=== PATIENT | female | born 1940 | race Caucasian/White ===

== ENCOUNTER 2016-12-03 00:35 | Inpatient (IN) | payer MEDICARE, OTHER ==
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
[2016-12-03 01:17] LABS: % BASOPHILS 0.9 % (0.0-2.0); % EOSINOPHILS 3.8 % (0.0-5.0); % LYMPHOCYTES 31.2 % (20.0-50.0); % MONOCYTES 7.4 % (2.0-10.0); % NEUTROPHILS 56.7 % (40.0-80.0); HEMATOCRIT 36.4 % (35.0-45.0); HEMOGLOBIN 12.4 gm/dL (11.7-16.1); MEAN CELL VOLUME 85.7 fl (81-100); MEAN CORPUSCULAR HEMOGLOBIN 29.2 pg (27.0-31.0); MEAN PLATELET VOLUME 8.6 fl; NEUTROPHILE ABSOLUTE 4.6 Th/cmm (1.8-8.0); PLATELET COUNT 183 Th/cmm (150-400); RED BLOOD COUNT 4.25 Mil/cmm (3.80-5.20); RED CELL DISTRIBUTION WIDTH 12.1 % (11.5-20.0); WHITE BLOOD COUNT 8.2 Th/cmm (4.8-10.8)
[2016-12-03 01:25] LABS: ALB/GLOB RATIO 1.4 (1.0-1.8); ALKALINE PHOSPHATASE 62 U/L (34-104); ANION GAP 9.2 (7.0-16.0); BILIRUBIN,TOTAL 0.3 mg/dL (0.3-1.0); BUN - UREA NITROGEN 30 mg/dL (7-25); CALCIUM SERUM 9.6 mg/dL (8.6-10.3); CARBON DIOXIDE 26.4 mEq/L (21.0-31.0); CHLORIDE 106 mEq/L (98-107); CHOLESTEROL 171 mg/dL (<200); GLUCOSE 106 mg/dL (70-105); POTASSIUM SERUM 3.6 mEq/L (3.5-5.1); SGOT 13 U/L (13-39); SGPT/ALT 9 U/L (7-52); SODIUM SERUM 138 mEq/L (136-145); TRIGLYCERIDES 122 mg/dL (<150)
[2016-12-03] MEDS ORDERED: Fleet Enema 135 mL RC PRN (02:33)
[2016-12-03] MEDS ORDERED: Magnesium Hydroxide (MOM) 30 mL UDC PO PRN (02:33)
[2016-12-03 02:37] VITALS: BP 134/78
--- NOTE | 2016-12-03 08:43 | History and Physical ---
History of Present Illness - HPI Chief Complaint: Aggressive behavior HPI: Patient is a permanent resident of a assisted and was send to ER for evaluation of aggressive behavior. Vital Signs: Last Vital Signs Temp 97.3 F 12/03/16 02:30 Pulse 63 12/03/16 08:28 Resp 18 12/03/16 02:30 BP 142/73 12/03/16 08:28 Pulse Ox 97 12/03/16 02:30 Past Medical History Cardiovascular: Report: HTN Pulmonary: Report: No Pertinent Hx CERTIFIED PEER SPECIALIST: Report: CVA, Dementia GI: Report: No Pertinent Hx Psych: Report: Depression, Psychosis Musculoskeletal: Report: No Pertinent Hx Rheumatologic: Report: No pertinent Hx Renal/: Report: Chronic Renal Insuff Endocrine: Report: No Pertinent Hx Dermatology: Report: No Pertinent Hx - Past Surgical History Past Surgical History: No pertinent Hx Family Medical History - Family Member Mother Name:: unknown Ethnicity: Unknown Living Status: Unknown Hx Family Cancer: No Hx Family Coronary Artery Disease: No Hx Family Congestive Heart Failure: No Hx Family Hypertension: No Hx Family Stroke: No Hx Family Diabetes: No Hx Family Seizures: No Hx Family Dementia: No Hx Family AIDS: No Hx Family HIV: No Hx Family COPD: No Hx Family Hepatitis: No Hx Family Psychiatric Problems: No Hx Family Tuberculosis: No Social History Smoke: No Alcohol: None Drugs: None Lives: Alone Domestic Violence: Negative Health Maintenance Health Maintenance: Cholesterol - Medications Home Medications: Home Medication Medication Instructions Recorded Type Acetaminophen [Tylenol] 650 mg PO Q4HR PRN 12/03/16 History Amlodipine Besylate 5 mg PO DAILY 12/03/16 History Aspirin [Ecotrin] 81 mg PO DAILY 12/03/16 History Bisacodyl [Dulcolax 10 Mg Supp] 10 mg RC DAILY PRN 12/03/16 History Cranberry Fruit Concentrate 450 mg PO DAILY 12/03/16 History [Cranberry] Docusate Sodium [Colace] 100 mg PO DAILY 12/03/16 History Fleet Enema [Fleet Enema] 1 dose RC Q48HR PRN 12/03/16 History Magnesium Hydroxide [Milk of 30 ml PO HS PRN 12/03/16 History Magnesia] QUEtiapine Fumarate [SEROquel] 75 mg PO BID 12/03/16 History Sertraline [Zoloft] 25 mg PO DAILY 12/03/16 History Simvastatin [Zocor*] 20 mg PO QPM 12/03/16 History Temazepam [Restoril*] 15 mg PO HS PRN 12/03/16 History - Allergies Allergies/Adverse Reactions: Allergies Allergy/AdvReac Type Severity Reaction Status Date / Time pollen extracts Allergy Verified 12/03/16 01:16 Review of Systems - Review of Systems Constitutional: Report: No Significant Eyes: Report: No Significant ENT: Report: No Significant Respiratory: Report: No Significant Cardiovascular: Report: No Significant Gastrointestinal: Report: No Significant Genitourinary: Report: No Significant Musculoskeletal: Report: No Significant Skin: Report: No Significant Neurological: Report: Confusion Physical Exam - Physical Exam HEENT: Report: Ears Nose Throat within normal limits Neck: Report: Within normal limits Cardiovascular Systems: Report: Regular, Rate and Rhythm Respiratory: Report: Breath Sounds are within normal limits Abdomen: Report: Non-tender to palpation Back: Report: Inspection of back is within normal limits. Extremities: Report: Non-tender to palpation. Skin: Report: Color of skin is within normal limits Neuro/Psych: Report: Disoriented to name time or place - Lab Results All Lab Results last 24 hours: Laboratory Last Values WBC 8.2 Th/cmm (4.8-10.8) 12/03/16 00:58 RBC 4.25 Mil/cmm (3.80-5.20) 12/03/16 00:58 Hgb 12.4 gm/dL (11.7-16.1) 12/03/16 00:58 Hct 36.4 % (35.0-45.0) 12/03/16 00:58 MCV 85.7 fl (81-100) 12/03/16 00:58 MCH 29.2 pg (27.0-31.0) 12/03/16 00:58 MCHC Differential 34.0 pg (28.0-36.0) 12/03/16 00:58 RDW 12.1 % (11.5-20.0) 12/03/16 00:58 Plt Count 183 Th/cmm (150-400) 12/03/16 00:58 MPV 8.6 fl 12/03/16 00:58 Neutrophils % 56.7 % (40.0-80.0) 12/03/16 00:58 Lymphocytes % 31.2 % (20.0-50.0) 12/03/16 00:58 Monocytes % 7.4 % (2.0-10.0) 12/03/16 00:58 Eosinophils % 3.8 % (0.0-5.0) 12/03/16 00:58 Basophils % 0.9 % (0.0-2.0) 12/03/16 00:58 Sodium 138 mEq/L (136-145) 12/03/16 00:58 Potassium 3.6 mEq/L (3.5-5.1) 12/03/16 00:58 Chloride 106 mEq/L (98-107) 12/03/16 00:58 Carbon Dioxide 26.4 mEq/L (21.0-31.0) 12/03/16 00:58 Anion Gap 9.2 (7.0-16.0) 12/03/16 00:58 BUN 30 mg/dL (7-25) H 12/03/16 00:58 Creatinine 1.0 mg/dL (0.6-1.2) 12/03/16 00:58 Est GFR ( Amer) TNP 12/03/16 00:58 Est GFR (Non-Af Amer) TNP 12/03/16 00:58 BUN/Creatinine Ratio 30.0 12/03/16 00:58 Glucose 106 mg/dL (70-105) H 12/03/16 00:58 Calcium 9.6 mg/dL (8.6-10.3) 12/03/16 00:58 Total Bilirubin 0.3 mg/dL (0.3-1.0) 12/03/16 00:58 AST 13 U/L (13-39) 12/03/16 00:58 ALT 9 U/L (7-52) 12/03/16 00:58 Alkaline Phosphatase 62 U/L (34-104) 12/03/16 00:58 Total Protein 6.5 gm/dL (6.0-8.3) 12/03/16 00:58 Albumin 3.8 gm/dL (3.7-5.3) 12/03/16 00:58 Globulin 2.7 gm/dL 12/03/16 00:58 Albumin/Globulin Ratio 1.4 (1.0-1.8) 12/03/16 00:58 Triglycerides 122 mg/dL (<150) 12/03/16 00:58 Cholesterol 171 mg/dL (<200) 12/03/16 00:58 LDL Cholesterol Direct 110 mg/dL (75-193) 12/03/16 00:58 HDL Cholesterol 48 mg/dL (23-92) 12/03/16 00:58 TSH 0.94 uIU/ml (0.34-5.60) 12/03/16 00:58 - Assessment Assessment: Patient is a permanent resident of a assisted. She is awake, calm. DX: Increased in agitation, HTN, Dementia, Hx of CVA, Dyslipemia. - Plan Plan: Patient under psychiatric care. Will continue with SNF meds. Will continue to monitor.
[2016-12-03] MEDS ORDERED: Haloperidol Lactate 5 mg/mL 1mL Vial ONE (08:54)
[2016-12-03] MEDS ORDERED: Haloperidol Lactate 5 mg/mL 1mL Vial IM ONE (08:55)
[2016-12-03] MEDS ORDERED: Non-Formulary Item 1 EA (Cranberry Fruit Concentrate [Cranberry] 450 MG) PO SCH (09:00)
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
[2016-12-04] MEDS ORDERED: Haloperidol Lactate 5 mg/mL 1mL Vial ONE (13:59)
[2016-12-04] MEDS ORDERED: Haloperidol Lactate 5 mg/mL 1mL Vial IM ONE ×2 (13:59→14:09)
--- NOTE | 2016-12-04 16:19 | Progress Notes ---
DATE: 12/04/2016 PSYCHIATRIC PROGRESS NOTE SUBJECTIVE: Staff was spoken to. The patient is interviewed. The patient's mood is noted to be irritable. Affect is constricted. Insight and judgment are very much impaired. Impulse control seems to be poor. Coping skills are also noted to be poor. The patient has been constantly banging on the doors to get out of here. The patient has been having difficult time to cope with the stress. The patient is stating that she needs to get into the college. The patient is currently not able to contact for safety at home. The patient has no insight into her illness. ASSESSMENT: The patient is still grossly psychotic and impulsive. PLAN: To continue the patient with supportive therapy. I encouraged the patient to verbalize the concerns rather than to act out. The patient is not ready to be discharged to a lower level of care. The patient is going to be placed on ____ the Seroquel and the Zoloft is going to be discontinued. The patient is going to be closely monitored with supportive therapy. JOB# [id number]
--- NOTE | 2016-12-04 23:22 | Admit Criteria Form ---
Admit Criteria Forms - Admit Criteria Diagnosis: PSYCHIATRIC DISORDERS (Place 'X' for any and all applicable criteria): Ongoing inpatient care may be needed for 1 or more of the following(1)(2)(3)(4)( 6)(7)(8): [ ]I. Danger to self or others not manageable at lower level of care. [ ]II. Grave disability (eg, inability to perform self care necessary at lower level of care) [X ]III. Agitation or inappropriate behavior interfering with care for primary condition (eg, attempting to discontinue lines or drains prematurely, unable to cooperate with respiratory care) [ ]IV. Severe disability or disorder indicated by ALL of the following: [ ]a) Severe behavioral health disorder-related symptoms or condition indicated by 1 or more of the following: [ ]i) Severe problem with cognition, memory, judgment, or impulse control [ ]ii) Severe clinical manifestations (eg, hallucinations, delusions, other acute psychotic symptoms, cyndie, extreme agitation or anxiety) [ ]b) Patient management at lower level of care is not feasible until acute intervention or modification is initiated. Extended stay beyond goal length of stay for the primary condition may be needed until ALLof the following are present(1)(2)(3)(4)(722)(23): [ ]a) Danger to self or others is absent or manageable at lower level of care [ ]b) Behavior crisis management, including physical or chemical restraints, is required and is not available at a lower level of care. [ ]c) Behavioral symptoms (e.g., agitation, somnolence, inappropriate behavior) are present, and are not manageable at a lower level of care. [ ]d) Patient cannot understand follow-up treatment and crisis plan. [ ]e) Provider and supports are sufficiently available at lower level of care. [ ]f) Patient can participate (e.g., verify absence of plan for harm) and is in needed of monitoring. The original [facility] content created by [facility] has been revised. The portions of the content which have been revised are identified through the use of italic text or in bold, and [facility] has neither reviewed nor approved the modified material. All other unmodified content is copyright [facility]. Please see references footnoted in the original [facility] edition 2017 Admit Criteria Met?: Yes
[2016-12-05 19:20] LABS: URINE BILIRUBIN NEGATIVE (NEGATIVE); URINE BLOOD LARGE (NEGATIVE); URINE GLUCOSE (UA) NEGATIVE (NEGATIVE); URINE KETONE NEGATIVE (NEGATIVE); URINE PROTEIN NEGATIVE (NEGATIVE); URINE UROBILINOGEN 0.2 E.U./dL (0.2 - 1.0)
[2016-12-05 19:23] LABS: URINE COLOR YELLOW
[2016-12-05 19:38] LABS: URINE BACTERIA FEW /hpf (NONE SEEN); URINE EPITHELIAL CELLS NONE SEEN /lpf (FEW)
--- NOTE | 2016-12-05 21:17 | Progress Notes ---
DATE: 12/05/2016 SUBJECTIVE: Staff was spoken to. The patient is interviewed. Mood is noted to be irritable. Affect is constricted. Insight and judgment are noted to be still impaired. Impulse control seems to be poor. Coping skills are also noted to be poor. The patient is irritable and angry and has been testing the limits. The patient has no insight into her illness. The patient has been given couple of dose of the Haldol. The patient has been constantly testing the limits and then trying to look at the dose, to leave the facility. The patient has no insight. The patient is encouraged to verbalize her concerns rather than to act out. In view of her impulsivity, it is decided to put the patient on Depakote, which is going to be given at 250 mg twice a day in regards to her irritability and mood swings and the patient is going to be closely monitored and encouraged to verbalize the concerns. ASSESSMENT: The patient is still psychotic and impulsive. PLAN: To continue with the supportive therapy. I encouraged the patient to verbalize the concerns rather than to act out. The patient is not ready to be discharged to a lower level of care yet. JOB# [id number]
--- NOTE | 2016-12-06 08:48 | General Progress Note ---
Subjective - Review of Systems Service Date: 12/06/16 Subjective: I am OK Objective - Results Result Diagrams: 12/03/16 00:58 12/03/16 00:58 Recent Labs: Laboratory Last Values WBC 8.2 Th/cmm (4.8-10.8) 12/03/16 00:58 RBC 4.25 Mil/cmm (3.80-5.20) 12/03/16 00:58 Hgb 12.4 gm/dL (11.7-16.1) 12/03/16 00:58 Hct 36.4 % (35.0-45.0) 12/03/16 00:58 MCV 85.7 fl (81-100) 12/03/16 00:58 MCH 29.2 pg (27.0-31.0) 12/03/16 00:58 MCHC Differential 34.0 pg (28.0-36.0) 12/03/16 00:58 RDW 12.1 % (11.5-20.0) 12/03/16 00:58 Plt Count 183 Th/cmm (150-400) 12/03/16 00:58 MPV 8.6 fl 12/03/16 00:58 Neutrophils % 56.7 % (40.0-80.0) 12/03/16 00:58 Lymphocytes % 31.2 % (20.0-50.0) 12/03/16 00:58 Monocytes % 7.4 % (2.0-10.0) 12/03/16 00:58 Eosinophils % 3.8 % (0.0-5.0) 12/03/16 00:58 Basophils % 0.9 % (0.0-2.0) 12/03/16 00:58 Sodium 138 mEq/L (136-145) 12/03/16 00:58 Potassium 3.6 mEq/L (3.5-5.1) 12/03/16 00:58 Chloride 106 mEq/L (98-107) 12/03/16 00:58 Carbon Dioxide 26.4 mEq/L (21.0-31.0) 12/03/16 00:58 Anion Gap 9.2 (7.0-16.0) 12/03/16 00:58 BUN 30 mg/dL (7-25) H 12/03/16 00:58 Creatinine 1.0 mg/dL (0.6-1.2) 12/03/16 00:58 Est GFR ( Amer) TNP 12/03/16 00:58 Est GFR (Non-Af Amer) TNP 12/03/16 00:58 BUN/Creatinine Ratio 30.0 12/03/16 00:58 Glucose 106 mg/dL (70-105) H 12/03/16 00:58 Calcium 9.6 mg/dL (8.6-10.3) 12/03/16 00:58 Total Bilirubin 0.3 mg/dL (0.3-1.0) 12/03/16 00:58 AST 13 U/L (13-39) 12/03/16 00:58 ALT 9 U/L (7-52) 12/03/16 00:58 Alkaline Phosphatase 62 U/L (34-104) 12/03/16 00:58 Total Protein 6.5 gm/dL (6.0-8.3) 12/03/16 00:58 Albumin 3.8 gm/dL (3.7-5.3) 12/03/16 00:58 Globulin 2.7 gm/dL 12/03/16 00:58 Albumin/Globulin Ratio 1.4 (1.0-1.8) 12/03/16 00:58 Triglycerides 122 mg/dL (<150) 12/03/16 00:58 Cholesterol 171 mg/dL (<200) 12/03/16 00:58 LDL Cholesterol Direct 110 mg/dL (75-193) 12/03/16 00:58 HDL Cholesterol 48 mg/dL (23-92) 12/03/16 00:58 TSH 0.94 uIU/ml (0.34-5.60) 12/03/16 00:58 Urine Source CLEAN C 12/05/16 18:20 Urine Color YELLOW 12/05/16 18:20 Urine Clarity SLIGHT CLOUDY (CLEAR) 12/05/16 18:20 Urine pH 6.0 (4.6 - 8.0) 12/05/16 18:20 Ur Specific [place] 1.015 (1.005-1.030) 12/05/16 18:20 Urine Protein NEGATIVE mg/dL (NEGATIVE) 12/05/16 18:20 Urine Glucose (UA) NEGATIVE mg/dL (NEGATIVE) 12/05/16 18:20 Urine Ketones NEGATIVE mg/dL (NEGATIVE) 12/05/16 18:20 Urine Blood LARGE (NEGATIVE) H 12/05/16 18:20 Urine Nitrate NEGATIVE (NEGATIVE) 12/05/16 18:20 Urine Bilirubin NEGATIVE (NEGATIVE) 12/05/16 18:20 Urine Urobilinogen 0.2 E.U./dL (0.2 - 1.0) 12/05/16 18:20 Ur Leukocyte Esterase MODERATE (NEGATIVE) H 12/05/16 18:20 Urine RBC 10-25 /hpf (0-5) H 12/05/16 18:20 Urine WBC 10-25 /hpf (0-5) H 12/05/16 18:20 Ur Epithelial Cells NONE SEEN /lpf (FEW) 12/05/16 18:20 Urine Bacteria FEW /hpf (NONE SEEN) 12/05/16 18:20 RPR NONREACTIVE (NONREACTIVE) 12/03/16 00:58 - Physical Exam Vitals and I&O: Vital Signs Temp 97.2 F 12/06/16 06:56 Pulse 59 12/06/16 06:56 Resp 19 12/06/16 06:56 BP 129/58 12/06/16 06:56 Pulse Ox 98 12/06/16 06:56 Intake & Output 12/05/16 12/06/16 12/06/16 18:59 06:59 18:59 Intake Total 900 240 Balance 900 240 Intake: Oral 900 240 Other: # Voids 4 1 # Bowel Movements 1 Active Medications: Current Medications Acetaminophen (Tylenol) 650 mg PO Q4HR PRN PRN Reason: Pain or Fever >101 Stop: 02/01/17 02:32 Amlodipine Besylate (Norvasc) 5 mg PO DAILY COUNT INCLUDES THE [facility] Stop: 02/01/17 08:59 Last Admin: 12/05/16 09:06 Dose: 5 mg Aspirin (Ecotrin) 81 mg PO DAILY COUNT INCLUDES THE [facility] Stop: 02/01/17 08:59 Last Admin: 12/05/16 09:05 Dose: 81 mg Bisacodyl (Dulcolax 10 Mg Supp) 10 mg RC DAILY PRN PRN Reason: Constipation Stop: 02/01/17 02:32 Ciprofloxacin (Cipro) 250 mg PO BID COUNT INCLUDES THE [facility] Stop: 12/12/16 17:01 Divalproex Sodium (Depakote Dr) 250 mg PO BID RHIANNA PRN Reason: Protocol Stop: 02/03/17 16:59 Last Admin: 12/05/16 16:54 Dose: 250 mg Docusate Sodium (Colace) 100 mg PO DAILY RHIANNA Stop: 02/01/17 08:59 Last Admin: 12/05/16 09:05 Dose: 100 mg Lorazepam (Ativan) 1 mg PO Q6HR PRN; Protocol PRN Reason: Agitation Stop: 02/03/17 09:14 Magnesium Hydroxide (Milk Of Magnesia) 30 ml PO HS PRN PRN Reason: Constipation Stop: 02/01/17 02:32 Quetiapine Fumarate (Seroquel) 100 mg PO BID RHIANNA PRN Reason: Protocol Stop: 02/02/17 12:20 Last Admin: 12/05/16 16:53 Dose: 100 mg Simvastatin (Zocor) 20 mg PO QPM RHIANNA PRN Reason: Protocol Stop: 02/01/17 16:59 Last Admin: 12/05/16 16:54 Dose: 20 mg Sodium Phosphate (Fleet Enema) 135 ml RC Q48H PRN PRN Reason: Constipation Stop: 02/01/17 02:32 Temazepam (Restoril) 15 mg PO HS PRN; Protocol PRN Reason: Insomnia Stop: 02/01/17 02:32 General: Alert, No acute distress, Other (Confused) HEENT: Atraumatic Neck: Supple Cardiovascular: Regular rate Lungs: Clear to auscultation Abdomen: Bowel sounds, Soft Extremities: Other (No edema) Neurological: Normal gait Skin: Other (Warm and dry) Psych/Mental Status: Other (Confused, not oriented) Assessment/Plan - Assessment Assessment: Patient is awake, calm, confused. DX: Increased in agitation, HTN, Dementia, Hx of CVA, Dyslipemia. - Plan Plan: Patient under psychiatric care. Will continue with SNF meds. Will continue to monitor.
--- NOTE | 2016-12-07 00:22 | Progress Notes ---
DATE: 12/06/2016 PSYCHIATRIC PROGRESS NOTE TIME PATIENT SEEN: 6:00 p.m. Staff was spoken to. The patient is interviewed. Mood is noted to be irritable. Affect is constricted. Insight and judgment at this time are noted to be very much impaired. Impulse control seems to be poor. Coping skills are also noted to be poor. The patient is constantly argumentative. The patient has no insight into her illness. The patient still has been argumentative and has been becoming a major problem with the behavior. Coping skills are noted to be very poor. In view of her acute mood swings, it is decided to increase the dose on the Depakote to 500 mg twice a day. I encouraged the patient to verbalize her concerns rather than to act out. The patient is going to be continued on the Seroquel as ordered. JOB# [id number]
--- NOTE | 2016-12-07 08:37 | General Progress Note ---
Subjective - Review of Systems Service Date: 12/07/16 Subjective: I am OK Objective - Results Result Diagrams: 12/03/16 00:58 12/03/16 00:58 Recent Labs: Laboratory Last Values WBC 8.2 Th/cmm (4.8-10.8) 12/03/16 00:58 RBC 4.25 Mil/cmm (3.80-5.20) 12/03/16 00:58 Hgb 12.4 gm/dL (11.7-16.1) 12/03/16 00:58 Hct 36.4 % (35.0-45.0) 12/03/16 00:58 MCV 85.7 fl (81-100) 12/03/16 00:58 MCH 29.2 pg (27.0-31.0) 12/03/16 00:58 MCHC Differential 34.0 pg (28.0-36.0) 12/03/16 00:58 RDW 12.1 % (11.5-20.0) 12/03/16 00:58 Plt Count 183 Th/cmm (150-400) 12/03/16 00:58 MPV 8.6 fl 12/03/16 00:58 Neutrophils % 56.7 % (40.0-80.0) 12/03/16 00:58 Lymphocytes % 31.2 % (20.0-50.0) 12/03/16 00:58 Monocytes % 7.4 % (2.0-10.0) 12/03/16 00:58 Eosinophils % 3.8 % (0.0-5.0) 12/03/16 00:58 Basophils % 0.9 % (0.0-2.0) 12/03/16 00:58 Sodium 138 mEq/L (136-145) 12/03/16 00:58 Potassium 3.6 mEq/L (3.5-5.1) 12/03/16 00:58 Chloride 106 mEq/L (98-107) 12/03/16 00:58 Carbon Dioxide 26.4 mEq/L (21.0-31.0) 12/03/16 00:58 Anion Gap 9.2 (7.0-16.0) 12/03/16 00:58 BUN 30 mg/dL (7-25) H 12/03/16 00:58 Creatinine 1.0 mg/dL (0.6-1.2) 12/03/16 00:58 Est GFR ( Amer) TNP 12/03/16 00:58 Est GFR (Non-Af Amer) TNP 12/03/16 00:58 BUN/Creatinine Ratio 30.0 12/03/16 00:58 Glucose 106 mg/dL (70-105) H 12/03/16 00:58 Calcium 9.6 mg/dL (8.6-10.3) 12/03/16 00:58 Total Bilirubin 0.3 mg/dL (0.3-1.0) 12/03/16 00:58 AST 13 U/L (13-39) 12/03/16 00:58 ALT 9 U/L (7-52) 12/03/16 00:58 Alkaline Phosphatase 62 U/L (34-104) 12/03/16 00:58 Total Protein 6.5 gm/dL (6.0-8.3) 12/03/16 00:58 Albumin 3.8 gm/dL (3.7-5.3) 12/03/16 00:58 Globulin 2.7 gm/dL 12/03/16 00:58 Albumin/Globulin Ratio 1.4 (1.0-1.8) 12/03/16 00:58 Triglycerides 122 mg/dL (<150) 12/03/16 00:58 Cholesterol 171 mg/dL (<200) 12/03/16 00:58 LDL Cholesterol Direct 110 mg/dL (75-193) 12/03/16 00:58 HDL Cholesterol 48 mg/dL (23-92) 12/03/16 00:58 TSH 0.94 uIU/ml (0.34-5.60) 12/03/16 00:58 Urine Source CLEAN C 12/05/16 18:20 Urine Color YELLOW 12/05/16 18:20 Urine Clarity SLIGHT CLOUDY (CLEAR) 12/05/16 18:20 Urine pH 6.0 (4.6 - 8.0) 12/05/16 18:20 Ur Specific [place] 1.015 (1.005-1.030) 12/05/16 18:20 Urine Protein NEGATIVE mg/dL (NEGATIVE) 12/05/16 18:20 Urine Glucose (UA) NEGATIVE mg/dL (NEGATIVE) 12/05/16 18:20 Urine Ketones NEGATIVE mg/dL (NEGATIVE) 12/05/16 18:20 Urine Blood LARGE (NEGATIVE) H 12/05/16 18:20 Urine Nitrate NEGATIVE (NEGATIVE) 12/05/16 18:20 Urine Bilirubin NEGATIVE (NEGATIVE) 12/05/16 18:20 Urine Urobilinogen 0.2 E.U./dL (0.2 - 1.0) 12/05/16 18:20 Ur Leukocyte Esterase MODERATE (NEGATIVE) H 12/05/16 18:20 Urine RBC 10-25 /hpf (0-5) H 12/05/16 18:20 Urine WBC 10-25 /hpf (0-5) H 12/05/16 18:20 Ur Epithelial Cells NONE SEEN /lpf (FEW) 12/05/16 18:20 Urine Bacteria FEW /hpf (NONE SEEN) 12/05/16 18:20 RPR NONREACTIVE (NONREACTIVE) 12/03/16 00:58 - Physical Exam Vitals and I&O: Vital Signs Temp 98 F 12/07/16 07:06 Pulse 96 12/07/16 07:06 Resp 19 12/07/16 07:06 BP 158/72 12/07/16 07:06 Pulse Ox 99 12/07/16 07:06 Intake & Output 12/06/16 12/07/16 12/07/16 18:59 06:59 18:59 Intake Total 200 240 0 Balance 200 240 0 Intake: Oral 200 240 0 Other: # Voids 1 3 # Bowel Movements 0 Active Medications: Current Medications Acetaminophen (Tylenol) 650 mg PO Q4HR PRN PRN Reason: Pain or Fever >101 Stop: 02/01/17 02:32 Amlodipine Besylate (Norvasc) 5 mg PO DAILY [facility] Stop: 02/01/17 08:59 Last Admin: 12/06/16 09:42 Dose: 5 mg Aspirin (Ecotrin) 81 mg PO DAILY [facility] Stop: 02/01/17 08:59 Last Admin: 12/06/16 09:41 Dose: 81 mg Bisacodyl (Dulcolax 10 Mg Supp) 10 mg RC DAILY PRN PRN Reason: Constipation Stop: 02/01/17 02:32 Ciprofloxacin (Cipro) 250 mg PO BID [facility] Stop: 12/12/16 17:01 Last Admin: 12/06/16 18:41 Dose: Not Given Divalproex Sodium (Depakote Dr) 500 mg PO BID [facility] PRN Reason: Protocol Stop: 02/03/17 16:59 Docusate Sodium (Colace) 100 mg PO DAILY [facility] Stop: 02/01/17 08:59 Last Admin: 12/06/16 09:41 Dose: 100 mg Lorazepam (Ativan) 1 mg PO Q6HR PRN; Protocol PRN Reason: Agitation Stop: 02/03/17 09:14 Magnesium Hydroxide (Milk Of Magnesia) 30 ml PO HS PRN PRN Reason: Constipation Stop: 02/01/17 02:32 Quetiapine Fumarate (Seroquel) 100 mg PO BID [facility] PRN Reason: Protocol Stop: 02/02/17 12:20 Last Admin: 12/06/16 18:42 Dose: Not Given Simvastatin (Zocor) 20 mg PO QPM [facility] PRN Reason: Protocol Stop: 02/01/17 16:59 Last Admin: 12/06/16 18:43 Dose: Not Given Sodium Phosphate (Fleet Enema) 135 ml RC Q48H PRN PRN Reason: Constipation Stop: 02/01/17 02:32 Temazepam (Restoril) 15 mg PO HS PRN; Protocol PRN Reason: Insomnia Stop: 02/01/17 02:32 General: Alert, No acute distress, Other (Confused) HEENT: Atraumatic Neck: Supple Cardiovascular: Regular rate Lungs: Clear to auscultation Abdomen: Bowel sounds, Soft Extremities: Other (No edema) Neurological: Normal gait Skin: Other (Warm and dry) Psych/Mental Status: Other (Confused, not oriented) Assessment/Plan - Assessment Assessment: Patient is awake, calm, confused. DX: Increased in agitation, HTN, Dementia, Hx of CVA, Dyslipemia. - Plan Plan: Patient under psychiatric care. Will continue with SNF meds. Will continue to monitor.
--- NOTE | 2016-12-07 15:21 | Progress Notes ---
DATE: 12/07/2016 SUBJECTIVE: Staff was spoken to. The patient is interviewed. Mood is noted to be irritable. Affect is constricted. The patient's insight and judgment are noted to be still impaired. Impulse control is limited. The patient has been placed on 500 mg of Depakote yesterday, but the patient is still trying to hit the staff members and could not be contained and hence it is decided to change the Seroquel to 150 mg twice a day and the patient is going to be followed up. The patient continues to be paranoid and is not making much sense. The patient has been having difficult time to follow the directions. ASSESSMENT: The patient is still impulsive. PLAN: To continue the patient with the supportive therapy. I encouraged the patient to verbalize the concerns rather than to act out. JOB# [id number]
--- NOTE | 2016-12-08 08:35 | General Progress Note ---
Subjective - Review of Systems Service Date: 12/08/16 Subjective: I am OK . Objective - Results Result Diagrams: 12/03/16 00:58 12/03/16 00:58 Recent Labs: Laboratory Last Values WBC 8.2 Th/cmm (4.8-10.8) 12/03/16 00:58 RBC 4.25 Mil/cmm (3.80-5.20) 12/03/16 00:58 Hgb 12.4 gm/dL (11.7-16.1) 12/03/16 00:58 Hct 36.4 % (35.0-45.0) 12/03/16 00:58 MCV 85.7 fl (81-100) 12/03/16 00:58 MCH 29.2 pg (27.0-31.0) 12/03/16 00:58 MCHC Differential 34.0 pg (28.0-36.0) 12/03/16 00:58 RDW 12.1 % (11.5-20.0) 12/03/16 00:58 Plt Count 183 Th/cmm (150-400) 12/03/16 00:58 MPV 8.6 fl 12/03/16 00:58 Neutrophils % 56.7 % (40.0-80.0) 12/03/16 00:58 Lymphocytes % 31.2 % (20.0-50.0) 12/03/16 00:58 Monocytes % 7.4 % (2.0-10.0) 12/03/16 00:58 Eosinophils % 3.8 % (0.0-5.0) 12/03/16 00:58 Basophils % 0.9 % (0.0-2.0) 12/03/16 00:58 Sodium 138 mEq/L (136-145) 12/03/16 00:58 Potassium 3.6 mEq/L (3.5-5.1) 12/03/16 00:58 Chloride 106 mEq/L (98-107) 12/03/16 00:58 Carbon Dioxide 26.4 mEq/L (21.0-31.0) 12/03/16 00:58 Anion Gap 9.2 (7.0-16.0) 12/03/16 00:58 BUN 30 mg/dL (7-25) H 12/03/16 00:58 Creatinine 1.0 mg/dL (0.6-1.2) 12/03/16 00:58 Est GFR ( Amer) TNP 12/03/16 00:58 Est GFR (Non-Af Amer) TNP 12/03/16 00:58 BUN/Creatinine Ratio 30.0 12/03/16 00:58 Glucose 106 mg/dL (70-105) H 12/03/16 00:58 Calcium 9.6 mg/dL (8.6-10.3) 12/03/16 00:58 Total Bilirubin 0.3 mg/dL (0.3-1.0) 12/03/16 00:58 AST 13 U/L (13-39) 12/03/16 00:58 ALT 9 U/L (7-52) 12/03/16 00:58 Alkaline Phosphatase 62 U/L (34-104) 12/03/16 00:58 Total Protein 6.5 gm/dL (6.0-8.3) 12/03/16 00:58 Albumin 3.8 gm/dL (3.7-5.3) 12/03/16 00:58 Globulin 2.7 gm/dL 12/03/16 00:58 Albumin/Globulin Ratio 1.4 (1.0-1.8) 12/03/16 00:58 Triglycerides 122 mg/dL (<150) 12/03/16 00:58 Cholesterol 171 mg/dL (<200) 12/03/16 00:58 LDL Cholesterol Direct 110 mg/dL (75-193) 12/03/16 00:58 HDL Cholesterol 48 mg/dL (23-92) 12/03/16 00:58 TSH 0.94 uIU/ml (0.34-5.60) 12/03/16 00:58 Urine Source CLEAN C 12/05/16 18:20 Urine Color YELLOW 12/05/16 18:20 Urine Clarity SLIGHT CLOUDY (CLEAR) 12/05/16 18:20 Urine pH 6.0 (4.6 - 8.0) 12/05/16 18:20 Ur Specific [place] 1.015 (1.005-1.030) 12/05/16 18:20 Urine Protein NEGATIVE mg/dL (NEGATIVE) 12/05/16 18:20 Urine Glucose (UA) NEGATIVE mg/dL (NEGATIVE) 12/05/16 18:20 Urine Ketones NEGATIVE mg/dL (NEGATIVE) 12/05/16 18:20 Urine Blood LARGE (NEGATIVE) H 12/05/16 18:20 Urine Nitrate NEGATIVE (NEGATIVE) 12/05/16 18:20 Urine Bilirubin NEGATIVE (NEGATIVE) 12/05/16 18:20 Urine Urobilinogen 0.2 E.U./dL (0.2 - 1.0) 12/05/16 18:20 Ur Leukocyte Esterase MODERATE (NEGATIVE) H 12/05/16 18:20 Urine RBC 10-25 /hpf (0-5) H 12/05/16 18:20 Urine WBC 10-25 /hpf (0-5) H 12/05/16 18:20 Ur Epithelial Cells NONE SEEN /lpf (FEW) 12/05/16 18:20 Urine Bacteria FEW /hpf (NONE SEEN) 12/05/16 18:20 RPR NONREACTIVE (NONREACTIVE) 12/03/16 00:58 - Physical Exam Vitals and I&O: Vital Signs Temp 97.2 F 12/08/16 05:14 Pulse 61 12/08/16 08:02 Resp 20 12/08/16 05:14 BP 127/73 12/08/16 08:02 Pulse Ox 98 12/08/16 05:14 Intake & Output 12/07/16 12/08/16 12/08/16 18:59 06:59 18:59 Intake Total 1600 120 Balance 1600 120 Intake: Oral 1600 120 Other: # Voids 4 1 # Bowel Movements 0 0 Active Medications: Current Medications Acetaminophen (Tylenol) 650 mg PO Q4HR PRN PRN Reason: Pain or Fever >101 Stop: 02/01/17 02:32 Amlodipine Besylate (Norvasc) 5 mg PO DAILY [facility] Stop: 02/01/17 08:59 Last Admin: 12/08/16 08:02 Dose: 5 mg Aspirin (Ecotrin) 81 mg PO DAILY [facility] Stop: 02/01/17 08:59 Last Admin: 12/08/16 08:03 Dose: 81 mg Bisacodyl (Dulcolax 10 Mg Supp) 10 mg RC DAILY PRN PRN Reason: Constipation Stop: 02/01/17 02:32 Ciprofloxacin (Cipro) 250 mg PO BID [facility] Stop: 12/12/16 17:01 Last Admin: 12/08/16 08:00 Dose: 250 mg Divalproex Sodium (Depakote Dr) 500 mg PO BID [facility] PRN Reason: Protocol Stop: 02/03/17 16:59 Last Admin: 12/08/16 08:01 Dose: 500 mg Docusate Sodium (Colace) 100 mg PO DAILY [facility] Stop: 02/01/17 08:59 Last Admin: 12/08/16 08:02 Dose: 100 mg Lorazepam (Ativan) 1 mg PO Q6HR PRN; Protocol PRN Reason: Agitation Stop: 02/03/17 09:14 Last Admin: 12/07/16 13:35 Dose: 1 mg Magnesium Hydroxide (Milk Of Magnesia) 30 ml PO HS PRN PRN Reason: Constipation Stop: 02/01/17 02:32 Quetiapine Fumarate (Seroquel) 150 mg PO BID [facility] PRN Reason: Protocol Stop: 02/02/17 11:29 Last Admin: 12/08/16 08:02 Dose: 150 mg Simvastatin (Zocor) 20 mg PO QPM [facility] PRN Reason: Protocol Stop: 02/01/17 16:59 Last Admin: 12/06/16 18:43 Dose: Not Given Sodium Phosphate (Fleet Enema) 135 ml RC Q48H PRN PRN Reason: Constipation Stop: 02/01/17 02:32 Temazepam (Restoril) 15 mg PO HS PRN; Protocol PRN Reason: Insomnia Stop: 02/01/17 02:32 General: Alert, No acute distress, Other (Confused) HEENT: Atraumatic Neck: Supple Cardiovascular: Regular rate Lungs: Clear to auscultation Abdomen: Bowel sounds, Soft Extremities: Other (No edema) Neurological: Normal gait Skin: Other (Warm and dry) Psych/Mental Status: Other (Confused, not oriented) Assessment/Plan - Assessment Assessment: Patient is awake, calm, confused. DX: Increased in agitation, HTN, Dementia, Hx of CVA, Dyslipemia. - Plan Plan: Patient under psychiatric care. Will continue with SNF meds. Will continue to monitor.
--- NOTE | 2016-12-09 09:16 | General Progress Note ---
Subjective - Review of Systems Service Date: 12/09/16 Subjective: I am OK Objective - Results Result Diagrams: 12/03/16 00:58 12/03/16 00:58 Recent Labs: Laboratory Last Values WBC 8.2 Th/cmm (4.8-10.8) 12/03/16 00:58 RBC 4.25 Mil/cmm (3.80-5.20) 12/03/16 00:58 Hgb 12.4 gm/dL (11.7-16.1) 12/03/16 00:58 Hct 36.4 % (35.0-45.0) 12/03/16 00:58 MCV 85.7 fl (81-100) 12/03/16 00:58 MCH 29.2 pg (27.0-31.0) 12/03/16 00:58 MCHC Differential 34.0 pg (28.0-36.0) 12/03/16 00:58 RDW 12.1 % (11.5-20.0) 12/03/16 00:58 Plt Count 183 Th/cmm (150-400) 12/03/16 00:58 MPV 8.6 fl 12/03/16 00:58 Neutrophils % 56.7 % (40.0-80.0) 12/03/16 00:58 Lymphocytes % 31.2 % (20.0-50.0) 12/03/16 00:58 Monocytes % 7.4 % (2.0-10.0) 12/03/16 00:58 Eosinophils % 3.8 % (0.0-5.0) 12/03/16 00:58 Basophils % 0.9 % (0.0-2.0) 12/03/16 00:58 Sodium 138 mEq/L (136-145) 12/03/16 00:58 Potassium 3.6 mEq/L (3.5-5.1) 12/03/16 00:58 Chloride 106 mEq/L (98-107) 12/03/16 00:58 Carbon Dioxide 26.4 mEq/L (21.0-31.0) 12/03/16 00:58 Anion Gap 9.2 (7.0-16.0) 12/03/16 00:58 BUN 30 mg/dL (7-25) H 12/03/16 00:58 Creatinine 1.0 mg/dL (0.6-1.2) 12/03/16 00:58 Est GFR ( Amer) TNP 12/03/16 00:58 Est GFR (Non-Af Amer) TNP 12/03/16 00:58 BUN/Creatinine Ratio 30.0 12/03/16 00:58 Glucose 106 mg/dL (70-105) H 12/03/16 00:58 Calcium 9.6 mg/dL (8.6-10.3) 12/03/16 00:58 Total Bilirubin 0.3 mg/dL (0.3-1.0) 12/03/16 00:58 AST 13 U/L (13-39) 12/03/16 00:58 ALT 9 U/L (7-52) 12/03/16 00:58 Alkaline Phosphatase 62 U/L (34-104) 12/03/16 00:58 Total Protein 6.5 gm/dL (6.0-8.3) 12/03/16 00:58 Albumin 3.8 gm/dL (3.7-5.3) 12/03/16 00:58 Globulin 2.7 gm/dL 12/03/16 00:58 Albumin/Globulin Ratio 1.4 (1.0-1.8) 12/03/16 00:58 Triglycerides 122 mg/dL (<150) 12/03/16 00:58 Cholesterol 171 mg/dL (<200) 12/03/16 00:58 LDL Cholesterol Direct 110 mg/dL (75-193) 12/03/16 00:58 HDL Cholesterol 48 mg/dL (23-92) 12/03/16 00:58 TSH 0.94 uIU/ml (0.34-5.60) 12/03/16 00:58 Urine Source CLEAN C 12/05/16 18:20 Urine Color YELLOW 12/05/16 18:20 Urine Clarity SLIGHT CLOUDY (CLEAR) 12/05/16 18:20 Urine pH 6.0 (4.6 - 8.0) 12/05/16 18:20 Ur Specific [place] 1.015 (1.005-1.030) 12/05/16 18:20 Urine Protein NEGATIVE mg/dL (NEGATIVE) 12/05/16 18:20 Urine Glucose (UA) NEGATIVE mg/dL (NEGATIVE) 12/05/16 18:20 Urine Ketones NEGATIVE mg/dL (NEGATIVE) 12/05/16 18:20 Urine Blood LARGE (NEGATIVE) H 12/05/16 18:20 Urine Nitrate NEGATIVE (NEGATIVE) 12/05/16 18:20 Urine Bilirubin NEGATIVE (NEGATIVE) 12/05/16 18:20 Urine Urobilinogen 0.2 E.U./dL (0.2 - 1.0) 12/05/16 18:20 Ur Leukocyte Esterase MODERATE (NEGATIVE) H 12/05/16 18:20 Urine RBC 10-25 /hpf (0-5) H 12/05/16 18:20 Urine WBC 10-25 /hpf (0-5) H 12/05/16 18:20 Ur Epithelial Cells NONE SEEN /lpf (FEW) 12/05/16 18:20 Urine Bacteria FEW /hpf (NONE SEEN) 12/05/16 18:20 RPR NONREACTIVE (NONREACTIVE) 12/03/16 00:58 - Physical Exam Vitals and I&O: Vital Signs Temp 98.2 F 12/09/16 06:58 Pulse 80 12/09/16 08:51 Resp 20 12/09/16 06:58 BP 140/82 12/09/16 08:51 Pulse Ox 96 12/09/16 06:58 Intake & Output 12/08/16 12/09/16 12/09/16 18:59 06:59 18:59 Intake Total 700 120 Balance 700 120 Intake: Oral 700 120 Other: # Voids 3 3 # Bowel Movements 1 Active Medications: Current Medications Acetaminophen (Tylenol) 650 mg PO Q4HR PRN PRN Reason: Pain or Fever >101 Stop: 02/01/17 02:32 Amlodipine Besylate (Norvasc) 5 mg PO DAILY [facility] Stop: 02/01/17 08:59 Last Admin: 12/09/16 08:51 Dose: 5 mg Aspirin (Ecotrin) 81 mg PO DAILY [facility] Stop: 02/01/17 08:59 Last Admin: 12/09/16 08:51 Dose: 81 mg Bisacodyl (Dulcolax 10 Mg Supp) 10 mg RC DAILY PRN PRN Reason: Constipation Stop: 02/01/17 02:32 Ciprofloxacin (Cipro) 250 mg PO BID [facility] Stop: 12/12/16 17:01 Last Admin: 12/09/16 08:51 Dose: 250 mg Divalproex Sodium (Depakote Dr) 500 mg PO BID [facility] PRN Reason: Protocol Stop: 02/03/17 16:59 Last Admin: 12/09/16 08:50 Dose: 500 mg Docusate Sodium (Colace) 100 mg PO DAILY [facility] Stop: 02/01/17 08:59 Last Admin: 12/09/16 08:51 Dose: 100 mg Lorazepam (Ativan) 1 mg PO Q6HR PRN; Protocol PRN Reason: Agitation Stop: 02/03/17 09:14 Last Admin: 12/07/16 13:35 Dose: 1 mg Magnesium Hydroxide (Milk Of Magnesia) 30 ml PO HS PRN PRN Reason: Constipation Stop: 02/01/17 02:32 Quetiapine Fumarate (Seroquel) 150 mg PO BID [facility] PRN Reason: Protocol Stop: 02/02/17 11:29 Last Admin: 12/09/16 08:49 Dose: 150 mg Simvastatin (Zocor) 20 mg PO QPM [facility] PRN Reason: Protocol Stop: 02/01/17 16:59 Last Admin: 12/08/16 17:27 Dose: 20 mg Sodium Phosphate (Fleet Enema) 135 ml RC Q48H PRN PRN Reason: Constipation Stop: 02/01/17 02:32 Temazepam (Restoril) 15 mg PO HS PRN; Protocol PRN Reason: Insomnia Stop: 02/01/17 02:32 General: Alert, No acute distress, Other (Confused) HEENT: Atraumatic Neck: Supple Cardiovascular: Regular rate Lungs: Clear to auscultation Abdomen: Bowel sounds, Soft Extremities: Other (No edema) Neurological: Normal gait Skin: Other (Warm and dry) Psych/Mental Status: Other (Confused, not oriented) Assessment/Plan - Assessment Assessment: Patient is awake, calm, confused. DX: Increased in agitation, HTN, Dementia, Hx of CVA, Dyslipemia. - Plan Plan: Patient under psychiatric care. Will continue with SNF meds. Will continue to monitor. Nutritional Asmnt/Malnutr-PDOC - Dietary Evaluation Malnutrition Findings (Please click <Entered> for more info): Nutritional Asmnt/Malnutrition Start: 12/08/16 13: 00 Text: Status: Complete Freq: Document 12/08/16 13:00 GSUN (Rec: 12/08/16 13:26 HECTOR [email or web address]) Nutritional Asmnt/Malnutrition Patient General Information Nutritional Screening Diagnosis Diagnosis Psychotic disorder Pertinent Medical Hx/Surgical Hx CVA, dementia, depression, psychosis, chronic renal insufficiency Subjective Information 76 year old female from SNF. Spoke to pt in santhosh chair in rec room. Pt was talkative, however confused. Avg PO intake 70% of meals since adm, meeting nutritional needs. PO intake noted to decrease the past 2 days, pt was in isolation room yesterday due to behavior. Pt was able to express she liked breakfast today, no other meaningful responses. Teeth intact. Pt appeared thin, no severe muscle fat wasting noted. Current Diet Order/ Nutrition Support Regular Pertinent Medications Dulcolax, Colace, MOM, Seroquel, Fleet Enema Pertinent Labs 12/03: reviewed Nutritional Hx/Data Height 1.73 m Height (Calculated Centimeters) 172.7 Current Weight (lbs) 68.039 kg Weight (Calculated Kilograms) 68.0 Weight (Calculated Grams) 38091.9 [place] Body Weight 140 Weight Status Approriate GI Symptoms Food Allergies No Usual diet at home [facility]: regular, REYES Skin Integrity/Comment: Dewayne 20. Skin intact. Current %PO Fair (50-74%) Estimated Nutritional Goals BEE in Kcals: Using Current wt Calories/Kcals/Kg CBW 150lb/68.1kg Kcals Calculated 1703-2043kcal (25-30kcal/kg) Protein: Using Current wt Protein Calculated 68g (1g/kg) Fluid: ml 1703-2043ml (1ml/kcal) Nutritional Problem 1. Problem Problem No nutritional problem at this time. Intervention/Recommendation Comments 1. Continue with current diet order. Avg PO intake is adequate. Expected Outcomes/Goals Expected Outcomes/Goals 1. PO intake continue to meet at least 75% of estimated nutritional needs.
--- NOTE | 2016-12-10 04:23 | Progress Notes ---
DATE: 12/09/2016 SUBJECTIVE: Staff was spoken to. The patient is interviewed. Mood is noted to be irritable. Affect is constricted. Continues to be testing the limits. The patient is getting easily agitated and is going after the staff members. The patient is currently on Seroquel 150 mg, which is going to be increased to 200 mg b.i.d., Depakote is going to be continued 500 mg b.i.d. The patient has been, at this time, not able to contact for safety and the patient has been encouraged to participate in the groups and verbalized concerns. The patient has been having difficult time. The patient's BUN is noted to be 30 and glucose is noted to be 106. The patient is going to be closely monitored at this time and Depakote level is going to be ordered for this patient. ASSESSMENT: The patient is still agitated and psychotic and he is not ready to be discharged to a lower level of care yet. JOB# [id number]
--- NOTE | 2016-12-10 08:59 | General Progress Note ---
Subjective - Review of Systems Service Date: 12/10/16 Subjective: I am OK Objective - Results Result Diagrams: 12/03/16 00:58 12/03/16 00:58 Recent Labs: Laboratory Last Values WBC 8.2 Th/cmm (4.8-10.8) 12/03/16 00:58 RBC 4.25 Mil/cmm (3.80-5.20) 12/03/16 00:58 Hgb 12.4 gm/dL (11.7-16.1) 12/03/16 00:58 Hct 36.4 % (35.0-45.0) 12/03/16 00:58 MCV 85.7 fl (81-100) 12/03/16 00:58 MCH 29.2 pg (27.0-31.0) 12/03/16 00:58 MCHC Differential 34.0 pg (28.0-36.0) 12/03/16 00:58 RDW 12.1 % (11.5-20.0) 12/03/16 00:58 Plt Count 183 Th/cmm (150-400) 12/03/16 00:58 MPV 8.6 fl 12/03/16 00:58 Neutrophils % 56.7 % (40.0-80.0) 12/03/16 00:58 Lymphocytes % 31.2 % (20.0-50.0) 12/03/16 00:58 Monocytes % 7.4 % (2.0-10.0) 12/03/16 00:58 Eosinophils % 3.8 % (0.0-5.0) 12/03/16 00:58 Basophils % 0.9 % (0.0-2.0) 12/03/16 00:58 Sodium 138 mEq/L (136-145) 12/03/16 00:58 Potassium 3.6 mEq/L (3.5-5.1) 12/03/16 00:58 Chloride 106 mEq/L (98-107) 12/03/16 00:58 Carbon Dioxide 26.4 mEq/L (21.0-31.0) 12/03/16 00:58 Anion Gap 9.2 (7.0-16.0) 12/03/16 00:58 BUN 30 mg/dL (7-25) H 12/03/16 00:58 Creatinine 1.0 mg/dL (0.6-1.2) 12/03/16 00:58 Est GFR ( Amer) TNP 12/03/16 00:58 Est GFR (Non-Af Amer) TNP 12/03/16 00:58 BUN/Creatinine Ratio 30.0 12/03/16 00:58 Glucose 106 mg/dL (70-105) H 12/03/16 00:58 Calcium 9.6 mg/dL (8.6-10.3) 12/03/16 00:58 Total Bilirubin 0.3 mg/dL (0.3-1.0) 12/03/16 00:58 AST 13 U/L (13-39) 12/03/16 00:58 ALT 9 U/L (7-52) 12/03/16 00:58 Alkaline Phosphatase 62 U/L (34-104) 12/03/16 00:58 Total Protein 6.5 gm/dL (6.0-8.3) 12/03/16 00:58 Albumin 3.8 gm/dL (3.7-5.3) 12/03/16 00:58 Globulin 2.7 gm/dL 12/03/16 00:58 Albumin/Globulin Ratio 1.4 (1.0-1.8) 12/03/16 00:58 Triglycerides 122 mg/dL (<150) 12/03/16 00:58 Cholesterol 171 mg/dL (<200) 12/03/16 00:58 LDL Cholesterol Direct 110 mg/dL (75-193) 12/03/16 00:58 HDL Cholesterol 48 mg/dL (23-92) 12/03/16 00:58 TSH 0.94 uIU/ml (0.34-5.60) 12/03/16 00:58 Urine Source CLEAN C 12/05/16 18:20 Urine Color YELLOW 12/05/16 18:20 Urine Clarity SLIGHT CLOUDY (CLEAR) 12/05/16 18:20 Urine pH 6.0 (4.6 - 8.0) 12/05/16 18:20 Ur Specific [employer] 1.015 (1.005-1.030) 12/05/16 18:20 Urine Protein NEGATIVE mg/dL (NEGATIVE) 12/05/16 18:20 Urine Glucose (UA) NEGATIVE mg/dL (NEGATIVE) 12/05/16 18:20 Urine Ketones NEGATIVE mg/dL (NEGATIVE) 12/05/16 18:20 Urine Blood LARGE (NEGATIVE) H 12/05/16 18:20 Urine Nitrate NEGATIVE (NEGATIVE) 12/05/16 18:20 Urine Bilirubin NEGATIVE (NEGATIVE) 12/05/16 18:20 Urine Urobilinogen 0.2 E.U./dL (0.2 - 1.0) 12/05/16 18:20 Ur Leukocyte Esterase MODERATE (NEGATIVE) H 12/05/16 18:20 Urine RBC 10-25 /hpf (0-5) H 12/05/16 18:20 Urine WBC 10-25 /hpf (0-5) H 12/05/16 18:20 Ur Epithelial Cells NONE SEEN /lpf (FEW) 12/05/16 18:20 Urine Bacteria FEW /hpf (NONE SEEN) 12/05/16 18:20 Valproic Acid 31.2 ug/mL (50.0-100.0) L 12/09/16 10:12 RPR NONREACTIVE (NONREACTIVE) 12/03/16 00:58 - Physical Exam Vitals and I&O: Vital Signs Temp 98.4 F 12/09/16 14:00 Pulse 91 12/09/16 14:00 Resp 20 12/09/16 14:00 BP 156/63 12/09/16 14:00 Pulse Ox 97 12/09/16 14:00 Intake & Output 12/09/16 12/10/16 12/10/16 18:59 06:59 18:59 Intake Total 960 Balance 960 Intake: Oral 960 Other: # Voids 3 # Bowel Movements 0 Stool Characteristics Soft Formed Active Medications: Current Medications Acetaminophen (Tylenol) 650 mg PO Q4HR PRN PRN Reason: Pain or Fever >101 Stop: 02/01/17 02:32 Amlodipine Besylate (Norvasc) 5 mg PO DAILY [facility] Stop: 02/01/17 08:59 Last Admin: 12/09/16 08:51 Dose: 5 mg Aspirin (Ecotrin) 81 mg PO DAILY [facility] Stop: 02/01/17 08:59 Last Admin: 12/09/16 08:51 Dose: 81 mg Bisacodyl (Dulcolax 10 Mg Supp) 10 mg RC DAILY PRN PRN Reason: Constipation Stop: 02/01/17 02:32 Ciprofloxacin (Cipro) 250 mg PO BID [facility] Stop: 12/12/16 17:01 Last Admin: 12/09/16 17:14 Dose: Not Given Divalproex Sodium (Depakote Dr) 500 mg PO BID [facility] PRN Reason: Protocol Stop: 02/03/17 16:59 Last Admin: 12/09/16 17:15 Dose: Not Given Docusate Sodium (Colace) 100 mg PO DAILY [facility] Stop: 02/01/17 08:59 Last Admin: 12/09/16 08:51 Dose: 100 mg Lorazepam (Ativan) 1 mg PO Q6HR PRN; Protocol PRN Reason: Agitation Stop: 02/03/17 09:14 Last Admin: 12/07/16 13:35 Dose: 1 mg Magnesium Hydroxide (Milk Of Magnesia) 30 ml PO HS PRN PRN Reason: Constipation Stop: 02/01/17 02:32 Quetiapine Fumarate (Seroquel) 200 mg PO BID [facility] PRN Reason: Protocol Stop: 02/02/17 09:34 Last Admin: 12/09/16 17:14 Dose: Not Given Simvastatin (Zocor) 20 mg PO QPM [facility] PRN Reason: Protocol Stop: 02/01/17 16:59 Last Admin: 12/09/16 17:14 Dose: Not Given Sodium Phosphate (Fleet Enema) 135 ml RC Q48H PRN PRN Reason: Constipation Stop: 02/01/17 02:32 Temazepam (Restoril) 15 mg PO HS PRN; Protocol PRN Reason: Insomnia Stop: 02/01/17 02:32 General: Alert, No acute distress, Other (Confused) HEENT: Atraumatic Neck: Supple Cardiovascular: Regular rate Lungs: Clear to auscultation Abdomen: Bowel sounds, Soft Extremities: Other (No edema) Neurological: Normal gait Skin: Other (Warm and dry) Psych/Mental Status: Other (Confused, not oriented) Assessment/Plan - Assessment Assessment: Patient is awake, calm, confused. DX: Increased in agitation, HTN, Dementia, Hx of CVA, Dyslipemia. - Plan Plan: Patient under psychiatric care. Will continue with SNF meds. Will continue to monitor. Nutritional Asmnt/Malnutr-PDOC - Dietary Evaluation Malnutrition Findings (Please click <Entered> for more info): Nutritional Asmnt/Malnutrition Start: 12/08/16 13: 00 Text: Status: Complete Freq: Document 12/08/16 13:00 GSUN (Rec: 12/08/16 13:26 GSUN [id number]) Nutritional Asmnt/Malnutrition Patient General Information Nutritional Screening Diagnosis Diagnosis Psychotic disorder Pertinent Medical Hx/Surgical Hx CVA, dementia, depression, psychosis, chronic renal insufficiency Subjective Information 76 year old female from SNF. Spoke to pt in santhosh chair in rec room. Pt was talkative, however confused. Avg PO intake 70% of meals since adm, meeting nutritional needs. PO intake noted to decrease the past 2 days, pt was in isolation room yesterday due to behavior. Pt was able to express she liked breakfast today, no other meaningful responses. Teeth intact. Pt appeared thin, no severe muscle fat wasting noted. Current Diet Order/ Nutrition Support Regular Pertinent Medications Dulcolax, Colace, MOM, Seroquel, Fleet Enema Pertinent Labs 12/03: reviewed Nutritional Hx/Data Height 1.73 m Height (Calculated Centimeters) 172.7 Current Weight (lbs) 68.039 kg Weight (Calculated Kilograms) 68.0 Weight (Calculated Grams) 42324.9 [place] Body Weight 140 Weight Status Approriate GI Symptoms Food Allergies No Usual diet at home [facility]: regular, REYES Skin Integrity/Comment: Dewayne Ferro. Skin intact. Current %PO Fair (50-74%) Estimated Nutritional Goals BEE in Kcals: Using Current wt Calories/Kcals/Kg CBW 150lb/68.1kg Kcals Calculated 1703-2043kcal (25-30kcal/kg) Protein: Using Current wt Protein Calculated 68g (1g/kg) Fluid: ml 1703-2043ml (1ml/kcal) Nutritional Problem 1. Problem Problem No nutritional problem at this time. Intervention/Recommendation Comments 1. Continue with current diet order. Avg PO intake is adequate. Expected Outcomes/Goals Expected Outcomes/Goals 1. PO intake continue to meet at least 75% of estimated nutritional needs.
--- NOTE | 2016-12-11 07:34 | Progress Notes ---
DATE: 12/10/2016 PSYCHIATRIC PROGRESS NOTE SUBJECTIVE: Staff was spoken to. The patient is interviewed. Mood is noted to be irritable. Affect is constricted. The patient is confused at this time. The patient has been currently on 200 mg of Seroquel and the patient is also on Depakote 500 mg b.i.d. The patient has been able to tolerate the medications. No side effects to the medications are noted. Valproic acid level, however, has been very low and the patient is being closely monitored and encouraged to comply with the treatment. ASSESSMENT: The patient is still impulsive. PLAN: To continue the patient with the supportive therapy. I encouraged the patient to verbalize the concerns rather than to act out. JOB# [id number]
[2016-12-11 15:10] LABS: BE(B) 7.5 mEq/L (-3.0-3.0); HCO3 30.7 mEq/L (20.0-26.0); pH 7.51 (7.35-7.45)
[2016-12-11 15:11] LABS: ABG SOURCE Arterial; CRITICAL VALUES REPORTED BY SH; FIO2 21
[2016-12-11 15:22] LABS: % BASOPHILS 0.2 % (0.0-2.0); % LYMPHOCYTES 14.2 % (20.0-50.0); % MONOCYTES 10.5 % (2.0-10.0); % NEUTROPHILS 74.1 % (40.0-80.0); HEMOGLOBIN 13.5 gm/dL (11.7-16.1); MEAN CORPUSCULAR HEMOGLOBIN 28.5 pg (27.0-31.0); MEAN CORPUSCULAR HGB CONC 33.1 pg (28.0-36.0); MEAN PLATELET VOLUME 8.7 fl; PLATELET COUNT 199 Th/cmm (150-400); RED BLOOD COUNT 4.74 Mil/cmm (3.80-5.20); RED CELL DISTRIBUTION WIDTH 12.4 % (11.5-20.0); WHITE BLOOD COUNT 9.4 Th/cmm (4.8-10.8)
[2016-12-11 15:28] LABS: HEMATOCRIT 40.8 % (35.0-45.0)
[2016-12-11 15:37] LABS: ANION GAP 10.8 (7.0-16.0); BUN - UREA NITROGEN 54 mg/dL (7-25); CALCIUM SERUM 10.7 mg/dL (8.6-10.3); CARBON DIOXIDE 27.7 mEq/L (21.0-31.0); CHLORIDE 102 mEq/L (98-107); GLUCOSE 162 mg/dL (70-105); POTASSIUM SERUM 3.5 mEq/L (3.5-5.1); SODIUM SERUM 137 mEq/L (136-145)
--- NOTE | 2016-12-12 08:03 | Diagnostic Imaging Report ---
Exam: Portable chest x-ray. HISTORY: Pneumonia Findings: Portable examination of the chest at 10 1525 hours reviewed. The study demonstrates no active pulmonic infiltrates or effusions. Mediastinal structures midline. Multiple metallic sutures are noted status post transsternal thoracotomy. The right hemidiaphragm is elevated with distended colon. IMPRESSION: No acute disease.
--- NOTE | 2016-12-13 09:31 | Diagnostic Imaging Report ---
Exam: Ultrasound examination of the lower extremities deep venous circulation. HISTORY: DVT Findings: Real-time ultrasound examination of the lower extremity deep venous circulation bilaterally was performed utilizing color Doppler technique. The study demonstrates normal compressibility and augmentation of deep venous system bilaterally. IMPRESSION: No evidence for deep venous thrombosis lower extremity is bilaterally. Incidentally noted right popliteal fossa Elizabeth's cyst measuring 4 cm in diameter
== END 2016-12-11 16:39 | DRG 885 ==
LOC: ER 00:35 → GERO 01:40
PROVIDERS: ADMIT Psychiatry & Neurology Psychiatry; ATTEND Psychiatry & Neurology Psychiatry
DX: F29 Unspecified psychosis not due to a substance or known physiological condition (principal); F03.91 Unspecified dementia, unspecified severity, with behavioral disturbance; E78.5 Hyperlipidemia, unspecified; N18.9 Chronic kidney disease, unspecified; I12.9 Hypertensive chronic kidney disease with stage 1 through stage 4 chronic kidney disease, or unspecified chronic kidney disease; F41.9 Anxiety disorder, unspecified; Z79.82 Long term (current) use of aspirin; Z86.73 Personal history of transient ischemic attack (TIA), and cerebral infarction without residual deficits; Z86.718 Personal history of other venous thrombosis and embolism
CPT/HCPCS: 36415-UA; 36600-90; 71010-TC; 80048-TC; 80053-TC; 80061-TC; 80164-TC; 81001-TC; 82803-TC; 82948-90; 84443-TC; 85025-TC; 86592-TC; 87086-90; 93005; 93970-TC-50; J1200; J1630; J2060; Z7610

== ENCOUNTER 2016-12-11 16:43 | Inpatient (IN) | payer MEDICARE, OTHER ==
[2016-12-11 21:13] VITALS: BP 141/76
[2016-12-11] MEDS: Sodium Chloride 0.9% 1,000 ML IV SCH (22:28)
[2016-12-12 05:23] LABS: % BASOPHILS 0.5 % (0.0-2.0); % LYMPHOCYTES 12.4 % (20.0-50.0); % MONOCYTES 12.2 % (2.0-10.0); % NEUTROPHILS 72.9 % (40.0-80.0); HEMATOCRIT 41.6 % (35.0-45.0); HEMOGLOBIN 13.8 gm/dL (11.7-16.1); MEAN CELL VOLUME 86.5 fl (81-100); MEAN CORPUSCULAR HEMOGLOBIN 28.6 pg (27.0-31.0); MEAN CORPUSCULAR HGB CONC 33.1 pg (28.0-36.0); MEAN PLATELET VOLUME 8.7 fl; NEUTROPHILE ABSOLUTE 5.9 Th/cmm (1.8-8.0); RED BLOOD COUNT 4.81 Mil/cmm (3.80-5.20); RED CELL DISTRIBUTION WIDTH 12.4 % (11.5-20.0); WHITE BLOOD COUNT 8.1 Th/cmm (4.8-10.8)
[2016-12-12 05:43] LABS: ALB/GLOB RATIO 1.1 (1.0-1.8); ALKALINE PHOSPHATASE 71 U/L (34-104); BILIRUBIN,TOTAL 0.6 mg/dL (0.3-1.0); BUN - UREA NITROGEN 48 mg/dL (7-25); BUN/CREATININE RATIO 53.3; CALCIUM SERUM 10.1 mg/dL (8.6-10.3); CARBON DIOXIDE 27.4 mEq/L (21.0-31.0); CHLORIDE 106 mEq/L (98-107); CREATININE - SERUM 0.9 mg/dL (0.6-1.2); GLUCOSE 129 mg/dL (70-105); POTASSIUM SERUM 3.4 mEq/L (3.5-5.1); SGOT 15 U/L (13-39); SGPT/ALT 15 U/L (7-52); SODIUM SERUM 139 mEq/L (136-145)
[2016-12-12] MEDS: Sodium Chloride 0.9% 1,000 ML IV SCH ×2 (05:47→13:52)
[2016-12-12 05:57] LABS: PLATELET COUNT 243 Th/cmm (150-400)
[2016-12-12] MEDS ORDERED: Pneumococcal Vaccine 0.5 mL Vial IM ONE (06:22)
--- NOTE | 2016-12-12 07:42 | Consultation ---
DATE OF CONSULTATION: 12/11/2016 HISTORY OF PRESENT ILLNESS: This 76-year-old female was seen and examined. The patient was transferred here from [facility] for episode of seizures and here she was found to have some brief episode of tachycardia. I do not to see what kind of rhythm was that from. She has been in sinus rhythm so probably it was sinus tachycardia. There is no proper history available from the patient. Information obtained from the chart. She does have history of multiple problems including diabetes mellitus type 2, hypertension and COPD. She has history of psychosis and dementia. PAST MEDICAL HISTORY: According to the chart includes hypertension, COPD, diabetes and dementia. SOCIAL HISTORY: Apparently, the patient is a chronic smoker. No alcohol. REVIEW OF SYSTEMS: Not available from the patient. PHYSICAL EXAMINATION: VITAL SIGNS: Heart rate was 118 and came down to 90, blood pressure was 153/89, temperature 97.9, respirations 18. SKIN: Normal. HEAD: Normocephalic. EYES: Conjunctivae were pink. There is no icterus in the eyes. Pupils reacting to light. NECK: There were no increased jugular venous distention, no thyromegaly, no lymphadenopathy. Carotids equal both sides. CHEST: Bilaterally symmetrical and moved well with respirations. Respiratory movements equal both sides. Trachea is central. There is note to percussion. Breath sounds, few basilar rales. CARDIOVASCULAR SYSTEM: PMI not well localized, there is no positional thrill. No parasternal heave. S1 normal, S2 physiologic. There was no definite S3, no rub. ABDOMEN: Soft, no tenderness, no rigidity, no guarding and no organomegaly. Bowel sounds normal. EXTREMITIES: No edema, no calf tenderness. Peripheral pulses diminished. LABORATORY DATA: Blood gases done showed pH of 7.51, pCO2 of 39, pO2 of 68. Sodium was 137, potassium 3.5, chloride 102, CO2 of 27.7, BUN 54, creatinine 1.0. Glucose was 62. WBC count was 9.4, hemoglobin 13.5, hematocrit 40.8, platelet count was 199. Urine culture showed 100,000 colony of E. coli. LDL cholesterol was 110. EKG has shown sinus rhythm, nonspecific ST-T wave changes. IMPRESSION: Hypertension, diabetes type 2, chronic obstructive pulmonary disease, chronic kidney disease, azotemia, hyperlipidemia, urinary tract infect ion, seizures, dementia, psych problems. PLAN: Suggest repeat the EKG. We will also get echocardiogram to evaluate left ventricular function and valvular structure. At present her blood pressure seemed to under control, but suggest to continue beta tiburcio, statins and [place] inhibitor. We will follow as needed. JOB# [id number]
--- NOTE | 2016-12-12 10:18 | History and Physical ---
History of Present Illness - HPI Chief Complaint: Increased in confusion HPI: Patient was at [facility] and she started to be lethargic, more confused with increased in temperature in lower extremities. due to this patient was transfered to Med/surg. Vital Signs: Last Vital Signs Temp 98 F 12/12/16 00:22 Pulse 100 12/12/16 08:30 Resp 18 12/12/16 00:22 BP 187/86 12/12/16 08:30 Pulse Ox 98 12/12/16 00:22 Past Medical History Cardiovascular: Report: HTN, Hyperlipidemia Pulmonary: Report: No Pertinent Hx [employer] SUPER[employer]OR: Report: CVA, Dementia GI: Report: No Pertinent Hx Psych: Report: Anxiety, Depression, Psychosis, Schizophrenia Musculoskeletal: Report: No Pertinent Hx Infectious Disease: Report: Other (History of frequents UTI) Endocrine: Report: Diabetes Dermatology: Report: No Pertinent Hx - Past Surgical History Past Surgical History: No pertinent Hx Family Medical History - Family Member Mother History Unknown: Yes Name:: Jeny Walker Age: 75 Ethnicity: Non- Living Status: Unknown Hx Family Cancer: (n/a) Hx Family Coronary Artery Disease: (n/a) Hx Family Congestive Heart Failure: (n/a) Hx Family Hypertension: (n/a) Hx Family Stroke: (n/a) Hx Family Diabetes: (n/a) Hx Family Seizures: (n/a) Hx Family Dementia: (n/a) Hx Family AIDS: (n/a) Hx Family HIV: No Hx Family COPD: (n/a) Hx Family Hepatitis: (n/a) Hx Family Psychiatric Problems: (n/a) Hx Family Tuberculosis: (n/a) Social History Smoke: No Alcohol: None Drugs: None Lives: [facility] Domestic Violence: Negative - Medications Home Medications: Home Medication Medication Instructions Recorded Type Acetaminophen [Tylenol] 650 mg PO Q4HR PRN tab 12/11/16 Rx Aspirin EC [Ecotrin] 81 mg PO DAILY ect 12/11/16 Rx Bisacodyl [Dulcolax 10 Mg Supp] 10 mg RC DAILY PRN sup 12/11/16 Rx Ciprofloxacin [Cipro] 250 mg PO BID tab 12/11/16 Rx Docusate Sodium [Colace] 100 mg PO DAILY cap 12/11/16 Rx Fleet Enema 135 ml RC Q48H PRN 12/11/16 Rx Lorazepam [Ativan] 1 mg PO Q6HR PRN tab 12/11/16 Rx Magnesium Hydroxide [Milk of 30 ml PO HS PRN udc 12/11/16 Rx Magnesia] Simvastatin [Zocor*] 20 mg PO QPM tab 12/11/16 Rx Temazepam [Restoril*] 15 mg PO HS PRN cap 12/11/16 Rx amLODIPine Besylate [Norvasc] 5 mg PO DAILY tab 12/11/16 Rx - Allergies Allergies/Adverse Reactions: Allergies Allergy/AdvReac Type Severity Reaction Status Date / Time pollen extracts Allergy Verified 12/03/16 01:16 Review of Systems - Review of Systems Constitutional: Report: Other (Patient is confused) Eyes: Report: No Significant ENT: Report: No Significant Respiratory: Report: No Significant Cardiovascular: Report: No Significant Gastrointestinal: Report: No Significant Genitourinary: Report: No Significant Musculoskeletal: Report: Leg Pain, Foot Pain Skin: Report: No Significant Neurological: Report: Weakness Physical Exam - Physical Exam HEENT: Report: Ears Nose Throat within normal limits Neck: Report: Within normal limits Cardiovascular Systems: Report: Regular, Rate and Rhythm Respiratory: Report: Breath Sounds are within normal limits Abdomen: Report: Non-tender to palpation Back: Report: Inspection of back is within normal limits. Extremities: Report: Non-tender to palpation. Skin: Report: Color of skin is within normal limits Neuro/Psych: Report: Disoriented to name time or place, No new focal deficits - Lab Results All Lab Results last 24 hours: Laboratory Last Values WBC 8.1 Th/cmm (4.8-10.8) 12/12/16 05:07 RBC 4.81 Mil/cmm (3.80-5.20) 12/12/16 05:07 Hgb 13.8 gm/dL (11.7-16.1) 12/12/16 05:07 Hct 41.6 % (35.0-45.0) 12/12/16 05:07 MCV 86.5 fl (81-100) 12/12/16 05:07 MCH 28.6 pg (27.0-31.0) 12/12/16 05:07 MCHC Differential 33.1 pg (28.0-36.0) 12/12/16 05:07 RDW 12.4 % (11.5-20.0) 12/12/16 05:07 Plt Count 243 Th/cmm (150-400) D 12/12/16 05:07 MPV 8.7 fl 12/12/16 05:07 Neutrophils % 72.9 % (40.0-80.0) 12/12/16 05:07 Lymphocytes % 12.4 % (20.0-50.0) L 12/12/16 05:07 Monocytes % 12.2 % (2.0-10.0) H 12/12/16 05:07 Eosinophils % 2.0 % (0.0-5.0) 12/12/16 05:07 Basophils % 0.5 % (0.0-2.0) 12/12/16 05:07 Sodium 139 mEq/L (136-145) 12/12/16 05:07 Potassium 3.4 mEq/L (3.5-5.1) L 12/12/16 05:07 Chloride 106 mEq/L (98-107) 12/12/16 05:07 Carbon Dioxide 27.4 mEq/L (21.0-31.0) 12/12/16 05:07 Anion Gap 9.0 (7.0-16.0) 12/12/16 05:07 BUN 48 mg/dL (7-25) H 12/12/16 05:07 Creatinine 0.9 mg/dL (0.6-1.2) 12/12/16 05:07 Est GFR ( Amer) TNP 12/12/16 05:07 Est GFR (Non-Af Amer) TNP 12/12/16 05:07 BUN/Creatinine Ratio 53.3 12/12/16 05:07 Glucose 129 mg/dL (70-105) H 12/12/16 05:07 Calcium 10.1 mg/dL (8.6-10.3) 12/12/16 05:07 Total Bilirubin 0.6 mg/dL (0.3-1.0) 12/12/16 05:07 AST 15 U/L (13-39) 12/12/16 05:07 ALT 15 U/L (7-52) 12/12/16 05:07 Alkaline Phosphatase 71 U/L (34-104) 12/12/16 05:07 Total Protein 7.0 gm/dL (6.0-8.3) 12/12/16 05:07 Albumin 3.6 gm/dL (3.7-5.3) L 12/12/16 05:07 Globulin 3.4 gm/dL 12/12/16 05:07 Albumin/Globulin Ratio 1.1 (1.0-1.8) 12/12/16 05:07 TSH 1.85 uIU/ml (0.34-5.60) 12/12/16 05:07 Laboratory Results - last 24 hr 12/12/16 12/12/16 12/12/16 05:07 05:07 05:07 WBC 8.1 RBC 4.81 Hgb 13.8 Hct 41.6 MCV 86.5 MCH 28.6 MCHC Differential 33.1 RDW 12.4 Plt Count 243 D MPV 8.7 Neutrophils % 72.9 Lymphocytes % 12.4 L Monocytes % 12.2 H Eosinophils % 2.0 Basophils % 0.5 Sodium 139 Potassium 3.4 L Chloride 106 Carbon Dioxide 27.4 Anion Gap 9.0 BUN 48 H Creatinine 0.9 Est GFR ( Amer) TNP Est GFR (Non-Af Amer) TNP BUN/Creatinine Ratio 53.3 Glucose 129 H Calcium 10.1 Total Bilirubin 0.6 AST 15 ALT 15 Alkaline Phosphatase 71 Total Protein 7.0 Albumin 3.6 L Globulin 3.4 Albumin/Globulin Ratio 1.1 TSH 1.85 - Assessment Assessment: Patient is agitated at moment, confused, not oriented. CXR shows no Acute ilness , BUN increasing, Dx: Increased in confusion, HTN Dyslipemia, Dementia Psychosis. - Plan Plan: Head CT, ABG, CBC, CMP, Drug screen are ordered, Will continue to monitor.
[2016-12-12 10:22] LABS: ABG SOURCE Arterial; BE(B) 7.6 mEq/L (-3.0-3.0); HCO3 30.8 mEq/L (20.0-26.0); pH 7.48 (7.35-7.45)
[2016-12-12 10:23] LABS: CRITICAL VALUES REPORTED BY SH; FIO2 21
[2016-12-12] MEDS: INSULIN ASPART SLIDING SCALE 100 UNITS/ML UNIT SUBQ SCH ×3 (12:29→21:14)
[2016-12-12] MEDS ORDERED: VTE Chemical Prophylaxis Screen/Admission MC PRN (14:49)
[2016-12-12] MEDS: Labetalol 5 mg/mL 20 mL Vial IVP PRN (18:11)
--- NOTE | 2016-12-12 21:57 | Progress Notes ---
DATE: 12/12/2016 SUBJECTIVE: Staff was spoken to. The patient is interviewed. Mood is noted to be less irritable. Affect is appropriate. The patient has been refusing to comply with the medications. Insight and judgment are very much impaired. Impulse control is noted to be poor. The patient has been very drowsy yesterday and the patient has to be transferred out to the medical floor, but since the patient has been refusing to comply with the treatment and has been getting easily agitated, the patient's daughter has been spoken to and has been closely kept abreast of the patient's condition. The patient's BUN is noted to be very high at 54 and the patient is being treated for dehydration. Blood work is reported to be within normal limits. ASSESSMENT: The patient is still having the mood swings and patient is being currently medically stabilized. PLAN: To closely monitor the patient with Ativan p.r.n. and once medically cleared, the patient is going to be restarted back on the Seroquel and Depakote. JOB# [id number]
[2016-12-13] MEDS: Sodium Chloride 0.9% 1,000 ML IV SCH ×2 (01:04→11:57)
--- NOTE | 2016-12-13 02:41 | Progress Notes ---
DATE: 12/11/2016 PSYCHIATRIC PROGRESS NOTE SUBJECTIVE: Staff was spoken to. The patient is interviewed. Mood is noted to be depressed. Affect is constricted. The patient is lethargic and the patient is reported to be too groggy and blood pressure and pulse are noted to be within normal limits and the patient is reported to have been refusing to eat and drink. Positive dehydration is suspected. PLAN: The patient's family has been there by the bedside and Dr. Anna, who has been the primary care physician, has been contacted. Possibly patient needs to be transferred for fluid replacement. JOB# [id number]
[2016-12-13] MEDS: Labetalol 5 mg/mL 20 mL Vial IVP PRN (04:10)
--- NOTE | 2016-12-13 04:29 | Admit Criteria Form ---
Admit Criteria Forms - Admit Criteria Diagnosis: GENERAL ADMISSION CRITERIA (Place 'X' for any and all applicable criteria): Admission is indicated for ANY ONE of the following: [ ]I. Hemodynamic instability as indicated by ANY ONE of the following(1)(2) (3)(4)(5): [ ]a) Vital sign abnormality not readily corrected by appropriate treatment within 12 to 24 hours indicated by ANY ONE of the following: [ ]i) Hypotension [ ]ii) Symptomatic Tachycardia unresponsive to treatment (eg , analgesia, fluids, sedation as indicated) [ ]iii) Orthostatic vital sign changes unresponsive to treatment (eg, fluids) [ ]b) Vital sign abnormality that is severe indicated by ANY ONE of the following: [ ]i) Inadequate perfusion indicated by ANY ONE of the following: [ ]1) Lactic acidosis (greater than 2 mmol/L) [ ]2) New abnormal capillary refill (greater than 3 seconds) [ ]3) Other metabolic acidosis (arterial pH less than 7.35) not otherwise explained [ ]4) Reduced urine output [ ]5) Altered mental status [ ]6) Myocardial Ischemia [ ]v) Mean arterial pressure[A] less than 60 mm Hg [ ]vi) Mean arterial pressure[A] less than 70 mm Hg after 30 minutes of appropriate treatment (eg, fluid resuscitation) [ ]vii) IV inotropic or vasopressor medication required to maintain adequate blood pressure or perfusion [ ]viii) Sustained heart rate greater than 120 beats per minute in adult or child 6 years or older[B]] [ ]II. Hypertension requiring inpatient treatment as indicated by ANY ONE of the following(6)(7)(8): [ ]a) SBP greater than 220 mm Hg or DBP greater than 120 mm Hg despite treatment [ ]b) SBP greater than 140 mm Hg or DBP greater than 100 mm Hg with evidence of acute end organ damage as indicated by ANY ONE of the following: [ ]i) Encephalopathy [ ]ii) Acute renal failure as indicated by new onset of ANY ONE of the following(9)(10)(11)(12)(13): [ ]1) A 3-fold rise in serum creatinine from baseline [ ]2) Serum creatinine greater than 4 mg/dL ( 354 micromoles/L) with acute rise greater than 0.5 mg/dL (44.2 micromoles/L) [ ]3) Reduction of more than 75% in estimated glomerular filtration rate from baseline [ ]4) Estimated glomerular filtration rate less than 35 mL/min/1.73m2 (0.59 mL/sec/1.73m2) in child up to 18 years of age [ ]5) Cessation of urine output indicated by ALL of the following: [ ]A. Adequate volume status [ ]B. Inadequate urine output as indicated by ANY ONE of the following: [ ]a. Urine output less than 0.3 mL/kg/hr for 24 hours [ ]b. Anuria (urine output less than 0.1 mL/kg/hr) for 12 hours [ ]iii) Aortic dissection [ ]iv) Myocardial ischemia [ ]v) Left ventricular heart failure [ ]vi) Retinal hemorrhage [ ]vii) Other significant finding [ ]c) Hypertension in child requiring inpatient treatment as indicated by ALL of the following(14)(15)(16): [ ]i) Outpatient treatment not effective, not available, or not appropriate [ ]ii) SBP or DBP greater than 95th percentile for age [ ]iii) Evidence of acute end organ damage as indicated by ANY ONE of the following: [ ]1) Altered mental status [ ]2) Acute renal failure as indicated by new onset of ANY ONE of the following(9)(10)(11)(12)(13): [ ]A. A 3-fold rise in serum creatinine from baseline [ ]B. Serum creatinine greater than 4 mg/dL (354 micromoles/L) with acute rise greater than 0.5 mg/dL (44.2 micromoles/L) [ ]C. Reduction of more than 75% in estimated glomerular filtration rate from baseline [ ]D. Estimated glomerular filtration rate less than 35 mL/min/1.73m2 (0.59 mL/sec/1.73m2)in child up to 18 years of age [ ]E. Cessation of urine output indicated by ALL of the following: [ ]a. Adequate volume status [ ]b. Inadequate urine output as indicated by ANY ONE of the following: [ ]1) Urine output less than 0.3 mL/kg/hr for 24 hours [ ]2) Anuria (urine output less than 0.1 mL/kg/hr) for 12 hours [ ]3) Severe headache [ ]4) Visual disturbance [ ]5) Retinal hemorrhage [ ]6) Other significant finding [ ]III. Acute cardiac or peripheral ischemia as indicated by ANY ONE of the following: [ ]a) Acute coronary syndrome(17)(18) [ ]b) Acute peripheral ischemia (eg, pulseless, cool, mottled, or cyanotic extremity)(19) [ ]IV. Cardiac arrhythmias or findings of immediate concern indicated by ANY ONE of the following(20)(21): [ ]a) Heart rhythms that are inherently dangerous or unstable indicated by ANY ONE of the following(22)(23)(24): [ ]i) Resuscitated ventricular fibrillation or cardiac arrest [ ]ii) Ventricular escape rhythm [ ]iii) Sustained ventricular tachycardia (30 seconds or more of ventricular rhythm at greater than 100 beats per minute) [ ]iv) Nonsustained ventricular tachycardia and ANY ONE of the following: [ ]1) Suspected cardiac ischemia as cause or consequence of ventricular tachycardia [ ]2) In setting of acute myocarditis [ ]b) Unstable cardiac conduction defects indicated by ANY ONE of the following(24)(25)(26): [ ]i) Type II second-degree atrioventricular block [ ]ii) Third-degree atrioventricular block [ ]iii) New-onset left bundle branch block with suspected myocardial ischemia [ ]c) Any heart rhythm and ANY ONE of the following(22)(23)(27)(28)( 29): [ ] i) Continuous long-term ECG monitoring needed (eg, initiation of drug requiring monitoring for more than 24 hours) [ ] ii) Patient has automatic implanted cardioverter defibrillator that is repeatedly firing, malfunctioning, or in need of immediate adjustment of settings beyond the scope of ambulatory or observation care. [ ]d) Heart rhythms of concern due to ANY ONE of the following: [ ]i) Hypotension [ ]ii) Respiratory distress [ ]iii) Association with other significant symptoms (eg, bradycardia with syncope or ongoing dizziness, supraventricular tachycardia with chest pain) (27)(28) (30) [ ] V. Severe heart failure as indicated by ANY ONE of the following ( 31)(32): [ ]a) Respiratory distress [ ]b) Hypotension [ ]c) Anasarca (refractory to outpatient therapy) [ ]d) Cardiac arrhythmias of immediate concern [ ]e) Myocardial ischemia [ ]. Respiratory abnormalities, including ANY ONE of the following(33)(34) (35)(36): [ ]a) Respiratory rate greater than 30 breaths per minute unresponsive to treatment [A] [ ]b) New saturation of arterial oxygen less than 90% [ ]c) New partial pressure of carbon dioxide greater than 44 mm Hg ( 5.9 kPa) [ ]d) Supplemental oxygen or respiratory treatments needed that are new or not performable at other levels of care [ ]e) New-onset cyanosis [ ]f) Inability to protect airway [ ]g) Chronic lung disease with severe deterioration (not responsive to emergency and observation care treatment as appropriate) as indicated by ANY ONE of the following(34)(36 ): [ ]i) SaO2 5% below baseline in patient with chronic hypoxemia [ ]ii) New requirement for supplemental oxygen to keep SaO2 at baseline or acceptable level [ ]iii) Required supplemental oxygen performable only in acute inpatient setting [ ]iv) Severe airflow or ventilation abnormalities [ ]v) Previously mobile patient unable to walk between rooms [ ]vi Inability to eat or sleep due to dyspnea [ ]vii) Rapid rate of exacerbation onset [ ]viii) Altered mental status ]VII. Severe airflow or ventilation abnormalities (not responsive to emergency and observation care treatment as appropriate) as indicated by ANY ONE of the following(33)(34)(35)(37): [ ]a) PCO2 greater than 42 mm Hg (5.6 kPa) and pH less than 7.35 (new ) [ ]b) Documented PCO2 increased more than 5 mm Hg (0.7 kPa) from disease baseline [ ]c) Airflow measurements [B] less than 60% of previous best or predicted (eg, peak expiratory flow rate less than 300 L/minute) despite intensive emergent treatment [C] [ ]d) Required respiratory treatments that are performable only in acute inpatient setting [ ]VIII. Impending or actual respiratory arrest ( Also use Respiratory Failure GRG for severe respiratory disease and long-term mechanical ventilation patients) [ ]IX. Neurologic abnormalities, including ANY ONE of the following: [ ]a) New findings that suggest ANY ONE of the following: [ ]i) [employer] infection(38) [ ]ii) Cerebral bleeding, ischemia, or vasospasm(39)(40) [ ]iii) Increased intracranial pressure, hydrocephalus, or cerebral edema(41)(42)(43) [ ]iv) Spinal cord injury(44) [ ]b) Uncontrolled seizures(45) [ ]c) New-onset coma (eg, Julienne coma scale score less than 9) or unexplained abnormal mental status (eg, Julienne coma scale score less than 14) [D](41)(46)(47) [ ]X. New-onset severe neurologic findings requiring inpatient care; examples include(42)(48)(49): [ ]a) Papilledema [ ]b) Cerebral edema [ ]c) Mass effect on CT scan [ ]XI. Suspected acute intra-abdominal process with peritoneal signs, abdominal mass, or similar findings (50)(51)(52) [ ]XII. Severe physiologic disorder remaining after emergency or observation level care (as appropriate) as indicated by ANY ONE of the following (53): [ ]a) Significant dehydration [ ]b) Diabetic ketoacidosis [ ]c) Hyperglycemic hyperosmolar state (eg, osmolality greater than 320 mOsm/kg (mmol/kg) [ ]d) Hypoglycemia [ ]e) Other (new) acid-base disorder with pH less than 7.35 or greater than 7.5(54) [ ]f) Thyroid storm (55) [ ]g) Myxedema coma (55) [ ]XIII. Abdominal abnormalities with ANY ONE of the following(56)(57): [ ]a) Absent bowel sounds with complete ileus [ ]b) Signs of intestinal obstruction or peritonitis [E] [ ]c) Nausea and vomiting that cannot be controlled with outpatient or observation care [ ]XIV. Acute renal failure as indicated by new onset of ANY ONE of the following(9)(10)(11)(12)(13): [ ]a) A 3-fold rise in serum creatinine from baseline [ ]b) Serum creatinine greater than 4 mg/dL (354 micromoles/L) with acute rise greater than 0.5 mg/dL (44.2 micromoles/L) [ ]c) Reduction of more than 75% in estimated glomerular filtration rate from baseline [ ]d) Estimated glomerular filtration rate less than 35 mL/min/ 1.73m2 (0.59 mL/sec/1.73m2) in child up to 18 years of age [ ]e) Cessation of urine output indicated by ALL of the following: [ ]i) Adequate volume status [ ]ii) Inadequate urine output as indicated by ANY ONE of the following: [ ]1) Urine output less than 0.3 mL/kg/hr for 24 hours [ ]2) Anuria (urine output less than 0.1 mL/kg/hr) for 12 hours [ ]XV. Significant uremic complications as indicated by ANY ONE of the following(58)(59)(60): [ ]a) Outpatient therapy is ineffective or not feasible for ANY ONE of the following: [ ]i) Severe heart failure [ ]ii) Severehypertension [ ]iii) Pleural effusion [ ]iv) Pericarditis or pericardial effusion [ ]b) Cardiac arrhythmias of immediate concern [ ]c) Intractable nausea or vomiting [ ]d) Recurrent seizures [ ]e) Encephalopathy [ ]f) Bleeding abnormalities (eg, platelet dysfunction) with active (eg, gastrointestinal) bleeding [ ]g) Dialysis indicated before long-term access or ambulatory arrangements can be made [ ]h) Significant metabolic or electrolyte abnormalities (eg, severe acidosis or hyperkalemia) [ ]XVI. High fever or other high-risk infection situation as indicated by ANY ONE of the following(61)(62)(63)(64): [ ]a) Outpatient and observation care antimicrobial treatment unavailable, not effective, or not appropriate [ ]b) Documented bacteremia [ ]c) Temperature greater than 40.5 degrees C (104.9 degrees F) ( oral) [ ]d) Temperature greater than 39.5 degrees C (103.1 degrees F) ( oral) or less than 36 degrees C (96.8 degrees F) (rectal) that does not respond to e treatment and observation care [ ] XVII. Temperature less than 95 degrees F (35 degrees C)(rectal)(65) [ ] XVIII. Severe nutritional abnormalities as indicated by ALL of the following (66)(67): [ ]a) Inability to tolerate or establish sufficient oral or other enteral nutrition in outpatient setting [ ]b) Parenteral nutrition regimen need that must be implemented on inpatient basis [ ] XIX. Severe electrolyte abnormalities indicated by ALL of the following(68) (69)(70): [ ]a) Electrolytes and associated findings are not as expected for patient baseline or acceptable treatment effects. [ ]b) Severe abnormalities indicated by ANY ONE of the following: [ ]i) Sodium less than 130 mEq/L (mmol/L) (new) [ ]ii)Sodium less than 135 mEq/L (mmol/L) with ANY ONE of the following: [ ]1) Uncorrectable (to near normal or chronic baseline) after trial of outpatient and emergency treatment [ ]2) Altered mental status [ ]3) Seizures [ ]4) Severe medical etiology requiring inpatient management (eg, heart failure, hypovolemia) [ ]iii) Sodium greater than 155 mEq/L (mmol/L) [ ]iv) Sodium greater than 150 mEq/L (mmol/L) with ANY ONE of the following: [ ]1) Uncorrectable (to near normal or chronic baseline) with outpatient and emergency treatment [ ]2) Altered mental status [ ]3) Seizures [ ]4) Severe medical etiology (eg, hypovolemia, diabetes insipidus) [ ]v) Potassium less than 2.5 mEq/L (mmol/L) despite outpatient and emergency treatment [ ]vi) Potassium less than 3 mEq/L (mmol/L) with ANY ONE of the following: [ ]1) Weakness [ ]2) Cardiac abnormality (eg, arrhythmia, conduction disturbance) [ ]3) Cardiac ischemia [ ]4) Ileus [ ]5) Ongoing medical cause requiring inpatient management (eg, acute renal wasting or SIADH) [ ]6) Other severe symptoms [ ]vii) Potassium greater than 6.5 mEq/L (mmol/L) [ ]viii) Potassium greater than 5 mEq/L (mmol/L) with ANY ONE of the following: [ ]1) Uncorrectable (to near normal or chronic baseline) with outpatient and emergency treatment [ ]2) Severe ECG findings [F] [ ]3) Acute worsening of renal failure (creatinine greater than 2.5 mg/dL (221 micromoles/L) or significant elevation for age and size) [ ]4) Severe weakness [ ]5) Severe medical etiology (eg, hemolysis, infection, drug overdose) [ ]ix) Calcium less than 7 mg/dL (1.75 mmol/L) despite outpatient and emergency treatment (72) [ ]x) Calcium less than 8 mg/dL (2 mmol/L) with significant symptoms or findings; examples include(72): [ ]1) Altered mental status [ ]2) Muscle spasms [ ]3) Seizures [ ]4) Breathing difficulty [ ]5) Cardiac abnormality (eg, arrhythmia or conduction disturbance) [ ]xi) Calcium greater than 14 mg/dL (3.5 mmol/L)(72) [ ]xii) Calcium greater than 12 mg/dL (3 mmol/L) with ANY ONE of the following(72): [ ]1) Uncorrectable (to near normal or chronic baseline) with outpatient and emergency treatment [ ]2) Significant dehydration or hypovolemia as indicated by ALL of the following(70)(73)(74): [ ]A. Not resolved with initial treatments [ ]B. Clinically significant dehydration as indicated by ANY ONE of the following: [ ]a. Vomiting refractory to outpatient treatment (ie, precluding oral rehydration) [ ]b. Inability to drink [ ]c. Hypernatremia or other electrolyte abnormality unable to be corrected with outpatient and emergency treatment [ ]d. Failure to remain hydrated with outpatient therapy [ ]e. Reduced urine output [ ]f. Hypotension [ ]g. Serious cause for dehydration requiring acute hospitalization (eg, bowel obstruction, increased intracranial pressure, infectious cause) [ ]h. Child with ANY ONE of the following(75): [ ]1) Severe abdominal tenderness [ ]2) Adequate care not available at home [ ]3) Severe dehydration ( greater than 9% loss of body weight) [ ]4) Significant symptoms or findings; examples include: [ ]A. Altered mental status [ ]B. Cardiac abnormality (eg, arrhythmia, conduction disturbance) [ ]C. Malignant etiology requiring inpatient treatment [ ]xiii) Phosphorus less than 1 mg/dL (0.32 mmol/L) [ ]xiv) Phosphorus less than 1.5 mg/dL (0.48 mmol/L) with ANY ONE of the following: [ ]1) Patient unresponsive to outpatient and emergency treatment [ ]2) Significant symptoms or findings; examples include: [ ]A. Weakness [ ]B. Altered mental status [ ]C. Breathing difficulty [ ]D. Seizures [ ]E. Rhabdomyolysis [ ]xv) Phosphorus greater than 10 mg/dL (3.2 mmol/L) [ ]xvi) Phosphorus greater than 4.5 mg/dL (1.45 mmol/L) (new) with ANY ONE of the following: [ ]1) Severe medical etiology (eg, crush injury, acute renal failure) [ ]2) Associated hypocalcemia with significant findings; examples include: [ ]A. Neurologic symptoms [ ]B. Altered mental status [ ]C. Muscle spasms [ ]D. Seizures [ ]E. Breathing difficulty [ ]F. Cardiac abnormality (eg, arrhythmia, conduction disturbance) [ ]xvii) Magnesium less than 1 mg/dL (0.41 mmol/L) [ ]xviii) Magnesium less than 1.5 mg/dL (0.62 mmol/L) with ANY ONE of the following: [ ]1) Patient unresponsive to outpatient and emergency treatment [ ]2) Associated hypocalcemia with significant findings; examples include: [ ]A. Altered mental status [ ]B. Muscle spasms [ ]C. Seizures [ ]D. Breathing difficulty [ ]E. Cardiac abnormality (eg, arrhythmia , conduction disturbance) [ ]3) Associated hypokalemia (potassium less than 3 mEq/L (mmol/L)) with risk of arrhythmia [ ]xix) Magnesium greater than 4 mEq/L (2 mmol/L) [ ]xx) Magnesium greater than 2.5 mEq/L (1.25 mmol/L) with significant symptoms or findings; examples include: [ ]1) Weakness [ ]2) Altered mental status [ ]3) Cardiac abnormality (eg, arrhythmia, conduction disturbance) [ ]4) Breathing difficulty [ ]5) Severe medical etiology (eg, renal failure, hypovolemia) [ ]xxi) Uric acid greater than 20 mg/dL (1190 micromoles/L)(76) [ ]xxii) Uric acid greater than 8 mg/dL (476 micromoles/L) with significant symptoms or findings of tumor lysis syndrome; examples include(76): [ ]1) Creatinine greater than 1.5 times upper limit of normal [ ]2) Cardiac abnormality (eg, arrhythmia, conduction disturbance) [ ]3) Seizure [ ]XX. Acute blood loss causing significant abnormality as indicated by ANY ONE of the following(77)(78): [ ]a) Hemoglobin less than 10 g/dL (100 g/L) (not baseline) [ ]b) Hematocrit less than 30% (0.30) (not baseline) [ ]c) Repeat hematocrit decreased more than 2% (0.02) [ ]d) Uncontrolled bleeding [ ]XXI. Severe anemia indicated by ANY ONE of the following(78)(79): [ ]a) Altered mental status [ ]b) Chest pain [ ]c) Exertional dyspnea [ ]d) Syncope [ ]e) Other findings suggesting inadequate perfusion [ ]f) Treatment with transfusion or volume replacement is ineffective at resolving ANY ONE of the following [G]: [ ]i) Tachycardia for age [ ]ii) Orthostatic vital sign changes as indicated by ANY ONE of the following(80): [ ]1) Fall in SBP of 20 mm Hg or more 1 to 3 minutes after patient sits or stands from recumbent position [ ]2) Fall in DBP of 10 mm Hg or more 1 to 3 minutes after patient sits or stands from recumbent position [ ]XXII. High-risk low platelet count as indicated by ANY ONE of the following( 81)(82): [ ]a) Severe or life-threatening bleeding (eg, intracranial, major gastrointestinal, or extensive mucosal bleeding), with any reduced platelet count [ ]b) Platelet count less than 20,000/mm3 (20 x109/L) with any active bleeding [ ]c) Platelet count less than 10,000/mm3 (10 x109/L) with minor purpura or petechiae [ ]d) Platelet count less than 5000/mm3 (5 x109/L) [ ]e) Low platelet count with hemolytic anemia [ ]XXIII. Disseminated intravascular coagulation(77)(83) [ ]XXIV. Severe adverse drug or systemic toxin reaction requiring inpatient treatment; examples include(84)(85): [ ]a) Serotonin syndrome(86) [ ]b) Neuroleptic malignant syndrome(86) [ ]c) Cholinergic syndrome with severe symptoms (eg, bronchorrhea, weakness, mental status changes, seizures) [ ]d) Sympathetic syndrome with severe symptoms (eg, seizures, mental status changes, cardiac dysrhythmias) [ ]e) Anticholinergic syndrome [ ]XXV. Severe pain requiring acute inpatient management as indicated by ALL of the following (87)(88)(89): [ ]a) Continuous or frequent (eg, every 2 to 4 hours) parenteral analgesics required [H] [ ]b) Rapid improvement expected from treatment or acute intervention (eg, surgery, anesthesia procedure) [ ]XXVI.Severe behavioral health issues judged unmanageable at a lower level of care (eg, residential) in a patient who is ANY ONE of the following(91) [ ]a) Acutely suicidal [ ]b) A danger to self (eg, self-mutilating or suicidal behavior) [ ]c) A danger to others (eg, assaultive or homicidal behavior) [ ]d) Incapacitated because of grave disability (eg, inability to provide for self at lower level of care) (92) [X ]XXVII. Inpatient monitoring needed; examples include(1)(3)(87)(93)(94)(95)( 96): [X ]a) Vital signs, neurologic signs, or vascular checks more frequently than every 4 hours [ ]b) Cardiac or respiratory monitoring beyond the scope (eg, over 24 hours) of observation care [ ]c) Pulmonary artery catheter monitoring [ ]d) Suspected compartment syndrome(97) (98) [ ]e) Cerebral bleeding, hydrocephalus, or vasospasm monitoring [ ]f) Increased intracranial pressure or cerebral edema monitoring [ ]g) monitoring [ ]XXVIII. Treatment requiring inpatient care; examples include: [ ]a) IV fluid to replace significant ongoing losses (greater than 3 L/m2 per day)(53) [ ]b) High concentration oxygen (greater than 40%)(33)(99)(100) [ ]c) Frequent respiratory therapy (more frequently than every 4 hours) to maintain airflow rates greater than 60% of baseline(33)(99)(100) [ ]d) Epidural analgesia(87) [ ]e) IV anticoagulation, vasoactive, or antiarrhythmic medication(19 )(23) [ ]f) Acute thrombolytics (generally require 24 hours of observation )(101)(102) [ ]XXIX. Emergency procedures needed; examples include: [ ]a) Emergency inpatient surgery [ ]b) Temporary pacemaker placement(103) [ ]c) Chest tube placement with active evacuation (eg, suction, drainage)(104) [ ]d) Emergent cardioversion(105) [ ]e) Emergent cardiac or vascular procedures (eg, cardiac catheterization, angioplasty) (17)(18) [ ]f) Emergent dialysis access placement and institution(10)(106) [ ]g) Emergent pericardiocentesis(107) [ ]h) Emergent plasmapheresis or leukapheresis(83) [ ]i) Emergent tracheostomy The original [employer] content created by [employer] has been revised. The portions of the content which have been revised are identified through the use of italic text or in bold, and [facility] has neither reviewed nor approved the modified material. All other unmodified content is copyright [employer]. Please see references footnoted in the original [employer] edition 2016 Admit Criteria Met?: Yes
[2016-12-13 06:15] LABS: HEMATOCRIT 41.7 % (35.0-45.0); MEAN CELL VOLUME 86.3 fl (81-100); MEAN CORPUSCULAR HGB CONC 33.6 pg (28.0-36.0); MEAN PLATELET VOLUME 8.8 fl; PLATELET COUNT 240 Th/cmm (150-400); RED BLOOD COUNT 4.83 Mil/cmm (3.80-5.20); RED CELL DISTRIBUTION WIDTH 12.3 % (11.5-20.0); WHITE BLOOD COUNT 6.6 Th/cmm (4.8-10.8)
[2016-12-13] MEDS: INSULIN ASPART SLIDING SCALE 100 UNITS/ML UNIT SUBQ SCH ×4 (06:34→21:25)
[2016-12-13 06:35] LABS: ALB/GLOB RATIO 1.1 (1.0-1.8); ALKALINE PHOSPHATASE 72 U/L (34-104); ANION GAP 10.4 (7.0-16.0); BILIRUBIN,TOTAL 0.5 mg/dL (0.3-1.0); BUN - UREA NITROGEN 35 mg/dL (7-25); BUN/CREATININE RATIO 43.8; CALCIUM SERUM 9.9 mg/dL (8.6-10.3); CARBON DIOXIDE 26.6 mEq/L (21.0-31.0); CHLORIDE 107 mEq/L (98-107); CREATININE - SERUM 0.8 mg/dL (0.6-1.2); GLUCOSE 137 mg/dL (70-105); SGOT 18 U/L (13-39); SGPT/ALT 21 U/L (7-52); SODIUM SERUM 141 mEq/L (136-145)
[2016-12-13] MEDS ORDERED: Potassium Phosphate 20 MMOLE in Sodium Chloride 0.9% 250 ML IV ONE (08:52)
[2016-12-13] MEDS ORDERED: Labetalol 5 mg/mL 20 mL Vial IVP PRN (09:03)
--- NOTE | 2016-12-13 09:14 | General Progress Note ---
Subjective - Review of Systems Service Date: 12/13/16 Subjective: Patient is confused Objective - Results Result Diagrams: 12/13/16 05:54 12/13/16 05:54 Recent Labs: Laboratory Last Values WBC 6.6 Th/cmm (4.8-10.8) 12/13/16 05:54 RBC 4.83 Mil/cmm (3.80-5.20) 12/13/16 05:54 Hgb 14.0 gm/dL (11.7-16.1) 12/13/16 05:54 Hct 41.7 % (35.0-45.0) 12/13/16 05:54 MCV 86.3 fl (81-100) 12/13/16 05:54 MCH 29.0 pg (27.0-31.0) 12/13/16 05:54 MCHC Differential 33.6 pg (28.0-36.0) 12/13/16 05:54 RDW 12.3 % (11.5-20.0) 12/13/16 05:54 Plt Count 240 Th/cmm (150-400) 12/13/16 05:54 MPV 8.8 fl 12/13/16 05:54 Neutrophils % 72.9 % (40.0-80.0) 12/12/16 05:07 Lymphocytes % 12.4 % (20.0-50.0) L 12/12/16 05:07 Monocytes % 12.2 % (2.0-10.0) H 12/12/16 05:07 Eosinophils % 2.0 % (0.0-5.0) 12/12/16 05:07 Basophils % 0.5 % (0.0-2.0) 12/12/16 05:07 Specimen Source Arterial 12/12/16 10:09 Sample Site RB 12/12/16 10:09 pH 7.48 (7.35-7.45) H 12/12/16 10:09 pCO2 43.0 mmHg (35.0-45.0) 12/12/16 10:09 pO2 62.0 mmHg (80.0-100.0) L 12/12/16 10:09 HCO3 30.8 mEq/L (20.0-26.0) H 12/12/16 10:09 Base Excess 7.6 mEq/L (-3.0-3.0) H 12/12/16 10:09 O2 Saturation 93.0 % (92.0-100.0) 12/12/16 10:09 Gurpreet Test NA 12/12/16 10:09 Vent Rate NA 12/12/16 10:09 Inspired O2 21 12/12/16 10:09 Tidal Volume NA 12/12/16 10:09 PEEP NA 12/12/16 10:09 Pressure (ins/psv/peep) NA 12/12/16 10:09 Critical Value SH 12/12/16 10:09 Sodium 141 mEq/L (136-145) 12/13/16 05:54 Potassium 3.0 mEq/L (3.5-5.1) L 12/13/16 05:54 Chloride 107 mEq/L (98-107) 12/13/16 05:54 Carbon Dioxide 26.6 mEq/L (21.0-31.0) 12/13/16 05:54 Anion Gap 10.4 (7.0-16.0) 12/13/16 05:54 BUN 35 mg/dL (7-25) H 12/13/16 05:54 Creatinine 0.8 mg/dL (0.6-1.2) 12/13/16 05:54 Est GFR ( Amer) TNP 12/13/16 05:54 Est GFR (Non-Af Amer) TNP 12/13/16 05:54 BUN/Creatinine Ratio 43.8 12/13/16 05:54 Glucose 137 mg/dL (70-105) H 12/13/16 05:54 POC Glucose 171 MG/DL (70 - 105) H 12/12/16 20:53 Hemoglobin A1c % 5.7 % (4.0-6.0) 12/13/16 05:54 Calcium 9.9 mg/dL (8.6-10.3) 12/13/16 05:54 Total Bilirubin 0.5 mg/dL (0.3-1.0) 12/13/16 05:54 AST 18 U/L (13-39) 12/13/16 05:54 ALT 21 U/L (7-52) 12/13/16 05:54 Alkaline Phosphatase 72 U/L (34-104) 12/13/16 05:54 Total Protein 7.1 gm/dL (6.0-8.3) 12/13/16 05:54 Albumin 3.7 gm/dL (3.7-5.3) 12/13/16 05:54 Globulin 3.4 gm/dL 12/13/16 05:54 Albumin/Globulin Ratio 1.1 (1.0-1.8) 12/13/16 05:54 TSH 1.85 uIU/ml (0.34-5.60) 12/12/16 05:07 - Physical Exam Vitals and I&O: Vital Signs Temp 97.2 F 12/13/16 03:00 Pulse 82 12/13/16 08:13 Resp 14 12/13/16 08:13 BP 160/77 12/13/16 05:10 Pulse Ox 93 12/13/16 08:13 Intake & Output 12/12/16 12/13/16 12/13/16 18:59 06:59 18:59 Intake Total 727.5 1000 Balance 727.5 1000 Intake: Intake, IV Amount 727.5 1000 Sodium Chloride 0.9% 1, 727.5 1000 000 ml @ 90 mls/hr IV . Q11H7M [facility] Rx#:[id number] Other: Stool Characteristics Soft Soft Active Medications: Current Medications Acetaminophen (Tylenol) 650 mg PO Q4HR PRN PRN Reason: Pain or Fever >101 Stop: 02/09/17 17:50 Amlodipine Besylate (Norvasc) 5 mg PO DAILY [facility] Stop: 02/10/17 08:59 Last Admin: 12/12/16 08:30 Dose: Not Given Aspirin (Ecotrin) 81 mg PO DAILY [facility] Stop: 02/10/17 08:59 Last Admin: 12/12/16 08:30 Dose: Not Given Bisacodyl (Dulcolax 10 Mg Supp) 10 mg RC DAILY PRN PRN Reason: Constipation Stop: 02/09/17 17:50 Carvedilol (Coreg) 6.25 mg PO BID [facility] Stop: 02/11/17 08:59 Potassium Phosphate 20 mmole/ (Sodium Chloride) 256.6667 mls @ 42.5 mls/hr IV X1 ONE Stop: 12/13/16 14:54 Sodium Chloride (Nacl 0.9%) 1,000 mls @ 100 mls/hr IV .Q10H [facility] Stop: 02/09/17 17:51 Insulin Aspart (Novolog Insulin Sliding Scale) 0 units SUBQ ACHS [facility] PRN Reason: Protocol Stop: 02/10/17 11:29 Last Admin: 12/13/16 06:34 Dose: Not Given Labetalol HCl (Trandate) 10 mg IVP Q8HR PRN PRN Reason: SBP ABOVE 160 Stop: 02/10/17 17:14 Lorazepam (Ativan) 1 mg IVP Q8HR PRN; Protocol PRN Reason: Agitation Stop: 02/09/17 21:25 Last Admin: 12/12/16 09:02 Dose: 1 mg Losartan Potassium (Cozaar) 50 mg PO DAILY [facility] Stop: 02/11/17 08:59 Miscellaneous (Vte Chemical Prophylaxis Screen/ Admission) 1 ea [facility] PRN PRN PRN Reason: PROTOCOL Stop: 02/10/17 14:48 General: Alert, Other (Confused, not oriented) HEENT: Atraumatic, PERRLA Neck: Supple Cardiovascular: Regular rate Lungs: Clear to auscultation Abdomen: Bowel sounds Extremities: Other (No edema) Neurological: Other (Unstable gait) Psych/Mental Status: Other (Patient is confused, not oriented. Patient is refusing meds) Assessment/Plan - Assessment Assessment: Patient is agitated at moment, confused, not oriented. Head CT shows no acute illness. K is low. Patient is refusing her meds x 2 days, BP has been high. Dx: Increased in confusion, HTN Dyslipemia, Dementia Psychosis. - Plan Plan: Case will be discussed with Psychiatry and family. Will continue to monitor.
--- NOTE | 2016-12-13 09:15 | Diagnostic Imaging Report ---
CT scan of the brain without intravenous contrast HISTORY: ALOC Total DLP equals 628 CTDI equals 3.8 Axial sections were obtained from the base of the skull to the vertex. There is prominence/enlargement of the ventricular system size. Associated enlargement of cerebral sulci and subarachnoid cisterns. Findings are consistent with changes of generalized cerebral atrophy. No acute parenchymal abnormalities. No acute cerebral hemorrhage. Hypodensity is seen within the supratentorial white matter regions without mass effect. The findings may be associated with chronic small vessel ischemic disease. No extra-axial masses or abnormal fluid collections. If clinically indicated MRI examination of the helpful. IMPRESSION: 1. No acute abnormalities 2. Cerebral atrophy 3. Supratentorial white matter changes that may reflect chronic small vessel ischemic disease
[2016-12-13 09:24] LABS: BAND NEUTROPHILE 0 % (0-10); NEUTROPHILS 65 % (40-80); TOTAL CELLS COUNTED 100
[2016-12-13 12:24] LABS: URINE BILIRUBIN NEGATIVE (NEGATIVE); URINE BLOOD MODERATE (NEGATIVE); URINE GLUCOSE (UA) NEGATIVE (NEGATIVE); URINE KETONE NEGATIVE (NEGATIVE); URINE PROTEIN 100 mg/dL (NEGATIVE); URINE UROBILINOGEN 0.2 E.U./dL (0.2 - 1.0)
[2016-12-13 13:02] LABS: URINE COLOR YELLOW
[2016-12-13 13:05] LABS: URINE EPITHELIAL CELLS OCCASIONAL /lpf (FEW)
[2016-12-13 13:08] LABS: URINE BACTERIA 4+ /hpf (NONE SEEN); URINE WBC 25-50 /hpf (0-5)
--- NOTE | 2016-12-13 14:12 | Cardiology ---
12/12/[address] Anna. M-MODE ECHOCARDIOGRAM: Mitral valve, anterior leaflet of mitral valve shows normal excursion, EF velocity. Posterior leaflet of mitral valve shows normal excursion. Left ventricular posterior wall shows increased thickness, normal excursion. Interventricular septum shows increased thickness, normal excursion, hypertrophy of the left ventricle, ejection fraction 59%. Left atrium normal. Aortic root shows normal dimension, normal excursion of aortic leaflets. CONCLUSION: Hypertrophy of the left ventricle, ejection fraction 59%. 2D ECHO: Long axis view showed normal sized left ventricle with hypertrophy of the left ventricle. Left atrium normal. Aortic root shows normal dimension, normal excursion of aortic leaflets. Short axis view of mitral valve normal. Short axis view of aortic valve normal. Apical four chamber view showed normal sized left ventricle with hypertrophy of the left ventricle. Left atrium normal. Right ventricular cavity, right atrium normal. No pericardial effusion. CONCLUSION: Hypertrophy of the left ventricle, ejection fraction 59%. Doppler study shows prominent airway consistent with poor compliance of left ventricle, trace mitral regurgitation, trace tricuspid regurgitation, [id number] pulmonary regurgitation. [facility]# [id number]
[2016-12-13] MEDS: cefTRIAXone 1 GM in Sodium Chloride 0.9% 50 ML IV SCH (18:54)
[2016-12-14] MEDS: Sodium Chloride 0.9% 1,000 ML IV SCH (06:23)
[2016-12-14 06:38] LABS: HEMATOCRIT 44.7 % (35.0-45.0); HEMOGLOBIN 14.9 gm/dL (11.7-16.1); MEAN CELL VOLUME 85.9 fl (81-100); MEAN CORPUSCULAR HEMOGLOBIN 28.6 pg (27.0-31.0); MEAN CORPUSCULAR HGB CONC 33.3 pg (28.0-36.0); MEAN PLATELET VOLUME 8.5 fl; NEUTROPHILE ABSOLUTE 9.4 Th/cmm (1.8-8.0); PLATELET COUNT 272 Th/cmm (150-400); RED CELL DISTRIBUTION WIDTH 12.3 % (11.5-20.0)
[2016-12-14] MEDS: INSULIN ASPART SLIDING SCALE 100 UNITS/ML UNIT SUBQ SCH ×4 (06:45→22:10)
[2016-12-14 07:01] LABS: ALKALINE PHOSPHATASE 75 U/L (34-104); BILIRUBIN,TOTAL 0.6 mg/dL (0.3-1.0); BUN - UREA NITROGEN 35 mg/dL (7-25); BUN/CREATININE RATIO 43.8; CALCIUM SERUM 9.9 mg/dL (8.6-10.3); CARBON DIOXIDE 26.4 mEq/L (21.0-31.0); CHLORIDE 106 mEq/L (98-107); CREATININE - SERUM 0.8 mg/dL (0.6-1.2); GLUCOSE 140 mg/dL (70-105); SGOT 28 U/L (13-39); SGPT/ALT 34 U/L (7-52); SODIUM SERUM 140 mEq/L (136-145)
[2016-12-14 07:48] LABS: ANION GAP 10.7 (7.0-16.0)
[2016-12-14 07:49] LABS: POTASSIUM SERUM 3.1 mEq/L (3.5-5.1)
[2016-12-14 08:42] LABS: BAND NEUTROPHILE 8 % (0-10); EOSINOPHIL 3 % (0-5); NEUTROPHILS 68 % (40-80); TOTAL CELLS COUNTED 100
[2016-12-14 08:43] LABS: PLATELET ESTIMATE ADEQUATE (NORMAL); PLATELET MORPHOLOGY NORMAL (NORMAL)
[2016-12-14] MEDS ORDERED: Fluconazole 200mg/100mL 200 MG/100 ML BAG IV SCH (09:00)
--- NOTE | 2016-12-14 09:13 | General Progress Note ---
Subjective - Review of Systems Service Date: 12/14/16 Subjective: Patient is confused Objective - Results Result Diagrams: 12/14/16 06:17 12/14/16 06:17 Recent Labs: Laboratory Last Values WBC 12.0 Th/cmm (4.8-10.8) H D 12/14/16 06:17 RBC 5.20 Mil/cmm (3.80-5.20) 12/14/16 06:17 Hgb 14.9 gm/dL (11.7-16.1) 12/14/16 06:17 Hct 44.7 % (35.0-45.0) 12/14/16 06:17 MCV 85.9 fl (81-100) 12/14/16 06:17 MCH 28.6 pg (27.0-31.0) 12/14/16 06:17 MCHC Differential 33.3 pg (28.0-36.0) 12/14/16 06:17 RDW 12.3 % (11.5-20.0) 12/14/16 06:17 Plt Count 272 Th/cmm (150-400) 12/14/16 06:17 MPV 8.5 fl 12/14/16 06:17 Neutrophils % [employer] 12/14/16 06:17 Band Neutrophils % 8 % (0-10) 12/14/16 06:17 Lymphocytes % [employer] 12/14/16 06:17 Monocytes % [employer] 12/14/16 06:17 Eosinophils % [employer] 12/14/16 06:17 Basophils % [employer] 12/14/16 06:17 Neutrophils (Manual) 68 % (40-80) 12/14/16 06:17 Lymphocytes 14 % (20-50) L 12/14/16 06:17 Monocytes 7 % (2-10) 12/14/16 06:17 Eosinophils 3 % (0-5) 12/14/16 06:17 Platelet Estimate ADEQUATE (NORMAL) 12/14/16 06:17 Platelet Morphology NORMAL (NORMAL) 12/14/16 06:17 RBC Morph Micro Appear NORMAL (NORMAL) 12/14/16 06:17 Specimen Source Arterial 12/12/16 10:09 Sample Site RB 12/12/16 10:09 pH 7.48 (7.35-7.45) H 12/12/16 10:09 pCO2 43.0 mmHg (35.0-45.0) 12/12/16 10:09 pO2 62.0 mmHg (80.0-100.0) L 12/12/16 10:09 HCO3 30.8 mEq/L (20.0-26.0) H 12/12/16 10:09 Base Excess 7.6 mEq/L (-3.0-3.0) H 12/12/16 10:09 O2 Saturation 93.0 % (92.0-100.0) 12/12/16 10:09 Gurpreet Test NA 12/12/16 10:09 Vent Rate NA 12/12/16 10:09 Inspired O2 21 12/12/16 10:09 Tidal Volume NA 12/12/16 10:09 PEEP NA 12/12/16 10:09 Pressure (ins/psv/peep) NA 12/12/16 10:09 Critical Value SH 12/12/16 10:09 Sodium 140 mEq/L (136-145) 12/14/16 06:17 Potassium 3.1 mEq/L (3.5-5.1) L 12/14/16 06:17 Chloride 106 mEq/L (98-107) 12/14/16 06:17 Carbon Dioxide 26.4 mEq/L (21.0-31.0) 12/14/16 06:17 Anion Gap 10.7 (7.0-16.0) 12/14/16 06:17 BUN 35 mg/dL (7-25) H 12/14/16 06:17 Creatinine 0.8 mg/dL (0.6-1.2) 12/14/16 06:17 Est GFR ( Amer) TNP 12/14/16 06:17 Est GFR (Non-Af Amer) [facility] 12/14/16 06:17 BUN/Creatinine Ratio 43.8 12/14/16 06:17 Glucose 140 mg/dL (70-105) H 12/14/16 06:17 POC Glucose 108 MG/DL (70 - 105) H 12/13/16 21:19 Hemoglobin A1c % 5.7 % (4.0-6.0) 12/13/16 05:54 Calcium 9.9 mg/dL (8.6-10.3) 12/14/16 06:17 Total Bilirubin 0.6 mg/dL (0.3-1.0) 12/14/16 06:17 AST 28 U/L (13-39) 12/14/16 06:17 ALT 34 U/L (7-52) 12/14/16 06:17 Alkaline Phosphatase 75 U/L (34-104) 12/14/16 06:17 Total Protein 7.1 gm/dL (6.0-8.3) 12/14/16 06:17 Albumin 3.6 gm/dL (3.7-5.3) L 12/14/16 06:17 Globulin 3.5 gm/dL 12/14/16 06:17 Albumin/Globulin Ratio 1.0 (1.0-1.8) 12/14/16 06:17 TSH 1.85 uIU/ml (0.34-5.60) 12/12/16 05:07 Urine Source CLEAN C 12/13/16 12:08 Urine Color YELLOW 12/13/16 12:08 Urine Clarity HAZY (CLEAR) 12/13/16 12:08 Urine pH 8.0 (4.6 - 8.0) 12/13/16 12:08 Ur Specific [place] 1.015 (1.005-1.030) 12/13/16 12:08 Urine Protein 100 mg/dL (NEGATIVE) H 12/13/16 12:08 Urine Glucose (UA) NEGATIVE mg/dL (NEGATIVE) 12/13/16 12:08 Urine Ketones NEGATIVE mg/dL (NEGATIVE) 12/13/16 12:08 Urine Blood MODERATE (NEGATIVE) H 12/13/16 12:08 Urine Nitrate NEGATIVE (NEGATIVE) 12/13/16 12:08 Urine Bilirubin NEGATIVE (NEGATIVE) 12/13/16 12:08 Urine Urobilinogen 0.2 E.U./dL (0.2 - 1.0) 12/13/16 12:08 Ur Leukocyte Esterase LARGE (NEGATIVE) H 12/13/16 12:08 Urine RBC 2-5 /hpf (0-5) 12/13/16 12:08 Urine WBC 25-50 /hpf (0-5) H 12/13/16 12:08 Ur Epithelial Cells OCCASIONAL /lpf (FEW) 12/13/16 12:08 Urine Bacteria 4+ /hpf (NONE SEEN) H 12/13/16 12:08 Urine Yeast MANY /hpf (NONE SEEN) H 12/13/16 12:08 - Physical Exam Vitals and I&O: Vital Signs Temp 98.9 F 12/14/16 04:00 Pulse 108 12/14/16 08:05 Resp 14 12/14/16 08:05 BP 173/81 12/14/16 04:00 Pulse Ox 96 12/14/16 08:05 Intake & Output 12/13/16 12/14/16 12/14/16 18:59 06:59 18:59 Intake Total 100 1000 Output Total 0 Balance 100 1000 Weight (lbs) 68.039 kg Intake: Intake, IV Amount 1000 Sodium Chloride 0.9% 1, 1000 000 ml @ 100 mls/hr IV . Q10H [facility] Rx#:[id number] Oral 100 Output: Stool 0 Other: # Voids 3 Stool Characteristics Soft Active Medications: Current Medications Acetaminophen (Tylenol) 650 mg PO Q4HR PRN PRN Reason: Pain or Fever >101 Stop: 02/09/17 17:50 Amlodipine Besylate (Norvasc) 5 mg PO DAILY [facility] Stop: 02/10/17 08:59 Last Admin: 12/13/16 11:11 Dose: 5 mg Aspirin (Ecotrin) 81 mg PO DAILY [facility] Stop: 02/10/17 08:59 Last Admin: 12/13/16 11:12 Dose: 81 mg Bisacodyl (Dulcolax 10 Mg Supp) 10 mg RC DAILY PRN PRN Reason: Constipation Stop: 02/09/17 17:50 Carvedilol (Coreg) 6.25 mg PO BID [facility] Stop: 02/11/17 08:59 Last Admin: 12/13/16 18:16 Dose: 6.25 mg Sodium Chloride (Nacl 0.9%) 1,000 mls @ 100 mls/hr IV .Q10H [facility] Stop: 02/09/17 17:51 Last Admin: 12/14/16 06:23 Dose: 100 mls/hr Ceftriaxone Sodium 1 gm/ (Sodium Chloride) 50 mls @ 100 mls/hr IV Q24HR [facility] Stop: 02/11/17 16:59 Last Admin: 12/13/16 18:54 Dose: 100 mls/hr Fluconazole (Diflucan) 200 mg in 100 mls @ 100 mls/hr IV Q24HR [facility] Stop: 02/12/17 08:59 Insulin Aspart (Novolog Insulin Sliding Scale) 0 units SUBQ ACHS [facility] PRN Reason: Protocol Stop: 02/10/17 11:29 Last Admin: 12/14/16 06:45 Dose: Not Given Labetalol HCl (Trandate) 10 mg IVP Q8HR PRN PRN Reason: SBP ABOVE 160 Stop: 02/10/17 17:14 Lorazepam (Ativan) 1 mg IVP Q8HR PRN; Protocol PRN Reason: Agitation Stop: 02/09/17 21:25 Last Admin: 12/13/16 19:59 Dose: 1 mg Losartan Potassium (Cozaar) 50 mg PO DAILY [facility] Stop: 02/11/17 08:59 Last Admin: 12/13/16 11:12 Dose: 50 mg Miscellaneous (Vte Chemical Prophylaxis Screen/ Admission) 1 ea [facility] PRN PRN PRN Reason: PROTOCOL Stop: 02/10/17 14:48 Quetiapine Fumarate (Seroquel) 50 mg PO DAILY [facility] PRN Reason: Protocol Stop: 02/12/17 08:59 General: Alert, Other (Confused, not oriented) HEENT: Atraumatic, PERRLA Neck: Supple Cardiovascular: Regular rate Lungs: Clear to auscultation Abdomen: Bowel sounds Extremities: Other (No edema) Neurological: Other (Unstable gait) Psych/Mental Status: Other (Patient is confused, not oriented. Patient is refusing to eat and take meds.) Assessment/Plan - Assessment Assessment: Patient is agitated at moment, confused, not oriented. Head CT shows no acute illness. K is low. Patient is refusing to eat and to take meds. BP better control. Dx: Increased in confusion, UTI, HTN, CHF, Dyslipemia, Dementia, Psychosis. - Plan Plan: Case will be discussed with Psychiatry and family. Ceftriaxone, Fluconazole and seroquel are introduced. Will continue to monitor.
[2016-12-14] MEDS ORDERED: Potassium Chloride 40 MEQ, Lidocaine 1% 20mL Vial 25 MG in Sodium Chloride 0.9% 250 ML IV ONE (09:45)
[2016-12-14] MEDS ORDERED: Potassium Phosphate 20 MMOLE in Sodium Chloride 0.9% 250 ML IV ONE (09:45)
[2016-12-14] MEDS ORDERED: Potassium Chloride 20 mEq ER Tab PO ONE (11:28)
[2016-12-14 12:58] LABS: AMPHETAMINE URINE NEGATIVE (NEGATIVE); BARBITURATES URINE NEGATIVE (NEGATIVE); METHADONE URINE NEGATIVE (NEGATIVE)
[2016-12-14] MEDS: cefTRIAXone 1 GM in Sodium Chloride 0.9% 50 ML IV SCH (17:33)
--- NOTE | 2016-12-15 05:31 | Progress Notes ---
DATE: 12/14/2016 SUBJECTIVE: Staff was spoken to. The patient is interviewed. Mood is noted to be irritable. Affect is constricted. Insight and judgment are noted to be still impaired. Impulse control seems to be poor. Coping skills are noted to be poor. The patient has no insight into her illness. The patient is still having difficult time to take the medications by mouth and then she has to be given IV fluids. The patient is responding only to the family members and the patient has been compliant with the staff because the patient has been sleeping most of the time. In view of her drowsiness and weakness, it is decided to hold the psychotropic medication and the patient is going to be followed up with supportive therapy and the Ativan is going to be used only on a p.r.n. basis and the patient is going to be followed up once the patient's nutritional status and medical status improves. The patient is going to be restarted with psychotropic medications. JOB# [id number]
[2016-12-15 05:38] LABS: % BASOPHILS 0.6 % (0.0-2.0); % EOSINOPHILS 1.5 % (0.0-5.0); % LYMPHOCYTES 18.1 % (20.0-50.0); % NEUTROPHILS 66.8 % (40.0-80.0); HEMATOCRIT 40.5 % (35.0-45.0); HEMOGLOBIN 13.4 gm/dL (11.7-16.1); MEAN CELL VOLUME 86.4 fl (81-100); MEAN CORPUSCULAR HEMOGLOBIN 28.6 pg (27.0-31.0); MEAN CORPUSCULAR HGB CONC 33.1 pg (28.0-36.0); MEAN PLATELET VOLUME 8.5 fl; NEUTROPHILE ABSOLUTE 7.5 Th/cmm (1.8-8.0); PLATELET COUNT 280 Th/cmm (150-400); RED BLOOD COUNT 4.69 Mil/cmm (3.80-5.20); RED CELL DISTRIBUTION WIDTH 12.3 % (11.5-20.0); WHITE BLOOD COUNT 11.3 Th/cmm (4.8-10.8)
[2016-12-15 05:53] LABS: ALKALINE PHOSPHATASE 75 U/L (34-104); ANION GAP 9.8 (7.0-16.0); BILIRUBIN,TOTAL 0.5 mg/dL (0.3-1.0); BUN - UREA NITROGEN 44 mg/dL (7-25); CALCIUM SERUM 10.2 mg/dL (8.6-10.3); CARBON DIOXIDE 27.3 mEq/L (21.0-31.0); CHLORIDE 112 mEq/L (98-107); CREATININE - SERUM 0.8 mg/dL (0.6-1.2); GLUCOSE 129 mg/dL (70-105); POTASSIUM SERUM 3.1 mEq/L (3.5-5.1); SGOT 32 U/L (13-39); SGPT/ALT 40 U/L (7-52); SODIUM SERUM 146 mEq/L (136-145)
[2016-12-15] MEDS: INSULIN ASPART SLIDING SCALE 100 UNITS/ML UNIT SUBQ SCH ×4 (07:01→20:57)
[2016-12-15] MEDS ORDERED: Haloperidol Lactate 5 mg/mL 1mL Vial IM SCH (09:00)
--- NOTE | 2016-12-15 09:03 | General Progress Note ---
Subjective - Review of Systems Service Date: 12/15/16 Subjective: Patient is confused, somnolent Objective - Results Result Diagrams: 12/15/16 05:15 12/15/16 05:15 Recent Labs: Laboratory Last Values WBC 11.3 Th/cmm (4.8-10.8) H 12/15/16 05:15 RBC 4.69 Mil/cmm (3.80-5.20) 12/15/16 05:15 Hgb 13.4 gm/dL (11.7-16.1) 12/15/16 05:15 Hct 40.5 % (35.0-45.0) 12/15/16 05:15 MCV 86.4 fl (81-100) 12/15/16 05:15 MCH 28.6 pg (27.0-31.0) 12/15/16 05:15 MCHC Differential 33.1 pg (28.0-36.0) 12/15/16 05:15 RDW 12.3 % (11.5-20.0) 12/15/16 05:15 Plt Count 280 Th/cmm (150-400) 12/15/16 05:15 MPV 8.5 fl 12/15/16 05:15 Neutrophils % 66.8 % (40.0-80.0) 12/15/16 05:15 Band Neutrophils % 8 % (0-10) 12/14/16 06:17 Lymphocytes % 18.1 % (20.0-50.0) L 12/15/16 05:15 Monocytes % 13.0 % (2.0-10.0) H 12/15/16 05:15 Eosinophils % 1.5 % (0.0-5.0) 12/15/16 05:15 Basophils % 0.6 % (0.0-2.0) 12/15/16 05:15 Neutrophils (Manual) 68 % (40-80) 12/14/16 06:17 Lymphocytes 14 % (20-50) L 12/14/16 06:17 Monocytes 7 % (2-10) 12/14/16 06:17 Eosinophils 3 % (0-5) 12/14/16 06:17 Platelet Estimate ADEQUATE (NORMAL) 12/14/16 06:17 Platelet Morphology NORMAL (NORMAL) 12/14/16 06:17 RBC Morph Micro Appear NORMAL (NORMAL) 12/14/16 06:17 Specimen Source Arterial 12/12/16 10:09 Sample Site RB 12/12/16 10:09 pH 7.48 (7.35-7.45) H 12/12/16 10:09 pCO2 43.0 mmHg (35.0-45.0) 12/12/16 10:09 pO2 62.0 mmHg (80.0-100.0) L 12/12/16 10:09 HCO3 30.8 mEq/L (20.0-26.0) H 12/12/16 10:09 Base Excess 7.6 mEq/L (-3.0-3.0) H 12/12/16 10:09 O2 Saturation 93.0 % (92.0-100.0) 12/12/16 10:09 Gurpreet Test NA 12/12/16 10:09 Vent Rate NA 12/12/16 10:09 Inspired O2 21 12/12/16 10:09 Tidal Volume NA 12/12/16 10:09 PEEP NA 12/12/16 10:09 Pressure (ins/psv/peep) NA 12/12/16 10:09 Critical Value SH 12/12/16 10:09 Sodium 146 mEq/L (136-145) H 12/15/16 05:15 Potassium 3.1 mEq/L (3.5-5.1) L 12/15/16 05:15 Chloride 112 mEq/L (98-107) H 12/15/16 05:15 Carbon Dioxide 27.3 mEq/L (21.0-31.0) 12/15/16 05:15 Anion Gap 9.8 (7.0-16.0) 12/15/16 05:15 BUN 44 mg/dL (7-25) H 12/15/16 05:15 Creatinine 0.8 mg/dL (0.6-1.2) 12/15/16 05:15 Est GFR ( Amer) TNP 12/15/16 05:15 Est GFR (Non-Af Amer) TNP 12/15/16 05:15 BUN/Creatinine Ratio 55.0 12/15/16 05:15 Glucose 129 mg/dL (70-105) H 12/15/16 05:15 POC Glucose 144 MG/DL (70 - 105) H 12/15/16 06:49 Hemoglobin A1c % 5.7 % (4.0-6.0) 12/13/16 05:54 Calcium 10.2 mg/dL (8.6-10.3) 12/15/16 05:15 Total Bilirubin 0.5 mg/dL (0.3-1.0) 12/15/16 05:15 AST 32 U/L (13-39) 12/15/16 05:15 ALT 40 U/L (7-52) 12/15/16 05:15 Alkaline Phosphatase 75 U/L (34-104) 12/15/16 05:15 Total Protein 6.9 gm/dL (6.0-8.3) 12/15/16 05:15 Albumin 3.5 gm/dL (3.7-5.3) L 12/15/16 05:15 Globulin 3.4 gm/dL 12/15/16 05:15 Albumin/Globulin Ratio 1.0 (1.0-1.8) 12/15/16 05:15 TSH 1.85 uIU/ml (0.34-5.60) 12/12/16 05:07 Urine Source CLEAN C 12/13/16 12:08 Urine Color YELLOW 12/13/16 12:08 Urine Clarity HAZY (CLEAR) 12/13/16 12:08 Urine pH 8.0 (4.6 - 8.0) 12/13/16 12:08 Ur Specific [place] 1.015 (1.005-1.030) 12/13/16 12:08 Urine Protein 100 mg/dL (NEGATIVE) H 12/13/16 12:08 Urine Glucose (UA) NEGATIVE mg/dL (NEGATIVE) 12/13/16 12:08 Urine Ketones NEGATIVE mg/dL (NEGATIVE) 12/13/16 12:08 Urine Blood MODERATE (NEGATIVE) H 12/13/16 12:08 Urine Nitrate NEGATIVE (NEGATIVE) 12/13/16 12:08 Urine Bilirubin NEGATIVE (NEGATIVE) 12/13/16 12:08 Urine Urobilinogen 0.2 E.U./dL (0.2 - 1.0) 12/13/16 12:08 Ur Leukocyte Esterase LARGE (NEGATIVE) H 12/13/16 12:08 Urine RBC 2-5 /hpf (0-5) 12/13/16 12:08 Urine WBC 25-50 /hpf (0-5) H 12/13/16 12:08 Ur Epithelial Cells OCCASIONAL /lpf (FEW) 12/13/16 12:08 Urine Bacteria 4+ /hpf (NONE SEEN) H 12/13/16 12:08 Urine Yeast MANY /hpf (NONE SEEN) H 12/13/16 12:08 Urine Opiates Screen NEGATIVE (NEGATIVE) 12/13/16 15:46 Urine Methadone Screen NEGATIVE (NEGATIVE) 12/13/16 15:46 Ur Barbiturates Screen NEGATIVE (NEGATIVE) 12/13/16 15:46 Ur Tricyclics Screen POSITIVE (NEGATIVE) H 12/13/16 15:46 Ur Phencyclidine Scrn NEGATIVE (NEGATIVE) 12/13/16 15:46 Amphetamines Screen NEGATIVE (NEGATIVE) 12/13/16 15:46 U Methamphetamines Scrn NEGATIVE (NEGATIVE) 12/13/16 15:46 U Benzodiazepines Scrn POSITIVE (NEGATIVE) H 12/13/16 15:46 U Cocaine Metab Screen NEGATIVE (NEGATIVE) 12/13/16 15:46 U Cannabinoids Screen NEGATIVE (NEGATIVE) 12/13/16 15:46 - Physical Exam Vitals and I&O: Vital Signs Temp 98.3 F 12/15/16 04:00 Pulse 66 12/15/16 07:15 Resp 18 12/15/16 07:15 BP 142/69 12/15/16 04:00 Pulse Ox 95 12/15/16 07:15 Intake & Output 12/14/16 12/15/16 12/15/16 18:59 06:59 18:59 Intake Total 150 240 Balance 150 240 Weight (lbs) 68.538 kg Intake: Intake, IV Amount 150 Fluconazole 200mg/100mL 100 200 mg In 100 ml @ 100 mls/hr IV Q24HR [facility] Rx#: [id number] cefTRIAXone 1 gm In 50 Sodium Chloride 0.9% 50 ml @ 100 mls/hr IV Q24HR [facility] Rx#:[id number] Oral 240 Other: # Voids 2 # Bowel Movements 0 Active Medications: Current Medications Acetaminophen (Tylenol) 650 mg PO Q4HR PRN PRN Reason: Pain or Fever >101 Stop: 02/09/17 17:50 Amlodipine Besylate (Norvasc) 5 mg PO DAILY [facility] Stop: 02/10/17 08:59 Last Admin: 12/14/16 10:00 Dose: 5 mg Aspirin (Ecotrin) 81 mg PO DAILY [facility] Stop: 02/10/17 08:59 Last Admin: 12/14/16 01:00 Dose: 81 mg Bisacodyl (Dulcolax 10 Mg Supp) 10 mg RC DAILY PRN PRN Reason: Constipation Stop: 02/09/17 17:50 Carvedilol (Coreg) 6.25 mg PO BID RHIANNA Stop: 02/11/17 08:59 Last Admin: 12/14/16 17:33 Dose: Not Given Haloperidol Lactate (Haldol) 0.5 mg IM BID [facility] Stop: 02/13/17 08:59 Sodium Chloride (Nacl 0.9%) 1,000 mls @ 100 mls/hr IV .Q10H [facility] Stop: 02/09/17 17:51 Last Admin: 12/14/16 06:23 Dose: 100 mls/hr Ceftriaxone Sodium 1 gm/ (Sodium Chloride) 50 mls @ 100 mls/hr IV Q24HR RHIANNA Stop: 02/11/17 16:59 Last Infusion: 12/14/16 18:03 Dose: Infused Insulin Aspart (Novolog Insulin Sliding Scale) 0 units SUBQ ACHS RHIANNA PRN Reason: Protocol Stop: 02/10/17 11:29 Last Admin: 12/15/16 07:01 Dose: Not Given Labetalol HCl (Trandate) 10 mg IVP Q8HR PRN PRN Reason: SBP ABOVE 160 Stop: 02/10/17 17:14 Lorazepam (Ativan) 1 mg IVP Q8HR PRN; Protocol PRN Reason: Agitation Stop: 02/09/17 21:25 Last Admin: 12/13/16 19:59 Dose: 1 mg Losartan Potassium (Cozaar) 50 mg PO DAILY [facility] Stop: 02/11/17 08:59 Last Admin: 12/14/16 10:00 Dose: 50 mg Miscellaneous (Vte Chemical Prophylaxis Screen/ Admission) 1 ea [facility] PRN PRN PRN Reason: PROTOCOL Stop: 02/10/17 14:48 General: Other (Patient is somnolient, Confused, not oriented), no Alert HEENT: Atraumatic, PERRLA Neck: Supple Cardiovascular: Regular rate Lungs: Clear to auscultation Abdomen: Bowel sounds Extremities: Other (No edema) Neurological: Other (Unstable gait) Psych/Mental Status: Other (Patient is confused, not oriented. Patient is refusing to eat and take meds.) Assessment/Plan - Assessment Assessment: Patient is agitated at moment, confused, not oriented. Head CT shows no acute illness. K is low. Patient is refusing to eat and to take meds. BP better control. Per daughter request no Ativan has been given. Dx: Increased in confusion, UTI, HTN, CHF, Dyslipemia, Dementia, Psychosis. - Plan Plan: Case was discussed with Psychiatry and family. Haldol is introduced. Will continue to monitor.
[2016-12-15] MEDS ORDERED: Potassium Chloride 40 MEQ, Lidocaine 1% 20mL Vial 25 MG in Sodium Chloride 0.9% 250 ML IV ONE (09:45)
--- NOTE | 2016-12-15 13:43 | Consultation ---
DATE OF CONSULTATION: 12/15/2016 INTERNAL MEDICINE CONSULTATION REFERRING PHYSICIAN: Dr. Anna. REASON FOR CONSULT: Lethargy, poor p.o. intake, leukocytosis, azotemia, hypokalemia. HISTORY OF PRESENT ILLNESS: The patient is a 76-year-old female with history of type 2 diabetes, hypertension, COPD, dementia with psych disorder, who was initially admitted to [facility], but was transferred to the medical floor, given lethargy, failure to thrive and UTI as well as hyponatremia. Since been in the medical floor, she has remained lethargic with poor p.o. intake and despite her psych meds being taken off, she remains lethargic and mostly nonresponsive/uncooperative. Pertinent findings include a head CT done on 12/12 showing no acute abnormalities. There was cerebral atrophy, there is also supratentorial white matter changes that might reflect chronic small vessel ischemic disease. The patient has also being seen by Cardiology for apparent tachycardia and she had a 2D echo done on 12/12/2016 showing hypertrophy of the left ventricle with an EF of 59%. The patient is currently residing in the telemetry mak and is mostly asleep but arousable, however she is not answering questions.She does appear to be comfortable. Other pertinent findings include sodium 146, BUN of 44, white count of 11.3 and UA showing large leukocyte esterase with 25-50 wbc's, 4+ bacteria, many yeast. Urine cultures also came back with E. coli with multiple sensitivities including Rocephin, which she is currently receiving. PAST MEDICAL HISTORY: As noted above. PAST SURGICAL HISTORY: Unknown. FAMILY HISTORY: Likely noncontributory. SOCIAL HISTORY: She apparently is a chronic smoker. No ETOH. Unknown if she lives at a jail facility. ALLERGIES: Pollen extracts, but no known drug allergies. CURRENT MEDICATIONS: Tylenol p.r.n. for pain, amlodipine 5 every day, aspirin 81 every day, Dulcolax suppository p.r.n. for constipation, Coreg 6.25 b.i.d., Rocephin 1 gram q.24h, fluconazole 100 mg IV q.24h, Haldol 0.5 q.12, labetalol 10 IV push q.8 p.r.n. for pulse or heart rate greater than 160, lorazepam q.8h p.r.n. for agitation, losartan 50 every day, quetiapine 50 mg, which was recently discontinued. REVIEW OF SYSTEMS: Not able to be done given patient's condition. PHYSICAL EXAMINATION: VITAL SIGNS: Temperature 98.3, pulse 66, respirations 18, blood pressure 142/69, satting 95% on room air. GENERAL: Well-developed, thin, elderly female, currently lying in bed, appears to be comfortable. She is arousable, but is not able or does not want to speak at this time. HEENT: Head is normocephalic, atraumatic. Her mucous membranes are dry. NECK: There is no JVD or LAD. CARDIAC: Regular rate and rhythm without any murmurs. LUNGS: Decreased at the bases, but clear to auscultation. ABDOMEN: Soft, supple, nontender, nondistended. Normoactive bowel sounds. LOWER EXTREMITIES: No edema. NEUROLOGIC: Difficult to assess, but her cranial nerves 2-12 appear to be intact and she is able to move 4 extremities with equal force and strength. LABORATORY DATA: Please refer to the HPI for all pertinent labs. DIAGNOSTICS: Please refer to the HPI as well. IMPRESSION: 1. Increased persistent lethargy. A differential include encephalopathy secondary to sepsis versus metabolic versus secondary to dehydration and/ or side effects from medications. 2. Urinary tract infection. 3. Leukocytosis. 4. Hypernatremia. 5. Hypokalemia. 6. History of type 2 diabetes, which appears to be fairly stable. 7. History of hypertension. 8. History of chronic obstructive pulmonary disease, which appears to be stable clinically. 9. History of dementia with psychotic behavior. PLAN: The patient will be started on IV fluids D5 half NS at 75 mL per hour with potassium supplement. I agree to discontinue some of her psych meds and monitor her clinically for the time being. We will repeat UA and in the interim , we will leave on fluconazole and Rocephin. An ammonia level will also be checked. The patient also will be started on Remeron 30 mg at bedtime for appetite stimulation. If no improvement , we will get an MRI of the brain. JOB# [id number] [facility]ITALPiy[facility]
[2016-12-15] MEDS ORDERED: Lactulose 10 Gm/15 mL 30mL UDC PO ONE (16:00)
[2016-12-15] MEDS: Lactulose 10 Gm/15 mL 30mL UDC PO SCH ×2 (16:34→20:56)
[2016-12-15] MEDS: cefTRIAXone 1 GM in Sodium Chloride 0.9% 50 ML IV SCH (16:53)
[2016-12-15] MEDS: Haloperidol Lactate 5 mg/mL 1mL Vial IM SCH (20:56)
--- NOTE | 2016-12-16 00:12 | Consultation ---
DATE OF CONSULTATION: 12/14/2016 PRIMARY PHYSICIAN: Dr. Anna. HISTORY OF PRESENT ILLNESS: This is a 76-year-old female who was brought to the Emergency Room with complaint of fever and altered mental status. The patient was brought to the hospital because of above symptoms for 1 day. The patient was discharged a couple of months ago after a prolonged stay in the hospital. Now she comes back with fever. Workup shows UTI. Infectious consultation was called for further treatment. Old chart reviewed, pertinent information obtained. PAST HISTORY: COPD, essential hypertension, hyperlipidemia, seizures, type 2 diabetes. ALLERGIES: POLLEN. SOCIAL HISTORY: Smoker. FAMILY HISTORY: Negative. REVIEW OF SYSTEMS: A 14-point review of systems negative except above. PHYSICAL EXAMINATION: GENERAL: The patient is lethargic. VITAL SIGNS: Temperature 98, pulse 100, respirations 18, blood pressure 187/86, oxygen saturation 98%. HEENT: Mild pallor, no icterus or plaque. NECK: Supple. LUNGS: Breath sounds bilateral. CARDIOVASCULAR: S1, S2 present. ABDOMEN: Soft. Bowel sounds no cervical lymph nodes. LABORATORY DATA: White count is 12,000, hemoglobin is 14 g. UA shows urine infection. Cultures are pending. DIAGNOSES: 1. Urinary tract infection. The patient was started on Rocephin. 2. Hypertension; Coreg. Also the patient on labetalol. 3. Diabetes, diet controlled. Continue with the NovoLog. 4. Anxiety, lorazepam. Rest of the care as ordered in CPOE. Thank you, Dr. Anna for this consultation. JOB# [id number]
[2016-12-16 05:29] LABS: % EOSINOPHILS 3.8 % (0.0-5.0); % LYMPHOCYTES 19.3 % (20.0-50.0); % MONOCYTES 7.6 % (2.0-10.0); % NEUTROPHILS 65.3 % (40.0-80.0); HEMATOCRIT 43.3 % (35.0-45.0); HEMOGLOBIN 14.3 gm/dL (11.7-16.1); MEAN CELL VOLUME 86.3 fl (81-100); MEAN CORPUSCULAR HEMOGLOBIN 28.5 pg (27.0-31.0); MEAN CORPUSCULAR HGB CONC 33.1 pg (28.0-36.0); MEAN PLATELET VOLUME 8.1 fl; NEUTROPHILE ABSOLUTE 7.4 Th/cmm (1.8-8.0); PLATELET COUNT 279 Th/cmm (150-400); RED BLOOD COUNT 5.02 Mil/cmm (3.80-5.20); RED CELL DISTRIBUTION WIDTH 12.3 % (11.5-20.0); WHITE BLOOD COUNT 11.1 Th/cmm (4.8-10.8)
[2016-12-16 05:56] LABS: ALB/GLOB RATIO 1.1 (1.0-1.8); ALKALINE PHOSPHATASE 75 U/L (34-104); ANION GAP 9.3 (7.0-16.0); BILIRUBIN,TOTAL 0.4 mg/dL (0.3-1.0); BUN - UREA NITROGEN 45 mg/dL (7-25); BUN/CREATININE RATIO 56.3; CHLORIDE 110 mEq/L (98-107); CHOLESTEROL 169 mg/dL (<200); CREATININE - SERUM 0.8 mg/dL (0.6-1.2); GLUCOSE 158 mg/dL (70-105); MAGNESIUM 1.6 mg/dL (1.9-2.7); POTASSIUM SERUM 3.3 mEq/L (3.5-5.1); SGOT 63 U/L (13-39); SGPT/ALT 79 U/L (7-52); SODIUM SERUM 143 mEq/L (136-145); TRIGLYCERIDES 126 mg/dL (<150)
[2016-12-16] MEDS: INSULIN ASPART SLIDING SCALE 100 UNITS/ML UNIT SUBQ SCH ×4 (06:36→21:10)
[2016-12-16] MEDS ORDERED: KCL 20mEq/100mL Premix 20 MEQ/100 ML PIGGYBACK IV ONE (08:48)
--- NOTE | 2016-12-16 08:58 | General Progress Note ---
Subjective - Review of Systems Service Date: 12/16/16 Subjective: Patient is sleeping but arousable, confused, somnolent Objective - Results Result Diagrams: 12/16/16 05:07 12/16/16 05:07 Recent Labs: Laboratory Last Values WBC 11.1 Th/cmm (4.8-10.8) H 12/16/16 05:07 RBC 5.02 Mil/cmm (3.80-5.20) 12/16/16 05:07 Hgb 14.3 gm/dL (11.7-16.1) 12/16/16 05:07 Hct 43.3 % (35.0-45.0) 12/16/16 05:07 MCV 86.3 fl (81-100) 12/16/16 05:07 MCH 28.5 pg (27.0-31.0) 12/16/16 05:07 MCHC Differential 33.1 pg (28.0-36.0) 12/16/16 05:07 RDW 12.3 % (11.5-20.0) 12/16/16 05:07 Plt Count 279 Th/cmm (150-400) 12/16/16 05:07 MPV 8.1 fl 12/16/16 05:07 Neutrophils % 65.3 % (40.0-80.0) 12/16/16 05:07 Band Neutrophils % 8 % (0-10) 12/14/16 06:17 Lymphocytes % 19.3 % (20.0-50.0) L 12/16/16 05:07 Monocytes % 7.6 % (2.0-10.0) 12/16/16 05:07 Eosinophils % 3.8 % (0.0-5.0) 12/16/16 05:07 Basophils % 4.0 % (0.0-2.0) H 12/16/16 05:07 Neutrophils (Manual) 68 % (40-80) 12/14/16 06:17 Lymphocytes 14 % (20-50) L 12/14/16 06:17 Monocytes 7 % (2-10) 12/14/16 06:17 Eosinophils 3 % (0-5) 12/14/16 06:17 Platelet Estimate ADEQUATE (NORMAL) 12/14/16 06:17 Platelet Morphology NORMAL (NORMAL) 12/14/16 06:17 RBC Morph Micro Appear NORMAL (NORMAL) 12/14/16 06:17 Specimen Source Arterial 12/12/16 10:09 Sample Site RB 12/12/16 10:09 pH 7.48 (7.35-7.45) H 12/12/16 10:09 pCO2 43.0 mmHg (35.0-45.0) 12/12/16 10:09 pO2 62.0 mmHg (80.0-100.0) L 12/12/16 10:09 HCO3 30.8 mEq/L (20.0-26.0) H 12/12/16 10:09 Base Excess 7.6 mEq/L (-3.0-3.0) H 12/12/16 10:09 O2 Saturation 93.0 % (92.0-100.0) 12/12/16 10:09 Gurpreet Test NA 12/12/16 10:09 Vent Rate NA 12/12/16 10:09 Inspired O2 21 12/12/16 10:09 Tidal Volume NA 12/12/16 10:09 PEEP NA 12/12/16 10:09 Pressure (ins/psv/peep) NA 12/12/16 10:09 Critical Value SH 12/12/16 10:09 Sodium 143 mEq/L (136-145) 12/16/16 05:07 Potassium 3.3 mEq/L (3.5-5.1) L 12/16/16 05:07 Chloride 110 mEq/L (98-107) H 12/16/16 05:07 Carbon Dioxide 27.0 mEq/L (21.0-31.0) 12/16/16 05:07 Anion Gap 9.3 (7.0-16.0) 12/16/16 05:07 BUN 45 mg/dL (7-25) H 12/16/16 05:07 Creatinine 0.8 mg/dL (0.6-1.2) 12/16/16 05:07 Est GFR ( Amer) TNP 12/16/16 05:07 Est GFR (Non-Af Amer) TNP 12/16/16 05:07 BUN/Creatinine Ratio 56.3 12/16/16 05:07 Glucose 158 mg/dL (70-105) H 12/16/16 05:07 POC Glucose 125 MG/DL (70 - 105) H 12/16/16 05:25 Hemoglobin A1c % 5.7 % (4.0-6.0) 12/13/16 05:54 Calcium 10.0 mg/dL (8.6-10.3) 12/16/16 05:07 Magnesium 1.6 mg/dL (1.9-2.7) L 12/16/16 05:07 Total Bilirubin 0.4 mg/dL (0.3-1.0) 12/16/16 05:07 AST 63 U/L (13-39) H 12/16/16 05:07 ALT 79 U/L (7-52) H 12/16/16 05:07 Alkaline Phosphatase 75 U/L (34-104) 12/16/16 05:07 Ammonia 107 umol/L (16-53) H 12/15/16 11:20 Total Protein 6.8 gm/dL (6.0-8.3) 12/16/16 05:07 Albumin 3.5 gm/dL (3.7-5.3) L 12/16/16 05:07 Globulin 3.3 gm/dL 12/16/16 05:07 Albumin/Globulin Ratio 1.1 (1.0-1.8) 12/16/16 05:07 Triglycerides 126 mg/dL (<150) 12/16/16 05:07 Cholesterol 169 mg/dL (<200) 12/16/16 05:07 LDL Cholesterol Direct 133 mg/dL (75-193) 12/16/16 05:07 HDL Cholesterol 34 mg/dL (23-92) 12/16/16 05:07 TSH 2.00 uIU/ml (0.34-5.60) 12/16/16 05:07 Urine Source CLEAN C 12/13/16 12:08 Urine Color YELLOW 12/13/16 12:08 Urine Clarity HAZY (CLEAR) 12/13/16 12:08 Urine pH 8.0 (4.6 - 8.0) 12/13/16 12:08 Ur Specific [place] 1.015 (1.005-1.030) 12/13/16 12:08 Urine Protein 100 mg/dL (NEGATIVE) H 12/13/16 12:08 Urine Glucose (UA) NEGATIVE mg/dL (NEGATIVE) 12/13/16 12:08 Urine Ketones NEGATIVE mg/dL (NEGATIVE) 12/13/16 12:08 Urine Blood MODERATE (NEGATIVE) H 12/13/16 12:08 Urine Nitrate NEGATIVE (NEGATIVE) 12/13/16 12:08 Urine Bilirubin NEGATIVE (NEGATIVE) 12/13/16 12:08 Urine Urobilinogen 0.2 E.U./dL (0.2 - 1.0) 12/13/16 12:08 Ur Leukocyte Esterase LARGE (NEGATIVE) H 12/13/16 12:08 Urine RBC 2-5 /hpf (0-5) 12/13/16 12:08 Urine WBC 25-50 /hpf (0-5) H 12/13/16 12:08 Ur Epithelial Cells OCCASIONAL /lpf (FEW) 12/13/16 12:08 Urine Bacteria 4+ /hpf (NONE SEEN) H 12/13/16 12:08 Urine Yeast MANY /hpf (NONE SEEN) H 12/13/16 12:08 Urine Opiates Screen NEGATIVE (NEGATIVE) 12/13/16 15:46 Urine Methadone Screen NEGATIVE (NEGATIVE) 12/13/16 15:46 Ur Barbiturates Screen NEGATIVE (NEGATIVE) 12/13/16 15:46 Ur Tricyclics Screen POSITIVE (NEGATIVE) H 12/13/16 15:46 Ur Phencyclidine Scrn NEGATIVE (NEGATIVE) 12/13/16 15:46 Amphetamines Screen NEGATIVE (NEGATIVE) 12/13/16 15:46 U Methamphetamines Scrn NEGATIVE (NEGATIVE) 12/13/16 15:46 U Benzodiazepines Scrn POSITIVE (NEGATIVE) H 12/13/16 15:46 U Cocaine Metab Screen NEGATIVE (NEGATIVE) 12/13/16 15:46 U Cannabinoids Screen NEGATIVE (NEGATIVE) 12/13/16 15:46 - Physical Exam Vitals and I&O: Vital Signs Temp 97.2 F 12/16/16 04:00 Pulse 76 12/16/16 08:04 Resp 16 12/16/16 08:04 BP 115/82 12/16/16 04:00 Pulse Ox 98 12/16/16 08:04 Intake & Output 12/15/16 12/16/16 12/16/16 18:59 06:59 18:59 Intake Total 1522.5 1125 Balance 1522.5 1125 Weight (lbs) 61.689 kg 62.369 kg Intake: Intake, IV Amount 322.5 1005 Potassium Chloride 10 meq 1005 In Dextrose 5% 1,000 ml @ 75 mls/hr IV .[id number] REPLACED BY [facility] Rx#:[id number] cefTRIAXone 1 gm In 50 Sodium Chloride 0.9% 50 ml @ 100 mls/hr IV Q24HR REPLACED BY [facility] Rx#:[id number] Oral 1200 120 Other: # Voids 4 3 # Bowel Movements 1 Active Medications: Current Medications Acetaminophen (Tylenol) 650 mg PO Q4HR PRN PRN Reason: Pain or Fever >101 Stop: 02/09/17 17:50 Amlodipine Besylate (Norvasc) 5 mg PO DAILY REPLACED BY [facility] Stop: 02/10/17 08:59 Last Admin: 12/15/16 09:39 Dose: 5 mg Aspirin (Ecotrin) 81 mg PO DAILY REPLACED BY [facility] Stop: 02/10/17 08:59 Last Admin: 12/15/16 09:37 Dose: 81 mg Bisacodyl (Dulcolax 10 Mg Supp) 10 mg RC DAILY PRN PRN Reason: Constipation Stop: 02/09/17 17:50 Last Admin: 12/15/16 14:30 Dose: 10 mg Carvedilol (Coreg) 6.25 mg PO BID REPLACED BY [facility] Stop: 02/11/17 08:59 Last Admin: 12/15/16 16:27 Dose: 6.25 mg Haloperidol Lactate (Haldol) 0.5 mg IM Q12HR REPLACED BY [facility] Stop: 02/13/17 20:59 Last Admin: 12/15/16 20:56 Dose: 0.5 mg Ceftriaxone Sodium 1 gm/ (Sodium Chloride) 50 mls @ 100 mls/hr IV Q24HR REPLACED BY [facility] Stop: 02/11/17 16:59 Last Infusion: 12/15/16 18:01 Dose: Infused Potassium Chloride 10 meq/ (Dextrose) 1,005 mls @ 75 mls/hr IV .[id number] REPLACED BY [facility] Stop: 02/13/17 09:29 Last Admin: 12/16/16 05:21 Dose: 75 mls/hr Potassium Chloride (Potassium Chloride) 20 meq in 100 mls @ 50 mls/hr IV X1 ONE Stop: 12/16/16 10:47 Magnesium Sulfate 1 gm/ Sodium (Chloride) 52 mls @ 52 mls/hr IV X1 ONE Stop: 12/16/16 09:49 Insulin Aspart (Novolog Insulin Sliding Scale) 0 units SUBQ ACHS RHIANNA PRN Reason: Protocol Stop: 02/10/17 11:29 Last Admin: 12/16/16 06:36 Dose: Not Given Labetalol HCl (Trandate) 10 mg IVP Q8HR PRN PRN Reason: SBP ABOVE 160 Stop: 02/10/17 17:14 Lactulose (Cephulac) 20 gm PO TID RHIANNA Stop: 02/13/17 15:59 Last Admin: 12/15/16 20:56 Dose: 20 gm Lorazepam (Ativan) 1 mg IVP Q8HR PRN; Protocol PRN Reason: Agitation Stop: 02/09/17 21:25 Last Admin: 12/16/16 01:14 Dose: 1 mg Losartan Potassium (Cozaar) 50 mg PO DAILY REPLACED BY [facility] Stop: 02/11/17 08:59 Last Admin: 12/15/16 09:38 Dose: 50 mg Miscellaneous (Vte Chemical Prophylaxis Screen/ Admission) 1 ea [facility] PRN PRN PRN Reason: PROTOCOL Stop: 02/10/17 14:48 General: Other (Patient is somnolient, Confused, not oriented), no Alert HEENT: Atraumatic, PERRLA Neck: Supple Cardiovascular: Regular rate Lungs: Clear to auscultation Abdomen: Bowel sounds Extremities: Other (No edema) Neurological: Other (Unstable gait) Psych/Mental Status: Other (Patient is confused, not oriented. Patient is refusing to eat and take meds.) Assessment/Plan - Assessment Assessment: Patient is agitated at moment, confused, not oriented. K and Mg arer low. Patient is refusing to eat and to take meds. BP better control. Ammonia is high. Dx: Hepatic encephalopathy, Increased in confusion, UTI, HTN, CHF, Dyslipemia, Dementia, Psychosis. - Plan Plan: Lactulose is introduce, but patient is refusing to take it, all other meds and she is not eating. Haldol is introduced. Will continue to monitor.
[2016-12-16] MEDS ORDERED: Lactulose 10 Gm/15 mL 30mL UDC PO SCH (09:00)
[2016-12-16] MEDS: Haloperidol Lactate 5 mg/mL 1mL Vial IM SCH ×2 (10:38→21:05)
[2016-12-16] MEDS: Lactulose 10 Gm/15 mL 30mL UDC PO SCH ×2 (10:38→13:29)
[2016-12-16] MEDS ORDERED: Potassium Chloride 20 mEq ER Tab PO ONE (11:46)
--- NOTE | 2016-12-16 14:36 | Infectious Disease Prog Note ---
Infectious Disease Subjective - Review of Systems Service Date: 12/16/16 Subjective: There is no fever. Infectious Disease Objective - Results Result Diagrams: 12/16/16 05:07 12/16/16 05:07 Recent Labs: Laboratory Last Values WBC 11.1 Th/cmm (4.8-10.8) H 12/16/16 05:07 RBC 5.02 Mil/cmm (3.80-5.20) 12/16/16 05:07 Hgb 14.3 gm/dL (11.7-16.1) 12/16/16 05:07 Hct 43.3 % (35.0-45.0) 12/16/16 05:07 MCV 86.3 fl (81-100) 12/16/16 05:07 MCH 28.5 pg (27.0-31.0) 12/16/16 05:07 MCHC Differential 33.1 pg (28.0-36.0) 12/16/16 05:07 RDW 12.3 % (11.5-20.0) 12/16/16 05:07 Plt Count 279 Th/cmm (150-400) 12/16/16 05:07 MPV 8.1 fl 12/16/16 05:07 Neutrophils % 65.3 % (40.0-80.0) 12/16/16 05:07 Band Neutrophils % 8 % (0-10) 12/14/16 06:17 Lymphocytes % 19.3 % (20.0-50.0) L 12/16/16 05:07 Monocytes % 7.6 % (2.0-10.0) 12/16/16 05:07 Eosinophils % 3.8 % (0.0-5.0) 12/16/16 05:07 Basophils % 4.0 % (0.0-2.0) H 12/16/16 05:07 Neutrophils (Manual) 68 % (40-80) 12/14/16 06:17 Lymphocytes 14 % (20-50) L 12/14/16 06:17 Monocytes 7 % (2-10) 12/14/16 06:17 Eosinophils 3 % (0-5) 12/14/16 06:17 Platelet Estimate ADEQUATE (NORMAL) 12/14/16 06:17 Platelet Morphology NORMAL (NORMAL) 12/14/16 06:17 RBC Morph Micro Appear NORMAL (NORMAL) 12/14/16 06:17 Specimen Source Arterial 12/12/16 10:09 Sample Site RB 12/12/16 10:09 pH 7.48 (7.35-7.45) H 12/12/16 10:09 pCO2 43.0 mmHg (35.0-45.0) 12/12/16 10:09 pO2 62.0 mmHg (80.0-100.0) L 12/12/16 10:09 HCO3 30.8 mEq/L (20.0-26.0) H 12/12/16 10:09 Base Excess 7.6 mEq/L (-3.0-3.0) H 12/12/16 10:09 O2 Saturation 93.0 % (92.0-100.0) 12/12/16 10:09 Gurpreet Test NA 12/12/16 10:09 Vent Rate NA 12/12/16 10:09 Inspired O2 21 12/12/16 10:09 Tidal Volume NA 12/12/16 10:09 PEEP NA 12/12/16 10:09 Pressure (ins/psv/peep) NA 12/12/16 10:09 Critical Value SH 12/12/16 10:09 Sodium 143 mEq/L (136-145) 12/16/16 05:07 Potassium 3.3 mEq/L (3.5-5.1) L 12/16/16 05:07 Chloride 110 mEq/L (98-107) H 12/16/16 05:07 Carbon Dioxide 27.0 mEq/L (21.0-31.0) 12/16/16 05:07 Anion Gap 9.3 (7.0-16.0) 12/16/16 05:07 BUN 45 mg/dL (7-25) H 12/16/16 05:07 Creatinine 0.8 mg/dL (0.6-1.2) 12/16/16 05:07 Est GFR ( Amer) TNP 12/16/16 05:07 Est GFR (Non-Af Amer) TNP 12/16/16 05:07 BUN/Creatinine Ratio 56.3 12/16/16 05:07 Glucose 158 mg/dL (70-105) H 12/16/16 05:07 POC Glucose 165 MG/DL (70 - 105) H 12/16/16 11:02 Hemoglobin A1c % 5.7 % (4.0-6.0) 12/13/16 05:54 Calcium 10.0 mg/dL (8.6-10.3) 12/16/16 05:07 Magnesium 1.6 mg/dL (1.9-2.7) L 12/16/16 05:07 Total Bilirubin 0.4 mg/dL (0.3-1.0) 12/16/16 05:07 AST 63 U/L (13-39) H 12/16/16 05:07 ALT 79 U/L (7-52) H 12/16/16 05:07 Alkaline Phosphatase 75 U/L (34-104) 12/16/16 05:07 Ammonia 107 umol/L (16-53) H 12/15/16 11:20 Total Protein 6.8 gm/dL (6.0-8.3) 12/16/16 05:07 Albumin 3.5 gm/dL (3.7-5.3) L 12/16/16 05:07 Globulin 3.3 gm/dL 12/16/16 05:07 Albumin/Globulin Ratio 1.1 (1.0-1.8) 12/16/16 05:07 Prealbumin 11 mg/dL (9-32) 12/15/16 11:20 Triglycerides 126 mg/dL (<150) 12/16/16 05:07 Cholesterol 169 mg/dL (<200) 12/16/16 05:07 LDL Cholesterol Direct 133 mg/dL (75-193) 12/16/16 05:07 HDL Cholesterol 34 mg/dL (23-92) 12/16/16 05:07 TSH 2.00 uIU/ml (0.34-5.60) 12/16/16 05:07 Urine Source CLEAN C 12/13/16 12:08 Urine Color YELLOW 12/13/16 12:08 Urine Clarity HAZY (CLEAR) 12/13/16 12:08 Urine pH 8.0 (4.6 - 8.0) 12/13/16 12:08 Ur Specific [place] 1.015 (1.005-1.030) 12/13/16 12:08 Urine Protein 100 mg/dL (NEGATIVE) H 12/13/16 12:08 Urine Glucose (UA) NEGATIVE mg/dL (NEGATIVE) 12/13/16 12:08 Urine Ketones NEGATIVE mg/dL (NEGATIVE) 12/13/16 12:08 Urine Blood MODERATE (NEGATIVE) H 12/13/16 12:08 Urine Nitrate NEGATIVE (NEGATIVE) 12/13/16 12:08 Urine Bilirubin NEGATIVE (NEGATIVE) 12/13/16 12:08 Urine Urobilinogen 0.2 E.U./dL (0.2 - 1.0) 12/13/16 12:08 Ur Leukocyte Esterase LARGE (NEGATIVE) H 12/13/16 12:08 Urine RBC 2-5 /hpf (0-5) 12/13/16 12:08 Urine WBC 25-50 /hpf (0-5) H 12/13/16 12:08 Ur Epithelial Cells OCCASIONAL /lpf (FEW) 12/13/16 12:08 Urine Bacteria 4+ /hpf (NONE SEEN) H 12/13/16 12:08 Urine Yeast MANY /hpf (NONE SEEN) H 12/13/16 12:08 Urine Opiates Screen NEGATIVE (NEGATIVE) 12/13/16 15:46 Urine Methadone Screen NEGATIVE (NEGATIVE) 12/13/16 15:46 Ur Barbiturates Screen NEGATIVE (NEGATIVE) 12/13/16 15:46 Ur Tricyclics Screen POSITIVE (NEGATIVE) H 12/13/16 15:46 Ur Phencyclidine Scrn NEGATIVE (NEGATIVE) 12/13/16 15:46 Amphetamines Screen NEGATIVE (NEGATIVE) 12/13/16 15:46 U Methamphetamines Scrn NEGATIVE (NEGATIVE) 12/13/16 15:46 U Benzodiazepines Scrn POSITIVE (NEGATIVE) H 12/13/16 15:46 U Cocaine Metab Screen NEGATIVE (NEGATIVE) 12/13/16 15:46 U Cannabinoids Screen NEGATIVE (NEGATIVE) 12/13/16 15:46 - Physical Exam Vitals and I&O: Vital Signs Temp 98.2 F 12/16/16 12:00 Pulse 80 12/16/16 12:00 Resp 18 12/16/16 12:00 BP 109/61 12/16/16 12:00 Pulse Ox 98 12/16/16 12:00 Intake & Output 12/15/16 12/16/16 12/16/16 18:59 06:59 18:59 Intake Total 1522.5 1125 Balance 1522.5 1125 Weight (lbs) 61.689 kg 62.369 kg Intake: Intake, IV Amount 322.5 1005 Potassium Chloride 10 meq 1005 In Dextrose 5% 1,000 ml @ 75 mls/hr IV .[id number] [facility] Rx#:[id number] cefTRIAXone 1 gm In 50 Sodium Chloride 0.9% 50 ml @ 100 mls/hr IV Q24HR [facility] Rx#:[id number] Oral 1200 120 Other: # Voids 4 3 # Bowel Movements 1 Active Medications: Current Medications Acetaminophen (Tylenol) 650 mg PO Q4HR PRN PRN Reason: Pain or Fever >101 Stop: 02/09/17 17:50 Amlodipine Besylate (Norvasc) 5 mg PO DAILY [facility] Stop: 02/10/17 08:59 Last Admin: 12/16/16 10:37 Dose: 5 mg Aspirin (Ecotrin) 81 mg PO DAILY [facility] Stop: 02/10/17 08:59 Last Admin: 12/16/16 10:37 Dose: 81 mg Bisacodyl (Dulcolax 10 Mg Supp) 10 mg RC DAILY PRN PRN Reason: Constipation Stop: 02/09/17 17:50 Last Admin: 12/15/16 14:30 Dose: 10 mg Carvedilol (Coreg) 6.25 mg PO BID [facility] Stop: 02/11/17 08:59 Last Admin: 12/16/16 10:37 Dose: 6.25 mg Haloperidol Lactate (Haldol) 0.5 mg IM Q12HR [facility] Stop: 02/13/17 20:59 Last Admin: 12/16/16 10:38 Dose: 0.5 mg Ceftriaxone Sodium 1 gm/ (Sodium Chloride) 50 mls @ 100 mls/hr IV Q24HR [facility] Stop: 02/11/17 16:59 Last Infusion: 12/15/16 18:01 Dose: Infused Potassium Chloride 10 meq/ (Dextrose) 1,005 mls @ 75 mls/hr IV .[id number] [facility] Stop: 02/13/17 09:29 Last Admin: 12/16/16 05:21 Dose: 75 mls/hr Insulin Aspart (Novolog Insulin Sliding Scale) 0 units SUBQ ACHS RHIANNA PRN Reason: Protocol Stop: 02/10/17 11:29 Last Admin: 12/16/16 12:17 Dose: Not Given Labetalol HCl (Trandate) 10 mg IVP Q8HR PRN PRN Reason: SBP ABOVE 160 Stop: 02/10/17 17:14 Lactulose (Cephulac) 20 gm PO TID RHIANNA Stop: 02/13/17 15:59 Last Admin: 12/16/16 13:29 Dose: 20 gm Lorazepam (Ativan) 1 mg IVP Q8HR PRN; Protocol PRN Reason: Agitation Stop: 02/09/17 21:25 Last Admin: 12/16/16 01:14 Dose: 1 mg Losartan Potassium (Cozaar) 50 mg PO DAILY RHIANNA Stop: 02/11/17 08:59 Last Admin: 12/16/16 10:38 Dose: 50 mg Miscellaneous (Vte Chemical Prophylaxis Screen/ Admission) 1 ea [facility] PRN PRN PRN Reason: PROTOCOL Stop: 02/10/17 14:48 General: no acute distress, cachectic HEENT: atraumatic, normocephalic, EOMI Neck: supple, no thyromegaly Cardiovascular: S1S2, regular Lungs: clear to auscultation bilaterally Abdomen: soft, no tender, no distended Extremities: no cyanosis, no clubbing, no edema Skin: intact Infectious Disease Assmt/Plan - Assessment Assessment: 1. UTI. 2. leukocytosis. - Plan Plan: Continue rocephin IV. check labs in AM.
[2016-12-16] MEDS: cefTRIAXone 1 GM in Sodium Chloride 0.9% 50 ML IV SCH (16:16)
[2016-12-17 05:22] LABS: % BASOPHILS 2.1 % (0.0-2.0); % EOSINOPHILS 6.4 % (0.0-5.0); % LYMPHOCYTES 25.5 % (20.0-50.0); % MONOCYTES 10.1 % (2.0-10.0); % NEUTROPHILS 55.9 % (40.0-80.0); HEMATOCRIT 43.5 % (35.0-45.0); HEMOGLOBIN 14.2 gm/dL (11.7-16.1); MEAN CORPUSCULAR HEMOGLOBIN 28.1 pg (27.0-31.0); MEAN CORPUSCULAR HGB CONC 32.7 pg (28.0-36.0); MEAN PLATELET VOLUME 8.2 fl; NEUTROPHILE ABSOLUTE 5.8 Th/cmm (1.8-8.0); PLATELET COUNT 305 Th/cmm (150-400); RED BLOOD COUNT 5.06 Mil/cmm (3.80-5.20); RED CELL DISTRIBUTION WIDTH 12.2 % (11.5-20.0); WHITE BLOOD COUNT 10.5 Th/cmm (4.8-10.8)
[2016-12-17 05:33] LABS: ALKALINE PHOSPHATASE 82 U/L (34-104); ANION GAP 9.5 (7.0-16.0); BILIRUBIN,TOTAL 0.4 mg/dL (0.3-1.0); BUN - UREA NITROGEN 31 mg/dL (7-25); BUN/CREATININE RATIO 44.3; CALCIUM SERUM 9.7 mg/dL (8.6-10.3); CHLORIDE 106 mEq/L (98-107); CREATININE - SERUM 0.7 mg/dL (0.6-1.2); GLUCOSE 161 mg/dL (70-105); MAGNESIUM 1.6 mg/dL (1.9-2.7); POTASSIUM SERUM 3.5 mEq/L (3.5-5.1); SGOT 68 U/L (13-39); SGPT/ALT 91 U/L (7-52); SODIUM SERUM 138 mEq/L (136-145)
[2016-12-17] MEDS: INSULIN ASPART SLIDING SCALE 100 UNITS/ML UNIT SUBQ SCH ×4 (06:44→21:13)
[2016-12-17] MEDS ORDERED: Mag Sulfate 2gm/50mL Premix 2 GM/50 ML BAG IV ONE (08:54)
[2016-12-17] MEDS ORDERED: Lactulose 10 Gm/15 mL 30mL UDC PO SCH (09:00)
--- NOTE | 2016-12-17 09:00 | General Progress Note ---
Subjective - Review of Systems Service Date: 12/17/16 Subjective: Patient is sleeping but arousable, confused, somnolent. Objective - Results Result Diagrams: 12/17/16 04:45 12/17/16 04:45 Recent Labs: Laboratory Last Values WBC 10.5 Th/cmm (4.8-10.8) 12/17/16 04:45 RBC 5.06 Mil/cmm (3.80-5.20) 12/17/16 04:45 Hgb 14.2 gm/dL (11.7-16.1) 12/17/16 04:45 Hct 43.5 % (35.0-45.0) 12/17/16 04:45 MCV 86.0 fl (81-100) 12/17/16 04:45 MCH 28.1 pg (27.0-31.0) 12/17/16 04:45 MCHC Differential 32.7 pg (28.0-36.0) 12/17/16 04:45 RDW 12.2 % (11.5-20.0) 12/17/16 04:45 Plt Count 305 Th/cmm (150-400) 12/17/16 04:45 MPV 8.2 fl 12/17/16 04:45 Neutrophils % 55.9 % (40.0-80.0) 12/17/16 04:45 Band Neutrophils % 8 % (0-10) 12/14/16 06:17 Lymphocytes % 25.5 % (20.0-50.0) 12/17/16 04:45 Monocytes % 10.1 % (2.0-10.0) H 12/17/16 04:45 Eosinophils % 6.4 % (0.0-5.0) H 12/17/16 04:45 Basophils % 2.1 % (0.0-2.0) H 12/17/16 04:45 Neutrophils (Manual) 68 % (40-80) 12/14/16 06:17 Lymphocytes 14 % (20-50) L 12/14/16 06:17 Monocytes 7 % (2-10) 12/14/16 06:17 Eosinophils 3 % (0-5) 12/14/16 06:17 Platelet Estimate ADEQUATE (NORMAL) 12/14/16 06:17 Platelet Morphology NORMAL (NORMAL) 12/14/16 06:17 RBC Morph Micro Appear NORMAL (NORMAL) 12/14/16 06:17 Specimen Source Arterial 12/12/16 10:09 Sample Site RB 12/12/16 10:09 pH 7.48 (7.35-7.45) H 12/12/16 10:09 pCO2 43.0 mmHg (35.0-45.0) 12/12/16 10:09 pO2 62.0 mmHg (80.0-100.0) L 12/12/16 10:09 HCO3 30.8 mEq/L (20.0-26.0) H 12/12/16 10:09 Base Excess 7.6 mEq/L (-3.0-3.0) H 12/12/16 10:09 O2 Saturation 93.0 % (92.0-100.0) 12/12/16 10:09 Gurpreet Test NA 12/12/16 10:09 Vent Rate NA 12/12/16 10:09 Inspired O2 21 12/12/16 10:09 Tidal Volume NA 12/12/16 10:09 PEEP NA 12/12/16 10:09 Pressure (ins/psv/peep) NA 12/12/16 10:09 Critical Value SH 12/12/16 10:09 Sodium 138 mEq/L (136-145) 12/17/16 04:45 Potassium 3.5 mEq/L (3.5-5.1) 12/17/16 04:45 Chloride 106 mEq/L (98-107) 12/17/16 04:45 Carbon Dioxide 26.0 mEq/L (21.0-31.0) 12/17/16 04:45 Anion Gap 9.5 (7.0-16.0) 12/17/16 04:45 BUN 31 mg/dL (7-25) H 12/17/16 04:45 Creatinine 0.7 mg/dL (0.6-1.2) 12/17/16 04:45 Est GFR ( Amer) TNP 12/17/16 04:45 Est GFR (Non-Af Amer) TN 12/17/16 04:45 BUN/Creatinine Ratio 44.3 12/17/16 04:45 Glucose 161 mg/dL (70-105) H 12/17/16 04:45 POC Glucose 161 MG/DL (70 - 105) H 12/17/16 05:45 Hemoglobin A1c % 5.7 % (4.0-6.0) 12/13/16 05:54 Calcium 9.7 mg/dL (8.6-10.3) 12/17/16 04:45 Magnesium 1.6 mg/dL (1.9-2.7) L 12/17/16 04:45 Total Bilirubin 0.4 mg/dL (0.3-1.0) 12/17/16 04:45 AST 68 U/L (13-39) H 12/17/16 04:45 ALT 91 U/L (7-52) H 12/17/16 04:45 Alkaline Phosphatase 82 U/L (34-104) 12/17/16 04:45 Ammonia 58 umol/L (16-53) H 12/17/16 04:45 Total Protein 6.9 gm/dL (6.0-8.3) 12/17/16 04:45 Albumin 3.5 gm/dL (3.7-5.3) L 12/17/16 04:45 Globulin 3.4 gm/dL 12/17/16 04:45 Albumin/Globulin Ratio 1.0 (1.0-1.8) 12/17/16 04:45 Prealbumin 11 mg/dL (9-32) 12/15/16 11:20 Triglycerides 126 mg/dL (<150) 12/16/16 05:07 Cholesterol 169 mg/dL (<200) 12/16/16 05:07 LDL Cholesterol Direct 133 mg/dL (75-193) 12/16/16 05:07 HDL Cholesterol 34 mg/dL (23-92) 12/16/16 05:07 TSH 2.00 uIU/ml (0.34-5.60) 12/16/16 05:07 Urine Source CLEAN C 12/13/16 12:08 Urine Color YELLOW 12/13/16 12:08 Urine Clarity HAZY (CLEAR) 12/13/16 12:08 Urine pH 8.0 (4.6 - 8.0) 12/13/16 12:08 Ur Specific [place] 1.015 (1.005-1.030) 12/13/16 12:08 Urine Protein 100 mg/dL (NEGATIVE) H 12/13/16 12:08 Urine Glucose (UA) NEGATIVE mg/dL (NEGATIVE) 12/13/16 12:08 Urine Ketones NEGATIVE mg/dL (NEGATIVE) 12/13/16 12:08 Urine Blood MODERATE (NEGATIVE) H 12/13/16 12:08 Urine Nitrate NEGATIVE (NEGATIVE) 12/13/16 12:08 Urine Bilirubin NEGATIVE (NEGATIVE) 12/13/16 12:08 Urine Urobilinogen 0.2 E.U./dL (0.2 - 1.0) 12/13/16 12:08 Ur Leukocyte Esterase LARGE (NEGATIVE) H 12/13/16 12:08 Urine RBC 2-5 /hpf (0-5) 12/13/16 12:08 Urine WBC 25-50 /hpf (0-5) H 12/13/16 12:08 Ur Epithelial Cells OCCASIONAL /lpf (FEW) 12/13/16 12:08 Urine Bacteria 4+ /hpf (NONE SEEN) H 12/13/16 12:08 Urine Yeast MANY /hpf (NONE SEEN) H 12/13/16 12:08 Urine Opiates Screen NEGATIVE (NEGATIVE) 12/13/16 15:46 Urine Methadone Screen NEGATIVE (NEGATIVE) 12/13/16 15:46 Ur Barbiturates Screen NEGATIVE (NEGATIVE) 12/13/16 15:46 Ur Tricyclics Screen POSITIVE (NEGATIVE) H 12/13/16 15:46 Ur Phencyclidine Scrn NEGATIVE (NEGATIVE) 12/13/16 15:46 Amphetamines Screen NEGATIVE (NEGATIVE) 12/13/16 15:46 U Methamphetamines Scrn NEGATIVE (NEGATIVE) 12/13/16 15:46 U Benzodiazepines Scrn POSITIVE (NEGATIVE) H 12/13/16 15:46 U Cocaine Metab Screen NEGATIVE (NEGATIVE) 12/13/16 15:46 U Cannabinoids Screen NEGATIVE (NEGATIVE) 12/13/16 15:46 - Physical Exam Vitals and I&O: Vital Signs Temp 98.0 F 12/17/16 03:58 Pulse 85 12/17/16 07:45 Resp 18 12/17/16 07:45 BP 138/90 12/17/16 03:58 Pulse Ox 96 12/17/16 07:45 Intake & Output 12/16/16 12/17/16 12/17/16 18:59 06:59 18:59 Intake Total 1307 120 Output Total 5 Balance 1302 120 Weight (lbs) 62.414 kg 62.142 kg Intake: Intake, IV Amount 1207 Potassium Chloride 10 meq 1005 In Dextrose 5% 1,000 ml @ 75 mls/hr IV .[id number] [facility] Rx#:[id number] cefTRIAXone 1 gm In 50 Sodium Chloride 0.9% 50 ml @ 100 mls/hr IV Q24HR [facility] Rx#:[id number] Oral 100 120 Output: Urine 5 Other: # Voids 3 # Bowel Movements 5 2 Active Medications: Current Medications Acetaminophen (Tylenol) 650 mg PO Q4HR PRN PRN Reason: Pain or Fever >101 Stop: 02/09/17 17:50 Amlodipine Besylate (Norvasc) 5 mg PO DAILY [facility] Stop: 02/10/17 08:59 Last Admin: 12/16/16 10:37 Dose: 5 mg Aspirin (Ecotrin) 81 mg PO DAILY [facility] Stop: 02/10/17 08:59 Last Admin: 12/16/16 10:37 Dose: 81 mg Bisacodyl (Dulcolax 10 Mg Supp) 10 mg RC DAILY PRN PRN Reason: Constipation Stop: 02/09/17 17:50 Last Admin: 12/15/16 14:30 Dose: 10 mg Carvedilol (Coreg) 6.25 mg PO BID [facility] Stop: 02/11/17 08:59 Last Admin: 12/16/16 16:17 Dose: 6.25 mg Haloperidol Lactate (Haldol) 0.5 mg IM Q12HR [facility] Stop: 02/13/17 20:59 Last Admin: 12/16/16 21:05 Dose: 0.5 mg Ceftriaxone Sodium 1 gm/ (Sodium Chloride) 50 mls @ 100 mls/hr IV Q24HR [facility] Stop: 02/11/17 16:59 Last Infusion: 12/16/16 18:39 Dose: Infused Potassium Chloride 10 meq/ (Dextrose) 1,005 mls @ 75 mls/hr IV .[id number] [facility] Stop: 02/13/17 09:29 Last Admin: 12/16/16 23:25 Dose: 75 mls/hr Magnesium Sulfate (Magnesium Sulfate Premix) 2 gm in 50 mls @ 25 mls/hr IV X1 ONE Stop: 12/17/16 10:53 Insulin Aspart (Novolog Insulin Sliding Scale) 0 units SUBQ ACHS RHIANNA PRN Reason: Protocol Stop: 02/10/17 11:29 Last Admin: 12/17/16 06:44 Dose: Not Given Labetalol HCl (Trandate) 10 mg IVP Q8HR PRN PRN Reason: SBP ABOVE 160 Stop: 02/10/17 17:14 Lactulose (Cephulac) 20 gm PO DAILY R[facility] Stop: 02/15/17 08:59 Lorazepam (Ativan) 1 mg IVP Q8HR PRN; Protocol PRN Reason: Agitation Stop: 02/09/17 21:25 Last Admin: 12/16/16 23:25 Dose: 1 mg Losartan Potassium (Cozaar) 50 mg PO DAILY [facility] Stop: 02/11/17 08:59 Last Admin: 12/16/16 10:38 Dose: 50 mg Miscellaneous (Vte Chemical Prophylaxis Screen/ Admission) 1 ea [facility] PRN PRN PRN Reason: PROTOCOL Stop: 02/10/17 14:48 General: Other (Patient is somnolient, Confused, not oriented), no Alert HEENT: Atraumatic, PERRLA Neck: Supple Cardiovascular: Regular rate Lungs: Clear to auscultation Abdomen: Bowel sounds Extremities: Other (No edema) Neurological: Other (Unstable gait) Psych/Mental Status: Other (Patient is confused, not oriented. Patient is eating 20%, refusing to take meds.) Assessment/Plan - Assessment Assessment: Patient is agitated at moment, confused, not oriented. Mg is low, ammonia improving. Patient is eating 20%, but refusing to take meds. BP better control. Dx: Hepatic encephalopathy, Increased in confusion, UTI, HTN, CHF, Dyslipemia, Dementia, Psychosis. - Plan Plan: Lactulose is decreased to once a day. Haldol is continue. ativan is dc. Will continue to monitor. Nutritional Asmnt/Malnutr-PDOC - Dietary Evaluation Malnutrition Findings (Please click <Entered> for more info): Nutritional Asmnt/Malnutrition Start: 12/16/16 14: 57 Text: Status: Complete Freq: Document 12/16/16 14:57 GSUN (Rec: 12/16/16 15:32 [email or web address]) Nutritional Asmnt/Malnutrition Patient General Information Nutritional Screening Consult Diagnosis UTI, leukocytosis Pertinent Medical Hx/Surgical Hx HTN, hyperlipidemia, CVA, dementia, anxiety, depression, psychosis, schizophrenia, hx of frequent UTI, DM Subjective Information 76 year old female, transfered from [facility]. RD consult for poor PO intake, weight loss. Per FNS and nursing staff report, pt has been lethargic with poor PO intake. Pt is confused and lethargic, unable to interview, spoke to daughter at bedside. Daughter stated pt is usually energetic, fair to good appetite, eats everything, however recently pt became lethargic and PO intake declining. Avg PO intake <25% of meals since adm , not meeting nutritional needs. Per RN notes, pt UBW 150lb, CBW 137.6lb via bedscale, possible weight loss . Observed few half emptied juice at bedside, daughter stated pt tolerates/likes milk as well. Recommended oral supplements, daughter agreed. Daughter also requested chopped diet as pt appear to be putting a lot of effort in chewing. Pt appeared thin, unable to complete physical assessment. Current Diet Order/ Nutrition Support Regular, no red meat Pertinent Medications Haldol, Novolog, Cephulac Pertinent Labs 12/13: A1c 5.7 12/15: ammonia 107H 12/16: potassium 3.3L, BUN 45H, glucose 158H POC glucose 67-201 since adm Nutritional Hx/Data Height 1.73 m Height (Calculated Centimeters) 172.7 Current Weight (lbs) 62.414 kg Weight (Calculated Kilograms) 62.4 Weight (Calculated Grams) 37070.3 Usual body Weight (lbs) 150 [place] Body Weight 140 Recent Weight Change Yes Weight Status Approriate GI Symptoms Food Allergies No Cultural/Ethnic/Orthodoxy Belief No red meat. Skin Integrity/Comment: Dewayne 14. Skin intact. Current %PO Negligible < 25% Estimated Nutritional Goals Calories/Kcals/Kg UBW 150lb/68.2kg Kcals Calculated 1705-2046kcal (25-30kcal/kg) Protein Calculated 68g (1g/kg) Fluid: ml 1705-2046ml (1ml/kcal) Nutritional Problem 2. Problem Problem Involuntary weight loss related to Etiology unknown, possibly poor PO intake aeb Signs/Symptoms: family report UBW 150lb and CBW 137.6lb 1. Problem Problem Inadequate oral food beverage intake related to Etiology unknown, posisble lethargy aeb Signs/Symptoms: avg PO intake <25% of meals since adm, pt has been lethargic Intervention/Recommendation Comments 1. Recommend [id number] to promote glycemic control. Recommend mech soft chopped per family's request. 2. Recommend Boost Glucose Control TID. 3. Monitor weight closely. Daughter report UBW 150lb, CBW 137.6lb via bedscale today. Poor PO intake >5 days. Expected Outcomes/Goals Expected Outcomes/Goals 1. PO intake to resume and meet at least 75% of estimated nutritional needs.
[2016-12-17] MEDS: Lactulose 10 Gm/15 mL 30mL UDC PO SCH (09:13)
--- NOTE | 2016-12-17 09:23 | General Progress Note ---
Subjective - Review of Systems Service Date: 12/17/16 Subjective: Patient is sleeping but arousable, confused, somnolent. Objective - Results Result Diagrams: 12/17/16 04:45 12/17/16 04:45 Recent Labs: Laboratory Last Values WBC 10.5 Th/cmm (4.8-10.8) 12/17/16 04:45 RBC 5.06 Mil/cmm (3.80-5.20) 12/17/16 04:45 Hgb 14.2 gm/dL (11.7-16.1) 12/17/16 04:45 Hct 43.5 % (35.0-45.0) 12/17/16 04:45 MCV 86.0 fl (81-100) 12/17/16 04:45 MCH 28.1 pg (27.0-31.0) 12/17/16 04:45 MCHC Differential 32.7 pg (28.0-36.0) 12/17/16 04:45 RDW 12.2 % (11.5-20.0) 12/17/16 04:45 Plt Count 305 Th/cmm (150-400) 12/17/16 04:45 MPV 8.2 fl 12/17/16 04:45 Neutrophils % 55.9 % (40.0-80.0) 12/17/16 04:45 Band Neutrophils % 8 % (0-10) 12/14/16 06:17 Lymphocytes % 25.5 % (20.0-50.0) 12/17/16 04:45 Monocytes % 10.1 % (2.0-10.0) H 12/17/16 04:45 Eosinophils % 6.4 % (0.0-5.0) H 12/17/16 04:45 Basophils % 2.1 % (0.0-2.0) H 12/17/16 04:45 Neutrophils (Manual) 68 % (40-80) 12/14/16 06:17 Lymphocytes 14 % (20-50) L 12/14/16 06:17 Monocytes 7 % (2-10) 12/14/16 06:17 Eosinophils 3 % (0-5) 12/14/16 06:17 Platelet Estimate ADEQUATE (NORMAL) 12/14/16 06:17 Platelet Morphology NORMAL (NORMAL) 12/14/16 06:17 RBC Morph Micro Appear NORMAL (NORMAL) 12/14/16 06:17 Specimen Source Arterial 12/12/16 10:09 Sample Site RB 12/12/16 10:09 pH 7.48 (7.35-7.45) H 12/12/16 10:09 pCO2 43.0 mmHg (35.0-45.0) 12/12/16 10:09 pO2 62.0 mmHg (80.0-100.0) L 12/12/16 10:09 HCO3 30.8 mEq/L (20.0-26.0) H 12/12/16 10:09 Base Excess 7.6 mEq/L (-3.0-3.0) H 12/12/16 10:09 O2 Saturation 93.0 % (92.0-100.0) 12/12/16 10:09 Gurpreet Test NA 12/12/16 10:09 Vent Rate NA 12/12/16 10:09 Inspired O2 21 12/12/16 10:09 Tidal Volume NA 12/12/16 10:09 PEEP NA 12/12/16 10:09 Pressure (ins/psv/peep) NA 12/12/16 10:09 Critical Value SH 12/12/16 10:09 Sodium 138 mEq/L (136-145) 12/17/16 04:45 Potassium 3.5 mEq/L (3.5-5.1) 12/17/16 04:45 Chloride 106 mEq/L (98-107) 12/17/16 04:45 Carbon Dioxide 26.0 mEq/L (21.0-31.0) 12/17/16 04:45 Anion Gap 9.5 (7.0-16.0) 12/17/16 04:45 BUN 31 mg/dL (7-25) H 12/17/16 04:45 Creatinine 0.7 mg/dL (0.6-1.2) 12/17/16 04:45 Est GFR ( Amer) TNP 12/17/16 04:45 Est GFR (Non-Af Amer) TN 12/17/16 04:45 BUN/Creatinine Ratio 44.3 12/17/16 04:45 Glucose 161 mg/dL (70-105) H 12/17/16 04:45 POC Glucose 161 MG/DL (70 - 105) H 12/17/16 05:45 Hemoglobin A1c % 5.7 % (4.0-6.0) 12/13/16 05:54 Calcium 9.7 mg/dL (8.6-10.3) 12/17/16 04:45 Magnesium 1.6 mg/dL (1.9-2.7) L 12/17/16 04:45 Total Bilirubin 0.4 mg/dL (0.3-1.0) 12/17/16 04:45 AST 68 U/L (13-39) H 12/17/16 04:45 ALT 91 U/L (7-52) H 12/17/16 04:45 Alkaline Phosphatase 82 U/L (34-104) 12/17/16 04:45 Ammonia 58 umol/L (16-53) H 12/17/16 04:45 Total Protein 6.9 gm/dL (6.0-8.3) 12/17/16 04:45 Albumin 3.5 gm/dL (3.7-5.3) L 12/17/16 04:45 Globulin 3.4 gm/dL 12/17/16 04:45 Albumin/Globulin Ratio 1.0 (1.0-1.8) 12/17/16 04:45 Prealbumin 11 mg/dL (9-32) 12/15/16 11:20 Triglycerides 126 mg/dL (<150) 12/16/16 05:07 Cholesterol 169 mg/dL (<200) 12/16/16 05:07 LDL Cholesterol Direct 133 mg/dL (75-193) 12/16/16 05:07 HDL Cholesterol 34 mg/dL (23-92) 12/16/16 05:07 TSH 2.00 uIU/ml (0.34-5.60) 12/16/16 05:07 Urine Source CLEAN C 12/13/16 12:08 Urine Color YELLOW 12/13/16 12:08 Urine Clarity HAZY (CLEAR) 12/13/16 12:08 Urine pH 8.0 (4.6 - 8.0) 12/13/16 12:08 Ur Specific [place] 1.015 (1.005-1.030) 12/13/16 12:08 Urine Protein 100 mg/dL (NEGATIVE) H 12/13/16 12:08 Urine Glucose (UA) NEGATIVE mg/dL (NEGATIVE) 12/13/16 12:08 Urine Ketones NEGATIVE mg/dL (NEGATIVE) 12/13/16 12:08 Urine Blood MODERATE (NEGATIVE) H 12/13/16 12:08 Urine Nitrate NEGATIVE (NEGATIVE) 12/13/16 12:08 Urine Bilirubin NEGATIVE (NEGATIVE) 12/13/16 12:08 Urine Urobilinogen 0.2 E.U./dL (0.2 - 1.0) 12/13/16 12:08 Ur Leukocyte Esterase LARGE (NEGATIVE) H 12/13/16 12:08 Urine RBC 2-5 /hpf (0-5) 12/13/16 12:08 Urine WBC 25-50 /hpf (0-5) H 12/13/16 12:08 Ur Epithelial Cells OCCASIONAL /lpf (FEW) 12/13/16 12:08 Urine Bacteria 4+ /hpf (NONE SEEN) H 12/13/16 12:08 Urine Yeast MANY /hpf (NONE SEEN) H 12/13/16 12:08 Urine Opiates Screen NEGATIVE (NEGATIVE) 12/13/16 15:46 Urine Methadone Screen NEGATIVE (NEGATIVE) 12/13/16 15:46 Ur Barbiturates Screen NEGATIVE (NEGATIVE) 12/13/16 15:46 Ur Tricyclics Screen POSITIVE (NEGATIVE) H 12/13/16 15:46 Ur Phencyclidine Scrn NEGATIVE (NEGATIVE) 12/13/16 15:46 Amphetamines Screen NEGATIVE (NEGATIVE) 12/13/16 15:46 U Methamphetamines Scrn NEGATIVE (NEGATIVE) 12/13/16 15:46 U Benzodiazepines Scrn POSITIVE (NEGATIVE) H 12/13/16 15:46 U Cocaine Metab Screen NEGATIVE (NEGATIVE) 12/13/16 15:46 U Cannabinoids Screen NEGATIVE (NEGATIVE) 12/13/16 15:46 - Physical Exam Vitals and I&O: Vital Signs Temp 98.0 F 12/17/16 03:58 Pulse 100 12/17/16 09:09 Resp 18 12/17/16 07:45 BP 153/79 12/17/16 09:09 Pulse Ox 96 12/17/16 07:45 Intake & Output 12/16/16 12/17/16 12/17/16 18:59 06:59 18:59 Intake Total 1307 120 Output Total 5 Balance 1302 120 Weight (lbs) 62.414 kg 62.142 kg Intake: Intake, IV Amount 1207 Potassium Chloride 10 meq 1005 In Dextrose 5% 1,000 ml @ 75 mls/hr IV .[id number] [facility] Rx#:[id number] cefTRIAXone 1 gm In 50 Sodium Chloride 0.9% 50 ml @ 100 mls/hr IV Q24HR [facility] Rx#:[id number] Oral 100 120 Output: Urine 5 Other: # Voids 3 # Bowel Movements 5 2 Active Medications: Current Medications Acetaminophen (Tylenol) 650 mg PO Q4HR PRN PRN Reason: Pain or Fever >101 Stop: 02/09/17 17:50 Amlodipine Besylate (Norvasc) 5 mg PO DAILY [facility] Stop: 02/10/17 08:59 Last Admin: 12/17/16 09:08 Dose: 5 mg Aspirin (Ecotrin) 81 mg PO DAILY [facility] Stop: 02/10/17 08:59 Last Admin: 12/17/16 09:08 Dose: 81 mg Bisacodyl (Dulcolax 10 Mg Supp) 10 mg RC DAILY PRN PRN Reason: Constipation Stop: 02/09/17 17:50 Last Admin: 12/15/16 14:30 Dose: 10 mg Carvedilol (Coreg) 6.25 mg PO BID [facility] Stop: 02/11/17 08:59 Last Admin: 12/17/16 09:09 Dose: 6.25 mg Haloperidol Lactate (Haldol) 0.5 mg IM Q12HR [facility] Stop: 02/13/17 20:59 Last Admin: 12/16/16 21:05 Dose: 0.5 mg Ceftriaxone Sodium 1 gm/ (Sodium Chloride) 50 mls @ 100 mls/hr IV Q24HR [facility] Stop: 02/11/17 16:59 Last Infusion: 12/16/16 18:39 Dose: Infused Potassium Chloride 10 meq/ (Dextrose) 1,005 mls @ 75 mls/hr IV .[id number] [facility] Stop: 02/13/17 09:29 Last Admin: 12/16/16 23:25 Dose: 75 mls/hr Magnesium Sulfate (Magnesium Sulfate Premix) 2 gm in 50 mls @ 25 mls/hr IV X1 ONE Stop: 12/17/16 10:53 Insulin Aspart (Novolog Insulin Sliding Scale) 0 units SUBQ ACHS RHIANNA PRN Reason: Protocol Stop: 02/10/17 11:29 Last Admin: 12/17/16 06:44 Dose: Not Given Labetalol HCl (Trandate) 10 mg IVP Q8HR PRN PRN Reason: SBP ABOVE 160 Stop: 02/10/17 17:14 Lactulose (Cephulac) 20 gm PO DAILY [facility] Stop: 02/15/17 08:59 Last Admin: 12/17/16 09:13 Dose: 20 gm Losartan Potassium (Cozaar) 50 mg PO DAILY [facility] Stop: 02/11/17 08:59 Last Admin: 12/17/16 09:08 Dose: 50 mg Miscellaneous (Vte Chemical Prophylaxis Screen/ Admission) 1 ea [facility] PRN PRN PRN Reason: PROTOCOL Stop: 02/10/17 14:48 General: Other (Patient is somnolient, Confused, not oriented), no Alert HEENT: Atraumatic, PERRLA Neck: Supple Cardiovascular: Regular rate Lungs: Clear to auscultation Abdomen: Bowel sounds Extremities: Other (No edema) Neurological: Other (Unstable gait) Psych/Mental Status: Other (Patient is confused, not oriented. Patient is eating 20%, refusing to take meds.) Assessment/Plan - Assessment Assessment: Patient is agitated at moment, confused, not oriented. Mg is low, ammonia improving. Patient is eating 20%, but refusing to take meds. BP better control. Dx: Hepatic encephalopathy, Increased in confusion, UTI, HTN, CHF, Dyslipemia, Dementia, Psychosis. - Plan Plan: Lactulose is decreased to once a day. Haldol is continue. ativan is dc. Will continue to monitor. Nutritional Asmnt/Malnutr-PDOC - Dietary Evaluation Malnutrition Findings (Please click <Entered> for more info): Nutritional Asmnt/Malnutrition Start: 12/16/16 14: 57 Text: Status: Complete Freq: Document 12/16/16 14:57 GSUN (Rec: 12/16/16 15:32 [email or web address]) Nutritional Asmnt/Malnutrition Patient General Information Nutritional Screening Consult Diagnosis UTI, leukocytosis Pertinent Medical Hx/Surgical Hx HTN, hyperlipidemia, CVA, dementia, anxiety, depression, psychosis, schizophrenia, hx of frequent UTI, DM Subjective Information 76 year old female, transfered from [facility]. RD consult for poor PO intake, weight loss. Per FNS and nursing staff report, pt has been lethargic with poor PO intake. Pt is confused and lethargic, unable to interview, spoke to daughter at bedside. Daughter stated pt is usually energetic, fair to good appetite, eats everything, however recently pt became lethargic and PO intake declining. Avg PO intake <25% of meals since adm , not meeting nutritional needs. Per RN notes, pt UBW 150lb, CBW 137.6lb via bedscale, possible weight loss . Observed few half emptied juice at bedside, daughter stated pt tolerates/likes milk as well. Recommended oral supplements, daughter agreed. Daughter also requested chopped diet as pt appear to be putting a lot of effort in chewing. Pt appeared thin, unable to complete physical assessment. Current Diet Order/ Nutrition Support Regular, no red meat Pertinent Medications Haldol, Novolog, Cephulac Pertinent Labs 12/13: A1c 5.7 12/15: ammonia 107H 12/16: potassium 3.3L, BUN 45H, glucose 158H POC glucose 67-201 since adm Nutritional Hx/Data Height 1.73 m Height (Calculated Centimeters) 172.7 Current Weight (lbs) 62.414 kg Weight (Calculated Kilograms) 62.4 Weight (Calculated Grams) 48240.3 Usual body Weight (lbs) 150 [place] Body Weight 140 Recent Weight Change Yes Weight Status Approriate GI Symptoms Food Allergies No Cultural/Ethnic/Cheondoism Belief No red meat. Skin Integrity/Comment: Dewayne Elizabeth. Skin intact. Current %PO Negligible < 25% Estimated Nutritional Goals Calories/Kcals/Kg UBW 150lb/68.2kg Kcals Calculated 1705-2046kcal (25-30kcal/kg) Protein Calculated 68g (1g/kg) Fluid: ml 1705-2046ml (1ml/kcal) Nutritional Problem 2. Problem Problem Involuntary weight loss related to Etiology unknown, possibly poor PO intake aeb Signs/Symptoms: family report UBW 150lb and CBW 137.6lb 1. Problem Problem Inadequate oral food beverage intake related to Etiology unknown, posisble lethargy aeb Signs/Symptoms: avg PO intake <25% of meals since adm, pt has been lethargic Intervention/Recommendation Comments 1. Recommend DNLO10hy to promote glycemic control. Recommend mech soft chopped per family's request. 2. Recommend Boost Glucose Control TID. 3. Monitor weight closely. Daughter report UBW 150lb, CBW 137.6lb via bedscale today. Poor PO intake >5 days. Expected Outcomes/Goals Expected Outcomes/Goals 1. PO intake to resume and meet at least 75% of estimated nutritional needs.
[2016-12-17] MEDS: Haloperidol Lactate 5 mg/mL 1mL Vial IM SCH ×2 (10:59→21:10)
--- NOTE | 2016-12-17 14:01 | Infectious Disease Prog Note ---
Infectious Disease Subjective - Review of Systems Service Date: 12/24/16 Subjective: There is no fever. Infectious Disease Objective - Results Result Diagrams: 12/17/16 04:45 12/17/16 04:45 Recent Labs: Laboratory Last Values WBC 10.5 Th/cmm (4.8-10.8) 12/17/16 04:45 RBC 5.06 Mil/cmm (3.80-5.20) 12/17/16 04:45 Hgb 14.2 gm/dL (11.7-16.1) 12/17/16 04:45 Hct 43.5 % (35.0-45.0) 12/17/16 04:45 MCV 86.0 fl (81-100) 12/17/16 04:45 MCH 28.1 pg (27.0-31.0) 12/17/16 04:45 MCHC Differential 32.7 pg (28.0-36.0) 12/17/16 04:45 RDW 12.2 % (11.5-20.0) 12/17/16 04:45 Plt Count 305 Th/cmm (150-400) 12/17/16 04:45 MPV 8.2 fl 12/17/16 04:45 Neutrophils % 55.9 % (40.0-80.0) 12/17/16 04:45 Band Neutrophils % 8 % (0-10) 12/14/16 06:17 Lymphocytes % 25.5 % (20.0-50.0) 12/17/16 04:45 Monocytes % 10.1 % (2.0-10.0) H 12/17/16 04:45 Eosinophils % 6.4 % (0.0-5.0) H 12/17/16 04:45 Basophils % 2.1 % (0.0-2.0) H 12/17/16 04:45 Neutrophils (Manual) 68 % (40-80) 12/14/16 06:17 Lymphocytes 14 % (20-50) L 12/14/16 06:17 Monocytes 7 % (2-10) 12/14/16 06:17 Eosinophils 3 % (0-5) 12/14/16 06:17 Platelet Estimate ADEQUATE (NORMAL) 12/14/16 06:17 Platelet Morphology NORMAL (NORMAL) 12/14/16 06:17 RBC Morph Micro Appear NORMAL (NORMAL) 12/14/16 06:17 Specimen Source Arterial 12/12/16 10:09 Sample Site RB 12/12/16 10:09 pH 7.48 (7.35-7.45) H 12/12/16 10:09 pCO2 43.0 mmHg (35.0-45.0) 12/12/16 10:09 pO2 62.0 mmHg (80.0-100.0) L 12/12/16 10:09 HCO3 30.8 mEq/L (20.0-26.0) H 12/12/16 10:09 Base Excess 7.6 mEq/L (-3.0-3.0) H 12/12/16 10:09 O2 Saturation 93.0 % (92.0-100.0) 12/12/16 10:09 Gurpreet Test NA 12/12/16 10:09 Vent Rate NA 12/12/16 10:09 Inspired O2 21 12/12/16 10:09 Tidal Volume NA 12/12/16 10:09 PEEP NA 12/12/16 10:09 Pressure (ins/psv/peep) NA 12/12/16 10:09 Critical Value SH 12/12/16 10:09 Sodium 138 mEq/L (136-145) 12/17/16 04:45 Potassium 3.5 mEq/L (3.5-5.1) 12/17/16 04:45 Chloride 106 mEq/L (98-107) 12/17/16 04:45 Carbon Dioxide 26.0 mEq/L (21.0-31.0) 12/17/16 04:45 Anion Gap 9.5 (7.0-16.0) 12/17/16 04:45 BUN 31 mg/dL (7-25) H 12/17/16 04:45 Creatinine 0.7 mg/dL (0.6-1.2) 12/17/16 04:45 Est GFR ( Amer) TNP 12/17/16 04:45 Est GFR (Non-Af Amer) [facility] 12/17/16 04:45 BUN/Creatinine Ratio 44.3 12/17/16 04:45 Glucose 161 mg/dL (70-105) H 12/17/16 04:45 POC Glucose 187 MG/DL (70 - 105) H 12/17/16 11:37 Hemoglobin A1c % 5.7 % (4.0-6.0) 12/13/16 05:54 Calcium 9.7 mg/dL (8.6-10.3) 12/17/16 04:45 Magnesium 1.6 mg/dL (1.9-2.7) L 12/17/16 04:45 Total Bilirubin 0.4 mg/dL (0.3-1.0) 12/17/16 04:45 AST 68 U/L (13-39) H 12/17/16 04:45 ALT 91 U/L (7-52) H 12/17/16 04:45 Alkaline Phosphatase 82 U/L (34-104) 12/17/16 04:45 Ammonia 58 umol/L (16-53) H 12/17/16 04:45 Total Protein 6.9 gm/dL (6.0-8.3) 12/17/16 04:45 Albumin 3.5 gm/dL (3.7-5.3) L 12/17/16 04:45 Globulin 3.4 gm/dL 12/17/16 04:45 Albumin/Globulin Ratio 1.0 (1.0-1.8) 12/17/16 04:45 Prealbumin 11 mg/dL (9-32) 12/15/16 11:20 Triglycerides 126 mg/dL (<150) 12/16/16 05:07 Cholesterol 169 mg/dL (<200) 12/16/16 05:07 LDL Cholesterol Direct 133 mg/dL (75-193) 12/16/16 05:07 HDL Cholesterol 34 mg/dL (23-92) 12/16/16 05:07 TSH 2.00 uIU/ml (0.34-5.60) 12/16/16 05:07 Urine Source CLEAN C 12/13/16 12:08 Urine Color YELLOW 12/13/16 12:08 Urine Clarity HAZY (CLEAR) 12/13/16 12:08 Urine pH 8.0 (4.6 - 8.0) 12/13/16 12:08 Ur Specific [place] 1.015 (1.005-1.030) 12/13/16 12:08 Urine Protein 100 mg/dL (NEGATIVE) H 12/13/16 12:08 Urine Glucose (UA) NEGATIVE mg/dL (NEGATIVE) 12/13/16 12:08 Urine Ketones NEGATIVE mg/dL (NEGATIVE) 12/13/16 12:08 Urine Blood MODERATE (NEGATIVE) H 12/13/16 12:08 Urine Nitrate NEGATIVE (NEGATIVE) 12/13/16 12:08 Urine Bilirubin NEGATIVE (NEGATIVE) 12/13/16 12:08 Urine Urobilinogen 0.2 E.U./dL (0.2 - 1.0) 12/13/16 12:08 Ur Leukocyte Esterase LARGE (NEGATIVE) H 12/13/16 12:08 Urine RBC 2-5 /hpf (0-5) 12/13/16 12:08 Urine WBC 25-50 /hpf (0-5) H 12/13/16 12:08 Ur Epithelial Cells OCCASIONAL /lpf (FEW) 12/13/16 12:08 Urine Bacteria 4+ /hpf (NONE SEEN) H 12/13/16 12:08 Urine Yeast MANY /hpf (NONE SEEN) H 12/13/16 12:08 Urine Opiates Screen NEGATIVE (NEGATIVE) 12/13/16 15:46 Urine Methadone Screen NEGATIVE (NEGATIVE) 12/13/16 15:46 Ur Barbiturates Screen NEGATIVE (NEGATIVE) 12/13/16 15:46 Ur Tricyclics Screen POSITIVE (NEGATIVE) H 12/13/16 15:46 Ur Phencyclidine Scrn NEGATIVE (NEGATIVE) 12/13/16 15:46 Amphetamines Screen NEGATIVE (NEGATIVE) 12/13/16 15:46 U Methamphetamines Scrn NEGATIVE (NEGATIVE) 12/13/16 15:46 U Benzodiazepines Scrn POSITIVE (NEGATIVE) H 12/13/16 15:46 U Cocaine Metab Screen NEGATIVE (NEGATIVE) 12/13/16 15:46 U Cannabinoids Screen NEGATIVE (NEGATIVE) 12/13/16 15:46 - Physical Exam Vitals and I&O: Vital Signs Temp 98.6 F 12/17/16 08:00 Pulse 100 12/17/16 09:09 Resp 18 12/17/16 08:00 BP 153/79 12/17/16 09:09 Pulse Ox 96 12/17/16 08:00 Intake & Output 12/16/16 12/17/16 12/17/16 18:59 06:59 18:59 Intake Total 1307 120 Output Total 5 Balance 1302 120 Weight (lbs) 62.414 kg 62.142 kg Intake: Intake, IV Amount 1207 Potassium Chloride 10 meq 1005 In Dextrose 5% 1,000 ml @ 75 mls/hr IV .[id number] [facility] Rx#:[id number] cefTRIAXone 1 gm In 50 Sodium Chloride 0.9% 50 ml @ 100 mls/hr IV Q24HR [facility] Rx#:[id number] Oral 100 120 Output: Urine 5 Other: # Voids 3 # Bowel Movements 5 2 Active Medications: Current Medications Acetaminophen (Tylenol) 650 mg PO Q4HR PRN PRN Reason: Pain or Fever >101 Stop: 02/09/17 17:50 Amlodipine Besylate (Norvasc) 5 mg PO DAILY [facility] Stop: 02/10/17 08:59 Last Admin: 12/17/16 09:08 Dose: 5 mg Aspirin (Ecotrin) 81 mg PO DAILY [facility] Stop: 02/10/17 08:59 Last Admin: 12/17/16 09:08 Dose: 81 mg Bisacodyl (Dulcolax 10 Mg Supp) 10 mg RC DAILY PRN PRN Reason: Constipation Stop: 02/09/17 17:50 Last Admin: 12/15/16 14:30 Dose: 10 mg Carvedilol (Coreg) 6.25 mg PO BID [facility] Stop: 02/11/17 08:59 Last Admin: 12/17/16 09:09 Dose: 6.25 mg Haloperidol Lactate (Haldol) 0.5 mg IM Q12HR [facility] Stop: 02/13/17 20:59 Last Admin: 12/17/16 10:59 Dose: Not Given Ceftriaxone Sodium 1 gm/ (Sodium Chloride) 50 mls @ 100 mls/hr IV Q24HR [facility] Stop: 02/11/17 16:59 Last Infusion: 12/16/16 18:39 Dose: Infused Potassium Chloride 10 meq/ (Dextrose) 1,005 mls @ 75 mls/hr IV .[id number] [facility] Stop: 02/13/17 09:29 Last Admin: 12/16/16 23:25 Dose: 75 mls/hr Insulin Aspart (Novolog Insulin Sliding Scale) 0 units SUBQ ACHS RHIANNA PRN Reason: Protocol Stop: 02/10/17 11:29 Last Admin: 12/17/16 12:34 Dose: Not Given Labetalol HCl (Trandate) 10 mg IVP Q8HR PRN PRN Reason: SBP ABOVE 160 Stop: 02/10/17 17:14 Lactulose (Cephulac) 20 gm PO DAILY [facility] Stop: 02/15/17 08:59 Last Admin: 12/17/16 09:13 Dose: 20 gm Losartan Potassium (Cozaar) 50 mg PO DAILY [facility] Stop: 02/11/17 08:59 Last Admin: 12/17/16 09:08 Dose: 50 mg Miscellaneous (Vte Chemical Prophylaxis Screen/ Admission) 1 ea [facility] PRN PRN PRN Reason: PROTOCOL Stop: 02/10/17 14:48 General: no acute distress, cachectic HEENT: atraumatic, normocephalic Neck: supple Cardiovascular: S1S2, regular Lungs: clear to auscultation bilaterally, clear to percussion Abdomen: soft, no tender, no distended Extremities: no cyanosis, no clubbing, no edema Neurological: awake Skin: intact Infectious Disease Assmt/Plan - Assessment Assessment: 1. UTI. 2. leukocytosis. improved. 3. Dementia. - Plan Plan: Continue rocephin IV. it an be changed to bacrim SS bid orally for 7 days. check labs in AM. Nutritional Asmnt/Malnutr-PDOC - Dietary Evaluation Malnutrition Findings (Please click <Entered> for more info): Nutritional Asmnt/Malnutrition Start: 12/16/16 14: 57 Text: Status: Complete Freq: Document 12/16/16 14:57 GSUN (Rec: 12/16/16 15:32 GSUN [email or web address]) Nutritional Asmnt/Malnutrition Patient General Information Nutritional Screening Consult Diagnosis UTI, leukocytosis Pertinent Medical Hx/Surgical Hx HTN, hyperlipidemia, CVA, dementia, anxiety, depression, psychosis, schizophrenia, hx of frequent UTI, DM Subjective Information 76 year old female, transfered from [facility]. RD consult for poor PO intake, weight loss. Per FNS and nursing staff report, pt has been lethargic with poor PO intake. Pt is confused and lethargic, unable to interview, spoke to daughter at bedside. Daughter stated pt is usually energetic, fair to good appetite, eats everything, however recently pt became lethargic and PO intake declining. Avg PO intake <25% of meals since adm , not meeting nutritional needs. Per RN notes, pt UBW 150lb, CBW 137.6lb via bedscale, possible weight loss . Observed few half emptied juice at bedside, daughter stated pt tolerates/likes milk as well. Recommended oral supplements, daughter agreed. Daughter also requested chopped diet as pt appear to be putting a lot of effort in chewing. Pt appeared thin, unable to complete physical assessment. Current Diet Order/ Nutrition Support Regular, no red meat Pertinent Medications Haldol, Novolog, Cephulac Pertinent Labs 12/13: A1c 5.7 12/15: ammonia 107H 12/16: potassium 3.3L, BUN 45H, glucose 158H POC glucose 67-201 since adm Nutritional Hx/Data Height 1.73 m Height (Calculated Centimeters) 172.7 Current Weight (lbs) 62.414 kg Weight (Calculated Kilograms) 62.4 Weight (Calculated Grams) 67469.3 Usual body Weight (lbs) 150 [place] Body Weight 140 Recent Weight Change Yes Weight Status Approriate GI Symptoms Food Allergies No Cultural/Ethnic/Sikh Belief No red meat. Skin Integrity/Comment: Dewayne 14. Skin intact. Current %PO Negligible < 25% Estimated Nutritional Goals Calories/Kcals/Kg UBW 150lb/68.2kg Kcals Calculated 1705-2046kcal (25-30kcal/kg) Protein Calculated 68g (1g/kg) Fluid: ml 1705-2046ml (1ml/kcal) Nutritional Problem 2. Problem Problem Involuntary weight loss related to Etiology unknown, possibly poor PO intake aeb Signs/Symptoms: family report UBW 150lb and CBW 137.6lb 1. Problem Problem Inadequate oral food beverage intake related to Etiology unknown, posisble lethargy aeb Signs/Symptoms: avg PO intake <25% of meals since adm, pt has been lethargic Intervention/Recommendation Comments 1. Recommend [id number] to promote glycemic control. Recommend mech soft chopped per family's request. 2. Recommend Boost Glucose Control TID. 3. Monitor weight closely. Daughter report UBW 150lb, CBW 137.6lb via bedscale today. Poor PO intake >5 days. Expected Outcomes/Goals Expected Outcomes/Goals 1. PO intake to resume and meet at least 75% of estimated nutritional needs.
[2016-12-17] MEDS: cefTRIAXone 1 GM in Sodium Chloride 0.9% 50 ML IV SCH (18:44)
[2016-12-18 05:41] LABS: % BASOPHILS 0.2 % (0.0-2.0); % EOSINOPHILS 3.7 % (0.0-5.0); % LYMPHOCYTES 32.6 % (20.0-50.0); % NEUTROPHILS 52.5 % (40.0-80.0); HEMATOCRIT 41.4 % (35.0-45.0); HEMOGLOBIN 13.4 gm/dL (11.7-16.1); MEAN CELL VOLUME 85.7 fl (81-100); MEAN CORPUSCULAR HEMOGLOBIN 27.8 pg (27.0-31.0); MEAN CORPUSCULAR HGB CONC 32.4 pg (28.0-36.0); NEUTROPHILE ABSOLUTE 4.7 Th/cmm (1.8-8.0); PLATELET COUNT 304 Th/cmm (150-400); RED BLOOD COUNT 4.83 Mil/cmm (3.80-5.20); RED CELL DISTRIBUTION WIDTH 12.1 % (11.5-20.0); WHITE BLOOD COUNT 8.9 Th/cmm (4.8-10.8)
[2016-12-18 05:56] LABS: ALB/GLOB RATIO 1.1 (1.0-1.8); ALKALINE PHOSPHATASE 75 U/L (34-104); BILIRUBIN,TOTAL 0.3 mg/dL (0.3-1.0); BUN - UREA NITROGEN 17 mg/dL (7-25); BUN/CREATININE RATIO 24.3; CALCIUM SERUM 9.3 mg/dL (8.6-10.3); CHLORIDE 103 mEq/L (98-107); CREATININE - SERUM 0.7 mg/dL (0.6-1.2); GLUCOSE 162 mg/dL (70-105); SGOT 37 U/L (13-39); SGPT/ALT 66 U/L (7-52); SODIUM SERUM 135 mEq/L (136-145)
[2016-12-18] MEDS: INSULIN ASPART SLIDING SCALE 100 UNITS/ML UNIT SUBQ SCH ×4 (06:33→21:06)
[2016-12-18] MEDS ORDERED: Potassium Chloride 40 MEQ, Lidocaine 1% 20mL Vial 25 MG in Sodium Chloride 0.9% 250 ML IV ONE (08:02)
--- NOTE | 2016-12-18 08:05 | General Progress Note ---
Subjective - Review of Systems Service Date: 12/18/16 Subjective: Patient is sleeping but arousable, confused, somnolent. Objective - Results Result Diagrams: 12/18/16 05:27 12/18/16 05:27 Recent Labs: Laboratory Last Values WBC 8.9 Th/cmm (4.8-10.8) 12/18/16 05:27 RBC 4.83 Mil/cmm (3.80-5.20) 12/18/16 05:27 Hgb 13.4 gm/dL (11.7-16.1) 12/18/16 05:27 Hct 41.4 % (35.0-45.0) 12/18/16 05:27 MCV 85.7 fl (81-100) 12/18/16 05:27 MCH 27.8 pg (27.0-31.0) 12/18/16 05:27 MCHC Differential 32.4 pg (28.0-36.0) 12/18/16 05:27 RDW 12.1 % (11.5-20.0) 12/18/16 05:27 Plt Count 304 Th/cmm (150-400) 12/18/16 05:27 MPV 8.0 fl 12/18/16 05:27 Neutrophils % 52.5 % (40.0-80.0) 12/18/16 05:27 Band Neutrophils % 8 % (0-10) 12/14/16 06:17 Lymphocytes % 32.6 % (20.0-50.0) 12/18/16 05:27 Monocytes % 11.0 % (2.0-10.0) H 12/18/16 05:27 Eosinophils % 3.7 % (0.0-5.0) 12/18/16 05:27 Basophils % 0.2 % (0.0-2.0) 12/18/16 05:27 Neutrophils (Manual) 68 % (40-80) 12/14/16 06:17 Lymphocytes 14 % (20-50) L 12/14/16 06:17 Monocytes 7 % (2-10) 12/14/16 06:17 Eosinophils 3 % (0-5) 12/14/16 06:17 Platelet Estimate ADEQUATE (NORMAL) 12/14/16 06:17 Platelet Morphology NORMAL (NORMAL) 12/14/16 06:17 RBC Morph Micro Appear NORMAL (NORMAL) 12/14/16 06:17 Specimen Source Arterial 12/12/16 10:09 Sample Site RB 12/12/16 10:09 pH 7.48 (7.35-7.45) H 12/12/16 10:09 pCO2 43.0 mmHg (35.0-45.0) 12/12/16 10:09 pO2 62.0 mmHg (80.0-100.0) L 12/12/16 10:09 HCO3 30.8 mEq/L (20.0-26.0) H 12/12/16 10:09 Base Excess 7.6 mEq/L (-3.0-3.0) H 12/12/16 10:09 O2 Saturation 93.0 % (92.0-100.0) 12/12/16 10:09 Gurpreet Test NA 12/12/16 10:09 Vent Rate NA 12/12/16 10:09 Inspired O2 21 12/12/16 10:09 Tidal Volume NA 12/12/16 10:09 PEEP NA 12/12/16 10:09 Pressure (ins/psv/peep) NA 12/12/16 10:09 Critical Value SH 12/12/16 10:09 Sodium 135 mEq/L (136-145) L 12/18/16 05:27 Potassium 3.0 mEq/L (3.5-5.1) L 12/18/16 05:27 Chloride 103 mEq/L (98-107) 12/18/16 05:27 Carbon Dioxide 28.0 mEq/L (21.0-31.0) 12/18/16 05:27 Anion Gap 7.0 (7.0-16.0) 12/18/16 05:27 BUN 17 mg/dL (7-25) 12/18/16 05:27 Creatinine 0.7 mg/dL (0.6-1.2) 12/18/16 05:27 Est GFR ( Amer) TNP 12/18/16 05:27 Est GFR (Non-Af Amer) [place] 12/18/16 05:27 BUN/Creatinine Ratio 24.3 12/18/16 05:27 Glucose 162 mg/dL (70-105) H 12/18/16 05:27 POC Glucose 157 MG/DL (70 - 105) H 12/18/16 06:00 Hemoglobin A1c % 5.7 % (4.0-6.0) 12/13/16 05:54 Calcium 9.3 mg/dL (8.6-10.3) 12/18/16 05:27 Magnesium 1.6 mg/dL (1.9-2.7) L 12/17/16 04:45 Total Bilirubin 0.3 mg/dL (0.3-1.0) 12/18/16 05:27 AST 37 U/L (13-39) 12/18/16 05:27 ALT 66 U/L (7-52) H 12/18/16 05:27 Alkaline Phosphatase 75 U/L (34-104) 12/18/16 05:27 Ammonia 58 umol/L (16-53) H 12/17/16 04:45 Total Protein 6.2 gm/dL (6.0-8.3) 12/18/16 05:27 Albumin 3.3 gm/dL (3.7-5.3) L 12/18/16 05:27 Globulin 2.9 gm/dL 12/18/16 05:27 Albumin/Globulin Ratio 1.1 (1.0-1.8) 12/18/16 05:27 Prealbumin 11 mg/dL (9-32) 12/15/16 11:20 Triglycerides 126 mg/dL (<150) 12/16/16 05:07 Cholesterol 169 mg/dL (<200) 12/16/16 05:07 LDL Cholesterol Direct 133 mg/dL (75-193) 12/16/16 05:07 HDL Cholesterol 34 mg/dL (23-92) 12/16/16 05:07 TSH 1.57 uIU/ml (0.34-5.60) 12/18/16 05:27 Urine Source CLEAN C 12/13/16 12:08 Urine Color YELLOW 12/13/16 12:08 Urine Clarity HAZY (CLEAR) 12/13/16 12:08 Urine pH 8.0 (4.6 - 8.0) 12/13/16 12:08 Ur Specific [place] 1.015 (1.005-1.030) 12/13/16 12:08 Urine Protein 100 mg/dL (NEGATIVE) H 12/13/16 12:08 Urine Glucose (UA) NEGATIVE mg/dL (NEGATIVE) 12/13/16 12:08 Urine Ketones NEGATIVE mg/dL (NEGATIVE) 12/13/16 12:08 Urine Blood MODERATE (NEGATIVE) H 12/13/16 12:08 Urine Nitrate NEGATIVE (NEGATIVE) 12/13/16 12:08 Urine Bilirubin NEGATIVE (NEGATIVE) 12/13/16 12:08 Urine Urobilinogen 0.2 E.U./dL (0.2 - 1.0) 12/13/16 12:08 Ur Leukocyte Esterase LARGE (NEGATIVE) H 12/13/16 12:08 Urine RBC 2-5 /hpf (0-5) 12/13/16 12:08 Urine WBC 25-50 /hpf (0-5) H 12/13/16 12:08 Ur Epithelial Cells OCCASIONAL /lpf (FEW) 12/13/16 12:08 Urine Bacteria 4+ /hpf (NONE SEEN) H 12/13/16 12:08 Urine Yeast MANY /hpf (NONE SEEN) H 12/13/16 12:08 Urine Opiates Screen NEGATIVE (NEGATIVE) 12/13/16 15:46 Urine Methadone Screen NEGATIVE (NEGATIVE) 12/13/16 15:46 Ur Barbiturates Screen NEGATIVE (NEGATIVE) 12/13/16 15:46 Ur Tricyclics Screen POSITIVE (NEGATIVE) H 12/13/16 15:46 Ur Phencyclidine Scrn NEGATIVE (NEGATIVE) 12/13/16 15:46 Amphetamines Screen NEGATIVE (NEGATIVE) 12/13/16 15:46 U Methamphetamines Scrn NEGATIVE (NEGATIVE) 12/13/16 15:46 U Benzodiazepines Scrn POSITIVE (NEGATIVE) H 12/13/16 15:46 U Cocaine Metab Screen NEGATIVE (NEGATIVE) 12/13/16 15:46 U Cannabinoids Screen NEGATIVE (NEGATIVE) 12/13/16 15:46 - Physical Exam Vitals and I&O: Vital Signs Temp 97.2 F 12/18/16 04:00 Pulse 83 12/18/16 07:58 Resp 16 12/18/16 07:58 BP 129/76 12/18/16 04:00 Pulse Ox 99 12/18/16 07:58 Intake & Output 12/17/16 12/18/16 12/18/16 18:59 06:59 18:59 Intake Total 1060 60 Balance 1060 60 Weight (lbs) 62.142 kg Intake: Intake, IV Amount 1060 Potassium Chloride 10 meq 1005 In Dextrose 5% 1,000 ml @ 75 mls/hr IV .[id number] [facility] Rx#:[id number] cefTRIAXone 1 gm In 5 Sodium Chloride 0.9% 50 ml @ 100 mls/hr IV Q24HR [facility] Rx#:[id number] Oral 60 Other: # Voids 3 # Bowel Movements 2 Active Medications: Current Medications Acetaminophen (Tylenol) 650 mg PO Q4HR PRN PRN Reason: Pain or Fever >101 Stop: 02/09/17 17:50 Amlodipine Besylate (Norvasc) 5 mg PO DAILY [facility] Stop: 02/10/17 08:59 Last Admin: 12/17/16 09:08 Dose: 5 mg Aspirin (Ecotrin) 81 mg PO DAILY [facility] Stop: 02/10/17 08:59 Last Admin: 12/17/16 09:08 Dose: 81 mg Bisacodyl (Dulcolax 10 Mg Supp) 10 mg RC DAILY PRN PRN Reason: Constipation Stop: 02/09/17 17:50 Last Admin: 12/15/16 14:30 Dose: 10 mg Carvedilol (Coreg) 6.25 mg PO BID [facility] Stop: 02/11/17 08:59 Last Admin: 12/17/16 16:36 Dose: 6.25 mg Haloperidol Lactate (Haldol) 0.5 mg IM Q12HR [facility] Stop: 02/13/17 20:59 Last Admin: 12/17/16 21:10 Dose: 0.5 mg Ceftriaxone Sodium 1 gm/ (Sodium Chloride) 50 mls @ 100 mls/hr IV Q24HR [facility] Stop: 02/11/17 16:59 Last Infusion: 12/17/16 18:47 Dose: 100 mls/hr Sodium Chloride (Nacl 0.9%) 1,000 mls @ 100 mls/hr IV .Q10H [facility] Stop: 02/16/17 08:01 Potassium Chloride 40 meq/Lidocaine HCl 25 mg/ Sodium Chloride 272.5 mls @ 68 mls/hr IV X1 ONE Stop: 12/18/16 12:02 Insulin Aspart (Novolog Insulin Sliding Scale) 0 units SUBQ ACHS RHIANNA PRN Reason: Protocol Stop: 02/10/17 11:29 Last Admin: 12/18/16 06:33 Dose: 2 units Labetalol HCl (Trandate) 10 mg IVP Q8HR PRN PRN Reason: SBP ABOVE 160 Stop: 02/10/17 17:14 Lactulose (Cephulac) 20 gm PO DAILY [facility] Stop: 02/15/17 08:59 Last Admin: 12/17/16 09:13 Dose: 20 gm Losartan Potassium (Cozaar) 50 mg PO DAILY [facility] Stop: 02/11/17 08:59 Last Admin: 12/17/16 09:08 Dose: 50 mg Miscellaneous (Vte Chemical Prophylaxis Screen/ Admission) 1 ea [facility] PRN PRN PRN Reason: PROTOCOL Stop: 02/10/17 14:48 General: Other (Sleeping but arousable, confused), no Alert HEENT: Atraumatic, PERRLA Neck: Supple Cardiovascular: Regular rate Lungs: Clear to auscultation Abdomen: Bowel sounds Extremities: Other (No edema) Neurological: Other (Unstable gait) Psych/Mental Status: Other (Patient is confused, not oriented. Patient is eating 20%, refusing to take meds.) Assessment/Plan - Assessment Assessment: Patient is agitated at moment, confused, not oriented. K is low, ammonia improving. Patient is better. BP better control. Dx: Hepatic encephalopathy, Increased in confusion, UTI, HTN, CHF, Dyslipemia, Dementia, Psychosis. - Plan Plan: Lactulose is decreased to once a day. Haldol is continue. ativan is dc. Will continue to monitor. Nutritional Asmnt/Malnutr-PDOC - Dietary Evaluation Malnutrition Findings (Please click <Entered> for more info): Nutritional Asmnt/Malnutrition Start: 12/16/16 14: 57 Text: Status: Complete Freq: Document 12/16/16 14:57 GSUN (Rec: 12/16/16 15:32 GSUN [email or web address]) Nutritional Asmnt/Malnutrition Patient General Information Nutritional Screening Consult Diagnosis UTI, leukocytosis Pertinent Medical Hx/Surgical Hx HTN, hyperlipidemia, CVA, dementia, anxiety, depression, psychosis, schizophrenia, hx of frequent UTI, DM Subjective Information 76 year old female, transfered from [facility]. RD consult for poor PO intake, weight loss. Per FNS and nursing staff report, pt has been lethargic with poor PO intake. Pt is confused and lethargic, unable to interview, spoke to daughter at bedside. Daughter stated pt is usually energetic, fair to good appetite, eats everything, however recently pt became lethargic and PO intake declining. Avg PO intake <25% of meals since adm , not meeting nutritional needs. Per RN notes, pt UBW 150lb, CBW 137.6lb via bedscale, possible weight loss . Observed few half emptied juice at bedside, daughter stated pt tolerates/likes milk as well. Recommended oral supplements, daughter agreed. Daughter also requested chopped diet as pt appear to be putting a lot of effort in chewing. Pt appeared thin, unable to complete physical assessment. Current Diet Order/ Nutrition Support Regular, no red meat Pertinent Medications Haldol, Novolog, Cephulac Pertinent Labs 12/13: A1c 5.7 12/15: ammonia 107H 12/16: potassium 3.3L, BUN 45H, glucose 158H POC glucose 67-201 since adm Nutritional Hx/Data Height 1.73 m Height (Calculated Centimeters) 172.7 Current Weight (lbs) 62.414 kg Weight (Calculated Kilograms) 62.4 Weight (Calculated Grams) 97976.3 Usual body Weight (lbs) 150 [place] Body Weight 140 Recent Weight Change Yes Weight Status Approriate GI Symptoms Food Allergies No Cultural/Ethnic/Lutheran Belief No red meat. Skin Integrity/Comment: Dewayne 14. Skin intact. Current %PO Negligible < 25% Estimated Nutritional Goals Calories/Kcals/Kg UBW 150lb/68.2kg Kcals Calculated 1705-2046kcal (25-30kcal/kg) Protein Calculated 68g (1g/kg) Fluid: ml 1705-2046ml (1ml/kcal) Nutritional Problem 2. Problem Problem Involuntary weight loss related to Etiology unknown, possibly poor PO intake aeb Signs/Symptoms: family report UBW 150lb and CBW 137.6lb 1. Problem Problem Inadequate oral food beverage intake related to Etiology unknown, posisble lethargy aeb Signs/Symptoms: avg PO intake <25% of meals since adm, pt has been lethargic Intervention/Recommendation Comments 1. Recommend [id number] to promote glycemic control. Recommend mech soft chopped per family's request. 2. Recommend Boost Glucose Control TID. 3. Monitor weight closely. Daughter report UBW 150lb, CBW 137.6lb via bedscale today. Poor PO intake >5 days. Expected Outcomes/Goals Expected Outcomes/Goals 1. PO intake to resume and meet at least 75% of estimated nutritional needs.
[2016-12-18] MEDS: Haloperidol Lactate 5 mg/mL 1mL Vial IM SCH ×2 (08:59→09:09)
[2016-12-18] MEDS: Sodium Chloride 0.9% 1,000 ML IV SCH (09:00)
[2016-12-18] MEDS: Lactulose 10 Gm/15 mL 30mL UDC PO SCH (09:00)
[2016-12-18] MEDS ORDERED: Haloperidol Lactate 5 mg/mL 1mL Vial IM PRN (11:13)
[2016-12-18] MEDS: cefTRIAXone 1 GM in Sodium Chloride 0.9% 50 ML IV SCH (16:41)
--- NOTE | 2016-12-18 16:41 | Infectious Disease Prog Note ---
Infectious Disease Subjective - Review of Systems Service Date: 12/18/16 Subjective: There is no fever. Infectious Disease Objective - Results Result Diagrams: 12/18/16 05:27 12/18/16 05:27 Recent Labs: Laboratory Last Values WBC 8.9 Th/cmm (4.8-10.8) 12/18/16 05:27 RBC 4.83 Mil/cmm (3.80-5.20) 12/18/16 05:27 Hgb 13.4 gm/dL (11.7-16.1) 12/18/16 05:27 Hct 41.4 % (35.0-45.0) 12/18/16 05:27 MCV 85.7 fl (81-100) 12/18/16 05:27 MCH 27.8 pg (27.0-31.0) 12/18/16 05:27 MCHC Differential 32.4 pg (28.0-36.0) 12/18/16 05:27 RDW 12.1 % (11.5-20.0) 12/18/16 05:27 Plt Count 304 Th/cmm (150-400) 12/18/16 05:27 MPV 8.0 fl 12/18/16 05:27 Neutrophils % 52.5 % (40.0-80.0) 12/18/16 05:27 Band Neutrophils % 8 % (0-10) 12/14/16 06:17 Lymphocytes % 32.6 % (20.0-50.0) 12/18/16 05:27 Monocytes % 11.0 % (2.0-10.0) H 12/18/16 05:27 Eosinophils % 3.7 % (0.0-5.0) 12/18/16 05:27 Basophils % 0.2 % (0.0-2.0) 12/18/16 05:27 Neutrophils (Manual) 68 % (40-80) 12/14/16 06: Lymphocytes 14 % (20-50) L 12/14/16 06:17 Monocytes 7 % (2-10) 12/14/16 06:17 Eosinophils 3 % (0-5) 12/14/16 06:17 Platelet Estimate ADEQUATE (NORMAL) 12/14/16 06:17 Platelet Morphology NORMAL (NORMAL) 12/14/16 06:17 RBC Morph Micro Appear NORMAL (NORMAL) 12/14/16 06:17 Specimen Source Arterial 12/12/16 10:09 Sample Site RB 12/12/16 10:09 pH 7.48 (7.35-7.45) H 12/12/16 10:09 pCO2 43.0 mmHg (35.0-45.0) 12/12/16 10:09 pO2 62.0 mmHg (80.0-100.0) L 12/12/16 10:09 HCO3 30.8 mEq/L (20.0-26.0) H 12/12/16 10:09 Base Excess 7.6 mEq/L (-3.0-3.0) H 12/12/16 10:09 O2 Saturation 93.0 % (92.0-100.0) 12/12/16 10:09 Gurpreet Test NA 12/12/16 10:09 Vent Rate NA 12/12/16 10:09 Inspired O2 21 12/12/16 10:09 Tidal Volume NA 12/12/16 10:09 PEEP NA 12/12/16 10:09 Pressure (ins/psv/peep) NA 12/12/16 10:09 Critical Value SH 12/12/16 10:09 Sodium 135 mEq/L (136-145) L 12/18/16 05:27 Potassium 3.0 mEq/L (3.5-5.1) L 12/18/16 05:27 Chloride 103 mEq/L (98-107) 12/18/16 05:27 Carbon Dioxide 28.0 mEq/L (21.0-31.0) 12/18/16 05:27 Anion Gap 7.0 (7.0-16.0) 12/18/16 05:27 BUN 17 mg/dL (7-25) 12/18/16 05:27 Creatinine 0.7 mg/dL (0.6-1.2) 12/18/16 05:27 Est GFR ( Amer) TNP 12/18/16 05:27 Est GFR (Non-Af Amer) [facility] 12/18/16 05:27 BUN/Creatinine Ratio 24.3 12/18/16 05:27 Glucose 162 mg/dL (70-105) H 12/18/16 05:27 POC Glucose 154 MG/DL (70 - 105) H 12/18/16 11:48 Hemoglobin A1c % 5.7 % (4.0-6.0) 12/13/16 05:54 Calcium 9.3 mg/dL (8.6-10.3) 12/18/16 05:27 Magnesium 1.6 mg/dL (1.9-2.7) L 12/17/16 04:45 Total Bilirubin 0.3 mg/dL (0.3-1.0) 12/18/16 05:27 AST 37 U/L (13-39) 12/18/16 05:27 ALT 66 U/L (7-52) H 12/18/16 05:27 Alkaline Phosphatase 75 U/L (34-104) 12/18/16 05:27 Ammonia 46 umol/L (16-53) 12/18/16 08:10 Total Protein 6.2 gm/dL (6.0-8.3) 12/18/16 05:27 Albumin 3.3 gm/dL (3.7-5.3) L 12/18/16 05:27 Globulin 2.9 gm/dL 12/18/16 05:27 Albumin/Globulin Ratio 1.1 (1.0-1.8) 12/18/16 05:27 Prealbumin 11 mg/dL (9-32) 12/15/16 11:20 Triglycerides 126 mg/dL (<150) 12/16/16 05:07 Cholesterol 169 mg/dL (<200) 12/16/16 05:07 LDL Cholesterol Direct 133 mg/dL (75-193) 12/16/16 05:07 HDL Cholesterol 34 mg/dL (23-92) 12/16/16 05:07 TSH 1.57 uIU/ml (0.34-5.60) 12/18/16 05:27 Urine Source CLEAN C 12/13/16 12:08 Urine Color YELLOW 12/13/16 12:08 Urine Clarity HAZY (CLEAR) 12/13/16 12:08 Urine pH 8.0 (4.6 - 8.0) 12/13/16 12:08 Ur Specific [place] 1.015 (1.005-1.030) 12/13/16 12:08 Urine Protein 100 mg/dL (NEGATIVE) H 12/13/16 12:08 Urine Glucose (UA) NEGATIVE mg/dL (NEGATIVE) 12/13/16 12:08 Urine Ketones NEGATIVE mg/dL (NEGATIVE) 12/13/16 12:08 Urine Blood MODERATE (NEGATIVE) H 12/13/16 12:08 Urine Nitrate NEGATIVE (NEGATIVE) 12/13/16 12:08 Urine Bilirubin NEGATIVE (NEGATIVE) 12/13/16 12:08 Urine Urobilinogen 0.2 E.U./dL (0.2 - 1.0) 12/13/16 12:08 Ur Leukocyte Esterase LARGE (NEGATIVE) H 12/13/16 12:08 Urine RBC 2-5 /hpf (0-5) 12/13/16 12:08 Urine WBC 25-50 /hpf (0-5) H 12/13/16 12:08 Ur Epithelial Cells OCCASIONAL /lpf (FEW) 12/13/16 12:08 Urine Bacteria 4+ /hpf (NONE SEEN) H 12/13/16 12:08 Urine Yeast MANY /hpf (NONE SEEN) H 12/13/16 12:08 Urine Opiates Screen NEGATIVE (NEGATIVE) 12/13/16 15:46 Urine Methadone Screen NEGATIVE (NEGATIVE) 12/13/16 15:46 Ur Barbiturates Screen NEGATIVE (NEGATIVE) 12/13/16 15:46 Ur Tricyclics Screen POSITIVE (NEGATIVE) H 12/13/16 15:46 Ur Phencyclidine Scrn NEGATIVE (NEGATIVE) 12/13/16 15:46 Amphetamines Screen NEGATIVE (NEGATIVE) 12/13/16 15:46 U Methamphetamines Scrn NEGATIVE (NEGATIVE) 12/13/16 15:46 U Benzodiazepines Scrn POSITIVE (NEGATIVE) H 12/13/16 15:46 U Cocaine Metab Screen NEGATIVE (NEGATIVE) 12/13/16 15:46 U Cannabinoids Screen NEGATIVE (NEGATIVE) 12/13/16 15:46 - Physical Exam Vitals and I&O: Vital Signs Temp 98.0 F 12/18/16 13:53 Pulse 79 12/18/16 13:53 Resp 19 12/18/16 14:06 BP 141/75 12/18/16 13:53 Pulse Ox 96 12/18/16 13:53 Intake & Output 12/17/16 12/18/16 12/18/16 18:59 06:59 18:59 Intake Total 1060 60 Balance 1060 60 Weight (lbs) 62.142 kg Intake: Intake, IV Amount 1060 Potassium Chloride 10 meq 1005 In Dextrose 5% 1,000 ml @ 75 mls/hr IV .[id number] [facility] Rx#:[id number] cefTRIAXone 1 gm In 5 Sodium Chloride 0.9% 50 ml @ 100 mls/hr IV Q24HR [facility] Rx#:[id number] Oral 60 Other: # Voids 3 # Bowel Movements 2 Stool Characteristics Soft Active Medications: Current Medications Acetaminophen (Tylenol) 650 mg PO Q4HR PRN PRN Reason: Pain or Fever >101 Stop: 02/09/17 17:50 Amlodipine Besylate (Norvasc) 5 mg PO DAILY [facility] Stop: 02/10/17 08:59 Last Admin: 12/18/16 08:57 Dose: 5 mg Aspirin (Ecotrin) 81 mg PO DAILY [facility] Stop: 02/10/17 08:59 Last Admin: 12/18/16 08:57 Dose: 81 mg Bisacodyl (Dulcolax 10 Mg Supp) 10 mg RC DAILY PRN PRN Reason: Constipation Stop: 02/09/17 17:50 Last Admin: 12/15/16 14:30 Dose: 10 mg Carvedilol (Coreg) 6.25 mg PO BID [facility] Stop: 02/11/17 08:59 Last Admin: 12/18/16 08:58 Dose: 6.25 mg Ceftriaxone Sodium 1 gm/ (Sodium Chloride) 50 mls @ 100 mls/hr IV Q24HR [facility] Stop: 02/11/17 16:59 Last Infusion: 12/17/16 18:47 Dose: 100 mls/hr Sodium Chloride (Nacl 0.9%) 1,000 mls @ 100 mls/hr IV .Q10H [facility] Stop: 02/16/17 08:01 Last Admin: 12/18/16 09:00 Dose: 100 mls/hr Insulin Aspart (Novolog Insulin Sliding Scale) 0 units SUBQ ACHS RHIANNA PRN Reason: Protocol Stop: 02/10/17 11:29 Last Admin: 12/18/16 16:35 Dose: 2 units Labetalol HCl (Trandate) 10 mg IVP Q8HR PRN PRN Reason: SBP ABOVE 160 Stop: 02/10/17 17:14 Lactulose (Cephulac) 20 gm PO DAILY [facility] Stop: 02/15/17 08:59 Last Admin: 12/18/16 09:00 Dose: 20 gm Lorazepam (Ativan) 0.5 mg PO Q6HR PRN; Protocol PRN Reason: Anxiety Stop: 02/16/17 16:24 Losartan Potassium (Cozaar) 50 mg PO DAILY RHIANNA Stop: 02/11/17 08:59 Last Admin: 12/18/16 08:58 Dose: 50 mg Miscellaneous (Vte Chemical Prophylaxis Screen/ Admission) 1 ea [facility] PRN PRN PRN Reason: PROTOCOL Stop: 02/10/17 14:48 General: no acute distress, cachectic HEENT: atraumatic, normocephalic, PERRLA, EOMI Neck: supple Cardiovascular: S1S2, regular Lungs: clear to auscultation bilaterally, clear to percussion Abdomen: soft, no tender, no distended Extremities: no cyanosis, no clubbing, no edema Neurological: awake, other (confused.) Infectious Disease Assmt/Plan - Assessment Assessment: 1. UTI. 2. leukocytosis. improved. 3. Dementia. - Plan Plan: Continue rocephin IV. it an be changed to bacrim SS bid orally for 7 days. check labs in AM. Nutritional Asmnt/Malnutr-PDOC - Dietary Evaluation Malnutrition Findings (Please click <Entered> for more info): Nutritional Asmnt/Malnutrition Start: 12/16/16 14: 57 Text: Status: Complete Freq: Document 12/16/16 14:57 GSUN (Rec: 12/16/16 15:32 [facility] Nutritional Asmnt/Malnutrition Patient General Information Nutritional Screening Consult Diagnosis UTI, leukocytosis Pertinent Medical Hx/Surgical Hx HTN, hyperlipidemia, CVA, dementia, anxiety, depression, psychosis, schizophrenia, hx of frequent UTI, DM Subjective Information 76 year old female, transfered from [facility]. RD consult for poor PO intake, weight loss. Per FNS and nursing staff report, pt has been lethargic with poor PO intake. Pt is confused and lethargic, unable to interview, spoke to daughter at bedside. Daughter stated pt is usually energetic, fair to good appetite, eats everything, however recently pt became lethargic and PO intake declining. Avg PO intake <25% of meals since adm , not meeting nutritional needs. Per RN notes, pt UBW 150lb, CBW 137.6lb via bedscale, possible weight loss . Observed few half emptied juice at bedside, daughter stated pt tolerates/likes milk as well. Recommended oral supplements, daughter agreed. Daughter also requested chopped diet as pt appear to be putting a lot of effort in chewing. Pt appeared thin, unable to complete physical assessment. Current Diet Order/ Nutrition Support Regular, no red meat Pertinent Medications Haldol, Novolog, Cephulac Pertinent Labs 12/13: A1c 5.7 12/15: ammonia 107H 12/16: potassium 3.3L, BUN 45H, glucose 158H POC glucose 67-201 since adm Nutritional Hx/Data Height 1.73 m Height (Calculated Centimeters) 172.7 Current Weight (lbs) 62.414 kg Weight (Calculated Kilograms) 62.4 Weight (Calculated Grams) 28013.3 Usual body Weight (lbs) 150 [place] Body Weight 140 Recent Weight Change Yes Weight Status Approriate GI Symptoms Food Allergies No Cultural/Ethnic/Islam Belief No red meat. Skin Integrity/Comment: Dewayne 14. Skin intact. Current %PO Negligible < 25% Estimated Nutritional Goals Calories/Kcals/Kg UBW 150lb/68.2kg Kcals Calculated 1705-2046kcal (25-30kcal/kg) Protein Calculated 68g (1g/kg) Fluid: ml 1705-2046ml (1ml/kcal) Nutritional Problem 2. Problem Problem Involuntary weight loss related to Etiology unknown, possibly poor PO intake aeb Signs/Symptoms: family report UBW 150lb and CBW 137.6lb 1. Problem Problem Inadequate oral food beverage intake related to Etiology unknown, posisble lethargy aeb Signs/Symptoms: avg PO intake <25% of meals since adm, pt has been lethargic Intervention/Recommendation Comments 1. Recommend [id number] to promote glycemic control. Recommend mech soft chopped per family's request. 2. Recommend Boost Glucose Control TID. 3. Monitor weight closely. Daughter report UBW 150lb, CBW 137.6lb via bedscale today. Poor PO intake >5 days. Expected Outcomes/Goals Expected Outcomes/Goals 1. PO intake to resume and meet at least 75% of estimated nutritional needs.
[2016-12-19] MEDS: Sodium Chloride 0.9% 1,000 ML IV SCH ×3 (00:07→21:46)
[2016-12-19 05:36] LABS: % BASOPHILS 1.6 % (0.0-2.0); % EOSINOPHILS 2.6 % (0.0-5.0); % LYMPHOCYTES 29.6 % (20.0-50.0); % NEUTROPHILS 56.2 % (40.0-80.0); HEMATOCRIT 42.1 % (35.0-45.0); MEAN CELL VOLUME 86.3 fl (81-100); MEAN CORPUSCULAR HEMOGLOBIN 28.7 pg (27.0-31.0); MEAN CORPUSCULAR HGB CONC 33.3 pg (28.0-36.0); MEAN PLATELET VOLUME 8.3 fl; NEUTROPHILE ABSOLUTE 6.5 Th/cmm (1.8-8.0); PLATELET COUNT 291 Th/cmm (150-400); RED BLOOD COUNT 4.88 Mil/cmm (3.80-5.20)
[2016-12-19 05:49] LABS: WHITE BLOOD COUNT 11.5 Th/cmm (4.8-10.8)
[2016-12-19 05:57] LABS: ALB/GLOB RATIO 1.2 (1.0-1.8); ALKALINE PHOSPHATASE 77 U/L (34-104); ANION GAP 8.6 (7.0-16.0); BILIRUBIN,TOTAL 0.4 mg/dL (0.3-1.0); BUN - UREA NITROGEN 15 mg/dL (7-25); BUN/CREATININE RATIO 21.4; CALCIUM SERUM 9.6 mg/dL (8.6-10.3); CHLORIDE 106 mEq/L (98-107); CREATININE - SERUM 0.7 mg/dL (0.6-1.2); GLUCOSE 136 mg/dL (70-105); POTASSIUM SERUM 3.6 mEq/L (3.5-5.1); SGOT 28 U/L (13-39); SGPT/ALT 57 U/L (7-52); SODIUM SERUM 138 mEq/L (136-145)
[2016-12-19] MEDS: INSULIN ASPART SLIDING SCALE 100 UNITS/ML UNIT SUBQ SCH ×4 (06:36→21:00)
--- NOTE | 2016-12-19 09:28 | General Progress Note ---
Subjective - Review of Systems Service Date: 12/19/16 Subjective: Patient is awake, calm, responding to questions. Objective - Results Result Diagrams: 12/19/16 05:20 12/19/16 05:20 Recent Labs: Laboratory Last Values WBC 11.5 Th/cmm (4.8-10.8) H D 12/19/16 05:20 RBC 4.88 Mil/cmm (3.80-5.20) 12/19/16 05:20 Hgb 14.0 gm/dL (11.7-16.1) 12/19/16 05:20 Hct 42.1 % (35.0-45.0) 12/19/16 05:20 MCV 86.3 fl (81-100) 12/19/16 05:20 MCH 28.7 pg (27.0-31.0) 12/19/16 05:20 MCHC Differential 33.3 pg (28.0-36.0) 12/19/16 05:20 RDW 12.0 % (11.5-20.0) 12/19/16 05:20 Plt Count 291 Th/cmm (150-400) 12/19/16 05:20 MPV 8.3 fl 12/19/16 05:20 Neutrophils % 56.2 % (40.0-80.0) 12/19/16 05:20 Band Neutrophils % 8 % (0-10) 12/14/16 06:17 Lymphocytes % 29.6 % (20.0-50.0) 12/19/16 05:20 Monocytes % 10.0 % (2.0-10.0) 12/19/16 05:20 Eosinophils % 2.6 % (0.0-5.0) 12/19/16 05:20 Basophils % 1.6 % (0.0-2.0) 12/19/16 05:20 Neutrophils (Manual) 68 % (40-80) 12/14/16 06:17 Lymphocytes 14 % (20-50) L 12/14/16 06:17 Monocytes 7 % (2-10) 12/14/16 06:17 Eosinophils 3 % (0-5) 12/14/16 06:17 Platelet Estimate ADEQUATE (NORMAL) 12/14/16 06:17 Platelet Morphology NORMAL (NORMAL) 12/14/16 06:17 RBC Morph Micro Appear NORMAL (NORMAL) 12/14/16 06:17 Specimen Source Arterial 12/12/16 10:09 Sample Site RB 12/12/16 10:09 pH 7.48 (7.35-7.45) H 12/12/16 10:09 pCO2 43.0 mmHg (35.0-45.0) 12/12/16 10:09 pO2 62.0 mmHg (80.0-100.0) L 12/12/16 10:09 HCO3 30.8 mEq/L (20.0-26.0) H 12/12/16 10:09 Base Excess 7.6 mEq/L (-3.0-3.0) H 12/12/16 10:09 O2 Saturation 93.0 % (92.0-100.0) 12/12/16 10:09 Gurpreet Test NA 12/12/16 10:09 Vent Rate NA 12/12/16 10:09 Inspired O2 21 12/12/16 10:09 Tidal Volume NA 12/12/16 10:09 PEEP NA 12/12/16 10:09 Pressure (ins/psv/peep) NA 12/12/16 10:09 Critical Value SH 12/12/16 10:09 Sodium 138 mEq/L (136-145) 12/19/16 05:20 Potassium 3.6 mEq/L (3.5-5.1) 12/19/16 05:20 Chloride 106 mEq/L (98-107) 12/19/16 05:20 Carbon Dioxide 27.0 mEq/L (21.0-31.0) 12/19/16 05:20 Anion Gap 8.6 (7.0-16.0) 12/19/16 05:20 BUN 15 mg/dL (7-25) 12/19/16 05:20 Creatinine 0.7 mg/dL (0.6-1.2) 12/19/16 05:20 Est GFR ( Amer) TNP 12/19/16 05:20 Est GFR (Non-Af Amer) [facility] 12/19/16 05:20 BUN/Creatinine Ratio 21.4 12/19/16 05:20 Glucose 136 mg/dL (70-105) H 12/19/16 05:20 POC Glucose 136 MG/DL (70 - 105) H 12/19/16 06:25 Hemoglobin A1c % 5.7 % (4.0-6.0) 12/13/16 05:54 Calcium 9.6 mg/dL (8.6-10.3) 12/19/16 05:20 Magnesium 1.6 mg/dL (1.9-2.7) L 12/17/16 04:45 Total Bilirubin 0.4 mg/dL (0.3-1.0) 12/19/16 05:20 AST 28 U/L (13-39) 12/19/16 05:20 ALT 57 U/L (7-52) H 12/19/16 05:20 Alkaline Phosphatase 77 U/L (34-104) 12/19/16 05:20 Ammonia 46 umol/L (16-53) 12/18/16 08:10 Total Protein 6.5 gm/dL (6.0-8.3) 12/19/16 05:20 Albumin 3.5 gm/dL (3.7-5.3) L 12/19/16 05:20 Globulin 3.0 gm/dL 12/19/16 05:20 Albumin/Globulin Ratio 1.2 (1.0-1.8) 12/19/16 05:20 Prealbumin 11 mg/dL (9-32) 12/15/16 11:20 Triglycerides 126 mg/dL (<150) 12/16/16 05:07 Cholesterol 169 mg/dL (<200) 12/16/16 05:07 LDL Cholesterol Direct 133 mg/dL (75-193) 12/16/16 05:07 HDL Cholesterol 34 mg/dL (23-92) 12/16/16 05:07 TSH 1.57 uIU/ml (0.34-5.60) 12/18/16 05:27 Urine Source CLEAN C 12/13/16 12:08 Urine Color YELLOW 12/13/16 12:08 Urine Clarity HAZY (CLEAR) 12/13/16 12:08 Urine pH 8.0 (4.6 - 8.0) 12/13/16 12:08 Ur Specific [place] 1.015 (1.005-1.030) 12/13/16 12:08 Urine Protein 100 mg/dL (NEGATIVE) H 12/13/16 12:08 Urine Glucose (UA) NEGATIVE mg/dL (NEGATIVE) 12/13/16 12:08 Urine Ketones NEGATIVE mg/dL (NEGATIVE) 12/13/16 12:08 Urine Blood MODERATE (NEGATIVE) H 12/13/16 12:08 Urine Nitrate NEGATIVE (NEGATIVE) 12/13/16 12:08 Urine Bilirubin NEGATIVE (NEGATIVE) 12/13/16 12:08 Urine Urobilinogen 0.2 E.U./dL (0.2 - 1.0) 12/13/16 12:08 Ur Leukocyte Esterase LARGE (NEGATIVE) H 12/13/16 12:08 Urine RBC 2-5 /hpf (0-5) 12/13/16 12:08 Urine WBC 25-50 /hpf (0-5) H 12/13/16 12:08 Ur Epithelial Cells OCCASIONAL /lpf (FEW) 12/13/16 12:08 Urine Bacteria 4+ /hpf (NONE SEEN) H 12/13/16 12:08 Urine Yeast MANY /hpf (NONE SEEN) H 12/13/16 12:08 Urine Opiates Screen NEGATIVE (NEGATIVE) 12/13/16 15:46 Urine Methadone Screen NEGATIVE (NEGATIVE) 12/13/16 15:46 Ur Barbiturates Screen NEGATIVE (NEGATIVE) 12/13/16 15:46 Ur Tricyclics Screen POSITIVE (NEGATIVE) H 12/13/16 15:46 Ur Phencyclidine Scrn NEGATIVE (NEGATIVE) 12/13/16 15:46 Amphetamines Screen NEGATIVE (NEGATIVE) 12/13/16 15:46 U Methamphetamines Scrn NEGATIVE (NEGATIVE) 12/13/16 15:46 U Benzodiazepines Scrn POSITIVE (NEGATIVE) H 12/13/16 15:46 U Cocaine Metab Screen NEGATIVE (NEGATIVE) 12/13/16 15:46 U Cannabinoids Screen NEGATIVE (NEGATIVE) 12/13/16 15:46 - Physical Exam Vitals and I&O: Vital Signs Temp 98.0 F 12/19/16 08:45 Pulse 87 12/19/16 08:45 Resp 19 12/19/16 08:45 BP 163/99 12/19/16 08:45 Pulse Ox 97 12/19/16 08:45 Intake & Output 12/18/16 12/19/16 12/19/16 18:59 06:59 18:59 Intake Total 95 1000 Balance 95 1000 Weight (lbs) 62.11 kg Intake: Intake, IV Amount 95 1000 Sodium Chloride 0.9% 1, 1000 000 ml @ 100 mls/hr IV . Q10H [facility] Rx#:[id number] cefTRIAXone 1 gm In 95 Sodium Chloride 0.9% 50 ml @ 100 mls/hr IV Q24HR [facility] Rx#:[id number] Other: # Voids 2 # Bowel Movements 0 Stool Characteristics Soft Soft Active Medications: Current Medications Acetaminophen (Tylenol) 650 mg PO Q4HR PRN PRN Reason: Pain or Fever >101 Stop: 02/09/17 17:50 Amlodipine Besylate (Norvasc) 5 mg PO DAILY [facility] Stop: 02/10/17 08:59 Last Admin: 12/18/16 08:57 Dose: 5 mg Aspirin (Ecotrin) 81 mg PO DAILY RHIANNA Stop: 02/10/17 08:59 Last Admin: 12/18/16 08:57 Dose: 81 mg Bisacodyl (Dulcolax 10 Mg Supp) 10 mg RC DAILY PRN PRN Reason: Constipation Stop: 02/09/17 17:50 Last Admin: 12/15/16 14:30 Dose: 10 mg Carvedilol (Coreg) 6.25 mg PO BID [facility] Stop: 02/11/17 08:59 Last Admin: 12/18/16 16:38 Dose: 6.25 mg Ceftriaxone Sodium 1 gm/ (Sodium Chloride) 50 mls @ 100 mls/hr IV Q24HR [facility] Stop: 02/11/17 16:59 Last Infusion: 12/18/16 17:11 Dose: Infused Sodium Chloride (Nacl 0.9%) 1,000 mls @ 100 mls/hr IV .Q10H [facility] Stop: 02/16/17 08:01 Last Admin: 12/19/16 00:07 Dose: 100 mls/hr Insulin Aspart (Novolog Insulin Sliding Scale) 0 units SUBQ ACHS RHIANNA PRN Reason: Protocol Stop: 02/10/17 11:29 Last Admin: 12/19/16 06:36 Dose: Not Given Labetalol HCl (Trandate) 10 mg IVP Q8HR PRN PRN Reason: SBP ABOVE 160 Stop: 02/10/17 17:14 Lactulose (Cephulac) 20 gm PO DAILY [facility] Stop: 02/15/17 08:59 Last Admin: 12/18/16 09:00 Dose: 20 gm Lorazepam (Ativan) 0.5 mg PO Q6HR PRN; Protocol PRN Reason: Anxiety Stop: 02/16/17 16:24 Last Admin: 12/18/16 21:02 Dose: 0.5 mg Losartan Potassium (Cozaar) 50 mg PO DAILY RHIANNA Stop: 02/11/17 08:59 Last Admin: 12/18/16 08:58 Dose: 50 mg Miscellaneous (Vte Chemical Prophylaxis Screen/ Admission) 1 ea PRN PRN PRN Reason: PROTOCOL Stop: 02/10/17 14:48 General: Other (Sleeping but arousable, confused), no Alert HEENT: Atraumatic, PERRLA Neck: Supple Cardiovascular: Regular rate Lungs: Clear to auscultation Abdomen: Bowel sounds Extremities: Other (No edema) Neurological: Other (Unstable gait) Psych/Mental Status: Other (Patient is confused, not oriented. Patient is eating 20%, refusing to take meds.) Assessment/Plan - Assessment Assessment: Patient is awake, calm in no acute distress. more awake, confused, not oriented. K and ammonia are normal. Patient is improving. BP better control. Dx : Hepatic encephalopathy, Increased in confusion, UTI, HTN, CHF, Dyslipemia, Dementia, Psychosis. - Plan Plan: Lactulose is decreased to once a day. Seroquel is added to treatment, Haldol is PRN. Will continue to monitor. Nutritional Asmnt/Malnutr-PDOC - Dietary Evaluation Malnutrition Findings (Please click <Entered> for more info): Nutritional Asmnt/Malnutrition Start: 12/16/16 14: 57 Text: Status: Complete Freq: Document 12/16/16 14:57 GSUN (Rec: 12/16/16 15:32 [id number]) Nutritional Asmnt/Malnutrition Patient General Information Nutritional Screening Consult Diagnosis UTI, leukocytosis Pertinent Medical Hx/Surgical Hx HTN, hyperlipidemia, CVA, dementia, anxiety, depression, psychosis, schizophrenia, hx of frequent UTI, DM Subjective Information 76 year old female, transfered from [facility]. RD consult for poor PO intake, weight loss. Per FNS and nursing staff report, pt has been lethargic with poor PO intake. Pt is confused and lethargic, unable to interview, spoke to daughter at bedside. Daughter stated pt is usually energetic, fair to good appetite, eats everything, however recently pt became lethargic and PO intake declining. Avg PO intake <25% of meals since adm , not meeting nutritional needs. Per RN notes, pt UBW 150lb, CBW 137.6lb via bedscale, possible weight loss . Observed few half emptied juice at bedside, daughter stated pt tolerates/likes milk as well. Recommended oral supplements, daughter agreed. Daughter also requested chopped diet as pt appear to be putting a lot of effort in chewing. Pt appeared thin, unable to complete physical assessment. Current Diet Order/ Nutrition Support Regular, no red meat Pertinent Medications Haldol, Novolog, Cephulac Pertinent Labs 12/13: A1c 5.7 12/15: ammonia 107H 12/16: potassium 3.3L, BUN 45H, glucose 158H POC glucose 67-201 since adm Nutritional Hx/Data Height 1.73 m Height (Calculated Centimeters) 172.7 Current Weight (lbs) 62.414 kg Weight (Calculated Kilograms) 62.4 Weight (Calculated Grams) 55372.3 Usual body Weight (lbs) 150 [place] Body Weight 140 Recent Weight Change Yes Weight Status Approriate GI Symptoms Food Allergies No Cultural/Ethnic/[employer] Belief No red meat. Skin Integrity/Comment: Dewayne 14. Skin intact. Current %PO Negligible < 25% Estimated Nutritional Goals Calories/Kcals/Kg UBW 150lb/68.2kg Kcals Calculated 1705-2046kcal (25-30kcal/kg) Protein Calculated 68g (1g/kg) Fluid: ml 1705-2046ml (1ml/kcal) Nutritional Problem 2. Problem Problem Involuntary weight loss related to Etiology unknown, possibly poor PO intake aeb Signs/Symptoms: family report UBW 150lb and CBW 137.6lb 1. Problem Problem Inadequate oral food beverage intake related to Etiology unknown, posisble lethargy aeb Signs/Symptoms: avg PO intake <25% of meals since adm, pt has been lethargic Intervention/Recommendation Comments 1. Recommend [id number] to promote glycemic control. Recommend mech soft chopped per family's request. 2. Recommend Boost Glucose Control TID. 3. Monitor weight closely. Daughter report UBW 150lb, CBW 137.6lb via bedscale today. Poor PO intake >5 days. Expected Outcomes/Goals Expected Outcomes/Goals 1. PO intake to resume and meet at least 75% of estimated nutritional needs.
[2016-12-19] MEDS: Lactulose 10 Gm/15 mL 30mL UDC PO SCH (09:48)
[2016-12-19] MEDS: cefTRIAXone 1 GM in Sodium Chloride 0.9% 50 ML IV SCH (16:55)
[2016-12-20 05:57] LABS: % BASOPHILS 0.2 % (0.0-2.0); % EOSINOPHILS 1.5 % (0.0-5.0); % LYMPHOCYTES 14.5 % (20.0-50.0); % MONOCYTES 8.1 % (2.0-10.0); % NEUTROPHILS 75.7 % (40.0-80.0); HEMOGLOBIN 14.8 gm/dL (11.7-16.1); MEAN CELL VOLUME 85.1 fl (81-100); MEAN CORPUSCULAR HEMOGLOBIN 28.6 pg (27.0-31.0); MEAN CORPUSCULAR HGB CONC 33.6 pg (28.0-36.0); MEAN PLATELET VOLUME 8.3 fl; PLATELET COUNT 334 Th/cmm (150-400); RED BLOOD COUNT 5.17 Mil/cmm (3.80-5.20); RED CELL DISTRIBUTION WIDTH 11.9 % (11.5-20.0)
[2016-12-20 06:09] LABS: WHITE BLOOD COUNT 18.5 Th/cmm (4.8-10.8)
[2016-12-20 06:21] LABS: ALB/GLOB RATIO 1.1 (1.0-1.8); ALKALINE PHOSPHATASE 97 U/L (34-104); ANION GAP 11.3 (7.0-16.0); BILIRUBIN,TOTAL 0.4 mg/dL (0.3-1.0); BUN - UREA NITROGEN 8 mg/dL (7-25); BUN/CREATININE RATIO 13.3; CALCIUM SERUM 9.6 mg/dL (8.6-10.3); CHLORIDE 103 mEq/L (98-107); CREATININE - SERUM 0.6 mg/dL (0.6-1.2); GLUCOSE 154 mg/dL (70-105); POTASSIUM SERUM 3.3 mEq/L (3.5-5.1); SGOT 21 U/L (13-39); SGPT/ALT 48 U/L (7-52); SODIUM SERUM 137 mEq/L (136-145)
[2016-12-20] MEDS: INSULIN ASPART SLIDING SCALE 100 UNITS/ML UNIT SUBQ SCH ×4 (06:34→21:19)
[2016-12-20] MEDS: Sodium Chloride 0.9% 1,000 ML IV SCH ×2 (07:25→19:59)
[2016-12-20] MEDS: Lactulose 10 Gm/15 mL 30mL UDC PO SCH (09:05)
--- NOTE | 2016-12-20 10:56 | General Progress Note ---
Subjective - Review of Systems Service Date: 12/20/16 Subjective: Patient is awake, calm, responding to questions. Objective - Results Result Diagrams: 12/20/16 05:25 12/20/16 05:25 Recent Labs: Laboratory Last Values WBC 18.5 Th/cmm (4.8-10.8) H D 12/20/16 05:25 RBC 5.17 Mil/cmm (3.80-5.20) 12/20/16 05:25 Hgb 14.8 gm/dL (11.7-16.1) 12/20/16 05:25 Hct 44.0 % (35.0-45.0) 12/20/16 05:25 MCV 85.1 fl (81-100) 12/20/16 05:25 MCH 28.6 pg (27.0-31.0) 12/20/16 05:25 MCHC Differential 33.6 pg (28.0-36.0) 12/20/16 05:25 RDW 11.9 % (11.5-20.0) 12/20/16 05:25 Plt Count 334 Th/cmm (150-400) 12/20/16 05:25 MPV 8.3 fl 12/20/16 05:25 Neutrophils % 75.7 % (40.0-80.0) 12/20/16 05:25 Band Neutrophils % 8 % (0-10) 12/14/16 06:17 Lymphocytes % 14.5 % (20.0-50.0) L 12/20/16 05:25 Monocytes % 8.1 % (2.0-10.0) 12/20/16 05:25 Eosinophils % 1.5 % (0.0-5.0) 12/20/16 05:25 Basophils % 0.2 % (0.0-2.0) 12/20/16 05:25 Neutrophils (Manual) 68 % (40-80) 12/14/16 06:17 Lymphocytes 14 % (20-50) L 12/14/16 06:17 Monocytes 7 % (2-10) 12/14/16 06:17 Eosinophils 3 % (0-5) 12/14/16 06:17 Platelet Estimate ADEQUATE (NORMAL) 12/14/16 06:17 Platelet Morphology NORMAL (NORMAL) 12/14/16 06:17 RBC Morph Micro Appear NORMAL (NORMAL) 12/14/16 06:17 Specimen Source Arterial 12/12/16 10:09 Sample Site RB 12/12/16 10:09 pH 7.48 (7.35-7.45) H 12/12/16 10:09 pCO2 43.0 mmHg (35.0-45.0) 12/12/16 10:09 pO2 62.0 mmHg (80.0-100.0) L 12/12/16 10:09 HCO3 30.8 mEq/L (20.0-26.0) H 12/12/16 10:09 Base Excess 7.6 mEq/L (-3.0-3.0) H 12/12/16 10:09 O2 Saturation 93.0 % (92.0-100.0) 12/12/16 10:09 Gurpreet Test NA 12/12/16 10:09 Vent Rate NA 12/12/16 10:09 Inspired O2 21 12/12/16 10:09 Tidal Volume NA 12/12/16 10:09 PEEP NA 12/12/16 10:09 Pressure (ins/psv/peep) NA 12/12/16 10:09 Critical Value SH 12/12/16 10:09 Sodium 137 mEq/L (136-145) 12/20/16 05:25 Potassium 3.3 mEq/L (3.5-5.1) L 12/20/16 05:25 Chloride 103 mEq/L (98-107) 12/20/16 05:25 Carbon Dioxide 26.0 mEq/L (21.0-31.0) 12/20/16 05:25 Anion Gap 11.3 (7.0-16.0) 12/20/16 05:25 BUN 8 mg/dL (7-25) 12/20/16 05:25 Creatinine 0.6 mg/dL (0.6-1.2) 12/20/16 05:25 Est GFR ( Amer) TNP 12/20/16 05:25 Est GFR (Non-Af Amer) [facility] 12/20/16 05:25 BUN/Creatinine Ratio 13.3 12/20/16 05:25 Glucose 154 mg/dL (70-105) H 12/20/16 05:25 POC Glucose 153 MG/DL (70 - 105) H 12/20/16 06:33 Hemoglobin A1c % 5.7 % (4.0-6.0) 12/13/16 05:54 Calcium 9.6 mg/dL (8.6-10.3) 12/20/16 05:25 Magnesium 1.6 mg/dL (1.9-2.7) L 12/17/16 04:45 Total Bilirubin 0.4 mg/dL (0.3-1.0) 12/20/16 05:25 AST 21 U/L (13-39) 12/20/16 05:25 ALT 48 U/L (7-52) 12/20/16 05:25 Alkaline Phosphatase 97 U/L (34-104) 12/20/16 05:25 Ammonia 44 umol/L (16-53) 12/20/16 05:25 Total Protein 7.0 gm/dL (6.0-8.3) 12/20/16 05:25 Albumin 3.7 gm/dL (3.7-5.3) 12/20/16 05:25 Globulin 3.3 gm/dL 12/20/16 05:25 Albumin/Globulin Ratio 1.1 (1.0-1.8) 12/20/16 05:25 Prealbumin 11 mg/dL (9-32) 12/15/16 11:20 Triglycerides 126 mg/dL (<150) 12/16/16 05:07 Cholesterol 169 mg/dL (<200) 12/16/16 05:07 LDL Cholesterol Direct 133 mg/dL (75-193) 12/16/16 05:07 HDL Cholesterol 34 mg/dL (23-92) 12/16/16 05:07 TSH 1.57 uIU/ml (0.34-5.60) 12/18/16 05:27 Urine Source CLEAN C 12/13/16 12:08 Urine Color YELLOW 12/13/16 12:08 Urine Clarity HAZY (CLEAR) 12/13/16 12:08 Urine pH 8.0 (4.6 - 8.0) 12/13/16 12:08 Ur Specific [place] 1.015 (1.005-1.030) 12/13/16 12:08 Urine Protein 100 mg/dL (NEGATIVE) H 12/13/16 12:08 Urine Glucose (UA) NEGATIVE mg/dL (NEGATIVE) 12/13/16 12:08 Urine Ketones NEGATIVE mg/dL (NEGATIVE) 12/13/16 12:08 Urine Blood MODERATE (NEGATIVE) H 12/13/16 12:08 Urine Nitrate NEGATIVE (NEGATIVE) 12/13/16 12:08 Urine Bilirubin NEGATIVE (NEGATIVE) 12/13/16 12:08 Urine Urobilinogen 0.2 E.U./dL (0.2 - 1.0) 12/13/16 12:08 Ur Leukocyte Esterase LARGE (NEGATIVE) H 12/13/16 12:08 Urine RBC 2-5 /hpf (0-5) 12/13/16 12:08 Urine WBC 25-50 /hpf (0-5) H 12/13/16 12:08 Ur Epithelial Cells OCCASIONAL /lpf (FEW) 12/13/16 12:08 Urine Bacteria 4+ /hpf (NONE SEEN) H 12/13/16 12:08 Urine Yeast MANY /hpf (NONE SEEN) H 12/13/16 12:08 Urine Opiates Screen NEGATIVE (NEGATIVE) 12/13/16 15:46 Urine Methadone Screen NEGATIVE (NEGATIVE) 12/13/16 15:46 Ur Barbiturates Screen NEGATIVE (NEGATIVE) 12/13/16 15:46 Ur Tricyclics Screen POSITIVE (NEGATIVE) H 12/13/16 15:46 Ur Phencyclidine Scrn NEGATIVE (NEGATIVE) 12/13/16 15:46 Amphetamines Screen NEGATIVE (NEGATIVE) 12/13/16 15:46 U Methamphetamines Scrn NEGATIVE (NEGATIVE) 12/13/16 15:46 U Benzodiazepines Scrn POSITIVE (NEGATIVE) H 12/13/16 15:46 U Cocaine Metab Screen NEGATIVE (NEGATIVE) 12/13/16 15:46 U Cannabinoids Screen NEGATIVE (NEGATIVE) 12/13/16 15:46 - Physical Exam Vitals and I&O: Vital Signs Temp 97.5 F 12/20/16 08:00 Pulse 103 12/20/16 09:15 Resp 17 12/20/16 08:00 BP 112/74 12/20/16 09:15 Pulse Ox 98 12/20/16 08:00 Intake & Output 12/19/16 12/20/16 12/20/16 18:59 06:59 18:59 Intake Total 970 1000 965 Balance 970 1000 965 Weight (lbs) 61.643 kg Intake: Intake, IV Amount 970 1000 965 Sodium Chloride 0.9% 1, 970 1000 965 000 ml @ 100 mls/hr IV . Q10H [facility] Rx#:[id number] Other: # Voids 2 # Bowel Movements 0 Stool Characteristics Soft Soft Active Medications: Current Medications Acetaminophen (Tylenol) 650 mg PO Q4HR PRN PRN Reason: Pain or Fever >101 Stop: 02/09/17 17:50 Amlodipine Besylate (Norvasc) 5 mg PO DAILY [facility] Stop: 02/10/17 08:59 Last Admin: 12/20/16 09:15 Dose: Not Given Aspirin (Ecotrin) 81 mg PO DAILY [facility] Stop: 02/10/17 08:59 Last Admin: 12/20/16 09:06 Dose: 81 mg Bisacodyl (Dulcolax 10 Mg Supp) 10 mg RC DAILY PRN PRN Reason: Constipation Stop: 02/09/17 17:50 Last Admin: 12/15/16 14:30 Dose: 10 mg Carvedilol (Coreg) 6.25 mg PO BID [facility] Stop: 02/11/17 08:59 Last Admin: 12/20/16 09:05 Dose: 6.25 mg Ceftriaxone Sodium 1 gm/ (Sodium Chloride) 50 mls @ 100 mls/hr IV Q24HR [facility] Stop: 02/11/17 16:59 Last Admin: 12/19/16 16:55 Dose: 100 mls/hr Sodium Chloride (Nacl 0.9%) 1,000 mls @ 100 mls/hr IV .Q10H [facility] Stop: 02/16/17 08:01 Last Admin: 12/20/16 07:25 Dose: 100 mls/hr Vancomycin HCl 1 gm/ Sodium (Chloride) 250 mls @ 165 mls/hr IV Q24H [facility] Stop: 02/18/17 10:44 Insulin Aspart (Novolog Insulin Sliding Scale) 0 units SUBQ ACHS RHIANNA PRN Reason: Protocol Stop: 02/10/17 11:29 Last Admin: 12/20/16 06:34 Dose: 1,000 units Labetalol HCl (Trandate) 10 mg IVP Q8HR PRN PRN Reason: SBP ABOVE 160 Stop: 02/10/17 17:14 Lactulose (Cephulac) 20 gm PO DAILY [facility] Stop: 02/15/17 08:59 Last Admin: 12/20/16 09:05 Dose: 20 gm Lorazepam (Ativan) 0.5 mg PO Q6HR PRN; Protocol PRN Reason: Anxiety Stop: 02/16/17 16:24 Last Admin: 12/19/16 20:03 Dose: 0.5 mg Losartan Potassium (Cozaar) 50 mg PO DAILY [facility] Stop: 02/11/17 08:59 Last Admin: 12/20/16 09:15 Dose: Not Given Miscellaneous (Vte Chemical Prophylaxis Screen/ Admission) 1 ea [facility] PRN PRN PRN Reason: PROTOCOL Stop: 02/10/17 14:48 General: Other (Sleeping but arousable, confused), no Alert HEENT: Atraumatic, PERRLA Neck: Supple Cardiovascular: Regular rate Lungs: Clear to auscultation Abdomen: Bowel sounds Extremities: Other (No edema) Neurological: Other (Unstable gait) Psych/Mental Status: Other (Patient is confused, not oriented. Patient is eating 20%, refusing to take meds.) Assessment/Plan - Assessment Assessment: Patient is awake, calm in no acute distress. more awake, confused, not oriented. WBC increased today. Patient is improving. BP better control. Dx: Hepatic encephalopathy, Increased in confusion, Elevated WBC, UTI, HTN, CHF, Dyslipemia, Dementia, Psychosis. - Plan Plan: Lactulose is decreased to once a day. Seroquel is added to treatment, Haldol is PRN. CXR, Blood culture, UA are requesting. Will continue to monitor. Nutritional Asmnt/Malnutr-PDOC - Dietary Evaluation Malnutrition Findings (Please click <Entered> for more info): Nutritional Asmnt/Malnutrition Start: 12/16/16 14: 57 Text: Status: Complete Freq: Document 12/16/16 14:57 GSUN (Rec: 12/16/16 15:32 [email or web address] [email or web address]) Nutritional Asmnt/Malnutrition Patient General Information Nutritional Screening Consult Diagnosis UTI, leukocytosis Pertinent Medical Hx/Surgical Hx HTN, hyperlipidemia, CVA, dementia, anxiety, depression, psychosis, schizophrenia, hx of frequent UTI, DM Subjective Information 76 year old female, transfered from [facility]. RD consult for poor PO intake, weight loss. Per FNS and nursing staff report, pt has been lethargic with poor PO intake. Pt is confused and lethargic, unable to interview, spoke to daughter at bedside. Daughter stated pt is usually energetic, fair to good appetite, eats everything, however recently pt became lethargic and PO intake declining. Avg PO intake <25% of meals since adm , not meeting nutritional needs. Per RN notes, pt UBW 150lb, CBW 137.6lb via bedscale, possible weight loss . Observed few half emptied juice at bedside, daughter stated pt tolerates/likes milk as well. Recommended oral supplements, daughter agreed. Daughter also requested chopped diet as pt appear to be putting a lot of effort in chewing. Pt appeared thin, unable to complete physical assessment. Current Diet Order/ Nutrition Support Regular, no red meat Pertinent Medications Haldol, Novolog, Cephulac Pertinent Labs 12/13: A1c 5.7 12/15: ammonia 107H 12/16: potassium 3.3L, BUN 45H, glucose 158H POC glucose 67-201 since adm Nutritional Hx/Data Height 1.73 m Height (Calculated Centimeters) 172.7 Current Weight (lbs) 62.414 kg Weight (Calculated Kilograms) 62.4 Weight (Calculated Grams) 47299.3 Usual body Weight (lbs) 150 [place] Body Weight 140 Recent Weight Change Yes Weight Status Approriate GI Symptoms Food Allergies No Cultural/Ethnic/Ep[employer] Belief No red meat. Skin Integrity/Comment: Dewayne 14. Skin intact. Current %PO Negligible < 25% Estimated Nutritional Goals Calories/Kcals/Kg UBW 150lb/68.2kg Kcals Calculated 1705-2046kcal (25-30kcal/kg) Protein Calculated 68g (1g/kg) Fluid: ml 1705-2046ml (1ml/kcal) Nutritional Problem 2. Problem Problem Involuntary weight loss related to Etiology unknown, possibly poor PO intake aeb Signs/Symptoms: family report UBW 150lb and CBW 137.6lb 1. Problem Problem Inadequate oral food beverage intake related to Etiology unknown, posisble lethargy aeb Signs/Symptoms: avg PO intake <25% of meals since adm, pt has been lethargic Intervention/Recommendation Comments 1. Recommend [id number] to promote glycemic control. Recommend mech soft chopped per family's request. 2. Recommend Boost Glucose Control TID. 3. Monitor weight closely. Daughter report UBW 150lb, CBW 137.6lb via bedscale today. Poor PO intake >5 days. Expected Outcomes/Goals Expected Outcomes/Goals 1. PO intake to resume and meet at least 75% of estimated nutritional needs.
--- NOTE | 2016-12-20 12:03 | Diagnostic Imaging Report ---
Exam: Chest x-ray HISTORY: Pneumonia Findings: Frontal examination of the chest was reviewed. No prior studies available for comparison. The study demonstrates multiple metallic sutures status post restaurant thoracotomy.. No acute pulmonic infiltrates or effusions are noted. Bony thorax intact. Elevation of right hemidiaphragm is noted. IMPRESSION: No acute disease. Elevation right hemidiaphragm
[2016-12-20] MEDS ORDERED: Potassium Chloride 20 mEq ER Tab PO ONE (14:37)
[2016-12-20] MEDS: cefTRIAXone 1 GM in Sodium Chloride 0.9% 50 ML IV SCH (16:42)
--- NOTE | 2016-12-20 18:55 | Infectious Disease Prog Note ---
Infectious Disease Subjective - Review of Systems Service Date: 12/20/16 Subjective: There is no fever. Family informed me of redness and sweling of the skin overlying the left knee. Infectious Disease Objective - Results Result Diagrams: 12/20/16 05:25 12/20/16 05:25 Recent Labs: Laboratory Last Values WBC 18.5 Th/cmm (4.8-10.8) H D 12/20/16 05:25 RBC 5.17 Mil/cmm (3.80-5.20) 12/20/16 05:25 Hgb 14.8 gm/dL (11.7-16.1) 12/20/16 05:25 Hct 44.0 % (35.0-45.0) 12/20/16 05:25 MCV 85.1 fl (81-100) 12/20/16 05:25 MCH 28.6 pg (27.0-31.0) 12/20/16 05:25 MCHC Differential 33.6 pg (28.0-36.0) 12/20/16 05:25 RDW 11.9 % (11.5-20.0) 12/20/16 05:25 Plt Count 334 Th/cmm (150-400) 12/20/16 05:25 MPV 8.3 fl 12/20/16 05:25 Neutrophils % 75.7 % (40.0-80.0) 12/20/16 05:25 Band Neutrophils % 8 % (0-10) 12/14/16 06:17 Lymphocytes % 14.5 % (20.0-50.0) L 12/20/16 05:25 Monocytes % 8.1 % (2.0-10.0) 12/20/16 05:25 Eosinophils % 1.5 % (0.0-5.0) 12/20/16 05:25 Basophils % 0.2 % (0.0-2.0) 12/20/16 05:25 Neutrophils (Manual) 68 % (40-80) 12/14/16 06:17 Lymphocytes 14 % (20-50) L 12/14/16 06:17 Monocytes 7 % (2-10) 12/14/16 06:17 Eosinophils 3 % (0-5) 12/14/16 06:17 Platelet Estimate ADEQUATE (NORMAL) 12/14/16 06:17 Platelet Morphology NORMAL (NORMAL) 12/14/16 06:17 RBC Morph Micro Appear NORMAL (NORMAL) 12/14/16 06:17 Specimen Source Arterial 12/12/16 10:09 Sample Site RB 12/12/16 10:09 pH 7.48 (7.35-7.45) H 12/12/16 10:09 pCO2 43.0 mmHg (35.0-45.0) 12/12/16 10:09 pO2 62.0 mmHg (80.0-100.0) L 12/12/16 10:09 HCO3 30.8 mEq/L (20.0-26.0) H 12/12/16 10:09 Base Excess 7.6 mEq/L (-3.0-3.0) H 12/12/16 10:09 O2 Saturation 93.0 % (92.0-100.0) 12/12/16 10:09 Gurpreet Test NA 12/12/16 10:09 Vent Rate NA 12/12/16 10:09 Inspired O2 21 12/12/16 10:09 Tidal Volume NA 12/12/16 10:09 PEEP NA 12/12/16 10:09 Pressure (ins/psv/peep) NA 12/12/16 10:09 Critical Value SH 12/12/16 10:09 Sodium 137 mEq/L (136-145) 12/20/16 05:25 Potassium 3.3 mEq/L (3.5-5.1) L 12/20/16 05:25 Chloride 103 mEq/L (98-107) 12/20/16 05:25 Carbon Dioxide 26.0 mEq/L (21.0-31.0) 12/20/16 05:25 Anion Gap 11.3 (7.0-16.0) 12/20/16 05:25 BUN 8 mg/dL (7-25) 12/20/16 05:25 Creatinine 0.6 mg/dL (0.6-1.2) 12/20/16 05:25 Est GFR ( Amer) TNP 12/20/16 05:25 Est GFR (Non-Af Amer) TNP 12/20/16 05:25 BUN/Creatinine Ratio 13.3 12/20/16 05:25 Glucose 154 mg/dL (70-105) H 12/20/16 05:25 POC Glucose 178 MG/DL (70 - 105) H 12/20/16 16:49 Hemoglobin A1c % 5.7 % (4.0-6.0) 12/13/16 05:54 Calcium 9.6 mg/dL (8.6-10.3) 12/20/16 05:25 Magnesium 1.6 mg/dL (1.9-2.7) L 12/17/16 04:45 Total Bilirubin 0.4 mg/dL (0.3-1.0) 12/20/16 05:25 AST 21 U/L (13-39) 12/20/16 05:25 ALT 48 U/L (7-52) 12/20/16 05:25 Alkaline Phosphatase 97 U/L (34-104) 12/20/16 05:25 Ammonia 44 umol/L (16-53) 12/20/16 05:25 Total Protein 7.0 gm/dL (6.0-8.3) 12/20/16 05:25 Albumin 3.7 gm/dL (3.7-5.3) 12/20/16 05:25 Globulin 3.3 gm/dL 12/20/16 05:25 Albumin/Globulin Ratio 1.1 (1.0-1.8) 12/20/16 05:25 Prealbumin 11 mg/dL (9-32) 12/15/16 11:20 Triglycerides 126 mg/dL (<150) 12/16/16 05:07 Cholesterol 169 mg/dL (<200) 12/16/16 05:07 LDL Cholesterol Direct 133 mg/dL (75-193) 12/16/16 05:07 HDL Cholesterol 34 mg/dL (23-92) 12/16/16 05:07 TSH 1.57 uIU/ml (0.34-5.60) 12/18/16 05:27 Urine Source CLEAN C 12/13/16 12:08 Urine Color YELLOW 12/13/16 12:08 Urine Clarity HAZY (CLEAR) 12/13/16 12:08 Urine pH 8.0 (4.6 - 8.0) 12/13/16 12:08 Ur Specific [place] 1.015 (1.005-1.030) 12/13/16 12:08 Urine Protein 100 mg/dL (NEGATIVE) H 12/13/16 12:08 Urine Glucose (UA) NEGATIVE mg/dL (NEGATIVE) 12/13/16 12:08 Urine Ketones NEGATIVE mg/dL (NEGATIVE) 12/13/16 12:08 Urine Blood MODERATE (NEGATIVE) H 12/13/16 12:08 Urine Nitrate NEGATIVE (NEGATIVE) 12/13/16 12:08 Urine Bilirubin NEGATIVE (NEGATIVE) 12/13/16 12:08 Urine Urobilinogen 0.2 E.U./dL (0.2 - 1.0) 12/13/16 12:08 Ur Leukocyte Esterase LARGE (NEGATIVE) H 12/13/16 12:08 Urine RBC 2-5 /hpf (0-5) 12/13/16 12:08 Urine WBC 25-50 /hpf (0-5) H 12/13/16 12:08 Ur Epithelial Cells OCCASIONAL /lpf (FEW) 12/13/16 12:08 Urine Bacteria 4+ /hpf (NONE SEEN) H 12/13/16 12:08 Urine Yeast MANY /hpf (NONE SEEN) H 12/13/16 12:08 Urine Opiates Screen NEGATIVE (NEGATIVE) 12/13/16 15:46 Urine Methadone Screen NEGATIVE (NEGATIVE) 12/13/16 15:46 Ur Barbiturates Screen NEGATIVE (NEGATIVE) 12/13/16 15:46 Ur Tricyclics Screen POSITIVE (NEGATIVE) H 12/13/16 15:46 Ur Phencyclidine Scrn NEGATIVE (NEGATIVE) 12/13/16 15:46 Amphetamines Screen NEGATIVE (NEGATIVE) 12/13/16 15:46 U Methamphetamines Scrn NEGATIVE (NEGATIVE) 12/13/16 15:46 U Benzodiazepines Scrn POSITIVE (NEGATIVE) H 12/13/16 15:46 U Cocaine Metab Screen NEGATIVE (NEGATIVE) 12/13/16 15:46 U Cannabinoids Screen NEGATIVE (NEGATIVE) 12/13/16 15:46 - Physical Exam Vitals and I&O: Vital Signs Temp 98.3 F 12/20/16 16:00 Pulse 90 12/20/16 16:41 Resp 18 12/20/16 16:00 BP 140/73 12/20/16 16:41 Pulse Ox 94 12/20/16 16:00 Intake & Output 12/19/16 12/20/16 12/20/16 18:59 06:59 18:59 Intake Total 1020 1000 1165 Balance 1020 1000 1165 Weight (lbs) 61.643 kg 61.235 kg Intake: Intake, IV Amount 1020 1000 965 Sodium Chloride 0.9% 1, 970 1000 965 000 ml @ 100 mls/hr IV . Q10H REPLACED BY [facility] Rx#:[id number] cefTRIAXone 1 gm In 50 Sodium Chloride 0.9% 50 ml @ 100 mls/hr IV Q24HR [facility]PLACED BY [facility] Rx#:[id number] Oral 200 Other: # Voids 2 2 # Bowel Movements 0 0 Stool Characteristics Soft Soft Soft Active Medications: Current Medications Acetaminophen (Tylenol) 650 mg PO Q4HR PRN PRN Reason: Pain or Fever >101 Stop: 02/09/17 17:50 Amlodipine Besylate (Norvasc) 5 mg PO DAILY [facility] Stop: 02/10/17 08:59 Last Admin: 12/20/16 09:15 Dose: Not Given Aspirin (Ecotrin) 81 mg PO DAILY [facility] Stop: 02/10/17 08:59 Last Admin: 12/20/16 09:06 Dose: 81 mg Bisacodyl (Dulcolax 10 Mg Supp) 10 mg RC DAILY PRN PRN Reason: Constipation Stop: 02/09/17 17:50 Last Admin: 12/15/16 14:30 Dose: 10 mg Carvedilol (Coreg) 6.25 mg PO BID [facility] Stop: 02/11/17 08:59 Last Admin: 12/20/16 16:41 Dose: 6.25 mg Ceftriaxone Sodium 1 gm/ (Sodium Chloride) 50 mls @ 100 mls/hr IV Q24HR [facility]PL[facility] Stop: 02/11/17 16:59 Last Admin: 12/20/16 16:42 Dose: 100 mls/hr Sodium Chloride (Nacl 0.9%) 1,000 mls @ 100 mls/hr IV .Q10H [facility]PL[facility]ED BY [facility] Stop: 02/16/17 08:01 Last Admin: 12/20/16 07:25 Dose: 100 mls/hr Vancomycin HCl 1 gm/ Sodium (Chloride) 250 mls @ 165 mls/hr IV Q24H REPL[facility]ED BY [facility] Stop: 02/18/17 10:59 Last Admin: 12/20/16 11:08 Dose: 165 mls/hr Insulin Aspart (Novolog Insulin Sliding Scale) 0 units SUBQ ACHS RHIANNA PRN Reason: Protocol Stop: 02/10/17 11:29 Last Admin: 12/20/16 18:13 Dose: Not Given Labetalol HCl (Trandate) 10 mg IVP Q8HR PRN PRN Reason: SBP ABOVE 160 Stop: 02/10/17 17:14 Lactulose (Cephulac) 20 gm PO DAILY [facility] Stop: 02/15/17 08:59 Last Admin: 12/20/16 09:05 Dose: 20 gm Lorazepam (Ativan) 0.5 mg PO Q6HR PRN; Protocol PRN Reason: Anxiety Stop: 02/16/17 16:24 Last Admin: 12/19/16 20:03 Dose: 0.5 mg Losartan Potassium (Cozaar) 50 mg PO DAILY [facility] Stop: 02/11/17 08:59 Last Admin: 12/20/16 09:15 Dose: Not Given Miscellaneous (Vte Chemical Prophylaxis Screen/ Admission) 1 ea [facility] PRN PRN PRN Reason: PROTOCOL Stop: 02/10/17 14:48 General: no acute distress, well nourished HEENT: atraumatic, normocephalic, EOMI Neck: supple, rigid, no thyromegaly Cardiovascular: S1S2, regular, no systolic murmur Lungs: clear to auscultation bilaterally Abdomen: soft, no tender, no distended, no mass, no rebound, no guarding, no catheter Extremities: no cyanosis, no clubbing, no edema Neurological: awake, alert, oriented Skin: intact, other (teder, redness and sweling of the skin overlying the left knee.) Infectious Disease Assmt/Plan - Assessment Assessment: 1. UTI. 2. leukocytosis. worse again. no diarrhea. 3. Dementia. 4. Cellulitis of the left knee. There is no joint swelling. - Plan Plan: Continue rocephin IV. it an be changed to bacrim SS bid orally for 5 days. check labs in AM. Agree with vanco iv. Nutritional Asmnt/Malnutr-PDOC - Dietary Evaluation Malnutrition Findings (Please click <Entered> for more info): Nutritional Asmnt/Malnutrition Start: 12/16/16 14: 57 Text: Status: Complete Freq: Document 12/16/16 14:57 GSUN (Rec: 12/16/16 15:32 GSUN [email or web address]) Nutritional Asmnt/Malnutrition Patient General Information Nutritional Screening Consult Diagnosis UTI, leukocytosis Pertinent Medical Hx/Surgical Hx HTN, hyperlipidemia, CVA, dementia, anxiety, depression, psychosis, schizophrenia, hx of frequent UTI, DM Subjective Information 76 year old female, transfered from [facility]. RD consult for poor PO intake, weight loss. Per FNS and nursing staff report, pt has been lethargic with poor PO intake. Pt is confused and lethargic, unable to interview, spoke to daughter at bedside. Daughter stated pt is usually energetic, fair to good appetite, eats everything, however recently pt became lethargic and PO intake declining. Avg PO intake <25% of meals since adm , not meeting nutritional needs. Per RN notes, pt UBW 150lb, CBW 137.6lb via bedscale, possible weight loss . Observed few half emptied juice at bedside, daughter stated pt tolerates/likes milk as well. Recommended oral supplements, daughter agreed. Daughter also requested chopped diet as pt appear to be putting a lot of effort in chewing. Pt appeared thin, unable to complete physical assessment. Current Diet Order/ Nutrition Support Regular, no red meat Pertinent Medications Haldol, Novolog, Cephulac Pertinent Labs 12/13: A1c 5.7 12/15: ammonia 107H 12/16: potassium 3.3L, BUN 45H, glucose 158H POC glucose 67-201 since adm Nutritional Hx/Data Height 1.73 m Height (Calculated Centimeters) 172.7 Current Weight (lbs) 62.414 kg Weight (Calculated Kilograms) 62.4 Weight (Calculated Grams) 13319.3 Usual body Weight (lbs) 150 [place] Body Weight 140 Recent Weight Change Yes Weight Status Approriate GI Symptoms Food Allergies No Cultural/Ethnic/[employer] Belief No red meat. Skin Integrity/Comment: Dewayne 14. Skin intact. Current %PO Negligible < 25% Estimated Nutritional Goals Calories/Kcals/Kg UBW 150lb/68.2kg Kcals Calculated 1705-2046kcal (25-30kcal/kg) Protein Calculated 68g (1g/kg) Fluid: ml 1705-2046ml (1ml/kcal) Nutritional Problem 2. Problem Problem Involuntary weight loss related to Etiology unknown, possibly poor PO intake aeb Signs/Symptoms: family report UBW 150lb and CBW 137.6lb 1. Problem Problem Inadequate oral food beverage intake related to Etiology unknown, posisble lethargy aeb Signs/Symptoms: avg PO intake <25% of meals since adm, pt has been lethargic Intervention/Recommendation Comments 1. Recommend [id number] to promote glycemic control. Recommend mech soft chopped per family's request. 2. Recommend Boost Glucose Control TID. 3. Monitor weight closely. Daughter report UBW 150lb, CBW 137.6lb via bedscale today. Poor PO intake >5 days. Expected Outcomes/Goals Expected Outcomes/Goals 1. PO intake to resume and meet at least 75% of estimated nutritional needs.
[2016-12-21] MEDS: Sodium Chloride 0.9% 1,000 ML IV SCH (06:10)
--- NOTE | 2016-12-21 06:18 | Progress Notes ---
DATE: 12/20/2016 PSYCHIATRIC PROGRESS NOTE SUBJECTIVE: Staff was spoken to. The patient is interviewed. The patient's family has been spoken to. The patient is dysphoric at this time has been moving from side to side. The patient is maintained on very minimal dose of the Haldol and Ativan on a p.r.n. basis. The patient's intake has been improving. Insight and judgment are noted to be fair. Impulse control is also noted to be fair at this time. The patient has a slightly elevated WBC. PLAN: The patient is being closely monitored at this time for any side effects and aggressive behavior. The patient is not presenting with any threats to harm self or others at this time and hence I would continue her with the doses of the medications and follow the patient up. JOB# [id number]
[2016-12-21 06:45] LABS: % BASOPHILS 0.4 % (0.0-2.0); % EOSINOPHILS 1.9 % (0.0-5.0); % MONOCYTES 9.3 % (2.0-10.0); % NEUTROPHILS 69.4 % (40.0-80.0); HEMATOCRIT 38.2 % (35.0-45.0); HEMOGLOBIN 12.9 gm/dL (11.7-16.1); MEAN CELL VOLUME 85.1 fl (81-100); MEAN CORPUSCULAR HEMOGLOBIN 28.8 pg (27.0-31.0); MEAN CORPUSCULAR HGB CONC 33.8 pg (28.0-36.0); MEAN PLATELET VOLUME 8.4 fl; NEUTROPHILE ABSOLUTE 10.9 Th/cmm (1.8-8.0); PLATELET COUNT 299 Th/cmm (150-400); RED BLOOD COUNT 4.48 Mil/cmm (3.80-5.20); RED CELL DISTRIBUTION WIDTH 11.7 % (11.5-20.0)
[2016-12-21] MEDS: INSULIN ASPART SLIDING SCALE 100 UNITS/ML UNIT SUBQ SCH ×4 (06:55→20:19)
[2016-12-21 07:06] LABS: WHITE BLOOD COUNT 15.8 Th/cmm (4.8-10.8)
[2016-12-21 07:07] LABS: ALB/GLOB RATIO 1.1 (1.0-1.8); ALKALINE PHOSPHATASE 82 U/L (34-104); BILIRUBIN,TOTAL 0.4 mg/dL (0.3-1.0); BUN - UREA NITROGEN 12 mg/dL (7-25); BUN/CREATININE RATIO 17.1; CALCIUM SERUM 9.4 mg/dL (8.6-10.3); CARBON DIOXIDE 27.1 mEq/L (21.0-31.0); CHLORIDE 105 mEq/L (98-107); CREATININE - SERUM 0.7 mg/dL (0.6-1.2); GLUCOSE 128 mg/dL (70-105); POTASSIUM SERUM 3.1 mEq/L (3.5-5.1); SGOT 19 U/L (13-39); SGPT/ALT 37 U/L (7-52); SODIUM SERUM 138 mEq/L (136-145)
--- NOTE | 2016-12-21 08:38 | General Progress Note ---
Subjective - Review of Systems Service Date: 12/21/16 Subjective: Patient is awake, calm, responding to questions. Objective - Results Result Diagrams: 12/21/16 06:20 12/21/16 06:20 Recent Labs: Laboratory Last Values WBC 15.8 Th/cmm (4.8-10.8) H 12/21/16 06:20 RBC 4.48 Mil/cmm (3.80-5.20) 12/21/16 06:20 Hgb 12.9 gm/dL (11.7-16.1) 12/21/16 06:20 Hct 38.2 % (35.0-45.0) D 12/21/16 06:20 MCV 85.1 fl (81-100) 12/21/16 06:20 MCH 28.8 pg (27.0-31.0) 12/21/16 06:20 MCHC Differential 33.8 pg (28.0-36.0) 12/21/16 06:20 RDW 11.7 % (11.5-20.0) 12/21/16 06:20 Plt Count 299 Th/cmm (150-400) 12/21/16 06:20 MPV 8.4 fl 12/21/16 06:20 Neutrophils % 69.4 % (40.0-80.0) 12/21/16 06:20 Band Neutrophils % 8 % (0-10) 12/14/16 06:17 Lymphocytes % 19.0 % (20.0-50.0) L 12/21/16 06:20 Monocytes % 9.3 % (2.0-10.0) 12/21/16 06:20 Eosinophils % 1.9 % (0.0-5.0) 12/21/16 06:20 Basophils % 0.4 % (0.0-2.0) 12/21/16 06:20 Neutrophils (Manual) 68 % (40-80) 12/14/16 06:17 Lymphocytes 14 % (20-50) L 12/14/16 06:17 Monocytes 7 % (2-10) 12/14/16 06:17 Eosinophils 3 % (0-5) 12/14/16 06:17 Platelet Estimate ADEQUATE (NORMAL) 12/14/16 06:17 Platelet Morphology NORMAL (NORMAL) 12/14/16 06:17 RBC Morph Micro Appear NORMAL (NORMAL) 12/14/16 06:17 Specimen Source Arterial 12/12/16 10:09 Sample Site RB 12/12/16 10:09 pH 7.48 (7.35-7.45) H 12/12/16 10:09 pCO2 43.0 mmHg (35.0-45.0) 12/12/16 10:09 pO2 62.0 mmHg (80.0-100.0) L 12/12/16 10:09 HCO3 30.8 mEq/L (20.0-26.0) H 12/12/16 10:09 Base Excess 7.6 mEq/L (-3.0-3.0) H 12/12/16 10:09 O2 Saturation 93.0 % (92.0-100.0) 12/12/16 10:09 Gurpreet Test NA 12/12/16 10:09 Vent Rate NA 12/12/16 10:09 Inspired O2 21 12/12/16 10:09 Tidal Volume NA 12/12/16 10:09 PEEP NA 12/12/16 10:09 Pressure (ins/psv/peep) NA 12/12/16 10:09 Critical Value SH 12/12/16 10:09 Sodium 138 mEq/L (136-145) 12/21/16 06:20 Potassium 3.1 mEq/L (3.5-5.1) L 12/21/16 06:20 Chloride 105 mEq/L (98-107) 12/21/16 06:20 Carbon Dioxide 27.1 mEq/L (21.0-31.0) 12/21/16 06:20 Anion Gap 9.0 (7.0-16.0) 12/21/16 06:20 BUN 12 mg/dL (7-25) 12/21/16 06:20 Creatinine 0.7 mg/dL (0.6-1.2) 12/21/16 06:20 Est GFR ( Amer) [place] 12/21/16 06:20 Est GFR (Non-Af Amer) [facility] 12/21/16 06:20 BUN/Creatinine Ratio 17.1 12/21/16 06:20 Glucose 128 mg/dL (70-105) H 12/21/16 06:20 POC Glucose 122 MG/DL (70 - 105) H 12/21/16 06:01 Hemoglobin A1c % 5.7 % (4.0-6.0) 12/13/16 05:54 Calcium 9.4 mg/dL (8.6-10.3) 12/21/16 06:20 Magnesium 1.6 mg/dL (1.9-2.7) L 12/17/16 04:45 Total Bilirubin 0.4 mg/dL (0.3-1.0) 12/21/16 06:20 AST 19 U/L (13-39) 12/21/16 06:20 ALT 37 U/L (7-52) 12/21/16 06:20 Alkaline Phosphatase 82 U/L (34-104) 12/21/16 06:20 Ammonia 44 umol/L (16-53) 12/20/16 05:25 Total Protein 6.4 gm/dL (6.0-8.3) 12/21/16 06:20 Albumin 3.3 gm/dL (3.7-5.3) L 12/21/16 06:20 Globulin 3.1 gm/dL 12/21/16 06:20 Albumin/Globulin Ratio 1.1 (1.0-1.8) 12/21/16 06:20 Prealbumin 11 mg/dL (9-32) 12/15/16 11:20 Triglycerides 126 mg/dL (<150) 12/16/16 05:07 Cholesterol 169 mg/dL (<200) 12/16/16 05:07 LDL Cholesterol Direct 133 mg/dL (75-193) 12/16/16 05:07 HDL Cholesterol 34 mg/dL (23-92) 12/16/16 05:07 TSH 1.57 uIU/ml (0.34-5.60) 12/18/16 05:27 Urine Source CLEAN C 12/13/16 12:08 Urine Color YELLOW 12/13/16 12:08 Urine Clarity HAZY (CLEAR) 12/13/16 12:08 Urine pH 8.0 (4.6 - 8.0) 12/13/16 12:08 Ur Specific [place] 1.015 (1.005-1.030) 12/13/16 12:08 Urine Protein 100 mg/dL (NEGATIVE) H 12/13/16 12:08 Urine Glucose (UA) NEGATIVE mg/dL (NEGATIVE) 12/13/16 12:08 Urine Ketones NEGATIVE mg/dL (NEGATIVE) 12/13/16 12:08 Urine Blood MODERATE (NEGATIVE) H 12/13/16 12:08 Urine Nitrate NEGATIVE (NEGATIVE) 12/13/16 12:08 Urine Bilirubin NEGATIVE (NEGATIVE) 12/13/16 12:08 Urine Urobilinogen 0.2 E.U./dL (0.2 - 1.0) 12/13/16 12:08 Ur Leukocyte Esterase LARGE (NEGATIVE) H 12/13/16 12:08 Urine RBC 2-5 /hpf (0-5) 12/13/16 12:08 Urine WBC 25-50 /hpf (0-5) H 12/13/16 12:08 Ur Epithelial Cells OCCASIONAL /lpf (FEW) 12/13/16 12:08 Urine Bacteria 4+ /hpf (NONE SEEN) H 12/13/16 12:08 Urine Yeast MANY /hpf (NONE SEEN) H 12/13/16 12:08 Urine Opiates Screen NEGATIVE (NEGATIVE) 12/13/16 15:46 Urine Methadone Screen NEGATIVE (NEGATIVE) 12/13/16 15:46 Ur Barbiturates Screen NEGATIVE (NEGATIVE) 12/13/16 15:46 Ur Tricyclics Screen POSITIVE (NEGATIVE) H 12/13/16 15:46 Ur Phencyclidine Scrn NEGATIVE (NEGATIVE) 12/13/16 15:46 Amphetamines Screen NEGATIVE (NEGATIVE) 12/13/16 15:46 U Methamphetamines Scrn NEGATIVE (NEGATIVE) 12/13/16 15:46 U Benzodiazepines Scrn POSITIVE (NEGATIVE) H 12/13/16 15:46 U Cocaine Metab Screen NEGATIVE (NEGATIVE) 12/13/16 15:46 U Cannabinoids Screen NEGATIVE (NEGATIVE) 12/13/16 15:46 - Physical Exam Vitals and I&O: Vital Signs Temp 97.4 F 12/21/16 03:54 Pulse 80 12/21/16 03:54 Resp 19 12/21/16 03:54 BP 131/71 12/21/16 03:54 Pulse Ox 97 12/21/16 03:54 Intake & Output 12/20/16 12/21/16 12/21/16 18:59 06:59 18:59 Intake Total 2165 1200 Balance 2165 1200 Weight (lbs) 61.235 kg 62.823 kg Intake: Intake, IV Amount 1965 1000 Sodium Chloride 0.9% 1, 1965 1000 000 ml @ 100 mls/hr IV . Q10H [facility] Rx#:[id number] Oral 200 200 Other: # Voids 2 1 # Bowel Movements 0 Stool Characteristics Soft Active Medications: Current Medications Acetaminophen (Tylenol) 650 mg PO Q4HR PRN PRN Reason: Pain or Fever >101 Stop: 02/09/17 17:50 Amlodipine Besylate (Norvasc) 5 mg PO DAILY [facility] Stop: 02/10/17 08:59 Last Admin: 12/20/16 09:15 Dose: Not Given Aspirin (Ecotrin) 81 mg PO DAILY [facility] Stop: 02/10/17 08:59 Last Admin: 12/20/16 09:06 Dose: 81 mg Bisacodyl (Dulcolax 10 Mg Supp) 10 mg RC DAILY PRN PRN Reason: Constipation Stop: 02/09/17 17:50 Last Admin: 12/15/16 14:30 Dose: 10 mg Carvedilol (Coreg) 6.25 mg PO BID [facility] Stop: 02/11/17 08:59 Last Admin: 12/20/16 16:41 Dose: 6.25 mg Ceftriaxone Sodium 1 gm/ (Sodium Chloride) 50 mls @ 100 mls/hr IV Q24HR [facility] Stop: 12/26/16 16:59 Last Admin: 12/20/16 16:42 Dose: 100 mls/hr Sodium Chloride (Nacl 0.9%) 1,000 mls @ 100 mls/hr IV .Q10H [facility] Stop: 02/16/17 08:01 Last Admin: 12/21/16 06:10 Dose: 100 mls/hr Vancomycin HCl 1 gm/ Sodium (Chloride) 250 mls @ 165 mls/hr IV Q24H [facility] Stop: 02/18/17 10:59 Last Admin: 12/20/16 11:08 Dose: 165 mls/hr Potassium Chloride 40 meq/Lidocaine HCl 25 mg/ Sodium Chloride 272.5 mls @ 68 mls/hr IV X1 ONE Stop: 12/21/16 12:29 Insulin Aspart (Novolog Insulin Sliding Scale) 0 units SUBQ ACHS RHIANNA PRN Reason: Protocol Stop: 02/10/17 11:29 Last Admin: 12/21/16 06:55 Dose: Not Given Labetalol HCl (Trandate) 10 mg IVP Q8HR PRN PRN Reason: SBP ABOVE 160 Stop: 02/10/17 17:14 Lactulose (Cephulac) 20 gm PO DAILY RHIANNA Stop: 02/15/17 08:59 Last Admin: 12/20/16 09:05 Dose: 20 gm Lorazepam (Ativan) 0.5 mg PO Q6HR PRN; Protocol PRN Reason: Anxiety Stop: 02/16/17 16:24 Last Admin: 12/20/16 21:17 Dose: 0.5 mg Losartan Potassium (Cozaar) 50 mg PO DAILY RHIANNA Stop: 02/11/17 08:59 Last Admin: 12/20/16 09:15 Dose: Not Given Miscellaneous (Vte Chemical Prophylaxis Screen/ Admission) 1 [facility] PRN PRN PRN Reason: PROTOCOL Stop: 02/10/17 14:48 General: Other (Sleeping but arousable, confused), no Alert HEENT: Atraumatic, PERRLA Neck: Supple Cardiovascular: Regular rate Lungs: Clear to auscultation Abdomen: Bowel sounds Extremities: Other (No edema) Neurological: Other (Unstable gait) Psych/Mental Status: Other (Patient is confused, not oriented. Patient is eating 20%, refusing to take meds.) Assessment/Plan - Assessment Assessment: Patient is awake, calm in no acute distress. more awake, confused, not oriented. WBC decreased today. Cellulites. Patient is improving. BP better control. CXR normal. Dx: Hepatic encephalopathy, Increased in confusion, Elevated WBC, UTI, HTN, CHF, Dyslipemia, Dementia, Psychosis. - Plan Plan: Patient in [facility] and [facility]. Seroquel is added to treatment, Haldol is PRN. Will continue to monitor. Nutritional Asmnt/Malnutr-PDOC - Dietary Evaluation Malnutrition Findings (Please click <Entered> for more info): Nutritional Asmnt/Malnutrition Start: 12/16/16 14: 57 Text: Status: Complete Freq: Document 12/16/16 14:57 GSUN (Rec: 12/16/16 15:32 [email or web address] [email or web address]) Nutritional Asmnt/Malnutrition Patient General Information Nutritional Screening Consult Diagnosis UTI, leukocytosis Pertinent Medical Hx/Surgical Hx HTN, hyperlipidemia, CVA, dementia, anxiety, depression, psychosis, schizophrenia, hx of frequent UTI, DM Subjective Information 76 year old female, transfered from [facility]. RD consult for poor PO intake, weight loss. Per FNS and nursing staff report, pt has been lethargic with poor PO intake. Pt is confused and lethargic, unable to interview, spoke to daughter at bedside. Daughter stated pt is usually energetic, fair to good appetite, eats everything, however recently pt became lethargic and PO intake declining. Avg PO intake <25% of meals since adm , not meeting nutritional needs. Per RN notes, pt UBW 150lb, CBW 137.6lb via bedscale, possible weight loss . Observed few half emptied juice at bedside, daughter stated pt tolerates/likes milk as well. Recommended oral supplements, daughter agreed. Daughter also requested chopped diet as pt appear to be putting a lot of effort in chewing. Pt appeared thin, unable to complete physical assessment. Current Diet Order/ Nutrition Support Regular, no red meat Pertinent Medications Haldol, Novolog, Cephulac Pertinent Labs 12/13: A1c 5.7 12/15: ammonia 107H 12/16: potassium 3.3L, BUN 45H, glucose 158H POC glucose 67-201 since adm Nutritional Hx/Data Height 1.73 m Height (Calculated Centimeters) 172.7 Current Weight (lbs) 62.414 kg Weight (Calculated Kilograms) 62.4 Weight (Calculated Grams) 78713.3 Usual body Weight (lbs) 150 [place] Body Weight 140 Recent Weight Change Yes Weight Status Approriate GI Symptoms Food Allergies No Cultural/Ethnic/B[employer] Belief No red meat. Skin Integrity/Comment: Dewayne 14. Skin intact. Current %PO Negligible < 25% Estimated Nutritional Goals Calories/Kcals/Kg UBW 150lb/68.2kg Kcals Calculated 1705-2046kcal (25-30kcal/kg) Protein Calculated 68g (1g/kg) Fluid: ml 1705-2046ml (1ml/kcal) Nutritional Problem 2. Problem Problem Involuntary weight loss related to Etiology unknown, possibly poor PO intake aeb Signs/Symptoms: family report UBW 150lb and CBW 137.6lb 1. Problem Problem Inadequate oral food beverage intake related to Etiology unknown, posisble lethargy aeb Signs/Symptoms: avg PO intake <25% of meals since adm, pt has been lethargic Intervention/Recommendation Comments 1. Recommend [id number] to promote glycemic control. Recommend mech soft chopped per family's request. 2. Recommend Boost Glucose Control TID. 3. Monitor weight closely. Daughter report UBW 150lb, CBW 137.6lb via bedscale today. Poor PO intake >5 days. Expected Outcomes/Goals Expected Outcomes/Goals 1. PO intake to resume and meet at least 75% of estimated nutritional needs.
[2016-12-21] MEDS ORDERED: Potassium Chloride 40 MEQ, Lidocaine 1% 20mL Vial 25 MG in Sodium Chloride 0.9% 250 ML IV ONE (09:30)
[2016-12-21] MEDS: Lactulose 10 Gm/15 mL 30mL UDC PO SCH (09:57)
[2016-12-21] MEDS ORDERED: Probiotic Screen MC PRN (16:07)
[2016-12-21] MEDS: cefTRIAXone 1 GM in Sodium Chloride 0.9% 50 ML IV SCH (18:07)
--- NOTE | 2016-12-21 18:25 | Infectious Disease Prog Note ---
Infectious Disease Subjective - Review of Systems Service Date: 12/21/16 Subjective: There is no fever. very alert and awake, not in distress. mood was normal. Infectious Disease Objective - Results Result Diagrams: 12/21/16 06:20 12/21/16 06:20 Recent Labs: Laboratory Last Values WBC 15.8 Th/cmm (4.8-10.8) H 12/21/16 06:20 RBC 4.48 Mil/cmm (3.80-5.20) 12/21/16 06:20 Hgb 12.9 gm/dL (11.7-16.1) 12/21/16 06:20 Hct 38.2 % (35.0-45.0) D 12/21/16 06:20 MCV 85.1 fl (81-100) 12/21/16 06:20 MCH 28.8 pg (27.0-31.0) 12/21/16 06:20 MCHC Differential 33.8 pg (28.0-36.0) 12/21/16 06:20 RDW 11.7 % (11.5-20.0) 12/21/16 06:20 Plt Count 299 Th/cmm (150-400) 12/21/16 06:20 MPV 8.4 fl 12/21/16 06:20 Neutrophils % 69.4 % (40.0-80.0) 12/21/16 06:20 Band Neutrophils % 8 % (0-10) 12/14/16 06:17 Lymphocytes % 19.0 % (20.0-50.0) L 12/21/16 06:20 Monocytes % 9.3 % (2.0-10.0) 12/21/16 06:20 Eosinophils % 1.9 % (0.0-5.0) 12/21/16 06:20 Basophils % 0.4 % (0.0-2.0) 12/21/16 06:20 Neutrophils (Manual) 68 % (40-80) 12/14/16 06:17 Lymphocytes 14 % (20-50) L 12/14/16 06:17 Monocytes 7 % (2-10) 12/14/16 06:17 Eosinophils 3 % (0-5) 12/14/16 06:17 Platelet Estimate ADEQUATE (NORMAL) 12/14/16 06:17 Platelet Morphology NORMAL (NORMAL) 12/14/16 06:17 RBC Morph Micro Appear NORMAL (NORMAL) 12/14/16 06:17 Specimen Source Arterial 12/12/16 10:09 Sample Site RB 12/12/16 10:09 pH 7.48 (7.35-7.45) H 12/12/16 10:09 pCO2 43.0 mmHg (35.0-45.0) 12/12/16 10:09 pO2 62.0 mmHg (80.0-100.0) L 12/12/16 10:09 HCO3 30.8 mEq/L (20.0-26.0) H 12/12/16 10:09 Base Excess 7.6 mEq/L (-3.0-3.0) H 12/12/16 10:09 O2 Saturation 93.0 % (92.0-100.0) 12/12/16 10:09 Gurpreet Test NA 12/12/16 10:09 Vent Rate NA 12/12/16 10:09 Inspired O2 21 12/12/16 10:09 Tidal Volume NA 12/12/16 10:09 PEEP NA 12/12/16 10:09 Pressure (ins/psv/peep) NA 12/12/16 10:09 Critical Value SH 12/12/16 10:09 Sodium 138 mEq/L (136-145) 12/21/16 06:20 Potassium 3.1 mEq/L (3.5-5.1) L 12/21/16 06:20 Chloride 105 mEq/L (98-107) 12/21/16 06:20 Carbon Dioxide 27.1 mEq/L (21.0-31.0) 12/21/16 06:20 Anion Gap 9.0 (7.0-16.0) 12/21/16 06:20 BUN 12 mg/dL (7-25) 12/21/16 06:20 Creatinine 0.7 mg/dL (0.6-1.2) 12/21/16 06:20 Est GFR ( Amer) TNP 12/21/16 06:20 Est GFR (Non-Af Amer) TNP 12/21/16 06:20 BUN/Creatinine Ratio 17.1 12/21/16 06:20 Glucose 128 mg/dL (70-105) H 12/21/16 06:20 POC Glucose 145 MG/DL (70 - 105) H 12/21/16 16:38 Hemoglobin A1c % 5.7 % (4.0-6.0) 12/13/16 05:54 Calcium 9.4 mg/dL (8.6-10.3) 12/21/16 06:20 Magnesium 1.6 mg/dL (1.9-2.7) L 12/17/16 04:45 Total Bilirubin 0.4 mg/dL (0.3-1.0) 12/21/16 06:20 AST 19 U/L (13-39) 12/21/16 06:20 ALT 37 U/L (7-52) 12/21/16 06:20 Alkaline Phosphatase 82 U/L (34-104) 12/21/16 06:20 Ammonia 44 umol/L (16-53) 12/20/16 05:25 Total Protein 6.4 gm/dL (6.0-8.3) 12/21/16 06:20 Albumin 3.3 gm/dL (3.7-5.3) L 12/21/16 06:20 Globulin 3.1 gm/dL 12/21/16 06:20 Albumin/Globulin Ratio 1.1 (1.0-1.8) 12/21/16 06:20 Prealbumin 11 mg/dL (9-32) 12/15/16 11:20 Triglycerides 126 mg/dL (<150) 12/16/16 05:07 Cholesterol 169 mg/dL (<200) 12/16/16 05:07 LDL Cholesterol Direct 133 mg/dL (75-193) 12/16/16 05:07 HDL Cholesterol 34 mg/dL (23-92) 12/16/16 05:07 TSH 1.57 uIU/ml (0.34-5.60) 12/18/16 05:27 Urine Source CLEAN C 12/13/16 12:08 Urine Color YELLOW 12/13/16 12:08 Urine Clarity HAZY (CLEAR) 12/13/16 12:08 Urine pH 8.0 (4.6 - 8.0) 12/13/16 12:08 Ur Specific [place] 1.015 (1.005-1.030) 12/13/16 12:08 Urine Protein 100 mg/dL (NEGATIVE) H 12/13/16 12:08 Urine Glucose (UA) NEGATIVE mg/dL (NEGATIVE) 12/13/16 12:08 Urine Ketones NEGATIVE mg/dL (NEGATIVE) 12/13/16 12:08 Urine Blood MODERATE (NEGATIVE) H 12/13/16 12:08 Urine Nitrate NEGATIVE (NEGATIVE) 12/13/16 12:08 Urine Bilirubin NEGATIVE (NEGATIVE) 12/13/16 12:08 Urine Urobilinogen 0.2 E.U./dL (0.2 - 1.0) 12/13/16 12:08 Ur Leukocyte Esterase LARGE (NEGATIVE) H 12/13/16 12:08 Urine RBC 2-5 /hpf (0-5) 12/13/16 12:08 Urine WBC 25-50 /hpf (0-5) H 12/13/16 12:08 Ur Epithelial Cells OCCASIONAL /lpf (FEW) 12/13/16 12:08 Urine Bacteria 4+ /hpf (NONE SEEN) H 12/13/16 12:08 Urine Yeast MANY /hpf (NONE SEEN) H 12/13/16 12:08 Urine Opiates Screen NEGATIVE (NEGATIVE) 12/13/16 15:46 Urine Methadone Screen NEGATIVE (NEGATIVE) 12/13/16 15:46 Ur Barbiturates Screen NEGATIVE (NEGATIVE) 12/13/16 15:46 Ur Tricyclics Screen POSITIVE (NEGATIVE) H 12/13/16 15:46 Ur Phencyclidine Scrn NEGATIVE (NEGATIVE) 12/13/16 15:46 Amphetamines Screen NEGATIVE (NEGATIVE) 12/13/16 15:46 U Methamphetamines Scrn NEGATIVE (NEGATIVE) 12/13/16 15:46 U Benzodiazepines Scrn POSITIVE (NEGATIVE) H 12/13/16 15:46 U Cocaine Metab Screen NEGATIVE (NEGATIVE) 12/13/16 15:46 U Cannabinoids Screen NEGATIVE (NEGATIVE) 12/13/16 15:46 - Physical Exam Vitals and I&O: Vital Signs Temp 98.2 F 12/21/16 12:00 Pulse 89 12/21/16 16:34 Resp 18 12/21/16 12:00 BP 137/77 12/21/16 16:34 Pulse Ox 98 12/21/16 12:00 Intake & Output 12/20/16 12/21/16 12/21/16 18:59 06:59 18:59 Intake Total 2215 1200 Balance 2215 1200 Weight (lbs) 61.235 kg 62.823 kg Intake: Intake, IV Amount 2014 1000 Sodium Chloride 0.9% 1964 1000 000 ml @ 100 mls/hr IV . Q10H [facility] Rx#:[id number] cefTRIAXone 1 gm In 50 Sodium Chloride 0.9% 50 ml @ 100 mls/hr IV Q24HR [facility] Rx#:[id number] Oral 200 200 Other: # Voids 2 1 # Bowel Movements 0 Stool Characteristics Soft Active Medications: Current Medications Acetaminophen (Tylenol) 650 mg PO Q4HR PRN PRN Reason: Pain or Fever >101 Stop: 02/09/17 17:50 Amlodipine Besylate (Norvasc) 5 mg PO DAILY [facility] Stop: 02/10/17 08:59 Last Admin: 12/21/16 10:27 Dose: Not Given Aspirin (Ecotrin) 81 mg PO DAILY [facility] Stop: 02/10/17 08:59 Last Admin: 12/21/16 09:57 Dose: 81 mg Bisacodyl (Dulcolax 10 Mg Supp) 10 mg RC DAILY PRN PRN Reason: Constipation Stop: 02/09/17 17:50 Last Admin: 12/15/16 14:30 Dose: 10 mg Carvedilol (Coreg) 6.25 mg PO BID [facility] Stop: 02/11/17 08:59 Last Admin: 12/21/16 16:34 Dose: 6.25 mg Ceftriaxone Sodium 1 gm/ (Sodium Chloride) 50 mls @ 100 mls/hr IV Q24HR [facility] Stop: 12/26/16 16:59 Last Admin: 12/21/16 18:07 Dose: 100 mls/hr Sodium Chloride (Nacl 0.9%) 1,000 mls @ 100 mls/hr IV .Q10H [facility] Stop: 02/16/17 08:01 Last Admin: 12/21/16 06:10 Dose: 100 mls/hr Vancomycin HCl 0.75 gm/ Sodium (Chloride) 250 mls @ 165 mls/hr IV Q12H [facility] Stop: 02/19/17 13:59 Last Admin: 12/21/16 14:37 Dose: 165 mls/hr Insulin Aspart (Novolog Insulin Sliding Scale) 0 units SUBQ ACHS RHIANNA PRN Reason: Protocol Stop: 02/10/17 11:29 Last Admin: 12/21/16 17:57 Dose: Not Given Labetalol HCl (Trandate) 10 mg IVP Q8HR PRN PRN Reason: SBP ABOVE 160 Stop: 02/10/17 17:14 Lactobacillus Rhamnosus (Culturelle) 1 each PO DAILY [facility] Stop: 02/19/17 16:59 Lactulose (Cephulac) 20 gm PO DAILY RHIANNA Stop: 02/15/17 08:59 Last Admin: 12/21/16 09:57 Dose: 20 gm Lorazepam (Ativan) 0.5 mg PO Q6HR PRN; Protocol PRN Reason: Anxiety Stop: 02/16/17 16:24 Last Admin: 12/20/16 21:17 Dose: 0.5 mg Losartan Potassium (Cozaar) 50 mg PO DAILY R[facility]ANNA Stop: 02/11/17 08:59 Last Admin: 12/21/16 10:28 Dose: Not Given Megestrol Acetate (Megace) 400 mg PO DAILY RHIANNA PRN Reason: Protocol Stop: 02/19/17 11:29 Last Admin: 12/21/16 11:42 Dose: 400 mg Miscellaneous (Vte Chemical Prophylaxis Screen/ Admission) 1 [facility] PRN PRN PRN Reason: PROTOCOL Stop: 02/10/17 14:48 Miscellaneous (Probiotic Screen) 1 [facility] PRN PRN PRN Reason: PROTOCOL Stop: 02/19/17 16:06 General: no acute distress, well developed, well nourished HEENT: atraumatic, normocephalic, PERRLA, EOMI Neck: supple, no thyromegaly Cardiovascular: S1S2, regular Lungs: clear to auscultation bilaterally, clear to percussion Abdomen: soft, no tender, no distended Extremities: other (left knee redness.), no cyanosis, no clubbing, no edema Neurological: awake, alert, oriented Skin: intact Infectious Disease Assmt/Plan - Assessment Assessment: 1. UTI. 2. leukocytosis. worse again. no diarrhea. 3. Dementia. 4. Cellulitis of the left knee. There is no joint swelling. - Plan Plan: Continue rocephin IV. it an be changed to bacrim SS bid orally for 5 days. check labs in AM. Continue vanco iv. Nutritional Asmnt/Malnutr-PDOC - Dietary Evaluation Malnutrition Findings (Please click <Entered> for more info): Nutritional Asmnt/Malnutrition Start: 12/16/16 14: 57 Text: Status: Complete Freq: Document 12/16/16 14:57 GSUN (Rec: 12/16/16 15:32 GSUN [email or web address]) Nutritional Asmnt/Malnutrition Patient General Information Nutritional Screening Consult Diagnosis UTI, leukocytosis Pertinent Medical Hx/Surgical Hx HTN, hyperlipidemia, CVA, dementia, anxiety, depression, psychosis, schizophrenia, hx of frequent UTI, DM Subjective Information 76 year old female, transfered from [facility]. RD consult for poor PO intake, weight loss. Per FNS and nursing staff report, pt has been lethargic with poor PO intake. Pt is confused and lethargic, unable to interview, spoke to daughter at bedside. Daughter stated pt is usually energetic, fair to good appetite, eats everything, however recently pt became lethargic and PO intake declining. Avg PO intake <25% of meals since adm , not meeting nutritional needs. Per RN notes, pt UBW 150lb, CBW 137.6lb via bedscale, possible weight loss . Observed few half emptied juice at bedside, daughter stated pt tolerates/likes milk as well. Recommended oral supplements, daughter agreed. Daughter also requested chopped diet as pt appear to be putting a lot of effort in chewing. Pt appeared thin, unable to complete physical assessment. Current Diet Order/ Nutrition Support Regular, no red meat Pertinent Medications Haldol, Novolog, Cephulac Pertinent Labs 12/13: A1c 5.7 12/15: ammonia 107H 12/16: potassium 3.3L, BUN 45H, glucose 158H POC glucose 67-201 since adm Nutritional Hx/Data Height 1.73 m Height (Calculated Centimeters) 172.7 Current Weight (lbs) 62.414 kg Weight (Calculated Kilograms) 62.4 Weight (Calculated Grams) 40221.3 Usual body Weight (lbs) 150 [place] Body Weight 140 Recent Weight Change Yes Weight Status Approriate GI Symptoms Food Allergies No Cultural/Ethnic/Jewish Belief No red meat. Skin Integrity/Comment: [place] 14. Skin intact. Current %PO Negligible < 25% Estimated Nutritional Goals Calories/Kcals/Kg UBW 150lb/68.2kg Kcals Calculated 1705-2046kcal (25-30kcal/kg) Protein Calculated 68g (1g/kg) Fluid: ml 1705-2046ml (1ml/kcal) Nutritional Problem 2. Problem Problem Involuntary weight loss related to Etiology unknown, possibly poor PO intake aeb Signs/Symptoms: family report UBW 150lb and CBW 137.6lb 1. Problem Problem Inadequate oral food beverage intake related to Etiology unknown, posisble lethargy aeb Signs/Symptoms: avg PO intake <25% of meals since adm, pt has been lethargic Intervention/Recommendation Comments 1. Recommend [id number] to promote glycemic control. Recommend mech soft chopped per family's request. 2. Recommend Boost Glucose Control TID. 3. Monitor weight closely. Daughter report UBW 150lb, CBW 137.6lb via bedscale today. Poor PO intake >5 days. Expected Outcomes/Goals Expected Outcomes/Goals 1. PO intake to resume and meet at least 75% of estimated nutritional needs.
[2016-12-21] MEDS: Lactobacillus Rhamnosus 10 Billion CFU Capsule PO SCH (20:19)
[2016-12-22] MEDS: Sodium Chloride 0.9% 1,000 ML IV SCH (05:25)
[2016-12-22 06:14] LABS: % BASOPHILS 0.4 % (0.0-2.0); % EOSINOPHILS 2.1 % (0.0-5.0); % MONOCYTES 9.1 % (2.0-10.0); % NEUTROPHILS 66.4 % (40.0-80.0); HEMATOCRIT 36.3 % (35.0-45.0); HEMOGLOBIN 11.9 gm/dL (11.7-16.1); MEAN CELL VOLUME 85.8 fl (81-100); MEAN CORPUSCULAR HEMOGLOBIN 28.2 pg (27.0-31.0); MEAN CORPUSCULAR HGB CONC 32.9 pg (28.0-36.0); MEAN PLATELET VOLUME 8.4 fl; NEUTROPHILE ABSOLUTE 9.2 Th/cmm (1.8-8.0); PLATELET COUNT 302 Th/cmm (150-400); RED BLOOD COUNT 4.23 Mil/cmm (3.80-5.20); RED CELL DISTRIBUTION WIDTH 11.8 % (11.5-20.0)
[2016-12-22 06:34] LABS: ALB/GLOB RATIO 1.1 (1.0-1.8); ALKALINE PHOSPHATASE 75 U/L (34-104); ANION GAP 9.2 (7.0-16.0); BILIRUBIN,TOTAL 0.4 mg/dL (0.3-1.0); BUN - UREA NITROGEN 12 mg/dL (7-25); CALCIUM SERUM 9.1 mg/dL (8.6-10.3); CARBON DIOXIDE 24.8 mEq/L (21.0-31.0); CHLORIDE 104 mEq/L (98-107); CREATININE - SERUM 0.5 mg/dL (0.6-1.2); GLUCOSE 119 mg/dL (70-105); SGOT 22 U/L (13-39); SGPT/ALT 34 U/L (7-52); SODIUM SERUM 135 mEq/L (136-145)
[2016-12-22] MEDS: INSULIN ASPART SLIDING SCALE 100 UNITS/ML UNIT SUBQ SCH ×4 (06:39→21:59)
[2016-12-22] MEDS: Lactulose 10 Gm/15 mL 30mL UDC PO SCH (08:59)
[2016-12-22] MEDS: Lactobacillus Rhamnosus 10 Billion CFU Capsule PO SCH (09:02)
--- NOTE | 2016-12-22 10:01 | General Progress Note ---
Subjective - Review of Systems Service Date: 12/22/16 Subjective: Patient is awake, calm, responding to questions. Objective - Results Result Diagrams: 12/22/16 05:57 12/22/16 05:57 Recent Labs: Laboratory Last Values WBC 14.0 Th/cmm (4.8-10.8) H 12/22/16 05:57 RBC 4.23 Mil/cmm (3.80-5.20) 12/22/16 05:57 Hgb 11.9 gm/dL (11.7-16.1) 12/22/16 05:57 Hct 36.3 % (35.0-45.0) 12/22/16 05:57 MCV 85.8 fl (81-100) 12/22/16 05:57 MCH 28.2 pg (27.0-31.0) 12/22/16 05:57 MCHC Differential 32.9 pg (28.0-36.0) 12/22/16 05:57 RDW 11.8 % (11.5-20.0) 12/22/16 05:57 Plt Count 302 Th/cmm (150-400) 12/22/16 05:57 MPV 8.4 fl 12/22/16 05:57 Neutrophils % 66.4 % (40.0-80.0) 12/22/16 05:57 Band Neutrophils % 8 % (0-10) 12/14/16 06:17 Lymphocytes % 22.0 % (20.0-50.0) 12/22/16 05:57 Monocytes % 9.1 % (2.0-10.0) 12/22/16 05:57 Eosinophils % 2.1 % (0.0-5.0) 12/22/16 05:57 Basophils % 0.4 % (0.0-2.0) 12/22/16 05:57 Neutrophils (Manual) 68 % (40-80) 12/14/16 06:17 Lymphocytes 14 % (20-50) L 12/14/16 06:17 Monocytes 7 % (2-10) 12/14/16 06:17 Eosinophils 3 % (0-5) 12/14/16 06:17 Platelet Estimate ADEQUATE (NORMAL) 12/14/16 06:17 Platelet Morphology NORMAL (NORMAL) 12/14/16 06:17 RBC Morph Micro Appear NORMAL (NORMAL) 12/14/16 06:17 Specimen Source Arterial 12/12/16 10:09 Sample Site RB 12/12/16 10:09 pH 7.48 (7.35-7.45) H 12/12/16 10:09 pCO2 43.0 mmHg (35.0-45.0) 12/12/16 10:09 pO2 62.0 mmHg (80.0-100.0) L 12/12/16 10:09 HCO3 30.8 mEq/L (20.0-26.0) H 12/12/16 10:09 Base Excess 7.6 mEq/L (-3.0-3.0) H 12/12/16 10:09 O2 Saturation 93.0 % (92.0-100.0) 12/12/16 10:09 Gurpreet Test NA 12/12/16 10:09 Vent Rate NA 12/12/16 10:09 Inspired O2 21 12/12/16 10:09 Tidal Volume NA 12/12/16 10:09 PEEP NA 12/12/16 10:09 Pressure (ins/psv/peep) NA 12/12/16 10:09 Critical Value SH 12/12/16 10:09 Sodium 135 mEq/L (136-145) L 12/22/16 05:57 Potassium 3.0 mEq/L (3.5-5.1) L 12/22/16 05:57 Chloride 104 mEq/L (98-107) 12/22/16 05:57 Carbon Dioxide 24.8 mEq/L (21.0-31.0) 12/22/16 05:57 Anion Gap 9.2 (7.0-16.0) 12/22/16 05:57 BUN 12 mg/dL (7-25) 12/22/16 05:57 Creatinine 0.5 mg/dL (0.6-1.2) L 12/22/16 05:57 Est GFR ( Amer) TNP 12/22/16 05:57 Est GFR (Non-Af Amer) [facility] 12/22/16 05:57 BUN/Creatinine Ratio 24.0 12/22/16 05:57 Glucose 119 mg/dL (70-105) H 12/22/16 05:57 POC Glucose 131 MG/DL (70 - 105) H 12/22/16 05:24 Hemoglobin A1c % 5.7 % (4.0-6.0) 12/13/16 05:54 Calcium 9.1 mg/dL (8.6-10.3) 12/22/16 05:57 Magnesium 1.6 mg/dL (1.9-2.7) L 12/17/16 04:45 Total Bilirubin 0.4 mg/dL (0.3-1.0) 12/22/16 05:57 AST 22 U/L (13-39) 12/22/16 05:57 ALT 34 U/L (7-52) 12/22/16 05:57 Alkaline Phosphatase 75 U/L (34-104) 12/22/16 05:57 Ammonia 44 umol/L (16-53) 12/20/16 05:25 Total Protein 6.0 gm/dL (6.0-8.3) 12/22/16 05:57 Albumin 3.2 gm/dL (3.7-5.3) L 12/22/16 05:57 Globulin 2.8 gm/dL 12/22/16 05:57 Albumin/Globulin Ratio 1.1 (1.0-1.8) 12/22/16 05:57 Prealbumin 11 mg/dL (9-32) 12/15/16 11:20 Triglycerides 126 mg/dL (<150) 12/16/16 05:07 Cholesterol 169 mg/dL (<200) 12/16/16 05:07 LDL Cholesterol Direct 133 mg/dL (75-193) 12/16/16 05:07 HDL Cholesterol 34 mg/dL (23-92) 12/16/16 05:07 TSH 1.57 uIU/ml (0.34-5.60) 12/18/16 05:27 Urine Source CLEAN C 12/13/16 12:08 Urine Color YELLOW 12/13/16 12:08 Urine Clarity HAZY (CLEAR) 12/13/16 12:08 Urine pH 8.0 (4.6 - 8.0) 12/13/16 12:08 Ur Specific [place] 1.015 (1.005-1.030) 12/13/16 12:08 Urine Protein 100 mg/dL (NEGATIVE) H 12/13/16 12:08 Urine Glucose (UA) NEGATIVE mg/dL (NEGATIVE) 12/13/16 12:08 Urine Ketones NEGATIVE mg/dL (NEGATIVE) 12/13/16 12:08 Urine Blood MODERATE (NEGATIVE) H 12/13/16 12:08 Urine Nitrate NEGATIVE (NEGATIVE) 12/13/16 12:08 Urine Bilirubin NEGATIVE (NEGATIVE) 12/13/16 12:08 Urine Urobilinogen 0.2 E.U./dL (0.2 - 1.0) 12/13/16 12:08 Ur Leukocyte Esterase LARGE (NEGATIVE) H 12/13/16 12:08 Urine RBC 2-5 /hpf (0-5) 12/13/16 12:08 Urine WBC 25-50 /hpf (0-5) H 12/13/16 12:08 Ur Epithelial Cells OCCASIONAL /lpf (FEW) 12/13/16 12:08 Urine Bacteria 4+ /hpf (NONE SEEN) H 12/13/16 12:08 Urine Yeast MANY /hpf (NONE SEEN) H 12/13/16 12:08 Urine Opiates Screen NEGATIVE (NEGATIVE) 12/13/16 15:46 Urine Methadone Screen NEGATIVE (NEGATIVE) 12/13/16 15:46 Ur Barbiturates Screen NEGATIVE (NEGATIVE) 12/13/16 15:46 Ur Tricyclics Screen POSITIVE (NEGATIVE) H 12/13/16 15:46 Ur Phencyclidine Scrn NEGATIVE (NEGATIVE) 12/13/16 15:46 Amphetamines Screen NEGATIVE (NEGATIVE) 12/13/16 15:46 U Methamphetamines Scrn NEGATIVE (NEGATIVE) 12/13/16 15:46 U Benzodiazepines Scrn POSITIVE (NEGATIVE) H 12/13/16 15:46 U Cocaine Metab Screen NEGATIVE (NEGATIVE) 12/13/16 15:46 U Cannabinoids Screen NEGATIVE (NEGATIVE) 12/13/16 15:46 - Physical Exam Vitals and I&O: Vital Signs Temp 98.0 F 12/22/16 08:00 Pulse 103 12/22/16 09:01 Resp 18 12/22/16 08:00 BP 170/107 12/22/16 09:01 Pulse Ox 98 12/22/16 08:00 Intake & Output 12/21/16 12/22/16 12/22/16 18:59 06:59 18:59 Intake Total 1557.5 400 Balance 1557.5 400 Weight (lbs) 61.689 kg Intake: Intake, IV Amount 1557.5 250 Sodium Chloride 0.9% 1, 1000 000 ml @ 100 mls/hr IV . Q10H [facility], 1928–1983 Rx#:[id number] Vancomycin HCl 0.75 gm In 250 250 Sodium Chloride 0.9% 250 ml @ 165 mls/hr IV Q12H [facility], [facility]–1983 Rx#:[id number] cefTRIAXone 1 gm In 35 Sodium Chloride 0.9% 50 ml @ 100 mls/hr IV Q24HR [facility], [facility]1983 Rx#:[id number] Oral 150 Other: # Voids 1 # Bowel Movements 1 Stool Characteristics Soft Active Medications: Current Medications Acetaminophen (Tylenol) 650 mg PO Q4HR PRN PRN Reason: Pain or Fever >101 Stop: 02/09/17 17:50 Amlodipine Besylate (Norvasc) 5 mg PO DAILY [facility], [facility]1983 Stop: 02/10/17 08:59 Last Admin: 12/22/16 09:01 Dose: 5 mg Aspirin (Ecotrin) 81 mg PO DAILY [facility]1983 Stop: 02/10/17 08:59 Last Admin: 12/22/16 09:01 Dose: 81 mg Bisacodyl (Dulcolax 10 Mg Supp) 10 mg RC DAILY PRN PRN Reason: Constipation Stop: 02/09/17 17:50 Last Admin: 12/15/16 14:30 Dose: 10 mg Carvedilol (Coreg) 6.25 mg PO BID [facility]1983 Stop: 02/11/17 08:59 Last Admin: 12/22/16 09:00 Dose: 6.25 mg Ceftriaxone Sodium 1 gm/ (Sodium Chloride) 50 mls @ 100 mls/hr IV Q24HR [facility]1983 Stop: 12/26/16 16:59 Last Infusion: 12/21/16 18:28 Dose: 100 mls/hr Sodium Chloride (Nacl 0.9%) 1,000 mls @ 100 mls/hr IV .Q10H [facility]1983 Stop: 02/16/17 08:01 Last Admin: 12/22/16 05:25 Dose: 100 mls/hr Vancomycin HCl 0.75 gm/ Sodium (Chloride) 250 mls @ 165 mls/hr IV Q12H [facility] Stop: 02/19/17 13:59 Last Infusion: 12/22/16 02:52 Dose: Infused Insulin Aspart (Novolog Insulin Sliding Scale) 0 units SUBQ ACHS [facility]1983 PRN Reason: Protocol Stop: 02/10/17 11:29 Last Admin: 12/22/16 06:39 Dose: Not Given Labetalol HCl (Trandate) 10 mg IVP Q8HR PRN PRN Reason: SBP ABOVE 160 Stop: 02/10/17 17:14 Lactobacillus Rhamnosus (Culturelle) 1 each PO DAILY RHIANNA Stop: 02/19/17 16:59 Last Admin: 12/22/16 09:02 Dose: 1 each Lactulose (Cephulac) 20 gm PO DAILY RHIANNA Stop: 02/15/17 08:59 Last Admin: 12/22/16 08:59 Dose: 20 gm Lorazepam (Ativan) 0.5 mg PO Q6HR PRN; Protocol PRN Reason: Anxiety Stop: 02/16/17 16:24 Last Admin: 12/21/16 21:23 Dose: 0.5 mg Losartan Potassium (Cozaar) 50 mg PO DAILY RHIANNA Stop: 02/11/17 08:59 Last Admin: 12/22/16 09:00 Dose: 50 mg Megestrol Acetate (Megace) 400 mg PO DAILY RHIANNA PRN Reason: Protocol Stop: 02/19/17 11:29 Last Admin: 12/22/16 08:59 Dose: 400 mg Miscellaneous (Vte Chemical Prophylaxis Screen/ Admission) 1 ea MC PRN PRN PRN Reason: PROTOCOL Stop: 02/10/17 14:48 Miscellaneous (Probiotic Screen) 1 ea MC PRN PRN PRN Reason: PROTOCOL Stop: 02/19/17 16:06 General: Other (Sleeping but arousable, confused), no Alert HEENT: Atraumatic, PERRLA Neck: Supple Cardiovascular: Regular rate Lungs: Clear to auscultation Abdomen: Bowel sounds Extremities: Other (No edema) Neurological: Other (Unstable gait) Psych/Mental Status: Other (Patient is confused, not oriented. Patient is eating 20%, refusing to take meds.) Assessment/Plan - Assessment Assessment: Patient is awake, calm in no acute distress. more awake, confused, not oriented. WBC improving today. Cellulites. Patient is improving. BP better control. CXR normal. Dx: Hepatic encephalopathy, Increased in confusion, Elevated WBC, UTI, HTN, CHF, Dyslipemia, Dementia, Psychosis. - Plan Plan: [facility] and rocephin. Seroquel is added to treatment, Haldol is PRN. Will continue to monitor. Nutritional Asmnt/Malnutr-PDOC - Dietary Evaluation Malnutrition Findings (Please click <Entered> for more info): Nutritional Asmnt/Malnutrition Start: 12/16/16 14: 57 Text: Status: Complete Freq: Document 12/16/16 14:57 GSUN (Rec: 12/16/16 15:32 GSUN [id number]) Nutritional Asmnt/Malnutrition Patient General Information Nutritional Screening Consult Diagnosis UTI, leukocytosis Pertinent Medical Hx/Surgical Hx HTN, hyperlipidemia, CVA, dementia, anxiety, depression, psychosis, schizophrenia, hx of frequent UTI, DM Subjective Information 76 year old female, transfered from [facility]. RD consult for poor PO intake, weight loss. Per FNS and nursing staff report, pt has been lethargic with poor PO intake. Pt is confused and lethargic, unable to interview, spoke to daughter at bedside. Daughter stated pt is usually energetic, fair to good appetite, eats everything, however recently pt became lethargic and PO intake declining. Avg PO intake <25% of meals since adm , not meeting nutritional needs. Per RN notes, pt UBW 150lb, CBW 137.6lb via bedscale, possible weight loss . Observed few half emptied juice at bedside, daughter stated pt tolerates/likes milk as well. Recommended oral supplements, daughter agreed. Daughter also requested chopped diet as pt appear to be putting a lot of effort in chewing. Pt appeared thin, unable to complete physical assessment. Current Diet Order/ Nutrition Support Regular, no red meat Pertinent Medications Haldol, Novolog, Cephulac Pertinent Labs 12/13: A1c 5.7 12/15: ammonia 107H 12/16: potassium 3.3L, BUN 45H, glucose 158H POC glucose 67-201 since adm Nutritional Hx/Data Height 1.73 m Height (Calculated Centimeters) 172.7 Current Weight (lbs) 62.414 kg Weight (Calculated Kilograms) 62.4 Weight (Calculated Grams) 61604.3 Usual body Weight (lbs) 150 [place] Body Weight 140 Recent Weight Change Yes Weight Status Approriate GI Symptoms Food Allergies No Cultural/Ethnic/Islam Belief No red meat. Skin Integrity/Comment: Dewayne 14. Skin intact. Current %PO Negligible < 25% Estimated Nutritional Goals Calories/Kcals/Kg UBW 150lb/68.2kg Kcals Calculated 1705-2046kcal (25-30kcal/kg) Protein Calculated 68g (1g/kg) Fluid: ml 1705-2046ml (1ml/kcal) Nutritional Problem 2. Problem Problem Involuntary weight loss related to Etiology unknown, possibly poor PO intake aeb Signs/Symptoms: family report UBW 150lb and CBW 137.6lb 1. Problem Problem Inadequate oral food beverage intake related to Etiology unknown, posisble lethargy aeb Signs/Symptoms: avg PO intake <25% of meals since adm, pt has been lethargic Intervention/Recommendation Comments 1. Recommend [id number] to promote glycemic control. Recommend mech soft chopped per family's request. 2. Recommend Boost Glucose Control TID. 3. Monitor weight closely. Daughter report UBW 150lb, CBW 137.6lb via bedscale today. Poor PO intake >5 days. Expected Outcomes/Goals Expected Outcomes/Goals 1. PO intake to resume and meet at least 75% of estimated nutritional needs.
[2016-12-22] MEDS: KCL 20mEq/100mL Premix 20 MEQ/100 ML PIGGYBACK IV SCH ×2 (11:12→13:29)
--- NOTE | 2016-12-22 12:10 | Diagnostic Imaging Report ---
KUB single view HISTORY: Constipation COMPARISON: None FINDINGS: Moderate amount of stool is seen with distal fecal impaction. Nonspecific gas-filled loops of bowel are noted. Atherosclerosis is noted. There is evidence of prior median sternotomy. Multiple gallstones are noted. Degenerative changes of the spine are noted. IMPRESSION: Moderate amount of stool with distal fecal impaction. Overall nonspecific bowel gas pattern Gallstones. Atherosclerotic vascular disease.
--- NOTE | 2016-12-22 12:11 | Diagnostic Imaging Report ---
Left knee 2 views Indication: pain Comparison: none Findings: Mild degenerative changes are seen including minimal narrowing medial knee compartment. No evidence of an acute fracture or joint effusion. Distal quadriceps there is noted. Postsurgical changes are seen throughout the medial thigh and medial proximal tibial region. Diffuse atherosclerosis is noted. Impression: No evidence of an acute fracture. Mild degenerative changes Postsurgical changes Atherosclerotic vascular disease. In the setting of trauma, if clinical symptoms persist and there is continued concern for an occult fracture, follow up exams in 5-7 days is suggested.
[2016-12-22] MEDS: cefTRIAXone 1 GM in Sodium Chloride 0.9% 50 ML IV SCH (17:44)
--- NOTE | 2016-12-22 23:36 | Infectious Disease Prog Note ---
Infectious Disease Subjective - Review of Systems Service Date: 12/22/16 Subjective: There is no fever. very alert and awake, not in distress. mood is normal. Infectious Disease Objective - Results Result Diagrams: 12/22/16 05:57 12/22/16 05:57 Recent Labs: Laboratory Last Values WBC 14.0 Th/cmm (4.8-10.8) H 12/22/16 05:57 RBC 4.23 Mil/cmm (3.80-5.20) 12/22/16 05:57 Hgb 11.9 gm/dL (11.7-16.1) 12/22/16 05:57 Hct 36.3 % (35.0-45.0) 12/22/16 05:57 MCV 85.8 fl (81-100) 12/22/16 05:57 MCH 28.2 pg (27.0-31.0) 12/22/16 05:57 MCHC Differential 32.9 pg (28.0-36.0) 12/22/16 05:57 RDW 11.8 % (11.5-20.0) 12/22/16 05:57 Plt Count 302 Th/cmm (150-400) 12/22/16 05:57 MPV 8.4 fl 12/22/16 05:57 Neutrophils % 66.4 % (40.0-80.0) 12/22/16 05:57 Band Neutrophils % 8 % (0-10) 12/14/16 06:17 Lymphocytes % 22.0 % (20.0-50.0) 12/22/16 05:57 Monocytes % 9.1 % (2.0-10.0) 12/22/16 05:57 Eosinophils % 2.1 % (0.0-5.0) 12/22/16 05:57 Basophils % 0.4 % (0.0-2.0) 12/22/16 05:57 Neutrophils (Manual) 68 % (40-80) 12/14/16 06:17 Lymphocytes 14 % (20-50) L 12/14/16 06:17 Monocytes 7 % (2-10) 12/14/16 06:17 Eosinophils 3 % (0-5) 12/14/16 06:17 Platelet Estimate ADEQUATE (NORMAL) 12/14/16 06:17 Platelet Morphology NORMAL (NORMAL) 12/14/16 06:17 RBC Morph Micro Appear NORMAL (NORMAL) 12/14/16 06:17 Specimen Source Arterial 12/12/16 10:09 Sample Site RB 12/12/16 10:09 pH 7.48 (7.35-7.45) H 12/12/16 10:09 pCO2 43.0 mmHg (35.0-45.0) 12/12/16 10:09 pO2 62.0 mmHg (80.0-100.0) L 12/12/16 10:09 HCO3 30.8 mEq/L (20.0-26.0) H 12/12/16 10:09 Base Excess 7.6 mEq/L (-3.0-3.0) H 12/12/16 10:09 O2 Saturation 93.0 % (92.0-100.0) 12/12/16 10:09 Gurpreet Test NA 12/12/16 10:09 Vent Rate NA 12/12/16 10:09 Inspired O2 21 12/12/16 10:09 Tidal Volume NA 12/12/16 10:09 PEEP NA 12/12/16 10:09 Pressure (ins/psv/peep) NA 12/12/16 10:09 Critical Value SH 12/12/16 10:09 Sodium 135 mEq/L (136-145) L 12/22/16 05:57 Potassium 3.0 mEq/L (3.5-5.1) L 12/22/16 05:57 Chloride 104 mEq/L (98-107) 12/22/16 05:57 Carbon Dioxide 24.8 mEq/L (21.0-31.0) 12/22/16 05:57 Anion Gap 9.2 (7.0-16.0) 12/22/16 05:57 BUN 12 mg/dL (7-25) 12/22/16 05:57 Creatinine 0.5 mg/dL (0.6-1.2) L 12/22/16 05:57 Est GFR ( Amer) TNP 12/22/16 05:57 Est GFR (Non-Af Amer) TNP 12/22/16 05:57 BUN/Creatinine Ratio 24.0 12/22/16 05:57 Glucose 119 mg/dL (70-105) H 12/22/16 05:57 POC Glucose 191 MG/DL (70 - 105) H 12/22/16 17:24 Hemoglobin A1c % 5.7 % (4.0-6.0) 12/13/16 05:54 Calcium 9.1 mg/dL (8.6-10.3) 12/22/16 05:57 Magnesium 1.6 mg/dL (1.9-2.7) L 12/17/16 04:45 Total Bilirubin 0.4 mg/dL (0.3-1.0) 12/22/16 05:57 AST 22 U/L (13-39) 12/22/16 05:57 ALT 34 U/L (7-52) 12/22/16 05:57 Alkaline Phosphatase 75 U/L (34-104) 12/22/16 05:57 Ammonia 44 umol/L (16-53) 12/20/16 05:25 Total Protein 6.0 gm/dL (6.0-8.3) 12/22/16 05:57 Albumin 3.2 gm/dL (3.7-5.3) L 12/22/16 05:57 Globulin 2.8 gm/dL 12/22/16 05:57 Albumin/Globulin Ratio 1.1 (1.0-1.8) 12/22/16 05:57 Prealbumin 11 mg/dL (9-32) 12/15/16 11:20 Triglycerides 126 mg/dL (<150) 12/16/16 05:07 Cholesterol 169 mg/dL (<200) 12/16/16 05:07 LDL Cholesterol Direct 133 mg/dL (75-193) 12/16/16 05:07 HDL Cholesterol 34 mg/dL (23-92) 12/16/16 05:07 TSH 1.57 uIU/ml (0.34-5.60) 12/18/16 05:27 Urine Source CLEAN C 12/13/16 12:08 Urine Color YELLOW 12/13/16 12:08 Urine Clarity HAZY (CLEAR) 12/13/16 12:08 Urine pH 8.0 (4.6 - 8.0) 12/13/16 12:08 Ur Specific [place] 1.015 (1.005-1.030) 12/13/16 12:08 Urine Protein 100 mg/dL (NEGATIVE) H 12/13/16 12:08 Urine Glucose (UA) NEGATIVE mg/dL (NEGATIVE) 12/13/16 12:08 Urine Ketones NEGATIVE mg/dL (NEGATIVE) 12/13/16 12:08 Urine Blood MODERATE (NEGATIVE) H 12/13/16 12:08 Urine Nitrate NEGATIVE (NEGATIVE) 12/13/16 12:08 Urine Bilirubin NEGATIVE (NEGATIVE) 12/13/16 12:08 Urine Urobilinogen 0.2 E.U./dL (0.2 - 1.0) 12/13/16 12:08 Ur Leukocyte Esterase LARGE (NEGATIVE) H 12/13/16 12:08 Urine RBC 2-5 /hpf (0-5) 12/13/16 12:08 Urine WBC 25-50 /hpf (0-5) H 12/13/16 12:08 Ur Epithelial Cells OCCASIONAL /lpf (FEW) 12/13/16 12:08 Urine Bacteria 4+ /hpf (NONE SEEN) H 12/13/16 12:08 Urine Yeast MANY /hpf (NONE SEEN) H 12/13/16 12:08 Vancomycin Trough 9.8 ug/mL (10-20) L 12/22/16 13:00 Urine Opiates Screen NEGATIVE (NEGATIVE) 12/13/16 15:46 Urine Methadone Screen NEGATIVE (NEGATIVE) 12/13/16 15:46 Ur Barbiturates Screen NEGATIVE (NEGATIVE) 12/13/16 15:46 Ur Tricyclics Screen POSITIVE (NEGATIVE) H 12/13/16 15:46 Ur Phencyclidine Scrn NEGATIVE (NEGATIVE) 12/13/16 15:46 Amphetamines Screen NEGATIVE (NEGATIVE) 12/13/16 15:46 U Methamphetamines Scrn NEGATIVE (NEGATIVE) 12/13/16 15:46 U Benzodiazepines Scrn POSITIVE (NEGATIVE) H 12/13/16 15:46 U Cocaine Metab Screen NEGATIVE (NEGATIVE) 12/13/16 15:46 U Cannabinoids Screen NEGATIVE (NEGATIVE) 12/13/16 15:46 - Physical Exam Vitals and I&O: Vital Signs Temp 98.1 F 12/22/16 16:00 Pulse 74 12/22/16 17:30 Resp 18 12/22/16 16:00 BP 121/60 12/22/16 17:30 Pulse Ox 98 12/22/16 16:00 Intake & Output 12/22/16 12/22/16 12/23/16 06:59 18:59 06:59 Intake Total 400 100 Balance 400 100 Weight (lbs) 61.689 kg Intake: Intake, IV Amount 250 100 KCL 20mEq/100mL Premix 20 100 meq In 100 ml @ 50 mls/ hr IV Q2H [facility] Rx#: [id number] Vancomycin HCl 0.75 gm In 250 Sodium Chloride 0.9% 250 ml @ 165 mls/hr IV Q12H [facility] Rx#:[id number] Oral 150 Other: # Voids 1 # Bowel Movements 1 Stool Characteristics Soft Soft Active Medications: Current Medications Acetaminophen (Tylenol) 650 mg PO Q4HR PRN PRN Reason: Pain or Fever >101 Stop: 02/09/17 17:50 Amlodipine Besylate (Norvasc) 5 mg PO DAILY [facility] Stop: 02/10/17 08:59 Last Admin: 12/22/16 09:01 Dose: 5 mg Aspirin (Ecotrin) 81 mg PO DAILY [facility] Stop: 02/10/17 08:59 Last Admin: 12/22/16 09:01 Dose: 81 mg Bisacodyl (Dulcolax 10 Mg Supp) 10 mg RC DAILY PRN PRN Reason: Constipation Stop: 02/09/17 17:50 Last Admin: 12/15/16 14:30 Dose: 10 mg Carvedilol (Coreg) 6.25 mg PO BID [facility] Stop: 02/11/17 08:59 Last Admin: 12/22/16 17:30 Dose: 6.25 mg Ceftriaxone Sodium 1 gm/ (Sodium Chloride) 50 mls @ 100 mls/hr IV Q24HR [facility] Stop: 12/26/16 16:59 Last Admin: 12/22/16 17:44 Dose: 100 mls/hr Sodium Chloride (Nacl 0.9%) 1,000 mls @ 100 mls/hr IV .Q10H [facility] Stop: 02/16/17 08:01 Last Admin: 12/22/16 05:25 Dose: 100 mls/hr Vancomycin HCl 1 gm/ Sodium (Chloride) 250 mls @ 165 mls/hr IV Q12HR@2300 [facility] Stop: 02/20/17 14:59 Last Admin: 12/22/16 15:31 Dose: 165 mls/hr Insulin Aspart (Novolog Insulin Sliding Scale) 0 units SUBQ ACHS RHIANNA PRN Reason: Protocol Stop: 02/10/17 11:29 Last Admin: 12/22/16 21:59 Dose: Not Given Labetalol HCl (Trandate) 10 mg IVP Q8HR PRN PRN Reason: SBP ABOVE 160 Stop: 02/10/17 17:14 Lactobacillus Rhamnosus (Culturelle) 1 each PO DAILY RHIANNA Stop: 02/19/17 16:59 Last Admin: 12/22/16 09:02 Dose: 1 each Lactulose (Cephulac) 20 gm PO DAILY RHIANNA Stop: 02/15/17 08:59 Last Admin: 12/22/16 08:59 Dose: 20 gm Lorazepam (Ativan) 0.5 mg PO Q6HR PRN; Protocol PRN Reason: Anxiety Stop: 02/16/17 16:24 Last Admin: 12/21/16 21:23 Dose: 0.5 mg Losartan Potassium (Cozaar) 50 mg PO DAILY RHIANNA Stop: 02/11/17 08:59 Last Admin: 12/22/16 09:00 Dose: 50 mg Megestrol Acetate (Megace) 400 mg PO DAILY RHIANNA PRN Reason: Protocol Stop: 02/19/17 11:29 Last Admin: 12/22/16 08:59 Dose: 400 mg Miscellaneous (Vte Chemical Prophylaxis Screen/ Admission) 1 ea [facility] PRN PRN PRN Reason: PROTOCOL Stop: 02/10/17 14:48 Miscellaneous (Probiotic Screen) 1 ea PRN PRN PRN Reason: PROTOCOL Stop: 02/19/17 16:06 Miscellaneous (Vancomycin Iv Per Pharmacy) 1 ea [facility] DAILY RHIANNA Stop: 02/20/17 10:29 Zolpidem Tartrate (Ambien) 5 mg PO HS RHIANNA Stop: 02/20/17 20:59 Last Admin: 12/22/16 21:51 Dose: 5 mg General: no acute distress, cachectic HEENT: atraumatic, normocephalic, PERRLA, EOMI, moist mucous membrane Neck: supple, no thyromegaly, no lymphadenopathy Cardiovascular: S1S2, regular Lungs: clear to auscultation bilaterally, clear to percussion Abdomen: soft, no tender, no distended, no mass Extremities: other (mild redness of the skin overlying the left knee.), no cyanosis, no clubbing, no edema Neurological: awake, alert, oriented Infectious Disease Assmt/Plan - Assessment Assessment: 1. UTI. 2. leukocytosis. worse again. no diarrhea. 3. Dementia. 4. Cellulitis of the left knee. There is no joint swelling. - Plan Plan: Continue rocephin IV. it an be changed to bacrim SS bid orally for 5 days. check labs in AM. Continue vanco iv. Nutritional Asmnt/Malnutr-PDOC - Dietary Evaluation Malnutrition Findings (Please click <Entered> for more info): Nutritional Asmnt/Malnutrition Start: 12/16/16 14: 57 Text: Status: Complete Freq: Document 12/16/16 14:57 GSUN (Rec: 12/16/16 15:32 [email or web address] [id number]) Nutritional Asmnt/Malnutrition Patient General Information Nutritional Screening Consult Diagnosis UTI, leukocytosis Pertinent Medical Hx/Surgical Hx HTN, hyperlipidemia, CVA, dementia, anxiety, depression, psychosis, schizophrenia, hx of frequent UTI, DM Subjective Information 76 year old female, transfered from [facility]. RD consult for poor PO intake, weight loss. Per FNS and nursing staff report, pt has been lethargic with poor PO intake. Pt is confused and lethargic, unable to interview, spoke to daughter at bedside. Daughter stated pt is usually energetic, fair to good appetite, eats everything, however recently pt became lethargic and PO intake declining. Avg PO intake <25% of meals since adm , not meeting nutritional needs. Per RN notes, pt UBW 150lb, CBW 137.6lb via bedscale, possible weight loss . Observed few half emptied juice at bedside, daughter stated pt tolerates/likes milk as well. Recommended oral supplements, daughter agreed. Daughter also requested chopped diet as pt appear to be putting a lot of effort in chewing. Pt appeared thin, unable to complete physical assessment. Current Diet Order/ Nutrition Support Regular, no red meat Pertinent Medications Haldol, Novolog, Cephulac Pertinent Labs 12/13: A1c 5.7 12/15: ammonia 107H 12/16: potassium 3.3L, BUN 45H, glucose 158H POC glucose 67-201 since adm Nutritional Hx/Data Height 1.73 m Height (Calculated Centimeters) 172.7 Current Weight (lbs) 62.414 kg Weight (Calculated Kilograms) 62.4 Weight (Calculated Grams) 35921.3 Usual body Weight (lbs) 150 [place] Body Weight 140 Recent Weight Change Yes Weight Status Approriate GI Symptoms Food Allergies No Cultural/Ethnic/Anglican Belief No red meat. Skin Integrity/Comment: Deway[place] 14. Skin intact. Current %PO Negligible < 25% Estimated Nutritional Goals Calories/Kcals/Kg UBW 150lb/68.2kg Kcals Calculated 1705-2046kcal (25-30kcal/kg) Protein Calculated 68g (1g/kg) Fluid: ml 1705-2046ml (1ml/kcal) Nutritional Problem 2. Problem Problem Involuntary weight loss related to Etiology unknown, possibly poor PO intake aeb Signs/Symptoms: family report UBW 150lb and CBW 137.6lb 1. Problem Problem Inadequate oral food beverage intake related to Etiology unknown, posisble lethargy aeb Signs/Symptoms: avg PO intake <25% of meals since adm, pt has been lethargic Intervention/Recommendation Comments 1. Recommend [id number] to promote glycemic control. Recommend mech soft chopped per family's request. 2. Recommend Boost Glucose Control TID. 3. Monitor weight closely. Daughter report UBW 150lb, CBW 137.6lb via bedscale today. Poor PO intake >5 days. Expected Outcomes/Goals Expected Outcomes/Goals 1. PO intake to resume and meet at least 75% of estimated nutritional needs.
[2016-12-23] MEDS: Sodium Chloride 0.9% 1,000 ML IV SCH (00:14)
[2016-12-23 06:15] LABS: % BASOPHILS 0.2 % (0.0-2.0); % LYMPHOCYTES 22.4 % (20.0-50.0); % MONOCYTES 9.7 % (2.0-10.0); % NEUTROPHILS 65.7 % (40.0-80.0); HEMATOCRIT 36.2 % (35.0-45.0); HEMOGLOBIN 12.1 gm/dL (11.7-16.1); MEAN CELL VOLUME 85.5 fl (81-100); MEAN CORPUSCULAR HEMOGLOBIN 28.7 pg (27.0-31.0); MEAN CORPUSCULAR HGB CONC 33.5 pg (28.0-36.0); MEAN PLATELET VOLUME 8.9 fl; NEUTROPHILE ABSOLUTE 7.9 Th/cmm (1.8-8.0); PLATELET COUNT 274 Th/cmm (150-400); RED BLOOD COUNT 4.24 Mil/cmm (3.80-5.20); RED CELL DISTRIBUTION WIDTH 12.1 % (11.5-20.0)
[2016-12-23 06:35] LABS: ALB/GLOB RATIO 1.1 (1.0-1.8); ALKALINE PHOSPHATASE 71 U/L (34-104); ANION GAP 8.7 (7.0-16.0); BILIRUBIN,TOTAL 0.4 mg/dL (0.3-1.0); BUN - UREA NITROGEN 9 mg/dL (7-25); CALCIUM SERUM 9.3 mg/dL (8.6-10.3); CARBON DIOXIDE 27.5 mEq/L (21.0-31.0); CHLORIDE 104 mEq/L (98-107); CREATININE - SERUM 0.6 mg/dL (0.6-1.2); GLUCOSE 115 mg/dL (70-105); POTASSIUM SERUM 3.2 mEq/L (3.5-5.1); SGOT 18 U/L (13-39); SGPT/ALT 29 U/L (7-52); SODIUM SERUM 137 mEq/L (136-145)
[2016-12-23] MEDS: INSULIN ASPART SLIDING SCALE 100 UNITS/ML UNIT SUBQ SCH ×2 (06:37→22:05)
[2016-12-23] MEDS ORDERED: Potassium Chloride 40 MEQ, Lidocaine 1% 20mL Vial 25 MG in Sodium Chloride 0.9% 250 ML IV ONE (08:59)
--- NOTE | 2016-12-23 09:08 | General Progress Note ---
Subjective - Review of Systems Service Date: 12/23/16 Subjective: Patient is sleeping but arousable, calm, responding to questions. Objective - Results Result Diagrams: 12/23/16 05:47 12/23/16 05:47 Recent Labs: Laboratory Last Values WBC 12.0 Th/cmm (4.8-10.8) H 12/23/16 05:47 RBC 4.24 Mil/cmm (3.80-5.20) 12/23/16 05:47 Hgb 12.1 gm/dL (11.7-16.1) 12/23/16 05:47 Hct 36.2 % (35.0-45.0) 12/23/16 05:47 MCV 85.5 fl (81-100) 12/23/16 05:47 MCH 28.7 pg (27.0-31.0) 12/23/16 05:47 MCHC Differential 33.5 pg (28.0-36.0) 12/23/16 05:47 RDW 12.1 % (11.5-20.0) 12/23/16 05:47 Plt Count 274 Th/cmm (150-400) 12/23/16 05:47 MPV 8.9 fl 12/23/16 05:47 Neutrophils % 65.7 % (40.0-80.0) 12/23/16 05:47 Band Neutrophils % 8 % (0-10) 12/14/16 06:17 Lymphocytes % 22.4 % (20.0-50.0) 12/23/16 05:47 Monocytes % 9.7 % (2.0-10.0) 12/23/16 05:47 Eosinophils % 2.0 % (0.0-5.0) 12/23/16 05:47 Basophils % 0.2 % (0.0-2.0) 12/23/16 05:47 Neutrophils (Manual) 68 % (40-80) 12/14/16 06:17 Lymphocytes 14 % (20-50) L 12/14/16 06:17 Monocytes 7 % (2-10) 12/14/16 06:17 Eosinophils 3 % (0-5) 12/14/16 06:17 Platelet Estimate ADEQUATE (NORMAL) 12/14/16 06:17 Platelet Morphology NORMAL (NORMAL) 12/14/16 06:17 RBC Morph Micro Appear NORMAL (NORMAL) 12/14/16 06:17 Specimen Source Arterial 12/12/16 10:09 Sample Site RB 12/12/16 10:09 pH 7.48 (7.35-7.45) H 12/12/16 10:09 pCO2 43.0 mmHg (35.0-45.0) 12/12/16 10:09 pO2 62.0 mmHg (80.0-100.0) L 12/12/16 10:09 HCO3 30.8 mEq/L (20.0-26.0) H 12/12/16 10:09 Base Excess 7.6 mEq/L (-3.0-3.0) H 12/12/16 10:09 O2 Saturation 93.0 % (92.0-100.0) 12/12/16 10:09 Gurpreet Test NA 12/12/16 10:09 Vent Rate NA 12/12/16 10:09 Inspired O2 21 12/12/16 10:09 Tidal Volume NA 12/12/16 10:09 PEEP NA 12/12/16 10:09 Pressure (ins/psv/peep) NA 12/12/16 10:09 Critical Value SH 12/12/16 10:09 Sodium 137 mEq/L (136-145) 12/23/16 05:47 Potassium 3.2 mEq/L (3.5-5.1) L 12/23/16 05:47 Chloride 104 mEq/L (98-107) 12/23/16 05:47 Carbon Dioxide 27.5 mEq/L (21.0-31.0) 12/23/16 05:47 Anion Gap 8.7 (7.0-16.0) 12/23/16 05:47 BUN 9 mg/dL (7-25) 12/23/16 05:47 Creatinine 0.6 mg/dL (0.6-1.2) 12/23/16 05:47 Est GFR ( Amer) TNP 12/23/16 05:47 Est GFR (Non-Af Amer) [facility] 12/23/16 05:47 BUN/Creatinine Ratio 15.0 12/23/16 05:47 Glucose 115 mg/dL (70-105) H 12/23/16 05:47 POC Glucose 109 MG/DL (70 - 105) H 12/23/16 06:35 Hemoglobin A1c % 5.7 % (4.0-6.0) 12/13/16 05:54 Calcium 9.3 mg/dL (8.6-10.3) 12/23/16 05:47 Magnesium 1.6 mg/dL (1.9-2.7) L 12/17/16 04:45 Total Bilirubin 0.4 mg/dL (0.3-1.0) 12/23/16 05:47 AST 18 U/L (13-39) 12/23/16 05:47 ALT 29 U/L (7-52) 12/23/16 05:47 Alkaline Phosphatase 71 U/L (34-104) 12/23/16 05:47 Ammonia 44 umol/L (16-53) 12/20/16 05:25 Total Protein 6.0 gm/dL (6.0-8.3) 12/23/16 05:47 Albumin 3.1 gm/dL (3.7-5.3) L 12/23/16 05:47 Globulin 2.9 gm/dL 12/23/16 05:47 Albumin/Globulin Ratio 1.1 (1.0-1.8) 12/23/16 05:47 Prealbumin 11 mg/dL (9-32) 12/15/16 11:20 Triglycerides 126 mg/dL (<150) 12/16/16 05:07 Cholesterol 169 mg/dL (<200) 12/16/16 05:07 LDL Cholesterol Direct 133 mg/dL (75-193) 12/16/16 05:07 HDL Cholesterol 34 mg/dL (23-92) 12/16/16 05:07 TSH 1.57 uIU/ml (0.34-5.60) 12/18/16 05:27 Urine Source CLEAN C 12/13/16 12:08 Urine Color YELLOW 12/13/16 12:08 Urine Clarity HAZY (CLEAR) 12/13/16 12:08 Urine pH 8.0 (4.6 - 8.0) 12/13/16 12:08 Ur Specific [place] 1.015 (1.005-1.030) 12/13/16 12:08 Urine Protein 100 mg/dL (NEGATIVE) H 12/13/16 12:08 Urine Glucose (UA) NEGATIVE mg/dL (NEGATIVE) 12/13/16 12:08 Urine Ketones NEGATIVE mg/dL (NEGATIVE) 12/13/16 12:08 Urine Blood MODERATE (NEGATIVE) H 12/13/16 12:08 Urine Nitrate NEGATIVE (NEGATIVE) 12/13/16 12:08 Urine Bilirubin NEGATIVE (NEGATIVE) 12/13/16 12:08 Urine Urobilinogen 0.2 E.U./dL (0.2 - 1.0) 12/13/16 12:08 Ur Leukocyte Esterase LARGE (NEGATIVE) H 12/13/16 12:08 Urine RBC 2-5 /hpf (0-5) 12/13/16 12:08 Urine WBC 25-50 /hpf (0-5) H 12/13/16 12:08 Ur Epithelial Cells OCCASIONAL /lpf (FEW) 12/13/16 12:08 Urine Bacteria 4+ /hpf (NONE SEEN) H 12/13/16 12:08 Urine Yeast MANY /hpf (NONE SEEN) H 12/13/16 12:08 Vancomycin Trough 9.8 ug/mL (10-20) L 12/22/16 13:00 Urine Opiates Screen NEGATIVE (NEGATIVE) 12/13/16 15:46 Urine Methadone Screen NEGATIVE (NEGATIVE) 12/13/16 15:46 Ur Barbiturates Screen NEGATIVE (NEGATIVE) 12/13/16 15:46 Ur Tricyclics Screen POSITIVE (NEGATIVE) H 12/13/16 15:46 Ur Phencyclidine Scrn NEGATIVE (NEGATIVE) 12/13/16 15:46 Amphetamines Screen NEGATIVE (NEGATIVE) 12/13/16 15:46 U Methamphetamines Scrn NEGATIVE (NEGATIVE) 12/13/16 15:46 U Benzodiazepines Scrn POSITIVE (NEGATIVE) H 12/13/16 15:46 U Cocaine Metab Screen NEGATIVE (NEGATIVE) 12/13/16 15:46 U Cannabinoids Screen NEGATIVE (NEGATIVE) 12/13/16 15:46 - Physical Exam Vitals and I&O: Vital Signs Temp 97.1 F 12/23/16 00:00 Pulse 94 12/23/16 00:00 Resp 18 12/23/16 00:00 BP 118/74 12/23/16 00:00 Pulse Ox 95 12/23/16 00:00 Intake & Output 12/22/16 12/23/16 12/23/16 18:59 06:59 18:59 Intake Total 1350 Balance 1350 Weight (lbs) 60.736 kg Intake: Intake, IV Amount 1350 KCL 20mEq/100mL Premix 20 100 meq In 100 ml @ 50 mls/ hr IV Q2H [facility] Rx#: [id number] Sodium Chloride 0.9% 1, 1000 000 ml @ 100 mls/hr IV . Q10H [facility] Rx#:[id number] Vancomycin HCl 1 gm In 250 Sodium Chloride 0.9% 250 ml @ 165 mls/hr IV Q12HR@ 2300 [facility] Rx#:[id number] Other: # Voids 3 # Bowel Movements 0 Stool Characteristics Soft Active Medications: Current Medications Acetaminophen (Tylenol) 650 mg PO Q4HR PRN PRN Reason: Pain or Fever >101 Stop: 02/09/17 17:50 Amlodipine Besylate (Norvasc) 5 mg PO DAILY [facility] Stop: 02/10/17 08:59 Last Admin: 12/22/16 09:01 Dose: 5 mg Aspirin (Ecotrin) 81 mg PO DAILY [facility] Stop: 02/10/17 08:59 Last Admin: 12/22/16 09:01 Dose: 81 mg Bisacodyl (Dulcolax 10 Mg Supp) 10 mg RC DAILY PRN PRN Reason: Constipation Stop: 02/09/17 17:50 Last Admin: 12/15/16 14:30 Dose: 10 mg Carvedilol (Coreg) 6.25 mg PO BID [facility] Stop: 02/11/17 08:59 Last Admin: 12/22/16 17:30 Dose: 6.25 mg Ceftriaxone Sodium 1 gm/ (Sodium Chloride) 50 mls @ 100 mls/hr IV Q24HR [facility] Stop: 12/26/16 16:59 Last Admin: 12/22/16 17:44 Dose: 100 mls/hr Sodium Chloride (Nacl 0.9%) 1,000 mls @ 100 mls/hr IV .Q10H [facility] Stop: 02/16/17 08:01 Last Admin: 12/23/16 00:14 Dose: 100 mls/hr Vancomycin HCl 1 gm/ Sodium (Chloride) 250 mls @ 165 mls/hr IV Q12HR@2300 [facility] Stop: 02/20/17 14:59 Last Admin: 12/23/16 00:03 Dose: 165 mls/hr Potassium Chloride 40 meq/Lidocaine HCl 25 mg/ Sodium Chloride 272.5 mls @ 68 mls/hr IV X1 ONE Stop: 12/23/16 12:59 Insulin Aspart (Novolog Insulin Sliding Scale) 0 units SUBQ ACHS RHIANNA PRN Reason: Protocol Stop: 02/10/17 11:29 Last Admin: 12/23/16 06:37 Dose: Not Given Labetalol HCl (Trandate) 10 mg IVP Q8HR PRN PRN Reason: SBP ABOVE 160 Stop: 02/10/17 17:14 Lactobacillus Rhamnosus (Culturelle) 1 each PO DAILY RHIANNA Stop: 02/19/17 16:59 Last Admin: 12/22/16 09:02 Dose: 1 each Lactulose (Cephulac) 20 gm PO DAILY RHIANNA Stop: 02/15/17 08:59 Last Admin: 12/22/16 08:59 Dose: 20 gm Lorazepam (Ativan) 0.5 mg PO Q6HR PRN; Protocol PRN Reason: Anxiety Stop: 02/16/17 16:24 Last Admin: 12/21/16 21:23 Dose: 0.5 mg Losartan Potassium (Cozaar) 50 mg PO DAILY RHIANNA Stop: 02/11/17 08:59 Last Admin: 12/22/16 09:00 Dose: 50 mg Megestrol Acetate (Megace) 400 mg PO DAILY RHIANNA PRN Reason: Protocol Stop: 02/19/17 11:29 Last Admin: 12/22/16 08:59 Dose: 400 mg Miscellaneous (Vte Chemical Prophylaxis Screen/ Admission) 1 ea [facility] PRN PRN PRN Reason: PROTOCOL Stop: 02/10/17 14:48 Miscellaneous (Probiotic Screen) 1 ea MC PRN PRN PRN Reason: PROTOCOL Stop: 02/19/17 16:06 Miscellaneous (Vancomycin Iv Per Pharmacy) 1 ea MC DAILY RHIANNA Stop: 02/20/17 10:29 Zolpidem Tartrate (Ambien) 5 mg PO HS RHIANNA Stop: 02/20/17 20:59 Last Admin: 12/22/16 21:51 Dose: 5 mg General: Other (Sleeping but arousable, confused), no Alert HEENT: Atraumatic, PERRLA Neck: Supple Cardiovascular: Regular rate Lungs: Clear to auscultation Abdomen: Bowel sounds Extremities: Other (No edema) Neurological: Other (Unstable gait) Psych/Mental Status: Other (Patient is confused, not oriented. Patient is eating 20%, refusing to take meds.) Assessment/Plan - Assessment Assessment: Patient is awake, calm in no acute distress. more awake, confused, not oriented. WBC improving today. Cellulites. Patient is improving. BP better control. CXR normal. Dx: Hepatic encephalopathy, Increased in confusion, Elevated WBC, UTI, HTN, CHF, Dyslipemia, Dementia, Psychosis. - Plan Plan: Patient in [facility]. Seroquel is added to treatment, Haldol is PRN. Will continue to monitor. Nutritional Asmnt/Malnutr-PDOC - Dietary Evaluation Malnutrition Findings (Please click <Entered> for more info): Nutritional Asmnt/Malnutrition Start: 12/16/16 14: 57 Text: Status: Complete Freq: Document 12/16/16 14:57 GSUN (Rec: 12/16/16 15:32 GSUN [email or web address]) Nutritional Asmnt/Malnutrition Patient General Information Nutritional Screening Consult Diagnosis UTI, leukocytosis Pertinent Medical Hx/Surgical Hx HTN, hyperlipidemia, CVA, dementia, anxiety, depression, psychosis, schizophrenia, hx of frequent UTI, DM Subjective Information 76 year old female, transfered from [facility]. RD consult for poor PO intake, weight loss. Per FNS and nursing staff report, pt has been lethargic with poor PO intake. Pt is confused and lethargic, unable to interview, spoke to daughter at bedside. Daughter stated pt is usually energetic, fair to good appetite, eats everything, however recently pt became lethargic and PO intake declining. Avg PO intake <25% of meals since adm , not meeting nutritional needs. Per RN notes, pt UBW 150lb, CBW 137.6lb via bedscale, possible weight loss . Observed few half emptied juice at bedside, daughter stated pt tolerates/likes milk as well. Recommended oral supplements, daughter agreed. Daughter also requested chopped diet as pt appear to be putting a lot of effort in chewing. Pt appeared thin, unable to complete physical assessment. Current Diet Order/ Nutrition Support Regular, no red meat Pertinent Medications Haldol, Novolog, Cephulac Pertinent Labs 12/13: A1c 5.7 12/15: ammonia 107H 12/16: potassium 3.3L, BUN 45H, glucose 158H POC glucose 67-201 since adm Nutritional Hx/Data Height 1.73 m Height (Calculated Centimeters) 172.7 Current Weight (lbs) 62.414 kg Weight (Calculated Kilograms) 62.4 Weight (Calculated Grams) 99523.3 Usual body Weight (lbs) 150 Fisher Body Weight 140 Recent Weight Change Yes Weight Status Approriate GI Symptoms Food Allergies No Cultural/Ethnic/Jew Belief No red meat. Skin Integrity/Comment: Dewayne 14. Skin intact. Current %PO Negligible < 25% Estimated Nutritional Goals Calories/Kcals/Kg UBW 150lb/68.2kg Kcals Calculated 1705-2046kcal (25-30kcal/kg) Protein Calculated 68g (1g/kg) Fluid: ml 1705-2046ml (1ml/kcal) Nutritional Problem 2. Problem Problem Involuntary weight loss related to Etiology unknown, possibly poor PO intake aeb Signs/Symptoms: family report UBW 150lb and CBW 137.6lb 1. Problem Problem Inadequate oral food beverage intake related to Etiology unknown, posisble lethargy aeb Signs/Symptoms: avg PO intake <25% of meals since adm, pt has been lethargic Intervention/Recommendation Comments 1. Recommend [id number] to promote glycemic control. Recommend mech soft chopped per family's request. 2. Recommend Boost Glucose Control TID. 3. Monitor weight closely. Daughter report UBW 150lb, CBW 137.6lb via bedscale today. Poor PO intake >5 days. Expected Outcomes/Goals Expected Outcomes/Goals 1. PO intake to resume and meet at least 75% of estimated nutritional needs.
[2016-12-23] MEDS: Lactobacillus Rhamnosus 10 Billion CFU Capsule PO SCH (11:06)
[2016-12-23] MEDS: Lactulose 10 Gm/15 mL 30mL UDC PO SCH (11:14)
--- NOTE | 2016-12-23 16:24 | Infectious Disease Prog Note ---
Infectious Disease Subjective - Review of Systems Service Date: 12/23/16 Subjective: patient took ambien last night and remains sleepy whole day. Infectious Disease Objective - Results Result Diagrams: 12/23/16 05:47 12/23/16 05:47 Recent Labs: Laboratory Last Values WBC 12.0 Th/cmm (4.8-10.8) H 12/23/16 05:47 RBC 4.24 Mil/cmm (3.80-5.20) 12/23/16 05:47 Hgb 12.1 gm/dL (11.7-16.1) 12/23/16 05:47 Hct 36.2 % (35.0-45.0) 12/23/16 05:47 MCV 85.5 fl (81-100) 12/23/16 05:47 MCH 28.7 pg (27.0-31.0) 12/23/16 05:47 MCHC Differential 33.5 pg (28.0-36.0) 12/23/16 05:47 RDW 12.1 % (11.5-20.0) 12/23/16 05:47 Plt Count 274 Th/cmm (150-400) 12/23/16 05:47 MPV 8.9 fl 12/23/16 05:47 Neutrophils % 65.7 % (40.0-80.0) 12/23/16 05:47 Band Neutrophils % 8 % (0-10) 12/14/16 06:17 Lymphocytes % 22.4 % (20.0-50.0) 12/23/16 05:47 Monocytes % 9.7 % (2.0-10.0) 12/23/16 05:47 Eosinophils % 2.0 % (0.0-5.0) 12/23/16 05:47 Basophils % 0.2 % (0.0-2.0) 12/23/16 05:47 Neutrophils (Manual) 68 % (40-80) 12/14/16 06:17 Lymphocytes 14 % (20-50) L 12/14/16 06:17 Monocytes 7 % (2-10) 12/14/16 06:17 Eosinophils 3 % (0-5) 12/14/16 06:17 Platelet Estimate ADEQUATE (NORMAL) 12/14/16 06:17 Platelet Morphology NORMAL (NORMAL) 12/14/16 06:17 RBC Morph Micro Appear NORMAL (NORMAL) 12/14/16 06:17 Specimen Source Arterial 12/12/16 10:09 Sample Site RB 12/12/16 10:09 pH 7.48 (7.35-7.45) H 12/12/16 10:09 pCO2 43.0 mmHg (35.0-45.0) 12/12/16 10:09 pO2 62.0 mmHg (80.0-100.0) L 12/12/16 10:09 HCO3 30.8 mEq/L (20.0-26.0) H 12/12/16 10:09 Base Excess 7.6 mEq/L (-3.0-3.0) H 12/12/16 10:09 O2 Saturation 93.0 % (92.0-100.0) 12/12/16 10:09 Gurpreet Test NA 12/12/16 10:09 Vent Rate NA 12/12/16 10:09 Inspired O2 21 12/12/16 10:09 Tidal Volume NA 12/12/16 10:09 PEEP NA 12/12/16 10:09 Pressure (ins/psv/peep) NA 12/12/16 10:09 Critical Value SH 12/12/16 10:09 Sodium 137 mEq/L (136-145) 12/23/16 05:47 Potassium 3.2 mEq/L (3.5-5.1) L 12/23/16 05:47 Chloride 104 mEq/L (98-107) 12/23/16 05:47 Carbon Dioxide 27.5 mEq/L (21.0-31.0) 12/23/16 05:47 Anion Gap 8.7 (7.0-16.0) 12/23/16 05:47 BUN 9 mg/dL (7-25) 12/23/16 05:47 Creatinine 0.6 mg/dL (0.6-1.2) 12/23/16 05:47 Est GFR ( Amer) TNP 12/23/16 05:47 Est GFR (Non-Af Amer) TNP 12/23/16 05:47 BUN/Creatinine Ratio 15.0 12/23/16 05:47 Glucose 115 mg/dL (70-105) H 12/23/16 05:47 POC Glucose 109 MG/DL (70 - 105) H 12/23/16 06:35 Hemoglobin A1c % 5.7 % (4.0-6.0) 12/13/16 05:54 Calcium 9.3 mg/dL (8.6-10.3) 12/23/16 05:47 Magnesium 1.6 mg/dL (1.9-2.7) L 12/17/16 04:45 Total Bilirubin 0.4 mg/dL (0.3-1.0) 12/23/16 05:47 AST 18 U/L (13-39) 12/23/16 05:47 ALT 29 U/L (7-52) 12/23/16 05:47 Alkaline Phosphatase 71 U/L (34-104) 12/23/16 05:47 Ammonia 44 umol/L (16-53) 12/20/16 05:25 Total Protein 6.0 gm/dL (6.0-8.3) 12/23/16 05:47 Albumin 3.1 gm/dL (3.7-5.3) L 12/23/16 05:47 Globulin 2.9 gm/dL 12/23/16 05:47 Albumin/Globulin Ratio 1.1 (1.0-1.8) 12/23/16 05:47 Prealbumin 11 mg/dL (9-32) 12/15/16 11:20 Triglycerides 126 mg/dL (<150) 12/16/16 05:07 Cholesterol 169 mg/dL (<200) 12/16/16 05:07 LDL Cholesterol Direct 133 mg/dL (75-193) 12/16/16 05:07 HDL Cholesterol 34 mg/dL (23-92) 12/16/16 05:07 TSH 1.57 uIU/ml (0.34-5.60) 12/18/16 05:27 Urine Source CLEAN C 12/13/16 12:08 Urine Color YELLOW 12/13/16 12:08 Urine Clarity HAZY (CLEAR) 12/13/16 12:08 Urine pH 8.0 (4.6 - 8.0) 12/13/16 12:08 Ur Specific [place] 1.015 (1.005-1.030) 12/13/16 12:08 Urine Protein 100 mg/dL (NEGATIVE) H 12/13/16 12:08 Urine Glucose (UA) NEGATIVE mg/dL (NEGATIVE) 12/13/16 12:08 Urine Ketones NEGATIVE mg/dL (NEGATIVE) 12/13/16 12:08 Urine Blood MODERATE (NEGATIVE) H 12/13/16 12:08 Urine Nitrate NEGATIVE (NEGATIVE) 12/13/16 12:08 Urine Bilirubin NEGATIVE (NEGATIVE) 12/13/16 12:08 Urine Urobilinogen 0.2 E.U./dL (0.2 - 1.0) 12/13/16 12:08 Ur Leukocyte Esterase LARGE (NEGATIVE) H 12/13/16 12:08 Urine RBC 2-5 /hpf (0-5) 12/13/16 12:08 Urine WBC 25-50 /hpf (0-5) H 12/13/16 12:08 Ur Epithelial Cells OCCASIONAL /lpf (FEW) 12/13/16 12:08 Urine Bacteria 4+ /hpf (NONE SEEN) H 12/13/16 12:08 Urine Yeast MANY /hpf (NONE SEEN) H 12/13/16 12:08 Vancomycin Trough 9.8 ug/mL (10-20) L 12/22/16 13:00 Urine Opiates Screen NEGATIVE (NEGATIVE) 12/13/16 15:46 Urine Methadone Screen NEGATIVE (NEGATIVE) 12/13/16 15:46 Ur Barbiturates Screen NEGATIVE (NEGATIVE) 12/13/16 15:46 Ur Tricyclics Screen POSITIVE (NEGATIVE) H 12/13/16 15:46 Ur Phencyclidine Scrn NEGATIVE (NEGATIVE) 12/13/16 15:46 Amphetamines Screen NEGATIVE (NEGATIVE) 12/13/16 15:46 U Methamphetamines Scrn NEGATIVE (NEGATIVE) 12/13/16 15:46 U Benzodiazepines Scrn POSITIVE (NEGATIVE) H 12/13/16 15:46 U Cocaine Metab Screen NEGATIVE (NEGATIVE) 12/13/16 15:46 U Cannabinoids Screen NEGATIVE (NEGATIVE) 12/13/16 15:46 - Physical Exam Vitals and I&O: Vital Signs Temp 97.1 F 12/23/16 00:00 Pulse 70 12/23/16 12:33 Resp 18 12/23/16 00:00 BP 125/77 12/23/16 12:33 Pulse Ox 95 12/23/16 00:00 Intake & Output 12/22/16 12/23/16 12/23/16 18:59 06:59 18:59 Intake Total 1350 250 Balance 1350 250 Weight (lbs) 60.736 kg Intake: Intake, IV Amount 1350 250 KCL 20mEq/100mL Premix 20 100 meq In 100 ml @ 50 mls/ hr IV Q2H [facility] Rx#: [id number] Sodium Chloride 0.9% 1, 1000 000 ml @ 100 mls/hr IV . Q10H [facility] Rx#:[id number] Vancomycin HCl 1 gm In 250 250 Sodium Chloride 0.9% 250 ml @ 165 mls/hr IV Q12HR@ 2300 [facility] Rx#:[id number] Other: # Voids 3 # Bowel Movements 0 Stool Characteristics Soft Active Medications: Current Medications Acetaminophen (Tylenol) 650 mg PO Q4HR PRN PRN Reason: Pain or Fever >101 Stop: 02/09/17 17:50 Amlodipine Besylate (Norvasc) 5 mg PO DAILY [facility] Stop: 02/10/17 08:59 Last Admin: 12/23/16 12:33 Dose: 5 mg Aspirin (Ecotrin) 81 mg PO DAILY [facility] Stop: 02/10/17 08:59 Last Admin: 12/23/16 11:07 Dose: 81 mg Bisacodyl (Dulcolax 10 Mg Supp) 10 mg RC DAILY PRN PRN Reason: Constipation Stop: 02/09/17 17:50 Last Admin: 12/15/16 14:30 Dose: 10 mg Carvedilol (Coreg) 6.25 mg PO BID [facility] Stop: 02/11/17 08:59 Last Admin: 12/23/16 11:13 Dose: 6.25 mg Ceftriaxone Sodium 1 gm/ (Sodium Chloride) 50 mls @ 100 mls/hr IV Q24HR [facility] Stop: 12/26/16 16:59 Last Admin: 12/22/16 17:44 Dose: 100 mls/hr Sodium Chloride (Nacl 0.9%) 1,000 mls @ 100 mls/hr IV .Q10H [facility] Stop: 02/16/17 08:01 Last Admin: 12/23/16 00:14 Dose: 100 mls/hr Vancomycin HCl 1 gm/ Sodium (Chloride) 250 mls @ 165 mls/hr IV Q12HR@2300 [facility] Stop: 02/20/17 14:59 Last Infusion: 12/23/16 14:29 Dose: Infused Insulin Aspart (Novolog Insulin Sliding Scale) 0 units SUBQ ACHS [facility] PRN Reason: Protocol Stop: 02/10/17 11:29 Last Admin: 12/23/16 06:37 Dose: Not Given Labetalol HCl (Trandate) 10 mg IVP Q8HR PRN PRN Reason: SBP ABOVE 160 Stop: 02/10/17 17:14 Lactobacillus Rhamnosus (Culturelle) 1 each PO DAILY [facility] Stop: 02/19/17 16:59 Last Admin: 12/23/16 11:06 Dose: 1 each Lactulose (Cephulac) 20 gm PO DAILY [facility] Stop: 02/15/17 08:59 Last Admin: 12/23/16 11:14 Dose: 20 gm Losartan Potassium (Cozaar) 50 mg PO DAILY [facility] Stop: 02/11/17 08:59 Last Admin: 12/23/16 11:07 Dose: 50 mg Megestrol Acetate (Megace) 400 mg PO DAILY [facility] PRN Reason: Protocol Stop: 02/19/17 11:29 Last Admin: 12/23/16 11:05 Dose: 400 mg Miscellaneous (Vte Chemical Prophylaxis Screen/ Admission) 1 ea PRN PRN PRN Reason: PROTOCOL Stop: 02/10/17 14:48 Miscellaneous (Probiotic Screen) 1 ea PRN PRN PRN Reason: PROTOCOL Stop: 02/19/17 16:06 Miscellaneous (Vancomycin Iv Per Pharmacy) 1 ea MC DAILY [facility] Stop: 02/20/17 10:29 Potassium Chloride (Potassium Chloride Elixir) 20 meq GT DAILY [facility] Stop: 02/22/17 08:59 Quetiapine Fumarate (Seroquel) 50 mg PO DAILY [facility] PRN Reason: Protocol Stop: 02/21/17 09:14 Last Admin: 12/23/16 11:07 Dose: 50 mg Zolpidem Tartrate (Ambien) 5 mg PO HS [facility] Stop: 02/20/17 20:59 Last Admin: 12/22/16 21:51 Dose: 5 mg General: no acute distress HEENT: atraumatic, normocephalic, PERRLA, EOMI, moist mucous membrane, dry Neck: supple, no thyromegaly Cardiovascular: S1S2, regular Lungs: clear to auscultation bilaterally, clear to percussion Abdomen: soft, bowel sounds, no tender, no distended Extremities: other (Red ness of the skin overlying left knee has improved.), no cyanosis, no clubbing, no edema Neurological: other Skin: intact Infectious Disease Assmt/Plan - Assessment Assessment: 1. UTI. treated for > 7 days. 2. leukocytosis. impropving. 3. Dementia. 4. Cellulitis of the left knee has improved. There is no joint swelling. - Plan Plan: dc rocephin IV. Continue vanco iv for few more days. Nutritional Asmnt/Malnutr-PDOC - Dietary Evaluation Malnutrition Findings (Please click <Entered> for more info): Nutritional Asmnt/Malnutrition Start: 12/16/16 14: 57 Text: Status: Complete Freq: Document 12/16/16 14:57 GSUN (Rec: 12/16/16 15:32 GSUN [id number]) Nutritional Asmnt/Malnutrition Patient General Information Nutritional Screening Consult Diagnosis UTI, leukocytosis Pertinent Medical Hx/Surgical Hx HTN, hyperlipidemia, CVA, dementia, anxiety, depression, psychosis, schizophrenia, hx of frequent UTI, DM Subjective Information 76 year old female, transfered from [facility]. RD consult for poor PO intake, weight loss. Per FNS and nursing staff report, pt has been lethargic with poor PO intake. Pt is confused and lethargic, unable to interview, spoke to daughter at bedside. Daughter stated pt is usually energetic, fair to good appetite, eats everything, however recently pt became lethargic and PO intake declining. Avg PO intake <25% of meals since adm , not meeting nutritional needs. Per RN notes, pt UBW 150lb, CBW 137.6lb via bedscale, possible weight loss . Observed few half emptied juice at bedside, daughter stated pt tolerates/likes milk as well. Recommended oral supplements, daughter agreed. Daughter also requested chopped diet as pt appear to be putting a lot of effort in chewing. Pt appeared thin, unable to complete physical assessment. Current Diet Order/ Nutrition Support Regular, no red meat Pertinent Medications Haldol, Novolog, Cephulac Pertinent Labs 12/13: A1c 5.7 12/15: ammonia 107H 12/16: potassium 3.3L, BUN 45H, glucose 158H POC glucose 67-201 since adm Nutritional Hx/Data Height 1.73 m Height (Calculated Centimeters) 172.7 Current Weight (lbs) 62.414 kg Weight (Calculated Kilograms) 62.4 Weight (Calculated Grams) 82275.3 Usual body Weight (lbs) 150 [place] Body Weight 140 Recent Weight Change Yes Weight Status Approriate GI Symptoms Food Allergies No Cultural/Ethnic/Taoist Belief No red meat. Skin Integrity/Comment: Dewayne 14. Skin intact. Current %PO Negligible < 25% Estimated Nutritional Goals Calories/Kcals/Kg UBW 150lb/68.2kg Kcals Calculated 1705-2046kcal (25-30kcal/kg) Protein Calculated 68g (1g/kg) Fluid: ml 1705-2046ml (1ml/kcal) Nutritional Problem 2. Problem Problem Involuntary weight loss related to Etiology unknown, possibly poor PO intake aeb Signs/Symptoms: family report UBW 150lb and CBW 137.6lb 1. Problem Problem Inadequate oral food beverage intake related to Etiology unknown, posisble lethargy aeb Signs/Symptoms: avg PO intake <25% of meals since adm, pt has been lethargic Intervention/Recommendation Comments 1. Recommend [id number] to promote glycemic control. Recommend mech soft chopped per family's request. 2. Recommend Boost Glucose Control TID. 3. Monitor weight closely. Daughter report UBW 150lb, CBW 137.6lb via bedscale today. Poor PO intake >5 days. Expected Outcomes/Goals Expected Outcomes/Goals 1. PO intake to resume and meet at least 75% of estimated nutritional needs.
[2016-12-24 06:20] LABS: % BASOPHILS 0.5 % (0.0-2.0); % EOSINOPHILS 1.8 % (0.0-5.0); % LYMPHOCYTES 25.6 % (20.0-50.0); % MONOCYTES 9.4 % (2.0-10.0); % NEUTROPHILS 62.7 % (40.0-80.0); HEMATOCRIT 36.2 % (35.0-45.0); HEMOGLOBIN 12.1 gm/dL (11.7-16.1); MEAN CORPUSCULAR HEMOGLOBIN 28.5 pg (27.0-31.0); MEAN CORPUSCULAR HGB CONC 33.5 pg (28.0-36.0); MEAN PLATELET VOLUME 8.8 fl; NEUTROPHILE ABSOLUTE 6.9 Th/cmm (1.8-8.0); PLATELET COUNT 320 Th/cmm (150-400); RED BLOOD COUNT 4.26 Mil/cmm (3.80-5.20); RED CELL DISTRIBUTION WIDTH 12.3 % (11.5-20.0); WHITE BLOOD COUNT 11.2 Th/cmm (4.8-10.8)
[2016-12-24 07:05] LABS: ALKALINE PHOSPHATASE 70 U/L (34-104); ANION GAP 9.8 (7.0-16.0); BILIRUBIN,TOTAL 0.5 mg/dL (0.3-1.0); BUN - UREA NITROGEN 11 mg/dL (7-25); BUN/CREATININE RATIO 15.7; CALCIUM SERUM 9.5 mg/dL (8.6-10.3); CARBON DIOXIDE 22.8 mEq/L (21.0-31.0); CHLORIDE 109 mEq/L (98-107); CREATININE - SERUM 0.7 mg/dL (0.6-1.2); GLUCOSE 100 mg/dL (70-105); POTASSIUM SERUM 3.6 mEq/L (3.5-5.1); SGOT 16 U/L (13-39); SGPT/ALT 26 U/L (7-52); SODIUM SERUM 138 mEq/L (136-145)
[2016-12-24] MEDS ORDERED: Potassium Chloride Elixir 20 mEq /15 mL UDC GT SCH (09:00)
[2016-12-24] MEDS: Sodium Chloride 0.9% 1,000 ML IV SCH (09:39)
[2016-12-24] MEDS: Lactulose 10 Gm/15 mL 30mL UDC PO SCH (10:08)
[2016-12-24] MEDS: Lactobacillus Rhamnosus 10 Billion CFU Capsule PO SCH (10:10)
[2016-12-24] MEDS: INSULIN ASPART SLIDING SCALE 100 UNITS/ML UNIT SUBQ SCH ×2 (12:09→16:20)
--- NOTE | 2016-12-24 13:05 | Discharge Summary ---
General Discharge Summary - Discharge Summary Date of Admission: 12/11/16 Admitting Diagnosis: Increased in confusion, Discharge Date: 12/24/16 Discharge Diagnosis: Hepatic encelaphaty, Elevated WBC, UTI, HTN, CHF, Dementia , Psychosis Laboratory Findings: Laboratory Tests 12/12/16 12/12/16 12/12/16 05:07 05:07 05:07 WBC 8.1 RBC 4.81 Hgb 13.8 Hct 41.6 MCV 86.5 MCH 28.6 MCHC Differential 33.1 RDW 12.4 Plt Count 243 D MPV 8.7 Neutrophils % 72.9 Band Neutrophils % Lymphocytes % 12.4 L Monocytes % 12.2 H Eosinophils % 2.0 Basophils % 0.5 Neutrophils (Manual) Lymphocytes Monocytes Eosinophils Platelet Estimate Platelet Morphology RBC Morph Micro Appear Specimen Source Sample Site pH pCO2 pO2 HCO3 Base Excess O2 Saturation Gurpreet Test Vent Rate Inspired O2 Tidal Volume PEEP Pressure (ins/psv/peep) Critical Value Sodium 139 Potassium 3.4 L Chloride 106 Carbon Dioxide 27.4 Anion Gap 9.0 BUN 48 H Creatinine 0.9 Est GFR ( Amer) TNP Est GFR (Non-Af Amer) TNP BUN/Creatinine Ratio 53.3 Glucose 129 H POC Glucose Hemoglobin A1c % Calcium 10.1 Magnesium Total Bilirubin 0.6 AST 15 ALT 15 Alkaline Phosphatase 71 Ammonia Total Protein 7.0 Albumin 3.6 L Globulin 3.4 Albumin/Globulin Ratio 1.1 Prealbumin Triglycerides Cholesterol LDL Cholesterol Direct HDL Cholesterol TSH 1.85 Urine Source Urine Color Urine Clarity Urine pH Ur Specific [place] Urine Protein Urine Glucose (UA) Urine Ketones Urine Blood Urine Nitrate Urine Bilirubin Urine Urobilinogen Ur Leukocyte Esterase Urine RBC Urine WBC Ur Epithelial Cells Urine Bacteria Urine Yeast Vancomycin Trough Urine Opiates Screen Urine Methadone Screen Ur Barbiturates Screen Ur Tricyclics Screen Ur Phencyclidine Scrn Amphetamines Screen U Methamphetamines Scrn U Benzodiazepines Scrn U Cocaine Metab Screen U Cannabinoids Screen 12/12/16 12/12/16 12/12/16 10:09 12:15 16:37 WBC RBC Hgb Hct MCV MCH MCHC Differential RDW Plt Count MPV Neutrophils % Band Neutrophils % Lymphocytes % Monocytes % Eosinophils % Basophils % Neutrophils (Manual) Lymphocytes Monocytes Eosinophils Platelet Estimate Platelet Morphology RBC Morph Micro Appear Specimen Source Arterial Sample Site RB pH 7.48 H pCO2 43.0 pO2 62.0 L HCO3 30.8 H Base Excess 7.6 H O2 Saturation 93.0 Gurpreet Test NA Vent Rate NA Inspired O2 21 Tidal Volume NA PEEP NA Pressure (ins/psv/peep) NA Critical Value SH Sodium Potassium Chloride Carbon Dioxide Anion Gap BUN Creatinine Est GFR ( Amer) Est GFR (Non-Af Amer) BUN/Creatinine Ratio Glucose POC Glucose 155 H 160 H Hemoglobin A1c % Calcium Magnesium Total Bilirubin AST ALT Alkaline Phosphatase Ammonia Total Protein Albumin Globulin Albumin/Globulin Ratio Prealbumin Triglycerides Cholesterol LDL Cholesterol Direct HDL Cholesterol TSH Urine Source Urine Color Urine Clarity Urine pH Ur Specific [place] Urine Protein Urine Glucose (UA) Urine Ketones Urine Blood Urine Nitrate Urine Bilirubin Urine Urobilinogen Ur Leukocyte Esterase Urine RBC Urine WBC Ur Epithelial Cells Urine Bacteria Urine Yeast Vancomycin Trough Urine Opiates Screen Urine Methadone Screen Ur Barbiturates Screen Ur Tricyclics Screen Ur Phencyclidine Scrn Amphetamines Screen U Methamphetamines Scrn U Benzodiazepines Scrn U Cocaine Metab Screen U Cannabinoids Screen 12/12/16 12/13/16 12/13/16 20:53 05:54 05:54 WBC 6.6 RBC 4.83 Hgb 14.0 Hct 41.7 MCV 86.3 MCH 29.0 MCHC Differential 33.6 RDW 12.3 Plt Count 240 MPV 8.8 Neutrophils % Band Neutrophils % 0 Lymphocytes % Monocytes % Eosinophils % Basophils % Neutrophils (Manual) 65 Lymphocytes 20 Monocytes 15 H Eosinophils Platelet Estimate Platelet Morphology RBC Morph Micro Appear Specimen Source Sample Site pH pCO2 pO2 HCO3 Base Excess O2 Saturation Gurpreet Test Vent Rate Inspired O2 Tidal Volume PEEP Pressure (ins/psv/peep) Critical Value Sodium 141 Potassium 3.0 L Chloride 107 Carbon Dioxide 26.6 Anion Gap 10.4 BUN 35 H Creatinine 0.8 Est GFR ( Amer) TNP Est GFR (Non-Af Amer) TNP BUN/Creatinine Ratio 43.8 Glucose 137 H POC Glucose 171 H Hemoglobin A1c % Calcium 9.9 Magnesium Total Bilirubin 0.5 AST 18 ALT 21 Alkaline Phosphatase 72 Ammonia Total Protein 7.1 Albumin 3.7 Globulin 3.4 Albumin/Globulin Ratio 1.1 Prealbumin Triglycerides Cholesterol LDL Cholesterol Direct HDL Cholesterol TSH Urine Source Urine Color Urine Clarity Urine pH Ur Specific [place] Urine Protein Urine Glucose (UA) Urine Ketones Urine Blood Urine Nitrate Urine Bilirubin Urine Urobilinogen Ur Leukocyte Esterase Urine RBC Urine WBC Ur Epithelial Cells Urine Bacteria Urine Yeast Vancomycin Trough Urine Opiates Screen Urine Methadone Screen Ur Barbiturates Screen Ur Tricyclics Screen Ur Phencyclidine Scrn Amphetamines Screen U Methamphetamines Scrn U Benzodiazepines Scrn U Cocaine Metab Screen U Cannabinoids Screen 12/13/16 12/13/16 12/13/16 05:54 06:29 12:05 WBC RBC Hgb Hct MCV MCH MCHC Differential RDW Plt Count MPV Neutrophils % Band Neutrophils % Lymphocytes % Monocytes % Eosinophils % Basophils % Neutrophils (Manual) Lymphocytes Monocytes Eosinophils Platelet Estimate Platelet Morphology RBC Morph Micro Appear Specimen Source Sample Site pH pCO2 pO2 HCO3 Base Excess O2 Saturation Gurpreet Test Vent Rate Inspired O2 Tidal Volume PEEP Pressure (ins/psv/peep) Critical Value Sodium Potassium Chloride Carbon Dioxide Anion Gap BUN Creatinine Est GFR ( Amer) Est GFR (Non-Af Amer) BUN/Creatinine Ratio Glucose POC Glucose 132 H 148 H Hemoglobin A1c % 5.7 Calcium Magnesium Total Bilirubin AST ALT Alkaline Phosphatase Ammonia Total Protein Albumin Globulin Albumin/Globulin Ratio Prealbumin Triglycerides Cholesterol LDL Cholesterol Direct HDL Cholesterol TSH Urine Source Urine Color Urine Clarity Urine pH Ur Specific [place] Urine Protein Urine Glucose (UA) Urine Ketones Urine Blood Urine Nitrate Urine Bilirubin Urine Urobilinogen Ur Leukocyte Esterase Urine RBC Urine WBC Ur Epithelial Cells Urine Bacteria Urine Yeast Vancomycin Trough Urine Opiates Screen Urine Methadone Screen Ur Barbiturates Screen Ur Tricyclics Screen Ur Phencyclidine Scrn Amphetamines Screen U Methamphetamines Scrn U Benzodiazepines Scrn U Cocaine Metab Screen U Cannabinoids Screen 12/13/16 12/13/16 12/13/16 12:08 15:46 21:19 WBC RBC Hgb Hct MCV MCH MCHC Differential RDW Plt Count MPV Neutrophils % Band Neutrophils % Lymphocytes % Monocytes % Eosinophils % Basophils % Neutrophils (Manual) Lymphocytes Monocytes Eosinophils Platelet Estimate Platelet Morphology RBC Morph Micro Appear Specimen Source Sample Site pH pCO2 pO2 HCO3 Base Excess O2 Saturation Gurpreet Test Vent Rate Inspired O2 Tidal Volume PEEP Pressure (ins/psv/peep) Critical Value Sodium Potassium Chloride Carbon Dioxide Anion Gap BUN Creatinine Est GFR ( Amer) Est GFR (Non-Af Amer) BUN/Creatinine Ratio Glucose POC Glucose 108 H Hemoglobin A1c % Calcium Magnesium Total Bilirubin AST ALT Alkaline Phosphatase Ammonia Total Protein Albumin Globulin Albumin/Globulin Ratio Prealbumin Triglycerides Cholesterol LDL Cholesterol Direct HDL Cholesterol TSH Urine Source CLEAN C Urine Color YELLOW Urine Clarity HAZY Urine pH 8.0 Ur Specific [place] 1.015 Urine Protein 100 H Urine Glucose (UA) NEGATIVE Urine Ketones NEGATIVE Urine Blood MODERATE H Urine Nitrate NEGATIVE Urine Bilirubin NEGATIVE Urine Urobilinogen 0.2 Ur Leukocyte Esterase LARGE H Urine RBC 2-5 Urine WBC 25-50 H Ur Epithelial Cells OCCASIONAL Urine Bacteria 4+ H Urine Yeast MANY H Vancomycin Trough Urine Opiates Screen NEGATIVE Urine Methadone Screen NEGATIVE Ur Barbiturates Screen NEGATIVE Ur Tricyclics Screen POSITIVE H Ur Phencyclidine Scrn NEGATIVE Amphetamines Screen NEGATIVE U Methamphetamines Scrn NEGATIVE U Benzodiazepines Scrn POSITIVE H U Cocaine Metab Screen NEGATIVE U Cannabinoids Screen NEGATIVE 12/14/16 12/14/16 12/14/16 06:17 06:17 12:13 WBC 12.0 H D RBC 5.20 Hgb 14.9 Hct 44.7 MCV 85.9 MCH 28.6 MCHC Differential 33.3 RDW 12.3 Plt Count 272 MPV 8.5 Neutrophils % [employer] Band Neutrophils % 8 Lymphocytes % [employer] Monocytes % [employer] Eosinophils % [employer] Basophils % [employer] Neutrophils (Manual) 68 Lymphocytes 14 L Monocytes 7 Eosinophils 3 Platelet Estimate ADEQUATE Platelet Morphology NORMAL RBC Morph Micro Appear NORMAL Specimen Source Sample Site pH pCO2 pO2 HCO3 Base Excess O2 Saturation Gurpreet Test Vent Rate Inspired O2 Tidal Volume PEEP Pressure (ins/psv/peep) Critical Value Sodium 140 Potassium 3.1 L Chloride 106 Carbon Dioxide 26.4 Anion Gap 10.7 BUN 35 H Creatinine 0.8 Est GFR ( Amer) TNP Est GFR (Non-Af Amer) TNP BUN/Creatinine Ratio 43.8 Glucose 140 H POC Glucose 160 H Hemoglobin A1c % Calcium 9.9 Magnesium Total Bilirubin 0.6 AST 28 ALT 34 Alkaline Phosphatase 75 Ammonia Total Protein 7.1 Albumin 3.6 L Globulin 3.5 Albumin/Globulin Ratio 1.0 Prealbumin Triglycerides Cholesterol LDL Cholesterol Direct HDL Cholesterol TSH Urine Source Urine Color Urine Clarity Urine pH Ur Specific [place] Urine Protein Urine Glucose (UA) Urine Ketones Urine Blood Urine Nitrate Urine Bilirubin Urine Urobilinogen Ur Leukocyte Esterase Urine RBC Urine WBC Ur Epithelial Cells Urine Bacteria Urine Yeast Vancomycin Trough Urine Opiates Screen Urine Methadone Screen Ur Barbiturates Screen Ur Tricyclics Screen Ur Phencyclidine Scrn Amphetamines Screen U Methamphetamines Scrn U Benzodiazepines Scrn U Cocaine Metab Screen U Cannabinoids Screen 12/14/16 12/14/16 12/15/16 17:23 21:59 05:15 WBC 11.3 H RBC 4.69 Hgb 13.4 Hct 40.5 MCV 86.4 MCH 28.6 MCHC Differential 33.1 RDW 12.3 Plt Count 280 MPV 8.5 Neutrophils % 66.8 Band Neutrophils % Lymphocytes % 18.1 L Monocytes % 13.0 H Eosinophils % 1.5 Basophils % 0.6 Neutrophils (Manual) Lymphocytes Monocytes Eosinophils Platelet Estimate Platelet Morphology RBC Morph Micro Appear Specimen Source Sample Site pH pCO2 pO2 HCO3 Base Excess O2 Saturation Gurpreet Test Vent Rate Inspired O2 Tidal Volume PEEP Pressure (ins/psv/peep) Critical Value Sodium Potassium Chloride Carbon Dioxide Anion Gap BUN Creatinine Est GFR ( Amer) Est GFR (Non-Af Amer) BUN/Creatinine Ratio Glucose POC Glucose 169 H 154 H Hemoglobin A1c % Calcium Magnesium Total Bilirubin AST ALT Alkaline Phosphatase Ammonia Total Protein Albumin Globulin Albumin/Globulin Ratio Prealbumin Triglycerides Cholesterol LDL Cholesterol Direct HDL Cholesterol TSH Urine Source Urine Color Urine Clarity Urine pH Ur Specific [place] Urine Protein Urine Glucose (UA) Urine Ketones Urine Blood Urine Nitrate Urine Bilirubin Urine Urobilinogen Ur Leukocyte Esterase Urine RBC Urine WBC Ur Epithelial Cells Urine Bacteria Urine Yeast Vancomycin Trough Urine Opiates Screen Urine Methadone Screen Ur Barbiturates Screen Ur Tricyclics Screen Ur Phencyclidine Scrn Amphetamines Screen U Methamphetamines Scrn U Benzodiazepines Scrn U Cocaine Metab Screen U Cannabinoids Screen 12/15/16 12/15/16 12/15/16 05:15 06:49 11:20 WBC RBC Hgb Hct MCV MCH MCHC Differential RDW Plt Count MPV Neutrophils % Band Neutrophils % Lymphocytes % Monocytes % Eosinophils % Basophils % Neutrophils (Manual) Lymphocytes Monocytes Eosinophils Platelet Estimate Platelet Morphology RBC Morph Micro Appear Specimen Source Sample Site pH pCO2 pO2 HCO3 Base Excess O2 Saturation Gurpreet Test Vent Rate Inspired O2 Tidal Volume PEEP Pressure (ins/psv/peep) Critical Value Sodium 146 H Potassium 3.1 L Chloride 112 H Carbon Dioxide 27.3 Anion Gap 9.8 BUN 44 H Creatinine 0.8 Est GFR ( Amer) TNP Est GFR (Non-Af Amer) TNP BUN/Creatinine Ratio 55.0 Glucose 129 H POC Glucose 144 H Hemoglobin A1c % Calcium 10.2 Magnesium Total Bilirubin 0.5 AST 32 ALT 40 Alkaline Phosphatase 75 Ammonia 107 H Total Protein 6.9 Albumin 3.5 L Globulin 3.4 Albumin/Globulin Ratio 1.0 Prealbumin Triglycerides Cholesterol LDL Cholesterol Direct HDL Cholesterol TSH Urine Source Urine Color Urine Clarity Urine pH Ur Specific [place] Urine Protein Urine Glucose (UA) Urine Ketones Urine Blood Urine Nitrate Urine Bilirubin Urine Urobilinogen Ur Leukocyte Esterase Urine RBC Urine WBC Ur Epithelial Cells Urine Bacteria Urine Yeast Vancomycin Trough Urine Opiates Screen Urine Methadone Screen Ur Barbiturates Screen Ur Tricyclics Screen Ur Phencyclidine Scrn Amphetamines Screen U Methamphetamines Scrn U Benzodiazepines Scrn U Cocaine Metab Screen U Cannabinoids Screen 12/15/16 12/15/16 12/15/16 11:20 11:48 16:15 WBC RBC Hgb Hct MCV MCH MCHC Differential RDW Plt Count MPV Neutrophils % Band Neutrophils % Lymphocytes % Monocytes % Eosinophils % Basophils % Neutrophils (Manual) Lymphocytes Monocytes Eosinophils Platelet Estimate Platelet Morphology RBC Morph Micro Appear Specimen Source Sample Site pH pCO2 pO2 HCO3 Base Excess O2 Saturation Gurpreet Test Vent Rate Inspired O2 Tidal Volume PEEP Pressure (ins/psv/peep) Critical Value Sodium Potassium Chloride Carbon Dioxide Anion Gap BUN Creatinine Est GFR ( Amer) Est GFR (Non-Af Amer) BUN/Creatinine Ratio Glucose POC Glucose 166 H 201 H Hemoglobin A1c % Calcium Magnesium Total Bilirubin AST ALT Alkaline Phosphatase Ammonia Total Protein Albumin Globulin Albumin/Globulin Ratio Prealbumin 11 Triglycerides Cholesterol LDL Cholesterol Direct HDL Cholesterol TSH Urine Source Urine Color Urine Clarity Urine pH Ur Specific [place] Urine Protein Urine Glucose (UA) Urine Ketones Urine Blood Urine Nitrate Urine Bilirubin Urine Urobilinogen Ur Leukocyte Esterase Urine RBC Urine WBC Ur Epithelial Cells Urine Bacteria Urine Yeast Vancomycin Trough Urine Opiates Screen Urine Methadone Screen Ur Barbiturates Screen Ur Tricyclics Screen Ur Phencyclidine Scrn Amphetamines Screen U Methamphetamines Scrn U Benzodiazepines Scrn U Cocaine Metab Screen U Cannabinoids Screen 12/15/16 12/15/16 12/16/16 20:51 20:53 05:07 WBC 11.1 H RBC 5.02 Hgb 14.3 Hct 43.3 MCV 86.3 MCH 28.5 MCHC Differential 33.1 RDW 12.3 Plt Count 279 MPV 8.1 Neutrophils % 65.3 Band Neutrophils % Lymphocytes % 19.3 L Monocytes % 7.6 Eosinophils % 3.8 Basophils % 4.0 H Neutrophils (Manual) Lymphocytes Monocytes Eosinophils Platelet Estimate Platelet Morphology RBC Morph Micro Appear Specimen Source Sample Site pH pCO2 pO2 HCO3 Base Excess O2 Saturation Gurpreet Test Vent Rate Inspired O2 Tidal Volume PEEP Pressure (ins/psv/peep) Critical Value Sodium Potassium Chloride Carbon Dioxide Anion Gap BUN Creatinine Est GFR ( Amer) Est GFR (Non-Af Amer) BUN/Creatinine Ratio Glucose POC Glucose 68 L 67 L Hemoglobin A1c % Calcium Magnesium Total Bilirubin AST ALT Alkaline Phosphatase Ammonia Total Protein Albumin Globulin Albumin/Globulin Ratio Prealbumin Triglycerides Cholesterol LDL Cholesterol Direct HDL Cholesterol TSH Urine Source Urine Color Urine Clarity Urine pH Ur Specific [place] Urine Protein Urine Glucose (UA) Urine Ketones Urine Blood Urine Nitrate Urine Bilirubin Urine Urobilinogen Ur Leukocyte Esterase Urine RBC Urine WBC Ur Epithelial Cells Urine Bacteria Urine Yeast Vancomycin Trough Urine Opiates Screen Urine Methadone Screen Ur Barbiturates Screen Ur Tricyclics Screen Ur Phencyclidine Scrn Amphetamines Screen U Methamphetamines Scrn U Benzodiazepines Scrn U Cocaine Metab Screen U Cannabinoids Screen 12/16/16 12/16/16 12/16/16 05:07 05:07 05:25 WBC RBC Hgb Hct MCV MCH MCHC Differential RDW Plt Count MPV Neutrophils % Band Neutrophils % Lymphocytes % Monocytes % Eosinophils % Basophils % Neutrophils (Manual) Lymphocytes Monocytes Eosinophils Platelet Estimate Platelet Morphology RBC Morph Micro Appear Specimen Source Sample Site pH pCO2 pO2 HCO3 Base Excess O2 Saturation Gurpreet Test Vent Rate Inspired O2 Tidal Volume PEEP Pressure (ins/psv/peep) Critical Value Sodium 143 Potassium 3.3 L Chloride 110 H Carbon Dioxide 27.0 Anion Gap 9.3 BUN 45 H Creatinine 0.8 Est GFR ( Amer) TNP Est GFR (Non-Af Amer) TNP BUN/Creatinine Ratio 56.3 Glucose 158 H POC Glucose 125 H Hemoglobin A1c % Calcium 10.0 Magnesium 1.6 L Total Bilirubin 0.4 AST 63 H ALT 79 H Alkaline Phosphatase 75 Ammonia Total Protein 6.8 Albumin 3.5 L Globulin 3.3 Albumin/Globulin Ratio 1.1 Prealbumin Triglycerides 126 Cholesterol 169 LDL Cholesterol Direct 133 HDL Cholesterol 34 TSH 2.00 Urine Source Urine Color Urine Clarity Urine pH Ur Specific [place] Urine Protein Urine Glucose (UA) Urine Ketones Urine Blood Urine Nitrate Urine Bilirubin Urine Urobilinogen Ur Leukocyte Esterase Urine RBC Urine WBC Ur Epithelial Cells Urine Bacteria Urine Yeast Vancomycin Trough Urine Opiates Screen Urine Methadone Screen Ur Barbiturates Screen Ur Tricyclics Screen Ur Phencyclidine Scrn Amphetamines Screen U Methamphetamines Scrn U Benzodiazepines Scrn U Cocaine Metab Screen U Cannabinoids Screen 12/16/16 12/16/16 12/16/16 11:02 16:25 21:02 WBC RBC Hgb Hct MCV MCH MCHC Differential RDW Plt Count MPV Neutrophils % Band Neutrophils % Lymphocytes % Monocytes % Eosinophils % Basophils % Neutrophils (Manual) Lymphocytes Monocytes Eosinophils Platelet Estimate Platelet Morphology RBC Morph Micro Appear Specimen Source Sample Site pH pCO2 pO2 HCO3 Base Excess O2 Saturation Gurpreet Test Vent Rate Inspired O2 Tidal Volume PEEP Pressure (ins/psv/peep) Critical Value Sodium Potassium Chloride Carbon Dioxide Anion Gap BUN Creatinine Est GFR ( Amer) Est GFR (Non-Af Amer) BUN/Creatinine Ratio Glucose POC Glucose 165 H 185 H 143 H Hemoglobin A1c % Calcium Magnesium Total Bilirubin AST ALT Alkaline Phosphatase Ammonia Total Protein Albumin Globulin Albumin/Globulin Ratio Prealbumin Triglycerides Cholesterol LDL Cholesterol Direct HDL Cholesterol TSH Urine Source Urine Color Urine Clarity Urine pH Ur Specific [place] Urine Protein Urine Glucose (UA) Urine Ketones Urine Blood Urine Nitrate Urine Bilirubin Urine Urobilinogen Ur Leukocyte Esterase Urine RBC Urine WBC Ur Epithelial Cells Urine Bacteria Urine Yeast Vancomycin Trough Urine Opiates Screen Urine Methadone Screen Ur Barbiturates Screen Ur Tricyclics Screen Ur Phencyclidine Scrn Amphetamines Screen U Methamphetamines Scrn U Benzodiazepines Scrn U Cocaine Metab Screen U Cannabinoids Screen 12/17/16 12/17/16 12/17/16 04:45 04:45 04:45 WBC 10.5 RBC 5.06 Hgb 14.2 Hct 43.5 MCV 86.0 MCH 28.1 MCHC Differential 32.7 RDW 12.2 Plt Count 305 MPV 8.2 Neutrophils % 55.9 Band Neutrophils % Lymphocytes % 25.5 Monocytes % 10.1 H Eosinophils % 6.4 H Basophils % 2.1 H Neutrophils (Manual) Lymphocytes Monocytes Eosinophils Platelet Estimate Platelet Morphology RBC Morph Micro Appear Specimen Source Sample Site pH pCO2 pO2 HCO3 Base Excess O2 Saturation Gurpreet Test Vent Rate Inspired O2 Tidal Volume PEEP Pressure (ins/psv/peep) Critical Value Sodium 138 Potassium 3.5 Chloride 106 Carbon Dioxide 26.0 Anion Gap 9.5 BUN 31 H Creatinine 0.7 Est GFR ( Amer) TNP Est GFR (Non-Af Amer) TNP BUN/Creatinine Ratio 44.3 Glucose 161 H POC Glucose Hemoglobin A1c % Calcium 9.7 Magnesium 1.6 L Total Bilirubin 0.4 AST 68 H ALT 91 H Alkaline Phosphatase 82 Ammonia 58 H Total Protein 6.9 Albumin 3.5 L Globulin 3.4 Albumin/Globulin Ratio 1.0 Prealbumin Triglycerides Cholesterol LDL Cholesterol Direct HDL Cholesterol TSH Urine Source Urine Color Urine Clarity Urine pH Ur Specific [place] Urine Protein Urine Glucose (UA) Urine Ketones Urine Blood Urine Nitrate Urine Bilirubin Urine Urobilinogen Ur Leukocyte Esterase Urine RBC Urine WBC Ur Epithelial Cells Urine Bacteria Urine Yeast Vancomycin Trough Urine Opiates Screen Urine Methadone Screen Ur Barbiturates Screen Ur Tricyclics Screen Ur Phencyclidine Scrn Amphetamines Screen U Methamphetamines Scrn U Benzodiazepines Scrn U Cocaine Metab Screen U Cannabinoids Screen 12/17/16 12/17/16 12/17/16 05:45 11:37 16:40 WBC RBC Hgb Hct MCV MCH MCHC Differential RDW Plt Count MPV Neutrophils % Band Neutrophils % Lymphocytes % Monocytes % Eosinophils % Basophils % Neutrophils (Manual) Lymphocytes Monocytes Eosinophils Platelet Estimate Platelet Morphology RBC Morph Micro Appear Specimen Source Sample Site pH pCO2 pO2 HCO3 Base Excess O2 Saturation Gurpreet Test Vent Rate Inspired O2 Tidal Volume PEEP Pressure (ins/psv/peep) Critical Value Sodium Potassium Chloride Carbon Dioxide Anion Gap BUN Creatinine Est GFR ( Amer) Est GFR (Non-Af Amer) BUN/Creatinine Ratio Glucose POC Glucose 161 H 187 H 202 H Hemoglobin A1c % Calcium Magnesium Total Bilirubin AST ALT Alkaline Phosphatase Ammonia Total Protein Albumin Globulin Albumin/Globulin Ratio Prealbumin Triglycerides Cholesterol LDL Cholesterol Direct HDL Cholesterol TSH Urine Source Urine Color Urine Clarity Urine pH Ur Specific [place] Urine Protein Urine Glucose (UA) Urine Ketones Urine Blood Urine Nitrate Urine Bilirubin Urine Urobilinogen Ur Leukocyte Esterase Urine RBC Urine WBC Ur Epithelial Cells Urine Bacteria Urine Yeast Vancomycin Trough Urine Opiates Screen Urine Methadone Screen Ur Barbiturates Screen Ur Tricyclics Screen Ur Phencyclidine Scrn Amphetamines Screen U Methamphetamines Scrn U Benzodiazepines Scrn U Cocaine Metab Screen U Cannabinoids Screen 12/17/16 12/18/16 12/18/16 21:09 05:27 05:27 WBC 8.9 RBC 4.83 Hgb 13.4 Hct 41.4 MCV 85.7 MCH 27.8 MCHC Differential 32.4 RDW 12.1 Plt Count 304 MPV 8.0 Neutrophils % 52.5 Band Neutrophils % Lymphocytes % 32.6 Monocytes % 11.0 H Eosinophils % 3.7 Basophils % 0.2 Neutrophils (Manual) Lymphocytes Monocytes Eosinophils Platelet Estimate Platelet Morphology RBC Morph Micro Appear Specimen Source Sample Site pH pCO2 pO2 HCO3 Base Excess O2 Saturation Gurpreet Test Vent Rate Inspired O2 Tidal Volume PEEP Pressure (ins/psv/peep) Critical Value Sodium 135 L Potassium 3.0 L Chloride 103 Carbon Dioxide 28.0 Anion Gap 7.0 BUN 17 Creatinine 0.7 Est GFR ( Amer) TNP Est GFR (Non-Af Amer) TNP BUN/Creatinine Ratio 24.3 Glucose 162 H POC Glucose 154 H Hemoglobin A1c % Calcium 9.3 Magnesium Total Bilirubin 0.3 AST 37 ALT 66 H Alkaline Phosphatase 75 Ammonia Total Protein 6.2 Albumin 3.3 L Globulin 2.9 Albumin/Globulin Ratio 1.1 Prealbumin Triglycerides Cholesterol LDL Cholesterol Direct HDL Cholesterol TSH Urine Source Urine Color Urine Clarity Urine pH Ur Specific [place] Urine Protein Urine Glucose (UA) Urine Ketones Urine Blood Urine Nitrate Urine Bilirubin Urine Urobilinogen Ur Leukocyte Esterase Urine RBC Urine WBC Ur Epithelial Cells Urine Bacteria Urine Yeast Vancomycin Trough Urine Opiates Screen Urine Methadone Screen Ur Barbiturates Screen Ur Tricyclics Screen Ur Phencyclidine Scrn Amphetamines Screen U Methamphetamines Scrn U Benzodiazepines Scrn U Cocaine Metab Screen U Cannabinoids Screen 12/18/16 12/18/16 12/18/16 05:27 06:00 08:10 WBC RBC Hgb Hct MCV MCH MCHC Differential RDW Plt Count MPV Neutrophils % Band Neutrophils % Lymphocytes % Monocytes % Eosinophils % Basophils % Neutrophils (Manual) Lymphocytes Monocytes Eosinophils Platelet Estimate Platelet Morphology RBC Morph Micro Appear Specimen Source Sample Site pH pCO2 pO2 HCO3 Base Excess O2 Saturation Gurpreet Test Vent Rate Inspired O2 Tidal Volume PEEP Pressure (ins/psv/peep) Critical Value Sodium Potassium Chloride Carbon Dioxide Anion Gap BUN Creatinine Est GFR ( Amer) Est GFR (Non-Af Amer) BUN/Creatinine Ratio Glucose POC Glucose 157 H Hemoglobin A1c % Calcium Magnesium Total Bilirubin AST ALT Alkaline Phosphatase Ammonia 46 Total Protein Albumin Globulin Albumin/Globulin Ratio Prealbumin Triglycerides Cholesterol LDL Cholesterol Direct HDL Cholesterol TSH 1.57 Urine Source Urine Color Urine Clarity Urine pH Ur Specific [place] Urine Protein Urine Glucose (UA) Urine Ketones Urine Blood Urine Nitrate Urine Bilirubin Urine Urobilinogen Ur Leukocyte Esterase Urine RBC Urine WBC Ur Epithelial Cells Urine Bacteria Urine Yeast Vancomycin Trough Urine Opiates Screen Urine Methadone Screen Ur Barbiturates Screen Ur Tricyclics Screen Ur Phencyclidine Scrn Amphetamines Screen U Methamphetamines Scrn U Benzodiazepines Scrn U Cocaine Metab Screen U Cannabinoids Screen 12/18/16 12/18/16 12/18/16 11:48 16:33 21:05 WBC RBC Hgb Hct MCV MCH MCHC Differential RDW Plt Count MPV Neutrophils % Band Neutrophils % Lymphocytes % Monocytes % Eosinophils % Basophils % Neutrophils (Manual) Lymphocytes Monocytes Eosinophils Platelet Estimate Platelet Morphology RBC Morph Micro Appear Specimen Source Sample Site pH pCO2 pO2 HCO3 Base Excess O2 Saturation Gurpreet Test [employer] O2 Tidal Volume PEEP Pressure (ins/psv/peep) Critical Value Sodium Potassium Chloride Carbon Dioxide Anion Gap BUN Creatinine Est GFR ( Amer) Est GFR (Non-Af Amer) BUN/Creatinine Ratio Glucose POC Glucose 154 H 199 H 163 H Hemoglobin A1c % Calcium Magnesium Total Bilirubin AST ALT Alkaline Phosphatase Ammonia Total Protein Albumin Globulin Albumin/Globulin Ratio Prealbumin Triglycerides Cholesterol LDL Cholesterol Direct HDL Cholesterol TSH Urine Source Urine Color Urine Clarity Urine pH Ur Specific [place] Urine Protein Urine Glucose (UA) Urine Ketones Urine Blood Urine Nitrate Urine Bilirubin Urine Urobilinogen Ur Leukocyte Esterase Urine RBC Urine WBC Ur Epithelial Cells Urine Bacteria Urine Yeast Vancomycin Trough Urine Opiates Screen Urine Methadone Screen Ur Barbiturates Screen Ur Tricyclics Screen Ur Phencyclidine Scrn Amphetamines Screen U Methamphetamines Scrn U Benzodiazepines Scrn U Cocaine Metab Screen U Cannabinoids Screen 12/19/16 12/19/16 12/19/16 05:20 05:20 06:25 WBC 11.5 H D RBC 4.88 Hgb 14.0 Hct 42.1 MCV 86.3 MCH 28.7 MCHC Differential 33.3 RDW 12.0 Plt Count 291 MPV 8.3 Neutrophils % 56.2 Band Neutrophils % Lymphocytes % 29.6 Monocytes % 10.0 Eosinophils % 2.6 Basophils % 1.6 Neutrophils (Manual) Lymphocytes Monocytes Eosinophils Platelet Estimate Platelet Morphology RBC Morph Micro Appear Specimen Source Sample Site pH pCO2 pO2 HCO3 Base Excess O2 Saturation Gurpreet Test [employer] O2 Tidal Volume PEEP Pressure (ins/psv/peep) Critical Value Sodium 138 Potassium 3.6 Chloride 106 Carbon Dioxide 27.0 Anion Gap 8.6 BUN 15 Creatinine 0.7 Est GFR ( Amer) TNP Est GFR (Non-Af Amer) TNP BUN/Creatinine Ratio 21.4 Glucose 136 H POC Glucose 136 H Hemoglobin A1c % Calcium 9.6 Magnesium Total Bilirubin 0.4 AST 28 ALT 57 H Alkaline Phosphatase 77 Ammonia Total Protein 6.5 Albumin 3.5 L Globulin 3.0 Albumin/Globulin Ratio 1.2 Prealbumin Triglycerides Cholesterol LDL Cholesterol Direct HDL Cholesterol TSH Urine Source Urine Color Urine Clarity Urine pH Ur Specific [place] Urine Protein Urine Glucose (UA) Urine Ketones Urine Blood Urine Nitrate Urine Bilirubin Urine Urobilinogen Ur Leukocyte Esterase Urine RBC Urine WBC Ur Epithelial Cells Urine Bacteria Urine Yeast Vancomycin Trough Urine Opiates Screen Urine Methadone Screen Ur Barbiturates Screen Ur Tricyclics Screen Ur Phencyclidine Scrn Amphetamines Screen U Methamphetamines Scrn U Benzodiazepines Scrn U Cocaine Metab Screen U Cannabinoids Screen 12/19/16 12/19/16 12/19/16 11:56 16:47 20:05 WBC RBC Hgb Hct MCV MCH MCHC Differential RDW Plt Count MPV Neutrophils % Band Neutrophils % Lymphocytes % Monocytes % Eosinophils % Basophils % Neutrophils (Manual) Lymphocytes Monocytes Eosinophils Platelet Estimate Platelet Morphology RBC Morph Micro Appear Specimen Source Sample Site pH pCO2 pO2 HCO3 Base Excess O2 Saturation Gurpreet Test Vent Rate Insp[employer] O2 Tidal Volume PEEP Pressure (ins/psv/peep) Critical Value Sodium Potassium Chloride Carbon Dioxide Anion Gap BUN Creatinine Est GFR ( Amer) Est GFR (Non-Af Amer) BUN/Creatinine Ratio Glucose POC Glucose 190 H 163 H 149 H Hemoglobin A1c % Calcium Magnesium Total Bilirubin AST ALT Alkaline Phosphatase Ammonia Total Protein Albumin Globulin Albumin/Globulin Ratio Prealbumin Triglycerides Cholesterol LDL Cholesterol Direct HDL Cholesterol TSH Urine Source Urine Color Urine Clarity Urine pH Ur Specific [place] Urine Protein Urine Glucose (UA) Urine Ketones Urine Blood Urine Nitrate Urine Bilirubin Urine Urobilinogen Ur Leukocyte Esterase Urine RBC Urine WBC Ur Epithelial Cells Urine Bacteria Urine Yeast Vancomycin Trough Urine Opiates Screen Urine Methadone Screen Ur Barbiturates Screen Ur Tricyclics Screen Ur Phencyclidine Scrn Amphetamines Screen U Methamphetamines Scrn U Benzodiazepines Scrn U Cocaine Metab Screen U Cannabinoids Screen 12/20/16 12/20/16 12/20/16 05:25 05:25 05:25 WBC 18.5 H D RBC 5.17 Hgb 14.8 Hct 44.0 MCV 85.1 MCH 28.6 MCHC Differential 33.6 RDW 11.9 Plt Count 334 MPV 8.3 Neutrophils % 75.7 Band Neutrophils % Lymphocytes % 14.5 L Monocytes % 8.1 Eosinophils % 1.5 Basophils % 0.2 Neutrophils (Manual) Lymphocytes Monocytes Eosinophils Platelet Estimate Platelet Morphology RBC Morph Micro Appear Specimen Source Sample Site pH pCO2 pO2 HCO3 Base Excess O2 Saturation Gurpreet Test [employer] O2 Tidal Volume PEEP Pressure (ins/psv/peep) Critical Value Sodium 137 Potassium 3.3 L Chloride 103 Carbon Dioxide 26.0 Anion Gap 11.3 BUN 8 Creatinine 0.6 Est GFR ( Amer) TNP Est GFR (Non-Af Amer) TNP BUN/Creatinine Ratio 13.3 Glucose 154 H POC Glucose Hemoglobin A1c % Calcium 9.6 Magnesium Total Bilirubin 0.4 AST 21 ALT 48 Alkaline Phosphatase 97 Ammonia 44 Total Protein 7.0 Albumin 3.7 Globulin 3.3 Albumin/Globulin Ratio 1.1 Prealbumin Triglycerides Cholesterol LDL Cholesterol Direct HDL Cholesterol TSH Urine Source Urine Color Urine Clarity Urine pH Ur Specific [place] Urine Protein Urine Glucose (UA) Urine Ketones Urine Blood Urine Nitrate Urine Bilirubin Urine Urobilinogen Ur Leukocyte Esterase Urine RBC Urine WBC Ur Epithelial Cells Urine Bacteria Urine Yeast Vancomycin Trough Urine Opiates Screen Urine Methadone Screen Ur Barbiturates Screen Ur Tricyclics Screen Ur Phencyclidine Scrn Amphetamines Screen U Methamphetamines Scrn U Benzodiazepines Scrn U Cocaine Metab Screen U Cannabinoids Screen 12/20/16 12/20/16 12/20/16 06:33 11:14 16:49 WBC RBC Hgb Hct MCV MCH MCHC Differential RDW Plt Count MPV Neutrophils % Band Neutrophils % Lymphocytes % Monocytes % Eosinophils % Basophils % Neutrophils (Manual) Lymphocytes Monocytes Eosinophils Platelet Estimate Platelet Morphology RBC Morph Micro Appear Specimen Source Sample Site pH pCO2 pO2 HCO3 Base Excess O2 Saturation Gurpreet Test [employer] O2 Tidal Volume PEEP Pressure (ins/psv/peep) Critical Value Sodium Potassium Chloride Carbon Dioxide Anion Gap BUN Creatinine Est GFR ( Amer) Est GFR (Non-Af Amer) BUN/Creatinine Ratio Glucose POC Glucose 153 H 180 H 178 H Hemoglobin A1c % Calcium Magnesium Total Bilirubin AST ALT Alkaline Phosphatase Ammonia Total Protein Albumin Globulin Albumin/Globulin Ratio Prealbumin Triglycerides Cholesterol LDL Cholesterol Direct HDL Cholesterol TSH Urine Source Urine Color Urine Clarity Urine pH Ur Specific [place] Urine Protein Urine Glucose (UA) Urine Ketones Urine Blood Urine Nitrate Urine Bilirubin Urine Urobilinogen Ur Leukocyte Esterase Urine RBC Urine WBC Ur Epithelial Cells Urine Bacteria Urine Yeast Vancomycin Trough Urine Opiates Screen Urine Methadone Screen Ur Barbiturates Screen Ur Tricyclics Screen Ur Phencyclidine Scrn Amphetamines Screen U Methamphetamines Scrn U Benzodiazepines Scrn U Cocaine Metab Screen U Cannabinoids Screen 12/20/16 12/21/16 12/21/16 21:06 06:01 06:20 WBC 15.8 H RBC 4.48 Hgb 12.9 Hct 38.2 D MCV 85.1 MCH 28.8 MCHC Differential 33.8 RDW 11.7 Plt Count 299 MPV 8.4 Neutrophils % 69.4 Band Neutrophils % Lymphocytes % 19.0 L Monocytes % 9.3 Eosinophils % 1.9 Basophils % 0.4 Neutrophils (Manual) Lymphocytes Monocytes Eosinophils Platelet Estimate Platelet Morphology RBC Morph Micro Appear Specimen Source Sample Site pH pCO2 pO2 HCO3 Base Excess O2 Saturation Gurpreet Test [employer] O2 Tidal Volume PEEP Pressure (ins/psv/peep) Critical Value Sodium Potassium Chloride Carbon Dioxide Anion Gap BUN Creatinine Est GFR ( Amer) Est GFR (Non-Af Amer) BUN/Creatinine Ratio Glucose POC Glucose 186 H 122 H Hemoglobin A1c % Calcium Magnesium Total Bilirubin AST ALT Alkaline Phosphatase Ammonia Total Protein Albumin Globulin Albumin/Globulin Ratio Prealbumin Triglycerides Cholesterol LDL Cholesterol Direct HDL Cholesterol TSH Urine Source Urine Color Urine Clarity Urine pH Ur Specific [place] Urine Protein Urine Glucose (UA) Urine Ketones Urine Blood Urine Nitrate Urine Bilirubin Urine Urobilinogen Ur Leukocyte Esterase Urine RBC Urine WBC Ur Epithelial Cells Urine Bacteria Urine Yeast Vancomycin Trough Urine Opiates Screen Urine Methadone Screen Ur Barbiturates Screen Ur Tricyclics Screen Ur Phencyclidine Scrn Amphetamines Screen U Methamphetamines Scrn U Benzodiazepines Scrn U Cocaine Metab Screen U Cannabinoids Screen 12/21/16 12/21/16 12/21/16 06:20 11:47 16:38 WBC RBC Hgb Hct MCV MCH MCHC Differential RDW Plt Count MPV Neutrophils % Band Neutrophils % Lymphocytes % Monocytes % Eosinophils % Basophils % Neutrophils (Manual) Lymphocytes Monocytes Eosinophils Platelet Estimate Platelet Morphology RBC Morph Micro Appear Specimen Source Sample Site pH pCO2 pO2 HCO3 Base Excess O2 Saturation Gurpreet Test [employer] O2 Tidal Volume PEEP Pressure (ins/psv/peep) Critical Value Sodium 138 Potassium 3.1 L Chloride 105 Carbon Dioxide 27.1 Anion Gap 9.0 BUN 12 Creatinine 0.7 Est GFR ( Amer) TNP Est GFR (Non-Af Amer) TNP BUN/Creatinine Ratio 17.1 Glucose 128 H POC Glucose 158 H 145 H Hemoglobin A1c % Calcium 9.4 Magnesium Total Bilirubin 0.4 AST 19 ALT 37 Alkaline Phosphatase 82 Ammonia Total Protein 6.4 Albumin 3.3 L Globulin 3.1 Albumin/Globulin Ratio 1.1 Prealbumin Triglycerides Cholesterol LDL Cholesterol Direct HDL Cholesterol TSH Urine Source Urine Color Urine Clarity Urine pH Ur Specific [place] Urine Protein Urine Glucose (UA) Urine Ketones Urine Blood Urine Nitrate Urine Bilirubin Urine Urobilinogen Ur Leukocyte Esterase Urine RBC Urine WBC Ur Epithelial Cells Urine Bacteria Urine Yeast Vancomycin Trough Urine Opiates Screen Urine Methadone Screen Ur Barbiturates Screen Ur Tricyclics Screen Ur Phencyclidine Scrn Amphetamines Screen U Methamphetamines Scrn U Benzodiazepines Scrn U Cocaine Metab Screen U Cannabinoids Screen 12/21/16 12/22/16 12/22/16 19:51 05:24 05:57 WBC 14.0 H RBC 4.23 Hgb 11.9 Hct 36.3 MCV 85.8 MCH 28.2 MCHC Differential 32.9 RDW 11.8 Plt Count 302 MPV 8.4 Neutrophils % 66.4 Band Neutrophils % Lymphocytes % 22.0 Monocytes % 9.1 Eosinophils % 2.1 Basophils % 0.4 Neutrophils (Manual) Lymphocytes Monocytes Eosinophils Platelet Estimate Platelet Morphology RBC Morph Micro Appear Specimen Source Sample Site pH pCO2 pO2 HCO3 Base Excess O2 Saturation Gurpreet Test [employer] O2 Tidal Volume PEEP Pressure (ins/psv/peep) Critical Value Sodium Potassium Chloride Carbon Dioxide Anion Gap BUN Creatinine Est GFR ( Amer) Est GFR (Non-Af Amer) BUN/Creatinine Ratio Glucose POC Glucose 187 H 131 H Hemoglobin A1c % Calcium Magnesium Total Bilirubin AST ALT Alkaline Phosphatase Ammonia Total Protein Albumin Globulin Albumin/Globulin Ratio Prealbumin Triglycerides Cholesterol LDL Cholesterol Direct HDL Cholesterol TSH Urine Source Urine Color Urine Clarity Urine pH Ur Specific [place] Urine Protein Urine Glucose (UA) Urine Ketones Urine Blood Urine Nitrate Urine Bilirubin Urine Urobilinogen Ur Leukocyte Esterase Urine RBC Urine WBC Ur Epithelial Cells Urine Bacteria Urine Yeast Vancomycin Trough Urine Opiates Screen Urine Methadone Screen Ur Barbiturates Screen Ur Tricyclics Screen Ur Phencyclidine Scrn Amphetamines Screen U Methamphetamines Scrn U Benzodiazepines Scrn U Cocaine Metab Screen U Cannabinoids Screen 12/22/16 12/22/16 12/22/16 05:57 11:35 13:00 WBC RBC Hgb Hct MCV MCH MCHC Differential RDW Plt Count MPV Neutrophils % Band Neutrophils % Lymphocytes % Monocytes % Eosinophils % Basophils % Neutrophils (Manual) Lymphocytes Monocytes Eosinophils Platelet Estimate Platelet Morphology RBC Morph Micro Appear Specimen Source Sample Site pH pCO2 pO2 HCO3 Base Excess O2 Saturation Gurpreet Test Vent Rate [employer] O2 Tidal Volume PEEP Pressure (ins/psv/peep) Critical Value Sodium 135 L Potassium 3.0 L Chloride 104 Carbon Dioxide 24.8 Anion Gap 9.2 BUN 12 Creatinine 0.5 L Est GFR ( Amer) TNP Est GFR (Non-Af Amer) TNP BUN/Creatinine Ratio 24.0 Glucose 119 H POC Glucose 212 H Hemoglobin A1c % Calcium 9.1 Magnesium Total Bilirubin 0.4 AST 22 ALT 34 Alkaline Phosphatase 75 Ammonia Total Protein 6.0 Albumin 3.2 L Globulin 2.8 Albumin/Globulin Ratio 1.1 Prealbumin Triglycerides Cholesterol LDL Cholesterol Direct HDL Cholesterol TSH Urine Source Urine Color Urine Clarity Urine pH Ur Specific [place] Urine Protein Urine Glucose (UA) Urine Ketones Urine Blood Urine Nitrate Urine Bilirubin Urine Urobilinogen Ur Leukocyte Esterase Urine RBC Urine WBC Ur Epithelial Cells Urine Bacteria Urine Yeast Vancomycin Trough 9.8 L Urine Opiates Screen Urine Methadone Screen Ur Barbiturates Screen Ur Tricyclics Screen Ur Phencyclidine Scrn Amphetamines Screen U Methamphetamines Scrn U Benzodiazepines Scrn U Cocaine Metab Screen U Cannabinoids Screen 12/22/16 12/22/16 12/23/16 17:24 21:57 05:47 WBC 12.0 H RBC 4.24 Hgb 12.1 Hct 36.2 MCV 85.5 MCH 28.7 MCHC Differential 33.5 RDW 12.1 Plt Count 274 MPV 8.9 Neutrophils % 65.7 Band Neutrophils % Lymphocytes % 22.4 Monocytes % 9.7 Eosinophils % 2.0 Basophils % 0.2 Neutrophils (Manual) Lymphocytes Monocytes Eosinophils Platelet Estimate Platelet Morphology RBC Morph Micro Appear Specimen Source Sample Site pH pCO2 pO2 HCO3 Base Excess O2 Saturation Gurpreet Test Vent [employer] O2 Tidal Volume PEEP Pressure (ins/psv/peep) Critical Value Sodium Potassium Chloride Carbon Dioxide Anion Gap BUN Creatinine Est GFR ( Amer) Est GFR (Non-Af Amer) BUN/Creatinine Ratio Glucose POC Glucose 191 H 149 H Hemoglobin A1c % Calcium Magnesium Total Bilirubin AST ALT Alkaline Phosphatase Ammonia Total Protein Albumin Globulin Albumin/Globulin Ratio Prealbumin Triglycerides Cholesterol LDL Cholesterol Direct HDL Cholesterol TSH Urine Source Urine Color Urine Clarity Urine pH Ur Specific [place] Urine Protein Urine Glucose (UA) Urine Ketones Urine Blood Urine Nitrate Urine Bilirubin Urine Urobilinogen Ur Leukocyte Esterase Urine RBC Urine WBC Ur Epithelial Cells Urine Bacteria Urine Yeast Vancomycin Trough Urine Opiates Screen Urine Methadone Screen Ur Barbiturates Screen Ur Tricyclics Screen Ur Phencyclidine Scrn Amphetamines Screen U Methamphetamines Scrn U Benzodiazepines Scrn U Cocaine Metab Screen U Cannabinoids Screen 12/23/16 12/23/16 12/23/16 05:47 06:35 19:49 WBC RBC Hgb Hct MCV MCH MCHC Differential RDW Plt Count MPV Neutrophils % Band Neutrophils % Lymphocytes % Monocytes % Eosinophils % Basophils % Neutrophils (Manual) Lymphocytes Monocytes Eosinophils Platelet Estimate Platelet Morphology RBC Morph Micro Appear Specimen Source Sample Site pH pCO2 pO2 HCO3 Base Excess O2 Saturation Gurpreet Test Vent [employer] O2 Tidal Volume PEEP Pressure (ins/psv/peep) Critical Value Sodium 137 Potassium 3.2 L Chloride 104 Carbon Dioxide 27.5 Anion Gap 8.7 BUN 9 Creatinine 0.6 Est GFR ( Amer) TNP Est GFR (Non-Af Amer) TNP BUN/Creatinine Ratio 15.0 Glucose 115 H POC Glucose 109 H 118 H Hemoglobin A1c % Calcium 9.3 Magnesium Total Bilirubin 0.4 AST 18 ALT 29 Alkaline Phosphatase 71 Ammonia Total Protein 6.0 Albumin 3.1 L Globulin 2.9 Albumin/Globulin Ratio 1.1 Prealbumin Triglycerides Cholesterol LDL Cholesterol Direct HDL Cholesterol TSH Urine Source Urine Color Urine Clarity Urine pH Ur Specific [place] Urine Protein Urine Glucose (UA) Urine Ketones Urine Blood Urine Nitrate Urine Bilirubin Urine Urobilinogen Ur Leukocyte Esterase Urine RBC Urine WBC Ur Epithelial Cells Urine Bacteria Urine Yeast Vancomycin Trough Urine Opiates Screen Urine Methadone Screen Ur Barbiturates Screen Ur Tricyclics Screen Ur Phencyclidine Scrn Amphetamines Screen U Methamphetamines Scrn U Benzodiazepines Scrn U Cocaine Metab Screen U Cannabinoids Screen 12/23/16 12/24/16 12/24/16 21:58 05:45 05:45 WBC 11.2 H RBC 4.26 Hgb 12.1 Hct 36.2 MCV 85.0 MCH 28.5 MCHC Differential 33.5 RDW 12.3 Plt Count 320 MPV 8.8 Neutrophils % 62.7 Band Neutrophils % Lymphocytes % 25.6 Monocytes % 9.4 Eosinophils % 1.8 Basophils % 0.5 Neutrophils (Manual) Lymphocytes Monocytes Eosinophils Platelet Estimate Platelet Morphology RBC Morph Micro Appear Specimen Source Sample Site pH pCO2 pO2 HCO3 Base Excess O2 Saturation Gurpreet Test Vent Rate [employer] O2 Tidal Volume PEEP Pressure (ins/psv/peep) Critical Value Sodium 138 Potassium 3.6 Chloride 109 H Carbon Dioxide 22.8 Anion Gap 9.8 BUN 11 Creatinine 0.7 Est GFR ( Amer) TNP Est GFR (Non-Af Amer) TNP BUN/Creatinine Ratio 15.7 Glucose 100 POC Glucose 108 H Hemoglobin A1c % Calcium 9.5 Magnesium Total Bilirubin 0.5 AST 16 ALT 26 Alkaline Phosphatase 70 Ammonia Total Protein 6.5 Albumin 3.3 L Globulin 3.2 Albumin/Globulin Ratio 1.0 Prealbumin Triglycerides Cholesterol LDL Cholesterol Direct HDL Cholesterol TSH Urine Source Urine Color Urine Clarity Urine pH Ur Specific [place] Urine Protein Urine Glucose (UA) Urine Ketones Urine Blood Urine Nitrate Urine Bilirubin Urine Urobilinogen Ur Leukocyte Esterase Urine RBC Urine WBC Ur Epithelial Cells Urine Bacteria Urine Yeast Vancomycin Trough Urine Opiates Screen Urine Methadone Screen Ur Barbiturates Screen Ur Tricyclics Screen Ur Phencyclidine Scrn Amphetamines Screen U Methamphetamines Scrn U Benzodiazepines Scrn U Cocaine Metab Screen U Cannabinoids Screen 12/24/16 12/24/16 12/24/16 05:45 06:24 09:50 WBC RBC Hgb Hct MCV MCH MCHC Differential RDW Plt Count MPV Neutrophils % Band Neutrophils % Lymphocytes % Monocytes % Eosinophils % Basophils % Neutrophils (Manual) Lymphocytes Monocytes Eosinophils Platelet Estimate Platelet Morphology RBC Morph Micro Appear Specimen Source Sample Site pH pCO2 pO2 HCO3 Base Excess O2 Saturation Gurpreet Test [employer] O2 Tidal Volume PEEP Pressure (ins/psv/peep) Critical Value Sodium Potassium Chloride Carbon Dioxide Anion Gap BUN Creatinine Est GFR ( Amer) Est GFR (Non-Af Amer) BUN/Creatinine Ratio Glucose POC Glucose 95 Hemoglobin A1c % Calcium Magnesium Total Bilirubin AST ALT Alkaline Phosphatase Ammonia 39 Total Protein Albumin Globulin Albumin/Globulin Ratio Prealbumin Triglycerides Cholesterol LDL Cholesterol Direct HDL Cholesterol TSH Urine Source Urine Color Urine Clarity Urine pH Ur Specific [place] Urine Protein Urine Glucose (UA) Urine Ketones Urine Blood Urine Nitrate Urine Bilirubin Urine Urobilinogen Ur Leukocyte Esterase Urine RBC Urine WBC Ur Epithelial Cells Urine Bacteria Urine Yeast Vancomycin Trough 19.7 Urine Opiates Screen Urine Methadone Screen Ur Barbiturates Screen Ur Tricyclics Screen Ur Phencyclidine Scrn Amphetamines Screen U Methamphetamines Scrn U Benzodiazepines Scrn U Cocaine Metab Screen U Cannabinoids Screen 12/24/16 11:35 WBC RBC Hgb Hct MCV MCH MCHC Differential RDW Plt Count MPV Neutrophils % Band Neutrophils % Lymphocytes % Monocytes % Eosinophils % Basophils % Neutrophils (Manual) Lymphocytes Monocytes Eosinophils Platelet Estimate Platelet Morphology RBC Morph Micro Appear Specimen Source Sample Site pH pCO2 pO2 HCO3 Base Excess O2 Saturation Gurpreet Test Vent Rate Insp[employer] O2 Tidal Volume PEEP Pressure (ins/psv/peep) Critical Value Sodium Potassium Chloride Carbon Dioxide Anion Gap BUN Creatinine Est GFR ( Amer) Est GFR (Non-Af Amer) BUN/Creatinine Ratio Glucose POC Glucose 193 H Hemoglobin A1c % Calcium Magnesium Total Bilirubin AST ALT Alkaline Phosphatase Ammonia Total Protein Albumin Globulin Albumin/Globulin Ratio Prealbumin Triglycerides Cholesterol LDL Cholesterol Direct HDL Cholesterol TSH Urine Source Urine Color Urine Clarity Urine pH Ur Specific [place] Urine Protein Urine Glucose (UA) Urine Ketones Urine Blood Urine Nitrate Urine Bilirubin Urine Urobilinogen Ur Leukocyte Esterase Urine RBC Urine WBC Ur Epithelial Cells Urine Bacteria Urine Yeast Vancomycin Trough Urine Opiates Screen Urine Methadone Screen Ur Barbiturates Screen Ur Tricyclics Screen Ur Phencyclidine Scrn Amphetamines Screen U Methamphetamines Scrn U Benzodiazepines Scrn U Cocaine Metab Screen U Cannabinoids Screen Hospital Course: Patient was hospitalized to Med/Surg. She was started in IV NS, all Psychotropic meds were DC, she was started in Haldol and ativan, Head CT was done and showed no acute ilness, she was started in vanco, lactulose and continue with SNF meds. Consult with ID, Psychiatry, IM, PT were done and recommendations were follow. Little by little and with the family help patient started to eat and takes meds. Due to the improvement patient is send to SNF to continue treatment. Condition at Discharge: Stable Disposition: Discharge/Transfered to SNF Home Medications: Home Medication Medication Instructions Recorded Type Acetaminophen [Tylenol] 650 mg PO Q4HR PRN tab 12/11/16 Rx Aspirin EC [Ecotrin] 81 mg PO DAILY ect 12/11/16 Rx Bisacodyl [Dulcolax 10 Mg Supp] 10 mg RC DAILY PRN sup 12/11/16 Rx Ciprofloxacin [Cipro] 250 mg PO BID tab 12/11/16 Rx Docusate Sodium [Colace] 100 mg PO DAILY cap 12/11/16 Rx Fleet Enema 135 ml RC Q48H PRN 12/11/16 Rx Lorazepam [Ativan] 1 mg PO Q6HR PRN tab 12/11/16 Rx Magnesium Hydroxide [Milk of 30 ml PO HS PRN udc 12/11/16 Rx Magnesia] Simvastatin [Zocor*] 20 mg PO QPM tab 12/11/16 Rx Temazepam [Restoril*] 15 mg PO HS PRN cap 12/11/16 Rx amLODIPine Besylate [Norvasc] 5 mg PO DAILY tab 12/11/16 Rx Inpatient Medications: Current Medications Acetaminophen (Tylenol) 650 mg PO Q4HR PRN PRN Reason: Pain or Fever >101 Stop: 02/09/17 17:50 Amlodipine Besylate (Norvasc) 5 mg PO DAILY RHIANNA Stop: 02/10/17 08:59 Last Admin: 12/24/16 09:43 Dose: 5 mg Aspirin (Ecotrin) 81 mg PO DAILY RHIANNA Stop: 02/10/17 08:59 Last Admin: 12/24/16 09:41 Dose: 81 mg Bisacodyl (Dulcolax 10 Mg Supp) 10 mg RC DAILY PRN PRN Reason: Constipation Stop: 02/09/17 17:50 Last Admin: 12/15/16 14:30 Dose: 10 mg Carvedilol (Coreg) 6.25 mg PO BID RHIANNA Stop: 02/11/17 08:59 Last Admin: 12/24/16 09:41 Dose: 6.25 mg Insulin Aspart (Novolog Insulin Sliding Scale) 0 units SUBQ ACHS RHIANNA PRN Reason: Protocol Stop: 02/10/17 11:29 Last Admin: 12/24/16 12:09 Dose: 2 units Labetalol HCl (Trandate) 10 mg IVP Q8HR PRN PRN Reason: SBP ABOVE 160 Stop: 02/10/17 17:14 Lactobacillus Rhamnosus (Culturelle) 1 each PO DAILY RHIANNA Stop: 02/19/17 16:59 Last Admin: 12/24/16 10:10 Dose: 1 each Lactulose (Cephulac) 20 gm PO DAILY [facility] Stop: 02/15/17 08:59 Last Admin: 12/24/16 10:08 Dose: 20 gm Losartan Potassium (Cozaar) 50 mg PO DAILY RHIANNA Stop: 02/11/17 08:59 Last Admin: 12/24/16 09:42 Dose: 50 mg Megestrol Acetate (Megace) 400 mg PO DAILY RHIANNA PRN Reason: Protocol Stop: 02/19/17 11:29 Last Admin: 12/24/16 09:41 Dose: 400 mg Miscellaneous (Probiotic Screen) 1 ea MC PRN PRN PRN Reason: PROTOCOL Stop: 02/19/17 16:06 Potassium Chloride (Potassium Chloride Elixir) 20 meq GT DAILY RHIANNA Stop: 02/22/17 08:59 Last Admin: 12/24/16 09:40 Dose: 20 meq Quetiapine Fumarate (Seroquel) 50 mg PO DAILY RHIANNA PRN Reason: Protocol Stop: 02/21/17 09:14 Last Admin: 12/24/16 09:43 Dose: 50 mg Trimethoprim/Sulfamethoxazole (Bactrim Ds) 1 tab PO BID [facility] Stop: 02/22/17 16:59 Zolpidem Tartrate (Ambien) 5 mg PO HS [facility] Stop: 02/20/17 20:59 Last Admin: 12/23/16 22:13 Dose: Not Given Activity: As Tolerated Discharge Diet: 2 Gram Sodium Consults and Follow-Up: Isaías Anna [Primary Care Provider] - Consulting Speciality: Psychology, Other (PCP and Psychiatry)
[2016-12-24] MEDS ORDERED: Sulfamethoxazole/TMP 800/160mg Tab PO SCH (17:00)
== END 2016-12-24 18:05 | DRG 442 ==
LOC: TELE 16:43 → MSI 12-13 13:42
PROVIDERS: ADMIT General Practice; ATTEND General Practice
DX: K72.90 Hepatic failure, unspecified without coma (principal); N39.0 Urinary tract infection, site not specified; E87.0 Hyperosmolality and hypernatremia; E11.22 Type 2 diabetes mellitus with diabetic chronic kidney disease; F03.90 Unspecified dementia, unspecified severity, without behavioral disturbance, psychotic disturbance, mood disturbance, and anxiety; L03.116 Cellulitis of left lower limb; I13.0 Hypertensive heart and chronic kidney disease with heart failure and stage 1 through stage 4 chronic kidney disease, or unspecified chronic kidney disease; I50.9 Heart failure, unspecified; J44.9 Chronic obstructive pulmonary disease, unspecified; E78.5 Hyperlipidemia, unspecified; F29 Unspecified psychosis not due to a substance or known physiological condition; N18.9 Chronic kidney disease, unspecified; F17.210 Nicotine dependence, cigarettes, uncomplicated; E87.6 Hypokalemia; F32.9 Major depressive disorder, single episode, unspecified; F41.9 Anxiety disorder, unspecified; F20.9 Schizophrenia, unspecified; R62.7 Adult failure to thrive; R56.9 Unspecified convulsions; Z79.82 Long term (current) use of aspirin; Z91.048 Other nonmedicinal substance allergy status
CPT/HCPCS: 36415-UA; 36600-90; 70450-TC; 71010-TC; 73560-TC-LT; 74000-TC; 80053-TC; 80061-TC; 80202-TC; 80307; 81001-TC; 82140-TC; 82803-TC; 82948-90; 83036-90; 83735-TC; 84134-90; 84443-TC; 85007-TC; 85025-TC; 85027-TC; 87086-90; 90799; 93005; 94760; 97530; J0696; J1450; J1630; J1815; J2001; J2060; J3370; J3475; J3480; J7030; J7042; J7070; X3904; Z7610